=== PATIENT | female | born 1950 | race Caucasian/White ===

== ENCOUNTER 2017-07-29 03:00 | Outpatient (CLI) | payer MEDICARE, MEDICAID | END 2017-07-29 03:01 | disposition home or self-care (01) | LOC: BICRAD 03:00 | PROVIDERS: ATTEND Nurse Practitioner Family | DX: J40 Bronchitis, not specified as acute or chronic (principal); R92.8 Other abnormal and inconclusive findings on diagnostic imaging of breast | CPT/HCPCS: 71046 ==

== ENCOUNTER 2017-10-01 11:38 | Emergency (ER) | payer MEDICARE, MEDICAID ==
[2017-10-01] MEDS ORDERED: methylPREDNISolone Sod Succ/PF 125 MG/2 ML VIAL ONE (11:57)
[2017-10-01 12:19] LABS: #Lymphocytes 1.1 thou/uL (1.20-3.40); #Monocytes 1.3 thou/uL (0.11-0.59); #Neutrophils 13.8 thou/uL (1.40-6.50); %Basophils 0.2 % (0.0-1.0); %Eosinophils 0.2 % (0.0-10.0); %Lymphocytes 6.7 % (21.0-51.0); %Monocytes 7.9 % (0.0-10.0); Hemoglobin 12.8 g/dL (12.0-16.0); Mean Corpuscular HGB CONC 33.7 g/dL (32.0-36.0); Mean Corpuscular Hemoglobin 31.9 pg (27.0-31.0); Mean Corpuscular Volume 94.8 fl (81.0-99.0); Mean Platelet Volume 8.1 fL (7.4-10.4); Platelet Count 244 thou/uL (130-400); RBC Distribution Width 12.7 % (11.5-14.5); Red Blood Cell (RBC) Count 4.02 mill/uL (4.20-5.40); White Blood Cell (WBC) Count 16.2 thou/uL (4.8-10.8)
--- NOTE | 2017-10-01 12:35 | RAD ---
PORTABLE CHEST ONE VIEW: Date: 10-01-17 Time: 12:25 p.m. History: Dyspnea. FINDINGS: Comparison is made with exam of 03-03-17. Changes of COPD are again seen. The heart size is stable. The aorta is tortuous. Scoliosis of the spi ne is again seen. No lobar consolidation, pneumothoraces or pleural effusions are identified. IMPRESSION: COPD. No evidence of acute process. POS: C
[2017-10-01 12:44] LABS: Troponin I Less than 0.010 ng/mL (< 0.028)
[2017-10-01 12:48] LABS: CKMB 7.6 ng/mL (0-6.6)
[2017-10-01 13:00] LABS: ALT (SGPT) 20 U/L (8-55); AST (SGOT) 35 U/L (5-34); Albumin 3.8 g/dL (3.4-4.8); Alkaline Phosphatase 84 U/L (40-150); Anion Gap 18 mmol/L (10-20); BUN (Urea Nitrogen) 11 mg/dL (9.8-20.1); Bilirubin, Total 1.1 mg/dL (0.2-1.2); Calc. Creatinine Clearance 0 mL/min (70-130); Calcium 9.4 mg/dL (7.8-10.44); Carbon Dioxide 23 mmol/L (23-31); Chloride 87 mmol/L (98-107); Estimated GFR-MDRD Greater than 90; Glucose 82 mg/dL (80-115); Potassium 3.7 mmol/L (3.5-5.1); Protein, Total 7.8 g/dL (6.0-8.3); Sodium 124 mmol/L (136-145)
[2017-10-01] MEDS ORDERED: Azithromycin 250 MG TAB ONE (15:37)
== END 2017-10-01 16:14 | disposition home or self-care (01) ==
LOC: ERS 11:38
DX: J44.9 Chronic obstructive pulmonary disease, unspecified (principal); F32.9 Major depressive disorder, single episode, unspecified; Z87.891 Personal history of nicotine dependence
CPT/HCPCS: 71045; 80053; 82553; 84484; 85025; 93005; 94640; 96374; J2930; J7620

== ENCOUNTER 2017-10-31 07:33 | Inpatient (IN) | payer MEDICARE, MEDICAID ==
[2017-10-31 07:59] LABS: #Basophils 0.1 thou/uL (0.0-0.2); #Eosinphils 0.6 thou/uL (0.0-0.7); #Lymphocytes 1.6 thou/uL (1.20-3.40); #Monocytes 0.9 thou/uL (0.11-0.59); #Neutrophils 5.7 thou/uL (1.40-6.50); %Basophils 0.7 % (0.0-1.0); %Lymphocytes 18.2 % (21.0-51.0); %Monocytes 10.4 % (0.0-10.0); %Neutrophils 63.6 % (42.0-75.0); Mean Corpuscular HGB CONC 33.1 g/dL (32.0-36.0); Mean Corpuscular Hemoglobin 30.6 pg (27.0-31.0); Mean Corpuscular Volume 92.6 fl (81.0-99.0); Mean Platelet Volume 6.6 fL (7.4-10.4); Platelet Count 299 thou/uL (130-400); RBC Distribution Width 12.4 % (11.5-14.5); Red Blood Cell (RBC) Count 4.57 mill/uL (4.20-5.40); White Blood Cell (WBC) Count 8.9 thou/uL (4.8-10.8)
--- NOTE | 2017-10-31 08:18 | RAD ---
RADIOGRAPH CHEST 2 VIEWS: Date: 10/31/17 Time: 0809 hours HISTORY: 67-year-old female with dyspnea and hypoxemia. FINDINGS: There is hyperinflation of the lungs, consistent with COPD. There is no evidence of air space densit y, pneumothorax, or pulmonary edema. There is no cardiomegaly or pleural effusion. There is no inter sergio change since 10/01/17. IMPRESSION: 1. No acute cardiopulmonary findings. 2. Emphysema. di [] POS: MAGGI
[2017-10-31 08:23] LABS: ALT (SGPT) 29 U/L (8-55); AST (SGOT) 36 U/L (5-34); Albumin 4.2 g/dL (3.4-4.8); Alkaline Phosphatase 73 U/L (40-150); Anion Gap 13 mmol/L (10-20); BUN (Urea Nitrogen) 11 mg/dL (9.8-20.1); Bilirubin, Total 0.7 mg/dL (0.2-1.2); CK (CPK) 336 U/L (29-168); Calc. Creatinine Clearance 0 mL/min (70-130); Calcium 9.8 mg/dL (7.8-10.44); Carbon Dioxide 27 mmol/L (23-31); Chloride 93 mmol/L (98-107); Estimated GFR-MDRD 90; Globulin 3.7 g/dL (2.4-3.5); Glucose 105 mg/dL (80-115); Potassium 3.2 mmol/L (3.5-5.1); Protein, Total 7.9 g/dL (6.0-8.3); Sodium 130 mmol/L (136-145)
[2017-10-31 08:26] LABS: Troponin I Less than 0.010 ng/mL (< 0.028)
[2017-10-31 08:39] LABS: Actual Bicarbonate (HCO3a) 27.2 mEq/L (22-26); CO2 Tension 44.9 mmHg (35.0-45.0); Hemoglobin (Hb) 13.6 g/dL (12.0-16.0); O2 Tension (PaO2) 122.7 mmHg (80.0-100.0)
[2017-10-31 08:40] LABS: ALV-art Gradient 104.775 (0-20); Analyzer IN Cardio ER; Calcium, Ionized 1.2 mmol/L (1.12-1.30); Puncture Site LRA
[2017-10-31] MEDS ORDERED: Albuterol Sulfate 2.5 mg/3 ml Neb ONE (08:44)
[2017-10-31] MEDS ORDERED: Dexamethasone 10 MG/ML VIAL ONE (08:58)
[2017-10-31] MEDS ORDERED: Magnesium Sulfate 2 GM/100 ML BAG ONE (08:58)
[2017-10-31 09:16] LABS: CKMB 7.7 ng/mL (0-6.6)
--- NOTE | 2017-10-31 10:46 | HP ---
PRIMARY CARE PHYSICIAN: Shaista Young REASON FOR ADMISSION: Acute hypoxic respiratory failure, respiratory distress due to COPD exacerbati on. HISTORY OF PRESENT ILLNESS: A 67-year-old female who has underlying history of severe COPD with a hi story of anxiety and depression who presented to the emergency room with a complaint of increasing sh ortness of breath. The patient reports that for the last 3 months she has increasing shortness of br eath. She was trying to use her inhalers at home, but that was not improving. The patient had a wor st last month. The patient was trying to get oxygen and trying to get a pulmonology appointment. Th e patient was also trying all her inhalers and she was not getting better. She was becoming day by d ay more and more weak to the point last night she was not able to take any deep breath. Even she was not able to talk. She was in respiratory distress and that is why she has to call paramedics. The patient was hypoxic and saturation was around 85%. She was tripoding. She was wheezing all over in her lungs. She was not able to talk in full sentences. The patient appeared in respiratory distress . The patient required BiPAP in the emergency room. The patient was given several rounds of DuoNeb therapy, as well as magnesium sulfate, empiric antibiotic therapy with Levaquin 750 mg, Decadron 10 m g. Despite all this aggressive treatment in the emergency room, the patient was still wheezing all o ravi her lung ca and she was still in respiratory distress and she was not able to talk in full se ntences and that is why we decided to keep this patient in IMCU with BiPAP therapy. The patient denies any UTI symptoms. She denies any constipation, diarrhea, melena, hematochezia. S he denies any hemoptysis. She does report chest pain which is related with coughing. The patient's appetite is also relatively poor and she is also losing weight. She denies any melena or hematochezi a. She denies any UTI symptoms. She denies any headache or focal motor or sensory symptoms. ALLERGIES: No known drug allergy. CURRENT HOME MEDICATIONS: The patient did not bring her home medication. Based on our hospital [address], the patient is on following medications; Ventolin HFA 2 puffs q.6 hourly p.r.n., Xanax 0.5 mg p.o . q.8h. p.r.n., Symbicort 2 puff inhalation b.i.d., Pletal 50 mg p.o. b.i.d., Prozac 40 mg p.o. at be dtime, DuoNeb q.6 hourly p.r.n., lansoprazole 30 mg p.o. daily, Synthroid 50 mcg p.o. daily, Singulai r 10 mg p.o. daily, Spiriva 18 mcg inhalation daily, tramadol 50 mg q.6 hourly p.r.n., trazodone 100 mg p.o. at bedtime. PAST MEDICAL HISTORY: Severe chronic obstructive pulmonary disease, history of erosive gastritis on lansoprazole, chronic hepatitis C, history of cannabinoid abuse, hypothyroidism, gastroesophageal ref lux disease, peripheral vascular disease, chronic low back pain, moderate protein calorie malnutritio n, diverticulosis. PAST PSYCHIATRIC HISTORY: Anxiety and depression. PAST SURGICAL HISTORY: Cholecystectomy for cholecystitis, carpal tunnel repair, tubal ligation. SOCIAL HISTORY: The patient is a former smoker. She is periodically abusing marijuana. She cut Flickme smoking. She denies any alcohol abuse. She denies any other illicit drug abuse. FAMILY HISTORY: Father from lung cancer by age of 60 and mother had advanced COPD as well. REVIEW OF SYSTEMS: The following complete review of systems was negative, unless otherwise mentioned in the HPI or below: Constitutional: Weight loss or gain, ability to conduct usual activities. Skin: Rash, itching. Eyes: Double vision, pain. ENT/Mouth: Nose bleeding, neck stiffness, pain, tenderness. Cardiovascular: Palpitations, dyspnea on exertion, orthopnea. Respiratory: Shortness of breath, wheezing, cough, hemoptysis, fever or night sweats. Gastrointestinal: Poor appetite, abdominal pain, heartburn, nausea, vomiting, constipation, or diarrhea. Genitourinary: Urgency, frequency, dysuria, nocturia. Musculoskeletal: Pain, swelling. Neurologic/Psychiatric: Anxiety, depression. Allergy/Immunologic: Skin rash, bleeding tendency. Please see my HPI for pertinent positive and negative. All other review of systems reviewed and nega tive except as mentioned in the HPI. EMERGENCY ROOM COURSE: The patient was treated in the emergency room with the DuoNeb, albuterol nebu lization, Decadron 10 mg, IV fluid, Levaquin 750 mg, magnesium sulfate. PHYSICAL EXAMINATION: VITAL SIGNS: On arrival, blood pressure 157/97, pulse 92, respiratory rate 26, temperature 97.7, sat uration 98% on BiPAP, weight 54.4 kilograms. GENERAL: The patient is currently on BiPAP. She is in respiratory distress. She is tachycardic, ta chypneic. She is not able to talk in full sentence. HEENT: Head; normocephalic, atraumatic. Eyes: Pupils round, reactive to light. Extraocular muscle intact. ENT: Oropharynx within normal limits. Moist mucous membranes. No oral lesion, no pharyng eal erythema, no exudate. NECK: Supple, no JVD, no thyromegaly, no carotid bruit, no jugular venous distention. LUNGS: Bilateral end expiratory wheezing heard, bilateral reduced air entry, no accessory muscles of respiration in use. CARDIAC: S1, S2 regular, tachycardia, no murmur, no gallop, no rub. ABDOMEN: Soft, bowel sounds present, nontender, nondistended. No organomegaly, no mass, no suprapub ic tenderness. BACK: Unremarkable, no CVA tenderness. EXTREMITIES: Upper extremity passive movement of all joints are normal. Lower extremities: No bernard a. Good peripheral pulsation. SKIN: No skin rash. HEMATOLOGICAL: No lymphadenopathy. NEUROLOGIC: The patient is currently alert, awake, no focal neurological deficit noted. She moves a ll 4 limbs. SIGNIFICANT LABS: EKG showing normal sinus rhythm, no acute ischemic changes. Chest x-ray: COPD ty pe of changes noted, but no acute process. CBC: WBC 8.9, hemoglobin 14.0, platelet 299. ABG; pH 7.40, CO2 44.9, bicarbonate 27.2, O2 122.7. BMP; sodium 138, potassium 3.2, chloride 93, carbon dioxide 27, anion gap 13, BUN 11, creatinine 0.66 , glucose 105, calcium 9.8. LFTs: AST 36, ALT 29, alkaline phosphatase 73, albumin 4.2. CK 336, CK-MB 7.7, troponin I less than 0.010. ASSESSMENT AND PLAN: 1. Acute respiratory distress due to acute on chronic obstructive pulmonary disease exacerbation ass ociated with acute hypoxic respiratory failure. This patient is requiring BiPAP. She has not improv ement despite maximum treatment in the emergency room. She will require admission for her chronic ob structive pulmonary disease exacerbation. This patient may end up with requirement for home oxygen on discharge. 2. Acute respiratory failure with hypoxia. Currently, the patient is requiring BiPAP. We will try to wean BiPAP as needed and as tolerated and will continue with oxygen to maintain saturation above 9 2%. We will assess while in hospital for need of home oxygen therapy. Pulmonary team will be consul anthony. 3. Chronic obstructive pulmonary disease exacerbation. As usual, the patient will be treated with D uoNeb every 4 hourly and as needed basis along with Pulmicort nebulization twice daily, Solu-Medrol 4 0 mg IV q.6h., Mucinex 600 mg twice daily, Singulair 10 mg p.o. daily and symptomatic treatment for c ough with Robitussin and empiric antibiotic therapy with levofloxacin 500 mg IV daily. 4. Moderate protein calorie malnutrition, likely due to underlying chronic obstructive pulmonary dis ease with cachexia. The patient will need nutritional supplement with Ensure Enlive three times teofilo y. 5. Gastroesophageal reflux disease. We will continue Protonix 40 mg p.o. daily. 6. Hypothyroidism. We will continue Synthroid 50 mcg p.o. daily. 7. Anxiety and depression. We will continue Xanax 0.5 mg t.i.d. p.r.n. along with the Prozac 40 mg p.o. daily. 8. Peripheral vascular disease. We will continue Pletal 50 mg twice daily. 9. Abnormal electrolytes with hyponatremia and hypokalemia. The patient will be given IV fluid with potassium at 70 mL per hour. 10. Rhabdomyolysis, likely due to muscle use from increased respiratory rate. We will do serial car diac enzymes and repeat CK level tomorrow. 11. Deep venous thrombosis prophylaxis. Lovenox 30 mg subcutaneously daily. 12. Gastrointestinal prophylaxis, Protonix 40 mg p.o. daily. CODE STATUS: The patient is FULL CODE. Patient does not have any surrogate decision maker. Disposition plan based on clinical course. We are expecting patient's stay in hospital more than 2 m idnights. Plan of care discussed with the patient in detail.
[2017-10-31] MEDS ORDERED: Artificial Tear Sol 15 ML BOT EA EYE PRN (10:59)
[2017-10-31] MEDS ORDERED: Mag-Al 1200 mg/1200 mg/30 ML UDCUP PO PRN (10:59)
[2017-10-31] MEDS ORDERED: Eucerin (Mineral Oil/Petrolatum,White) 30 gm Jar TOP PRN (10:59)
[2017-10-31] MEDS ORDERED: Loperamide HCl 2 MG CAP PO PRN (10:59)
[2017-10-31] MEDS ORDERED: hydrALAZINE 20 MG/ML VIAL SLOW IVP PRN (10:59)
[2017-10-31] MEDS ORDERED: Ondansetron ODT 4 MG TAB PO PRN (10:59)
[2017-10-31] MEDS ORDERED: Diabetic Tussin 200 MG/10 ML UDCUP PO PRN (10:59)
[2017-10-31] MEDS ORDERED: Chloraseptic Spray 180 ml Bottle PO PRN (10:59)
[2017-10-31] MEDS ORDERED: Milk Of Magnesia 30 ML UDCUP PO PRN (10:59)
[2017-10-31] MEDS ORDERED: Acetaminophen 325 MG TAB PO PRN (10:59)
[2017-10-31] MEDS ORDERED: Bisacodyl 10 MG SUPP PR PRN (10:59)
[2017-10-31] MEDS ORDERED: Ondansetron HCl/PF 4 MG/2 ML Vial IVP PRN (10:59)
[2017-10-31] MEDS ORDERED: Loratadine 10 MG TAB PO PRN (10:59)
[2017-10-31] MEDS: ALPRAZolam 0.25 MG TAB PO PRN ×2 (11:21→19:46)
[2017-10-31] MEDS: NS 0.9% w/ 20 MEQ KCL 1,000 ML/1,000 ML BAG IV SCH (11:22)
[2017-10-31] MEDS: Budesonide 0.5 MG/2 ML NEB INH SCH (19:01)
[2017-10-31] MEDS: guaiFENesin ER 600 MG TAB PO SCH (19:46)
[2017-10-31] MEDS: Cilostazol 100 MG TAB PO SCH (19:46)
[2017-10-31] MEDS: Montelukast Sodium 10 mg Tablet PO SCH (19:46)
[2017-10-31] MEDS ORDERED: Ibuprofen 800 MG TAB PO PRN (20:19)
--- NOTE | 2017-10-31 23:40 | CON ---
DATE OF CONSULTATION: 10/31/2017 Irene Beyer is a 67-year-old female who has COPD. I think she is regular. He has never seen a [facility] g specialist. She presented with several days of shortness of breath that was severe on top of several months of sh ortness of breath. She is not smoking. She quit cold turkey, I believe 3 years ago. When I asked h er how she quit suddenly, she informed me that she simply started smoking more marijuana, which kille d her craving for tobacco. She says she is feeling better than when she arrived. PAST MEDICAL HISTORY: Remarkable for; 1. Hypothyroidism on replacement. 2. History of gastritis. 3. History of hepatitis C. 4. History of reflux disease. 5. History of peripheral vascular disease. 6. History of chronic back pain. 7. History of diverticulosis. 8. History of cholecystectomy. 9. History of carpal tunnel surgery and tubal ligation. SOCIAL HISTORY: As mentioned, she is a nonsmoker. She frequently uses marijuana. She does not drin k. She has not been using other drugs. ALLERGIES: She reports no drug allergies. FAMILY HISTORY: Negative for lung disease at an early age. There is a family history of lung cancer . Mother at 60 with lung cancer and COPD. REVIEW OF SYSTEMS: Ten-point review of system is otherwise negative. She denies hemoptysis. PHYSICAL EXAMINATION: VITAL SIGNS: She is afebrile, heart rate 75, respiratory rate is 18, oximetry is 99 on 2 liter cannu la. Blood pressure 136/76. She appears older than her age. HEENT: Pupils are equal. Sclerae is anicteric. NECK: Supple. No lymphadenopathy. LUNGS: Remarkable for diffuse wheezes. HEART: Regular rhythm. No S3. ABDOMEN: Soft and nontender. EXTREMITIES: Without clubbing, cyanosis, or edema. NEUROLOGIC: Nonfocal. She has no signs of muscle fatigue and was not labored when I examined her. IMPRESSION: Chronic obstructive pulmonary disease exacerbation. I reviewed her chest radiograph, se e no mass lesions, suggestive of malignancy. I see nothing suggestive of pneumonia. Her ongoing cannabis use, probably contributes to her ongoing obstructive lung disease symptoms. She has improved based on the history provided of what she looked like when she presented. She can be treated with p.o. antimicrobial therapy. She should continue with her nebulizer treatments. She should continue with her steroids. Other medicines should be continued. She probably will be a candidate for discharge for at least 48 hours given the severity of her presen tation. This is a 50-minute consult with greater than 50% of the time was spent on unit coordinating care.
[2017-11-01] MEDS: NS 0.9% w/ 20 MEQ KCL 1,000 ML/1,000 ML BAG IV SCH ×2 (00:51→13:09)
[2017-11-01 04:38] LABS: #Lymphocytes 0.4 thou/uL (1.20-3.40); #Monocytes 0.6 thou/uL (0.11-0.59); #Neutrophils 10.7 thou/uL (1.40-6.50); %Basophils 0.1 % (0.0-1.0); %Eosinophils 0.1 % (0.0-10.0); %Lymphocytes 3.8 % (21.0-51.0); %Monocytes 4.8 % (0.0-10.0); %Neutrophils 91.3 % (42.0-75.0); Hemoglobin 12.2 g/dL (12.0-16.0); Mean Corpuscular HGB CONC 32.9 g/dL (32.0-36.0); Mean Corpuscular Hemoglobin 30.7 pg (27.0-31.0); Mean Corpuscular Volume 93.5 fl (81.0-99.0); Mean Platelet Volume 6.7 fL (7.4-10.4); Platelet Count 255 thou/uL (130-400); RBC Distribution Width 12.3 % (11.5-14.5); Red Blood Cell (RBC) Count 3.97 mill/uL (4.20-5.40); White Blood Cell (WBC) Count 11.7 thou/uL (4.8-10.8)
[2017-11-01 04:59] LABS: ALT (SGPT) 22 U/L (8-55); AST (SGOT) 29 U/L (5-34); Albumin 3.8 g/dL (3.4-4.8); Alkaline Phosphatase 65 U/L (40-150); Anion Gap 11 mmol/L (10-20); BUN (Urea Nitrogen) 9 mg/dL (9.8-20.1); Bilirubin, Total 0.4 mg/dL (0.2-1.2); Calc. Creatinine Clearance 77 mL/min (70-130); Calcium 8.9 mg/dL (7.8-10.44); Carbon Dioxide 27 mmol/L (23-31); Chloride 100 mmol/L (98-107); Estimated GFR-MDRD Greater than 90; Glucose 117 mg/dL (80-115); Potassium 4.1 mmol/L (3.5-5.1); Protein, Total 6.8 g/dL (6.0-8.3); Sodium 134 mmol/L (136-145)
[2017-11-01] MEDS: Levothyroxine Sodium 50 MCG TAB PO SCH (05:53)
[2017-11-01] MEDS: traMADol HCl 50 MG TAB PO PRN ×2 (05:55→17:15)
[2017-11-01] MEDS: Cilostazol 100 MG TAB PO SCH ×2 (08:08→20:17)
[2017-11-01] MEDS: FLUoxetine HCl 20 MG CAP PO SCH (08:08)
[2017-11-01] MEDS: Enoxaparin Sodium 30 MG/0.3 ML SYRINGE SC SCH (08:09)
[2017-11-01] MEDS: guaiFENesin ER 600 MG TAB PO SCH ×2 (08:09→20:17)
[2017-11-01] MEDS: ALPRAZolam 0.25 MG TAB PO PRN ×3 (08:17→22:11)
[2017-11-01] MEDS: Budesonide 0.5 MG/2 ML NEB INH SCH ×2 (09:00→18:52)
--- NOTE | 2017-11-01 11:34 | PDOC.PN ---
- Subjective Encounter Start Date: 11/01/17 Encounter Start Time: 10:45 Subjective: breathing better but still sob, no chest pain -: is off bipap - Objective Resuscitation Status: Resuscitation Status FULL:Full Resuscitation MAR Reviewed: Yes Vital Signs & Weight: Vital Signs (12 hours) Temp Pulse Resp BP Pulse Ox 11/01/17 09:07 99 11/01/17 09:00 95 28 H 99 11/01/17 08:00 98.1 F 94 26 H 96 11/01/17 07:00 98.1 F 94 26 H 147/87 H 96 11/01/17 04:00 97.4 F L 98 18 128/81 96 11/01/17 02:08 104 H 24 H 92 L 10/31/17 23:59 97.5 F L 107 H 19 127/68 95 Weight Weight 128 lb 6.4 oz I&O: 10/31/17 11/01/17 11/02/17 06:59 06:59 06:59 Intake Total 2145 Output Total 1800 Balance 345 Result Diagrams: 11/01/17 04:23 11/01/17 04:23 Phys Exam - Physical Examination HEENT: PERRLA, moist MMs Neck: no JVD, supple Respiratory: no rales, wheezing present Cardiovascular: RRR, no significant murmur, no rub Gastrointestinal: soft, non-tender, positive bowel sounds Musculoskeletal: no edema, pulses present Neurological: non-focal, moves all 4 limbs Psychiatric: normal affect, A&O x 3 Dx/Plan (1) COPD exacerbation Code(s): J44.1 - CHRONIC OBSTRUCTIVE PULMONARY DISEASE W (ACUTE) EXACERBATION Status: Acute (2) Acute respiratory failure with hypoxia Code(s): J96.01 - ACUTE RESPIRATORY FAILURE WITH HYPOXIA Status: Acute Comment: resolving (3) Chronic hepatitis Code(s): K73.9 - CHRONIC HEPATITIS, UNSPECIFIED Status: Chronic Comment: C (4) PVD (peripheral vascular disease) Code(s): I73.9 - PERIPHERAL VASCULAR DISEASE, UNSPECIFIED Status: Chronic (5) Malnutrition of moderate degree Code(s): E44.0 - MODERATE PROTEIN-CALORIE MALNUTRITION Status: Chronic (6) Hypothyroidism Code(s): E03.9 - HYPOTHYROIDISM, UNSPECIFIED Status: Chronic Qualifiers: Hypothyroidism type: unspecified Qualified Code(s): E03.9 - Hypothyroidism , unspecified - Plan on levaquin, nebs and solumedrol -: is still sob -: to mobilize more, oob to chair -: on iv hydration to help bring up sputum * . Review of Systems - Medications/Allergies Allergies/Adverse Reactions: Allergies Allergy/AdvReac Type Severity Reaction Status Date / Time No Known Allergies Allergy Verified 03/07/13 19:42 Medications: Current Medications Acetaminophen (Tylenol) 650 mg PO Q4H PRN PRN Reason: Headache/Fever or Pain Al Hydroxide/Mg Hydroxide (Maalox) 30 ml PO Q6H PRN PRN Reason: Heartburn or Indigestion Albuterol/Ipratropium (Duoneb) 3 ml NEB [id number] [facility] Last Admin: 11/01/17 09:00 Dose: 3 ml Albuterol/Ipratropium (Duoneb) 3 ml NEB [id number] PRN PRN Reason: SOB &/or Wheezing Alprazolam (Xanax) 0.25 mg PO TIDPRN PRN PRN Reason: Anxiety Last Admin: 11/01/17 08:17 Dose: 0.25 mg Artificial Tears (Tears Renewed 15ml Bottle) 0 drop EA EYE PRN PRN PRN Reason: Dry Eyes Bisacodyl (Dulcolax) 10 mg AK Q24H PRN PRN Reason: Constipation Budesonide (Pulmicort Neb Solution) 0.5 mg INH BID-RT [facility] Last Admin: 11/01/17 09:00 Dose: 0.5 mg Cilostazol (Pletal) 50 mg PO BID [facility] Last Admin: 11/01/17 08:08 Dose: 50 mg Enoxaparin Sodium (Lovenox) 30 mg SC 0900 [facility] Last Admin: 11/01/17 08:09 Dose: 30 mg Fluoxetine HCl (Prozac) 40 mg PO DAILY [facility] Last Admin: 11/01/17 08:08 Dose: 40 mg Guaifenesin (Robitussin Sf) 200 mg PO Q4H PRN PRN Reason: Cough Guaifenesin (Mucinex) 600 mg PO Q12HR [facility] Last Admin: 11/01/17 08:09 Dose: 600 mg Hydralazine HCl (Apresoline) 10 mg SLOW IVP Q4H PRN PRN Reason: Systolic BP > 180 Potassium Chloride/Sodium Chloride (Ns 0.9% W/ 20 Meq Kcl) 1,000 ml in 1,000 mls @ 75 mls/hr IV .[id number] [facility] Last Admin: 11/01/17 00:51 Dose: 1,000 mls Ibuprofen (Motrin) 800 mg PO Q8H PRN PRN Reason: Pain Last Admin: 10/31/17 20:27 Dose: 800 mg Levofloxacin (Levaquin) 500 mg PO 0600 [facility] Last Admin: 11/01/17 05:53 Dose: 500 mg Levothyroxine Sodium (Synthroid) 50 mcg PO 0600 [facility] Last Admin: 11/01/17 05:53 Dose: 50 mcg Loperamide HCl (Imodium) 2 mg PO PRN PRN PRN Reason: Diarrhea/Loose Stools Loratadine (Claritin) 10 mg PO DAILYPRN PRN PRN Reason: Sinus Symptoms Magnesium Hydroxide (Milk Of Magnesium) 30 ml PO DAILYPRN PRN PRN Reason: Constipation Methylprednisolone Sodium Succinate (Solu-Medrol) 40 mg IVP Q6HR [facility] Last Admin: 11/01/17 05:53 Dose: 40 mg Mineral Oil/White Petrolatum (Eucerin Cream) 0 gm TOP BIDPRN PRN PRN Reason: Dry Skin Montelukast Sodium (Singulair) 10 mg PO QPM [facility] Last Admin: 10/31/17 19:46 Dose: 10 mg Ondansetron HCl (Zofran Odt) 4 mg PO Q6H PRN PRN Reason: Nausea/Vomiting Ondansetron HCl (Zofran) 4 mg IVP Q6H PRN PRN Reason: Nausea/Vomiting Pantoprazole Sodium (Protonix) 40 mg PO DAILY [facility] Last Admin: 11/01/17 08:08 Dose: 40 mg Phenol (Chloraseptic [place] 180 Ml Bot) 0 ml PO PRN PRN PRN Reason: Sore Throat Senna (Senokot) 2 tab PO HSPRN PRN PRN Reason: Constipation Sodium Chloride ([place] Nasal [place] 0.65%) 0 ml EA NARE QIDPRN PRN PRN Reason: Nasal Congestion Tramadol HCl (Ultram) 50 mg PO QIDPRN PRN PRN Reason: Pain Last Admin: 11/01/17 05:55 Dose: 50 mg
[2017-11-01] MEDS: Montelukast Sodium 10 mg Tablet PO SCH (20:17)
--- NOTE | 2017-11-01 20:57 | PRG ---
DATE OF SERVICE: 11/01/2017 SUBJECTIVE: Irene Beyer has no new complaints. She says she is feeling well. OBJECTIVE: VITAL SIGNS: She is afebrile, heart rate 95, respiratory rate 22, oximetry is 95 on 2 liters, blood pressure 146/76. LUNGS: Remarkable for decreased breath sounds at her bases. HEART: Regular rhythm. ABDOMEN: Soft. IMPRESSION: 1. Chronic obstructive pulmonary disease exacerbation, clinically improved. I think she can move of f of the intermediate care unit. No longer needs telemetry monitoring. 2. Acute on chronic respiratory failure, status post BiPAP. She said she would rather than wear that mask again, so the BiPAP will be discontinued. She did not wear it last night. 3. Advanced obstructive lung disease. 4. Peripheral vascular disease. 5. History of hepatitis C. 6. Hypothyroidism, on replacement. 7. Frequent marijuana use. PLAN: Transfer to a medical bed.
[2017-11-02] MEDS: traMADol HCl 50 MG TAB PO PRN (00:54)
[2017-11-02] MEDS: NS 0.9% w/ 20 MEQ KCL 1,000 ML/1,000 ML BAG IV SCH (03:00)
[2017-11-02] MEDS: ALPRAZolam 0.25 MG TAB PO PRN ×2 (04:25→18:07)
[2017-11-02] MEDS: Levothyroxine Sodium 50 MCG TAB PO SCH (04:25)
[2017-11-02] MEDS: Budesonide 0.5 MG/2 ML NEB INH SCH ×2 (06:59→18:33)
[2017-11-02] MEDS: FLUoxetine HCl 20 MG CAP PO SCH (08:14)
[2017-11-02] MEDS: Enoxaparin Sodium 30 MG/0.3 ML SYRINGE SC SCH (08:14)
[2017-11-02] MEDS: Cilostazol 100 MG TAB PO SCH ×2 (08:15→21:53)
[2017-11-02] MEDS: guaiFENesin ER 600 MG TAB PO SCH ×2 (08:17→21:54)
--- NOTE | 2017-11-02 12:20 | PDOC.PN ---
- Subjective Encounter Start Date: 11/02/17 Encounter Start Time: 10:00 Subjective: sob is better -: slept better last night -: is sitting on bed and watching tv - Objective Resuscitation Status: Resuscitation Status FULL:Full Resuscitation MAR Reviewed: Yes Vital Signs & Weight: Vital Signs (12 hours) Temp Pulse Resp BP Pulse Ox 11/02/17 11:00 98.0 F 100 16 152/83 H 100 11/02/17 10:39 94 28 H 11/02/17 08:00 98.0 F 100 16 135/70 100 11/02/17 07:00 93 L 11/02/17 06:56 93 28 H 93 L 11/02/17 04:00 97.8 F 87 20 147/86 H 98 11/02/17 02:12 20 Weight Weight 128 lb 6.4 oz I&O: 11/01/17 11/02/17 11/03/17 06:59 06:59 06:59 Intake Total 2145 1250 Output Total 1800 Balance 345 1250 Result Diagrams: 11/01/17 04:23 11/01/17 04:23 Phys Exam - Physical Examination HEENT: PERRLA, moist MMs Neck: no JVD, supple Respiratory: no rales, wheezing present Cardiovascular: RRR, no significant murmur Gastrointestinal: soft, non-tender, positive bowel sounds Musculoskeletal: no edema, pulses present Neurological: non-focal, moves all 4 limbs Psychiatric: A&O x 3 Dx/Plan (1) COPD exacerbation Code(s): J44.1 - CHRONIC OBSTRUCTIVE PULMONARY DISEASE W (ACUTE) EXACERBATION Status: Acute (2) Acute respiratory failure with hypoxia Code(s): J96.01 - ACUTE RESPIRATORY FAILURE WITH HYPOXIA Status: Acute Comment: resolving (3) Chronic hepatitis Code(s): K73.9 - CHRONIC HEPATITIS, UNSPECIFIED Status: Chronic Comment: C (4) PVD (peripheral vascular disease) Code(s): I73.9 - PERIPHERAL VASCULAR DISEASE, UNSPECIFIED Status: Chronic (5) Malnutrition of moderate degree Code(s): E44.0 - MODERATE PROTEIN-CALORIE MALNUTRITION Status: Chronic (6) Hypothyroidism Code(s): E03.9 - HYPOTHYROIDISM, UNSPECIFIED Status: Chronic Qualifiers: Hypothyroidism type: unspecified Qualified Code(s): E03.9 - Hypothyroidism , unspecified - Plan on solumedrol 20mg q6h, nebs -: empiric levaquin -: to amb with oxygen as tolerated -: dc iv fluids, encourage po intake * . Review of Systems - Medications/Allergies Allergies/Adverse Reactions: Allergies Allergy/AdvReac Type Severity Reaction Status Date / Time No Known Allergies Allergy Verified 03/07/13 19:42 Medications: Current Medications Acetaminophen (Tylenol) 650 mg PO Q4H PRN PRN Reason: Headache/Fever or Pain Last Admin: 11/02/17 00:55 Dose: 650 mg Al Hydroxide/Mg Hydroxide (Maalox) 30 ml PO Q6H PRN PRN Reason: Heartburn or Indigestion Albuterol/Ipratropium (Duoneb) 3 ml NEB [id number] [facility] Last Admin: 11/02/17 10:39 Dose: 3 ml Albuterol/Ipratropium (Duoneb) 3 ml NEB [id number] PRN PRN Reason: SOB &/or Wheezing Alprazolam (Xanax) 0.25 mg PO TIDPRN PRN PRN Reason: Anxiety Last Admin: 11/02/17 04:25 Dose: 0.25 mg Artificial Tears (Tears Renewed 15ml Bottle) 0 drop EA EYE PRN PRN PRN Reason: Dry Eyes Bisacodyl (Dulcolax) 10 mg NM Q24H PRN PRN Reason: Constipation Budesonide (Pulmicort Neb Solution) 0.5 mg INH BID-RT [facility] Last Admin: 11/02/17 06:59 Dose: 0.5 mg Cilostazol (Pletal) 50 mg PO BID [facility] Last Admin: 11/02/17 08:15 Dose: 50 mg Enoxaparin Sodium (Lovenox) 30 mg SC 0900 [facility] Last Admin: 11/02/17 08:14 Dose: 30 mg Fluoxetine HCl (Prozac) 40 mg PO DAILY [facility] Last Admin: 11/02/17 08:14 Dose: 40 mg Guaifenesin (Robitussin Sf) 200 mg PO Q4H PRN PRN Reason: Cough Guaifenesin (Mucinex) 600 mg PO Q12HR [facility] Last Admin: 11/02/17 08:17 Dose: 600 mg Hydralazine HCl (Apresoline) 10 mg SLOW IVP Q4H PRN PRN Reason: Systolic BP > 180 Ibuprofen (Motrin) 800 mg PO Q8H PRN PRN Reason: Pain Last Admin: 10/31/17 20:27 Dose: 800 mg Levofloxacin (Levaquin) 500 mg PO 0600 [facility] Last Admin: 11/02/17 04:25 Dose: 500 mg Levothyroxine Sodium (Synthroid) 50 mcg PO 0600 [facility] Last Admin: 11/02/17 04:25 Dose: 50 mcg Loperamide HCl (Imodium) 2 mg PO PRN PRN PRN Reason: Diarrhea/Loose Stools Loratadine (Claritin) 10 mg PO DAILYPRN PRN PRN Reason: Sinus Symptoms Magnesium Hydroxide (Milk Of Magnesium) 30 ml PO DAILYPRN PRN PRN Reason: Constipation Methylprednisolone Sodium Succinate (Solu-Medrol) 20 mg IVP Q6HR [facility] Last Admin: 11/02/17 04:26 Dose: 20 mg Mineral Oil/White Petrolatum (Eucerin Cream) 0 gm TOP BIDPRN PRN PRN Reason: Dry Skin Mometasone Furoate/Formoterol Fumar (Dulera 200 Mcg/5 Mcg Inhaler) 2 puff INH BID-RT [facility] Montelukast Sodium (Singulair) 10 mg PO QPM [facility] Last Admin: 11/01/17 20:17 Dose: 10 mg Ondansetron HCl (Zofran Odt) 4 mg PO Q6H PRN PRN Reason: Nausea/Vomiting Ondansetron HCl (Zofran) 4 mg IVP Q6H PRN PRN Reason: Nausea/Vomiting Pantoprazole Sodium (Protonix) 40 mg PO DAILY [facility] Last Admin: 11/02/17 08:17 Dose: 40 mg Phenol (Chloraseptic [place] 180 Ml Bot) 0 ml PO PRN PRN PRN Reason: Sore Throat Senna (Senokot) 2 tab PO HSPRN PRN PRN Reason: Constipation Sodium Chloride ([place] Nasal [place] 0.65%) 0 ml EA NARE QIDPRN PRN PRN Reason: Nasal Congestion Theophylline (Theophylline Sr) 400 mg PO DAILY [facility] Tramadol HCl (Ultram) 50 mg PO QIDPRN PRN PRN Reason: Pain Last Admin: 11/02/17 00:54 Dose: 50 mg
[2017-11-02] MEDS ORDERED: Sodium Chloride 0.9% 250 ML IV SCH (15:00)
[2017-11-02] MEDS ORDERED: Diltiazem 125 MG in Sodium Chloride 0.9% 100 ML IVPB SCH (15:00)
[2017-11-02] MEDS ORDERED: Diltiazem 125 MG in Sodium Chloride 0.9% 100 ML IVPB PRN (15:45)
--- NOTE | 2017-11-02 16:19 | PRG ---
DATE OF SERVICE: 11/02/2017 SUBJECTIVE: Irene Beyer's only complaint is a dry mouth. She says she always has this. OBJECTIVE: VITAL SIGNS: When I saw her this morning, she is afebrile, heart rate 100, respiratory rate 16, oxim etry is 100%, and blood pressure 152/83. LUNGS: Distant, clear. HEART: Regular rhythm. ABDOMEN: Soft. IMPRESSION: Chronic obstructive pulmonary disease exacerbation. She inquired about oxygen and I hav e explained oxygen will not eliminate her dyspnea on exertion. PLAN: I have added theophylline today to see if this will help with her dyspnea on exertion in javier tion to her steroids and nebulizer treatments. Overall, she appears to be clinically stable on evalu ating this one.
--- NOTE | 2017-11-02 18:19 | CON ---
DATE OF CONSULTATION: 11/02/2017 REASON FOR CONSULTATION: Tachycardia. HISTORY OF PRESENT ILLNESS: Mr. Beyer is a very pleasant 67-year-old white female who comes to the hospital for shortness of breath. She has history of COPD, was diagnosed with COPD exacerbation. S he was admitted and placed on antibiotics, IV steroids, and had already had some improvement. Today, she was evaluated by the hospitalist service and was found to have a heart rate in the 140s. She bangura d a stat EKG ordered and EKG showed possible SVT, so she was given several rounds of diltiazem and tr ansferred to telemetry. By the time she admitted to telemetry, she was in sinus rhythm, sinus tachyc ardia actually in the 110s. She has remained in sinus since. She tells me she has episodes of tachy cardia which happened mostly after she starts coughing and then they slowly come back down. She jamie es any syncope or presyncope. Has never had any problems with her heart in the past. PAST MEDICAL HISTORY: 1. COPD. 2. History of erosive gastritis. 3. Chronic hepatitis C. 4. Cannabis use in the past. 5. Hypothyroidism. 6. GERD. 7. Peripheral vascular disease. 8. Chronic low back pain. 9. Moderate protein-calorie malnutrition. 10. Diverticulosis. PAST SURGICAL HISTORY: 1. Cholecystectomy. 2. Carpal tunnel repair. 3. Tubal ligation. SOCIAL HISTORY: Former smoker. Uses marijuana periodically. No alcohol, no other drug use. FAMILY HISTORY: Noncontributory. OUTPATIENT MEDICATIONS: 1. Symbicort. 2. Albuterol inhaler. 3. Xanax. 4. Lansoprazole. 5. DuoNeb. 6. Fluoxetine. 7. Pletal. 8. Levothyroxine. 9. Singulair. 10. Trazodone. 11. Tramadol. ALLERGIES: No known drug allergies. REVIEW OF SYSTEMS: A 12-point review of systems was done and is all negative unless noted in the his tory of present illness. PHYSICAL EXAMINATION: VITAL SIGNS: Temperature 98.0, pulse 100 and then 146, respiratory rate 28, saturating 93% on 1 lite r, blood pressure 147/78. GENERAL: Awake, alert, oriented x3, in no distress. HEENT: Normocephalic, atraumatic. NECK: Supple. LUNGS: Have decreased breath sounds bilaterally. CARDIOVASCULAR: S1, S2. There is a grade 2-3/6 systolic murmur in the right upper sternal sternal b order. ABDOMEN: Soft with bowel sounds. EXTREMITIES: No edema. SKIN: Warm and dry. LABORATORY WORK: Reviewed. CBC was reviewed. ABG was reviewed. Chemistries were reviewed. Tropon ins were undetectable on admission yesterday and CK-MB was a little high at 7.7, sodium 134, potassiu m 4.1; however, was low 2 days ago at 3.2. Albumin of 4.2. Lipase was normal. BNP was 41. Influenza A and B were both negative and both cultures have remained negative for 48 hours. ASSESSMENT AND PLAN: 1. Tachycardia: On EKG, it is hard to see if this is just a sinus tachycardia versus supraventricul ar tachycardia or an atrial tachycardia. On telemetry, it is obvious that she is currently in sinus tachycardia, heart rates in 110s, so much lower than what she was before. Currently, we will continu e to monitor on telemetry to see if she has any obvious changes in her heart rate that would imply th at this is either an atrial tachycardia or supraventricular tachycardia. If we have any of these, we may consider consulting Electrophysiology for further evaluation. 2. We will get an echocardiogram as she has not had one in a long time. Thank you for letting us to participate in the care of your patient. We will continue to follow.
[2017-11-02] MEDS: Mometasone/Formoterol 120 PUFF INHALER INH SCH (18:35)
[2017-11-02] MEDS ORDERED: Non-Formulary Item 1 EACH (Fluoxetine Hcl [Fluoxetine Hcl] 40 MG) PO SCH (21:00)
[2017-11-02] MEDS: Cefdinir 300 MG CAP PO SCH (21:53)
[2017-11-02] MEDS: traZODone HCl 50 MG TAB PO SCH (21:54)
[2017-11-02] MEDS: Montelukast Sodium 10 mg Tablet PO SCH (21:54)
[2017-11-03] MEDS: ALPRAZolam 0.25 MG TAB PO PRN ×2 (02:24→16:10)
[2017-11-03 05:19] LABS: #Lymphocytes 1.1 thou/uL (1.20-3.40); #Monocytes 0.6 thou/uL (0.11-0.59); #Neutrophils 6.6 thou/uL (1.40-6.50); %Basophils 0.2 % (0.0-1.0); %Lymphocytes 13.4 % (21.0-51.0); %Neutrophils 79.4 % (42.0-75.0); Hemoglobin 12.5 g/dL (12.0-16.0); Mean Corpuscular HGB CONC 32.5 g/dL (32.0-36.0); Mean Corpuscular Hemoglobin 30.7 pg (27.0-31.0); Mean Corpuscular Volume 94.5 fl (81.0-99.0); Mean Platelet Volume 6.8 fL (7.4-10.4); Platelet Count 250 thou/uL (130-400); RBC Distribution Width 12.3 % (11.5-14.5); Red Blood Cell (RBC) Count 4.06 mill/uL (4.20-5.40); White Blood Cell (WBC) Count 8.3 thou/uL (4.8-10.8)
[2017-11-03 05:51] LABS: Anion Gap 14 mmol/L (10-20); BUN (Urea Nitrogen) 11 mg/dL (9.8-20.1); Calc. Creatinine Clearance 82 mL/min (70-130); Calcium 9.2 mg/dL (7.8-10.44); Carbon Dioxide 27 mmol/L (23-31); Chloride 96 mmol/L (98-107); Estimated GFR-MDRD Greater than 90; Glucose 115 mg/dL (80-115); Potassium 3.8 mmol/L (3.5-5.1); Sodium 133 mmol/L (136-145)
[2017-11-03] MEDS: Levothyroxine Sodium 50 MCG TAB PO SCH (06:10)
[2017-11-03] MEDS: Budesonide 0.5 MG/2 ML NEB INH SCH ×2 (08:23→18:21)
[2017-11-03] MEDS: Mometasone/Formoterol 120 PUFF INHALER INH SCH ×2 (08:27→19:28)
[2017-11-03] MEDS ORDERED: Montelukast Sodium 10 mg Tablet PO SCH (09:00)
[2017-11-03] MEDS ORDERED: Non-Formulary Item 1 EACH (Levothyroxine Sodium [Tirosint] 50 MCG) PO SCH (09:00)
[2017-11-03] MEDS: Cilostazol 100 MG TAB PO SCH ×2 (10:15→21:19)
[2017-11-03] MEDS: Cefdinir 300 MG CAP PO SCH ×2 (10:15→21:18)
[2017-11-03] MEDS: guaiFENesin ER 600 MG TAB PO SCH ×2 (10:28→21:18)
[2017-11-03] MEDS: FLUoxetine HCl 20 MG CAP PO SCH (10:28)
[2017-11-03] MEDS: Enoxaparin Sodium 30 MG/0.3 ML SYRINGE SC SCH (11:02)
--- NOTE | 2017-11-03 12:28 | PRG ---
DATE OF SERVICE: 11/03/2017 PHYSICAL EXAMINATION: VITAL SIGNS: Ms. Beyer is afebrile, heart rate is 98 to 106. She had no rhythm disturbances overn ight. Respiratory rate was 22, oximetry is 90-94 on room air, blood pressure 173/89. LUNGS: Her lungs are clear today. HEART: Regular rhythm. Abdomen: Soft. She says she became tachycardic while taking a shower yesterday, so they moved her to telemetry, no d ocumented rhythm disturbance was identified. LABORATORY DATA: White count 8.3, hemoglobin 12.5, platelets 250. Sodium 133, potassium 3.8, chlori de 96, bicarbonate 27, BUN 11, creatinine 0.6. IMPRESSION: 1. Chronic obstructive pulmonary disease. She has improved significantly. She does not qualify for oxygen and actually does not need oxygen wi th room air sat of 94. There is no benefit to prescribing oxygen in this setting. She will be switched to p.o. steroids today. She should go home with a steroid taper, theophylline a nd nebulizer treatments. She should be evaluated to enroll in pulmonary rehab in my opinion, althemmanuelg h whether or not she will agree to this is debatable. She also needs to abstain from marijuana as I have explained to her.
--- NOTE | 2017-11-03 13:26 | PDOC.PN ---
- Subjective Encounter Start Date: 11/03/17 Encounter Start Time: 10:40 Subjective: feels better this am, no chest pain -: has sob on minimal exertion - Objective Resuscitation Status: Resuscitation Status FULL:Full Resuscitation MAR Reviewed: Yes Vital Signs & Weight: Vital Signs (12 hours) Temp Pulse Resp BP Pulse Ox 11/03/17 12:07 113 H 20 94 L 11/03/17 10:55 97.6 F 106 H 22 H 173/89 H 90 L 11/03/17 08:28 94 L 11/03/17 08:27 98 16 94 L 11/03/17 08:23 98 16 94 L 11/03/17 08:00 97.3 F L 66 26 H 172/98 H 90 L 11/03/17 05:00 97.5 F L 89 16 143/73 H 94 L 11/03/17 02:21 101 H 22 H 91 L Weight Weight 118 lb 6.4 oz I&O: 11/02/17 11/03/17 11/04/17 06:59 06:59 06:59 Intake Total 1250 1760 Balance 1250 1760 Result Diagrams: 11/03/17 04:47 11/03/17 04:47 Phys Exam - Physical Examination HEENT: PERRLA, moist MMs Neck: no JVD, supple Respiratory: no wheezing, no rales rhonchi+ Cardiovascular: RRR, no significant murmur Gastrointestinal: soft, non-tender, positive bowel sounds Musculoskeletal: no edema, pulses present Neurological: non-focal, moves all 4 limbs Psychiatric: normal affect, A&O x 3 Dx/Plan (1) COPD exacerbation Code(s): J44.1 - CHRONIC OBSTRUCTIVE PULMONARY DISEASE W (ACUTE) EXACERBATION Status: Acute (2) Acute respiratory failure with hypoxia Code(s): J96.01 - ACUTE RESPIRATORY FAILURE WITH HYPOXIA Status: Resolved (3) Chronic hepatitis Code(s): K73.9 - CHRONIC HEPATITIS, UNSPECIFIED Status: Chronic Comment: C (4) PVD (peripheral vascular disease) Code(s): I73.9 - PERIPHERAL VASCULAR DISEASE, UNSPECIFIED Status: Chronic (5) Malnutrition of moderate degree Code(s): E44.0 - MODERATE PROTEIN-CALORIE MALNUTRITION Status: Chronic (6) Hypothyroidism Code(s): E03.9 - HYPOTHYROIDISM, UNSPECIFIED Status: Chronic Qualifiers: Hypothyroidism type: unspecified Qualified Code(s): E03.9 - Hypothyroidism , unspecified - Plan is on omnicef, solumedrol iv -: nebs -: encourage po intake -: to amb as tolerated, dc plan in am if stable -: is in sinus rhythm with no arythmias on telemetry * . Review of Systems - Medications/Allergies Allergies/Adverse Reactions: Allergies Allergy/AdvReac Type Severity Reaction Status Date / Time No Known Allergies Allergy Verified 03/07/13 19:42 Medications: Current Medications Acetaminophen (Tylenol) 650 mg PO Q4H PRN PRN Reason: Headache/Fever or Pain Last Admin: 11/02/17 00:55 Dose: 650 mg Al Hydroxide/Mg Hydroxide (Maalox) 30 ml PO Q6H PRN PRN Reason: Heartburn or Indigestion Albuterol/Ipratropium (Duoneb) 3 ml NEB [id number] [facility] Last Admin: 11/03/17 12:07 Dose: 3 ml Albuterol/Ipratropium (Duoneb) 3 ml NEB [id number] PRN PRN Reason: SOB &/or Wheezing Alprazolam (Xanax) 0.25 mg PO TIDPRN PRN PRN Reason: Anxiety Last Admin: 11/03/17 02:24 Dose: 0.25 mg Artificial Tears (Tears Renewed 15ml Bottle) 0 drop EA EYE PRN PRN PRN Reason: Dry Eyes Bisacodyl (Dulcolax) 10 mg NM Q24H PRN PRN Reason: Constipation Budesonide (Pulmicort Neb Solution) 0.5 mg INH BID-RT [facility] Last Admin: 11/03/17 08:23 Dose: 0.5 mg Cefdinir (Omnicef) 300 mg PO BID [facility] Last Admin: 11/03/17 10:15 Dose: 300 mg Cilostazol (Pletal) 50 mg PO BID [facility] Last Admin: 11/03/17 10:15 Dose: 50 mg Enoxaparin Sodium (Lovenox) 30 mg SC 0900 [facility] Last Admin: 11/03/17 11:02 Dose: 30 mg Fluoxetine HCl (Prozac) 40 mg PO DAILY [facility] Last Admin: 11/03/17 10:28 Dose: 40 mg Guaifenesin (Robitussin Sf) 200 mg PO Q4H PRN PRN Reason: Cough Guaifenesin (Mucinex) 600 mg PO Q12HR [facility] Last Admin: 11/03/17 10:28 Dose: 600 mg Hydralazine HCl (Apresoline) 10 mg SLOW IVP Q4H PRN PRN Reason: Systolic BP > 180 Diltiazem HCl 125 mg/ Sodium (Chloride) 125 mls @ 5 mls/hr IVPB INF PRN; Protocol; 5 MG/HR PRN Reason: for HR >150 Ibuprofen (Motrin) 800 mg PO Q8H PRN PRN Reason: Pain Last Admin: 10/31/17 20:27 Dose: 800 mg Levothyroxine Sodium (Synthroid) 50 mcg PO 0600 [facility] Last Admin: 11/03/17 06:10 Dose: 50 mcg Loperamide HCl (Imodium) 2 mg PO PRN PRN PRN Reason: Diarrhea/Loose Stools Loratadine (Claritin) 10 mg PO DAILYPRN PRN PRN Reason: Sinus Symptoms Magnesium Hydroxide (Milk Of Magnesium) 30 ml PO DAILYPRN PRN PRN Reason: Constipation Mineral Oil/White Petrolatum (Eucerin Cream) 0 gm TOP BIDPRN PRN PRN Reason: Dry Skin Mometasone Furoate/Formoterol Fumar (Dulera 200 Mcg/5 Mcg Inhaler) 2 puff INH BID-RT [facility] Last Admin: 11/03/17 08:27 Dose: 2 puff Montelukast Sodium (Singulair) 10 mg PO QPM [facility] Last Admin: 11/02/17 21:54 Dose: 10 mg Ondansetron HCl (Zofran Odt) 4 mg PO Q6H PRN PRN Reason: Nausea/Vomiting Ondansetron HCl (Zofran) 4 mg IVP Q6H PRN PRN Reason: Nausea/Vomiting Pantoprazole Sodium (Protonix) 40 mg PO DAILY [facility] Last Admin: 11/03/17 10:28 Dose: 40 mg Phenol (Chloraseptic [place] 180 Ml Bot) 0 ml PO PRN PRN PRN Reason: Sore Throat Prednisone (Prednisone) 40 mg PO QAM-[facility] Senna (Senokot) 2 tab PO HSPRN PRN PRN Reason: Constipation Sodium Chloride ([place] Nasal [place] 0.65%) 0 ml EA NARE QIDPRN PRN PRN Reason: Nasal Congestion Sodium Chloride (Flush - Normal Saline) 10 ml IVF Q12HR [facility] Sodium Chloride (Flush - Normal Saline) 10 ml IVF PRN PRN PRN Reason: Saline Flush Tramadol HCl (Ultram) 50 mg PO QIDPRN PRN PRN Reason: Pain Last Admin: 11/02/17 00:54 Dose: 50 mg Trazodone HCl (Desyrel) 100 mg PO HS [facility] Last Admin: 11/02/17 21:54 Dose: 100 mg
--- NOTE | 2017-11-03 13:35 | PDOC.CTH ---
Cardiology Progress Note - Subjective She is doing well. She bangura snot had any more episodes of tachycardia. breathing is overall better but still SOB with minimal exertion. - Objective Vital Signs Temp Pulse Resp BP Pulse Ox 11/03/17 12:07 113 H 20 94 L 11/03/17 10:55 97.6 F 106 H 22 H 173/89 H 90 L 11/03/17 08:28 94 L 11/03/17 08:27 98 16 94 L 11/03/17 08:23 98 16 94 L 11/03/17 08:00 97.3 F L 66 26 H 172/98 H 90 L 11/03/17 05:00 97.5 F L 89 16 143/73 H 94 L 11/03/17 02:21 101 H 22 H 91 L Weight 118 lb 6.4 oz 11/02/17 11/03/17 11/04/17 06:59 06:59 06:59 Intake Total 1250 1760 Balance 1250 1760 - Physical Examination General/Neuro: alert & oriented x3, NAD Neck: no JVD present Lungs: unlabored respirations, other: (Reduced breath sounds. ) Heart: RRR Abdomen: NT/ND Extremities: other: (no edema.) - Telemetry Telemetry Rhythm: S tach - Labs Result Diagrams: 11/03/17 04:47 11/03/17 04:47 Troponin/CKMB CK-MB (CK-2) 7.7 ng/mL (0-6.6) H* 10/31/17 07:50 Troponin I Less than 0.010 ng/mL (< 0.028) 10/31/17 07:50 - Assessment/Plan 1. Sinus tachycardia. 2. Possible SVT, will consult EP. 3. COPD exacerbation. PLAN: - EP consultation for possible SVT - Continue pulmonary toilet.
[2017-11-03] MEDS: Sodium Chloride 0.65% Nasal 44 ML BOT EA NARE PRN ×2 (15:31→21:19)
[2017-11-03] MEDS: Senokot 8.6 MG TAB PO PRN (16:10)
--- NOTE | 2017-11-03 19:12 | EKG ---
Test Reason : STAT Blood Pressure : / mmHG Vent. Rate : 141 BPM Atrial Rate : 141 BPM P-R Int : 000 ms QRS Dur : 076 ms QT Int : 290 ms P-R-T Axes : 000 214 -45 degrees QTc Int : 444 ms Supraventricular tachycardia Right superior axis deviation Abnormal ECG When compared with ECG of 31-OCT-2017 07:43, (Unconfirmed) Marked inferior changes now present and suggests ischemia or even possible subendocardial injury. Vent. rate has increased BY [address] now depressed in Inferior leads ST now depressed in Lateral leads T wave inversion now evident in Inferior leads Confirmed by JAGDISH RUTLEDGE ([id number]) on 11/03/2017 7:12:22 PM Referred By: AKIKO Confirmed By:JAGDISH RUTLEDGE
[2017-11-03] MEDS: Diltiazem HCl SR 60 mg Capsule PO SCH (21:19)
[2017-11-03] MEDS: Montelukast Sodium 10 mg Tablet PO SCH (21:19)
[2017-11-04] MEDS: traZODone HCl 50 MG TAB PO SCH ×2 (00:09→23:01)
[2017-11-04] MEDS: ALPRAZolam 0.25 MG TAB PO PRN ×3 (00:09→23:01)
[2017-11-04] MEDS: Levothyroxine Sodium 50 MCG TAB PO SCH (06:06)
[2017-11-04] MEDS: Mometasone/Formoterol 120 PUFF INHALER INH SCH ×2 (08:05→18:32)
[2017-11-04] MEDS: Budesonide 0.5 MG/2 ML NEB INH SCH ×2 (08:06→18:32)
--- NOTE | 2017-11-04 08:46 | CON ---
DATE OF CONSULTATION: 11/03/2017 ELECTROPHYSIOLOGY CONSULTATION REFERRING PHYSICIAN: Dr. Krueger. I am seeing Mrs. Beyer at our [facility] telemetry floor as an electrophysiology consultan t. Her problems are: 1. Tachycardia, appears to be sinus tachycardia. 2. Acute exacerbation. 3. History of peripheral vascular disease. 4. History of chronic hepatitis C. 5. Hypothyroidism. 6. History of diverticulosis and GERD. 7. Erosive gastritis. ALLERGIES: None noted. MEDICATIONS AT HOME: Included levothyroxine, trazodone, cilostazol, albuterol, ipratropium, [place], lansoprazole, tramadol, budesonide, fluoxetine, and alprazolam. SUBJECTIVE: Mrs. Beyer is here with symptoms of palpitations. This lady has had a history of COPD and now admitted with COPD exacerbation. She was treated with standard bronchodilator and also Solu -Medrol as well. Pulmonary team was consulted. She was needing a BiPAP while on secured entrance monitor, though she is persisting in rapid heartbeat up to 140 beats per minute, long RP, short [place] type of tac hycardia. I was consulted for further assessment. On further questioning, this lady seems to be doing better now after her initial respiratory symptoms resolved. She has no dizziness, loss of consciousness, no stroke-like symptoms, no neurological def icit, no fever, chills, cough, no PND, orthopnea and rest of review of systems otherwise unremarkable . PAST MEDICAL HISTORY: Significant for the above, also has history of chronic back pain, COPD, and an xiety disorder. PAST SURGICAL HISTORY: Significant for prior cholecystectomy, carpal tunnel repair and tubal ligatio n. SOCIAL HISTORY: Significant for prior smoking, occasional marijuana use. No ETOH or drug use noted. FAMILY HISTORY: Noncontributory. OBJECTIVE DATA: VITAL SIGNS: Blood pressure most recently 170/89, heart rate 106, respiratory rate was 22, temperatu re 97.6 degrees Fahrenheit. GENERAL: She is alert and oriented woman in no apparent distress. NECK: Supple. Jugular veins not distended. CHEST: Coarse, somewhat over-inflated appearing, diminished bronch sounds are heard. No crackles ar e appreciated. No wheezing are heard. CARDIOVASCULAR: Heart sounds are regular to rate and rhythm. No murmur or gallop. Mildly tachycard ic. ABDOMEN: Benign. Bowel sounds positive. EXTREMITIES: Lower extremities without edema, clubbing or cyanosis. Pulses are adequate. NEUROLOGIC: Patient nonfocal. MUSCULOSKELETAL: No joint deformities. SKIN: Without rash. LABORATORY DATA: White count is 8.3, hemoglobin 12.5, platelet count is 250. Sodium 133, potassium 3.8, BUN 11, creatinine 0.62. Troponins less than 0.01. The BNP is 41. A 2D echo reveals LV ejecti on fraction 55% to 60%. No significant valvular heart disease apart from mild tricuspid regurgitatio n. EKGs reviewed reveals sinus rhythm, sinus tachycardia more prolonged [place] with more rapid rates. ASSESSMENT AND PLAN: Mrs. Beyer is a pleasant 67-year-old woman with history of anxiety, hypothyro idism replacement, chronic obstructive pulmonary disease with an acute exacerbation causing her curre nt admission. She had tachycardia, appears to be sinus tachycardia on EKG. In view of her recent [place] PD exacerbation increase, this may be normal. On the other hand if symptomatic tachycardia occ urs, we could consider treating her with calcium channel blockers, diltiazem would be entirely reason able. Alternatively digoxin could be considered to be added for now, hold beta blockers, hence the a cute bronchospastic disease. I discussed these options with her. For now, not planning ablation to therapy, but observation on above medical regimen. Thank you again for allowing me to participate in the care of this patient.
[2017-11-04] MEDS: Enoxaparin Sodium 30 MG/0.3 ML SYRINGE SC SCH (10:47)
[2017-11-04] MEDS: predniSONE 20 MG TAB PO SCH (10:47)
[2017-11-04] MEDS: Sodium Chloride 0.65% Nasal 44 ML BOT EA NARE PRN (10:47)
[2017-11-04] MEDS: Cilostazol 100 MG TAB PO SCH ×2 (10:48→21:26)
[2017-11-04] MEDS: FLUoxetine HCl 20 MG CAP PO SCH (10:48)
[2017-11-04] MEDS: Cefdinir 300 MG CAP PO SCH ×2 (10:48→21:26)
[2017-11-04] MEDS: Diltiazem HCl SR 60 mg Capsule PO SCH ×2 (10:48→21:27)
[2017-11-04] MEDS: guaiFENesin ER 600 MG TAB PO SCH ×2 (10:49→21:25)
--- NOTE | 2017-11-04 13:16 | PDOC.PN ---
- Subjective Encounter Start Date: 11/04/17 Encounter Start Time: 09:45 Subjective: breathing better -: no complaints, has not eaten/ordered her breakfast so far - Objective Resuscitation Status: Resuscitation Status FULL:Full Resuscitation MAR Reviewed: Yes Vital Signs & Weight: Vital Signs (12 hours) Temp Pulse Resp BP Pulse Ox 11/04/17 11:27 97 20 90 L 11/04/17 10:45 97.9 F 106 H 20 139/84 91 L 11/04/17 08:05 96 17 93 L 11/04/17 08:00 93 L 11/04/17 03:50 98.8 F 103 H 16 101/55 L 91 L 11/04/17 02:14 103 H 22 H 91 L Weight Admit Weight 122 lb Weight 123 lb 7 oz I&O: 11/03/17 11/04/17 11/05/17 06:59 06:59 06:59 Intake Total 1760 400 Output Total 1000 Balance 1760 -600 Result Diagrams: 11/03/17 04:47 11/03/17 04:47 Phys Exam - Physical Examination HEENT: PERRLA, moist MMs Neck: no JVD, supple Respiratory: no wheezing, no rales rhonchi+ Cardiovascular: RRR, no significant murmur Gastrointestinal: soft, non-tender, positive bowel sounds Musculoskeletal: no edema, pulses present Neurological: non-focal, moves all 4 limbs Psychiatric: normal affect, A&O x 3 Dx/Plan (1) COPD exacerbation Code(s): J44.1 - CHRONIC OBSTRUCTIVE PULMONARY DISEASE W (ACUTE) EXACERBATION Status: Acute (2) Acute respiratory failure with hypoxia Code(s): J96.01 - ACUTE RESPIRATORY FAILURE WITH HYPOXIA Status: Resolved (3) Chronic hepatitis Code(s): K73.9 - CHRONIC HEPATITIS, UNSPECIFIED Status: Chronic Comment: C (4) PVD (peripheral vascular disease) Code(s): I73.9 - PERIPHERAL VASCULAR DISEASE, UNSPECIFIED Status: Chronic (5) Malnutrition of moderate degree Code(s): E44.0 - MODERATE PROTEIN-CALORIE MALNUTRITION Status: Chronic (6) Hypothyroidism Code(s): E03.9 - HYPOTHYROIDISM, UNSPECIFIED Status: Chronic Qualifiers: Hypothyroidism type: unspecified Qualified Code(s): E03.9 - Hypothyroidism , unspecified - Plan hemostable -: is on omnicef and prednisone -: oral cardizem -: spo2 is good on room air -: to ambulate as tolerated, dc plan per 's advice * . Review of Systems - Medications/Allergies Allergies/Adverse Reactions: Allergies Allergy/AdvReac Type Severity Reaction Status Date / Time No Known Allergies Allergy Verified 03/07/13 19:42 Medications: Current Medications Acetaminophen (Tylenol) 650 mg PO Q4H PRN PRN Reason: Headache/Fever or Pain Last Admin: 11/02/17 00:55 Dose: 650 mg Al Hydroxide/Mg Hydroxide (Maalox) 30 ml PO Q6H PRN PRN Reason: Heartburn or Indigestion Albuterol/Ipratropium (Duoneb) 3 ml NEB [id number] [facility] Last Admin: 11/04/17 11:27 Dose: 3 ml Albuterol/Ipratropium (Duoneb) 3 ml NEB [id number] PRN PRN Reason: SOB &/or Wheezing Alprazolam (Xanax) 0.25 mg PO TIDPRN PRN PRN Reason: Anxiety Last Admin: 11/04/17 00:09 Dose: 0.25 mg Artificial Tears (Tears Renewed 15ml Bottle) 0 drop EA EYE PRN PRN PRN Reason: Dry Eyes Bisacodyl (Dulcolax) 10 mg ND Q24H PRN PRN Reason: Constipation Budesonide (Pulmicort Neb Solution) 0.5 mg INH BID-RT [facility] Last Admin: 11/04/17 08:06 Dose: 0.5 mg Cefdinir (Omnicef) 300 mg PO BID [facility] Last Admin: 11/04/17 10:48 Dose: 300 mg Cilostazol (Pletal) 50 mg PO BID [facility] Last Admin: 11/04/17 10:48 Dose: 50 mg Diltiazem HCl (Cardizem Sr) 60 mg PO BID [facility] Last Admin: 11/04/17 10:48 Dose: 60 mg Enoxaparin Sodium (Lovenox) 30 mg SC 0900 [facility] Last Admin: 11/04/17 10:47 Dose: 30 mg Fluoxetine HCl (Prozac) 40 mg PO DAILY [facility] Last Admin: 11/04/17 10:48 Dose: 40 mg Guaifenesin (Robitussin Sf) 200 mg PO Q4H PRN PRN Reason: Cough Guaifenesin (Mucinex) 600 mg PO Q12HR [facility] Last Admin: 11/04/17 10:49 Dose: 600 mg Hydralazine HCl (Apresoline) 10 mg SLOW IVP Q4H PRN PRN Reason: Systolic BP > 180 Diltiazem HCl 125 mg/ Sodium (Chloride) 125 mls @ 5 mls/hr IVPB INF PRN; Protocol; 5 MG/HR PRN Reason: for HR >150 Ibuprofen (Motrin) 800 mg PO Q8H PRN PRN Reason: Pain Last Admin: 10/31/17 20:27 Dose: 800 mg Levothyroxine Sodium (Synthroid) 50 mcg PO 0600 [facility] Last Admin: 11/04/17 06:06 Dose: 50 mcg Loperamide HCl (Imodium) 2 mg PO PRN PRN PRN Reason: Diarrhea/Loose Stools Loratadine (Claritin) 10 mg PO DAILYPRN PRN PRN Reason: Sinus Symptoms Magnesium Hydroxide (Milk Of Magnesium) 30 ml PO DAILYPRN PRN PRN Reason: Constipation Mineral Oil/White Petrolatum (Eucerin Cream) 0 gm TOP BIDPRN PRN PRN Reason: Dry Skin Mometasone Furoate/Formoterol Fumar (Dulera 200 Mcg/5 Mcg Inhaler) 2 puff INH BID-RT [facility] Last Admin: 11/04/17 08:05 Dose: 2 puff Montelukast Sodium (Singulair) 10 mg PO QPM [facility] Last Admin: 11/03/17 21:19 Dose: 10 mg Ondansetron HCl (Zofran Odt) 4 mg PO Q6H PRN PRN Reason: Nausea/Vomiting Ondansetron HCl (Zofran) 4 mg IVP Q6H PRN PRN Reason: Nausea/Vomiting Pantoprazole Sodium (Protonix) 40 mg PO DAILY [facility] Last Admin: 11/04/17 10:48 Dose: 40 mg Phenol (Chloraseptic [place] 180 Ml Bot) 0 ml PO PRN PRN PRN Reason: Sore Throat Prednisone (Prednisone) 40 mg PO QAM-WM [facility] Last Admin: 11/04/17 10:47 Dose: 40 mg Senna (Senokot) 2 tab PO HSPRN PRN PRN Reason: Constipation Last Admin: 11/03/17 16:10 Dose: 2 tab Sodium Chloride ([place] Nasal [place] 0.65%) 0 ml EA NARE QIDPRN PRN PRN Reason: Nasal Congestion Last Admin: 11/04/17 10:47 Dose: 1 spray Sodium Chloride (Flush - Normal Saline) 10 ml IVF Q12HR [facility] Last Admin: 11/04/17 10:49 Dose: 10 ml Sodium Chloride (Flush - Normal Saline) 10 ml IVF PRN PRN PRN Reason: Saline Flush Tramadol HCl (Ultram) 50 mg PO QIDPRN PRN PRN Reason: Pain Last Admin: 11/02/17 00:54 Dose: 50 mg Trazodone HCl (Desyrel) 100 mg PO HS [facility] Last Admin: 11/04/17 00:09 Dose: 50 mg
--- NOTE | 2017-11-04 15:26 | PDOC.CTH ---
<Eneida Corcoran - Last Filed: 11/04/17 16:16> Cardiology Progress Note - Subjective EP progress note: Patient seen and evaluated. No new cardiac concerns or complaints. Continues to have elevated HR and occasional palpitations - Objective Vital Signs Temp Pulse Resp BP Pulse Ox 11/04/17 14:12 101 H 20 11/04/17 11:27 97 20 90 L 11/04/17 10:45 97.9 F 106 H 20 139/84 91 L 11/04/17 08:05 96 17 93 L 11/04/17 08:00 93 L 11/04/17 03:50 98.8 F 103 H 16 101/55 L 91 L Admit Weight 122 lb Weight 123 lb 7 oz 11/03/17 11/04/17 11/05/17 06:59 06:59 06:59 Intake Total 1760 400 Output Total 1000 Balance 1760 -600 - Physical Examination General/Neuro: alert & oriented x3, NAD Neck: carotid US brisk, no JVD present Lungs: unlabored respirations Abdomen: no HSM, NT/ND, soft - Telemetry Telemetry Rhythm: NSR/ sinus tachycardia - Labs Result Diagrams: 11/03/17 04:47 11/03/17 04:47 Troponin/CKMB CK-MB (CK-2) 7.7 ng/mL (0-6.6) H* 10/31/17 07:50 Troponin I Less than 0.010 ng/mL (< 0.028) 10/31/17 07:50 - Assessment/Plan 1. Sinus tachycardia, rates remain in 90-115 bpm range in diltiazem sr 60mg BID.Will increase to TID for improved rate control. Continue to avoid betablocker use given COPD exacerbation/acute bronchospastic disease. 2. COPD with exacerbation-per pulmonology 3. Anxiety- on low dose Xanax, per hospitalist <Domingo Olea - Last Filed: 11/05/17 15:27> Cardiology Progress Note - Objective Vital Signs Temp Pulse Resp BP BP Pulse Ox 11/05/17 13:51 105 H 16 94 L 11/05/17 12:00 98.0 F 98 18 128/72 93 L 11/05/17 10:29 101 H 18 92 L 11/05/17 08:00 98.2 F 96 18 130/82 92 L 11/05/17 06:27 93 L 11/05/17 06:26 103 H 18 93 L 11/05/17 06:24 103 H 16 93 L 11/05/17 04:00 98.6 F 90 16 113/60 92 L Admit Weight 122 lb Weight 123 lb 7 oz 11/04/17 11/05/17 11/06/17 06:59 06:59 06:59 Intake Total 400 240 Output Total 1000 Balance -600 240 - Labs Result Diagrams: 11/03/17 04:47 11/03/17 04:47 Troponin/CKMB CK-MB (CK-2) 7.7 ng/mL (0-6.6) H* 10/31/17 07:50 Troponin I Less than 0.010 ng/mL (< 0.028) 10/31/17 07:50 Attending Addendum - Attending Addendum Date/Time: 11/05/17 2498 I personally evaluated the patient and discussed the management with Ms Geronimonazarioirma. I agree with the History, Examination, Assessment and Plan documented above with any addition or exceptions noted below.
--- NOTE | 2017-11-04 18:01 | PRG ---
DATE OF SERVICE: 11/04/2017 Ms. Beyer is doing well. She has no complaints. OBJECTIVE: VITAL SIGNS: She is afebrile, heart rate is 97, respiratory rate 20, oximetry is 93 on room air, bl ood pressure 139/84. LUNGS: Clear. HEART: Regular rhythm. ABDOMEN: Soft. Her rhythm disturbances have been documented. IMPRESSION: 1. Chronic obstructive pulmonary disease exacerbation. 2. Chronic allergic rhinitis which she uses Afrin. We can prescribe her nasal ipratropium at [facility]. 3. Chronic marijuana use. She has been advised to abstain especially while she is bronchospastic. 4. Transient tachycardia of unclear origin. She says this occurred after getting out of a hot showe r. No rhythm disturbances have been noted. She has a normal ejection fraction. Surprisingly, her r ight ventricle is normal in size. We will see her again tomorrow and try to coordinate medications for discharge. I have asked her to see me 3-4 weeks after discharge. She will probably benefit going home on generic form of Mucinex as well.
--- NOTE | 2017-11-04 18:43 | PDOC.CTH ---
Cardiology Progress Note - Subjective She is dong well. Continues to feel SOB with any exertion. - Objective Vital Signs Temp Pulse Resp BP Pulse Ox 11/04/17 18:31 109 H 18 91 L 11/04/17 16:43 98.1 F 113 H 18 126/76 86 L 11/04/17 14:12 101 H 20 11/04/17 11:27 97 20 90 L 11/04/17 10:45 97.9 F 106 H 20 139/84 91 L 11/04/17 08:05 96 17 93 L 11/04/17 08:00 93 L Admit Weight 122 lb Weight 123 lb 7 oz 11/03/17 11/04/17 11/05/17 06:59 06:59 06:59 Intake Total 1760 400 Output Total 1000 Balance 1760 -600 - Physical Examination General/Neuro: alert & oriented x3, NAD Neck: no JVD present Lungs: other: (Reduced breath sounds. ) Heart: RRR Abdomen: NT/ND Extremities: other: (no edema.) - Telemetry Telemetry Rhythm: NSR, S Tach - Labs Result Diagrams: 11/03/17 04:47 11/03/17 04:47 Troponin/CKMB CK-MB (CK-2) 7.7 ng/mL (0-6.6) H* 10/31/17 07:50 Troponin I Less than 0.010 ng/mL (< 0.028) 10/31/17 07:50 - Assessment/Plan 1. Sinus tachycardia. 2. COPD exacerbation. PLAN: - No new recs. - Will sign off. Please call with any questions.
[2017-11-04] MEDS: Montelukast Sodium 10 mg Tablet PO SCH (21:27)
[2017-11-04] MEDS: traMADol HCl 50 MG TAB PO PRN (21:29)
[2017-11-04] MEDS: Senokot 8.6 MG TAB PO PRN (23:35)
[2017-11-05] MEDS: Levothyroxine Sodium 50 MCG TAB PO SCH (06:01)
[2017-11-05] MEDS: Mometasone/Formoterol 120 PUFF INHALER INH SCH (06:24)
[2017-11-05] MEDS: Budesonide 0.5 MG/2 ML NEB INH SCH (06:26)
[2017-11-05] MEDS: Cefdinir 300 MG CAP PO SCH (10:33)
[2017-11-05] MEDS: FLUoxetine HCl 20 MG CAP PO SCH (10:33)
[2017-11-05] MEDS: guaiFENesin ER 600 MG TAB PO SCH (10:34)
[2017-11-05] MEDS: Cilostazol 100 MG TAB PO SCH (10:34)
[2017-11-05] MEDS: predniSONE 20 MG TAB PO SCH (10:34)
[2017-11-05] MEDS: Diltiazem HCl SR 60 mg Capsule PO SCH (10:35)
[2017-11-05] MEDS: Enoxaparin Sodium 30 MG/0.3 ML SYRINGE SC SCH (10:35)
--- NOTE | 2017-11-05 11:57 | PDOC.PN ---
- Subjective Encounter Start Date: 11/05/17 Encounter Start Time: 11:53 Ms. Beyer was seen today in follow-up of COPD exacerbation. She does not have any complaints this morning except that she is constipated. She says this is a chronic problem. - Objective Resuscitation Status: Resuscitation Status FULL:Full Resuscitation MAR Reviewed: Yes Vital Signs & Weight: Vital Signs (12 hours) Temp Pulse Resp BP BP Pulse Ox 11/05/17 10:29 101 H 18 92 L 11/05/17 08:00 98.2 F 96 18 130/82 92 L 11/05/17 06:27 93 L 11/05/17 06:26 103 H 18 93 L 11/05/17 06:24 103 H 16 93 L 11/05/17 04:00 98.6 F 90 16 113/60 92 L 11/05/17 02:18 97 18 90 L Weight Admit Weight 122 lb Weight 123 lb 7 oz I&O: 11/04/17 11/05/17 11/06/17 06:59 06:59 06:59 Intake Total 400 240 Output Total 1000 Balance -600 240 Result Diagrams: 11/03/17 04:47 11/03/17 04:47 Phys Exam - Physical Examination HEENT: PERRLA Respiratory: wheezing present Cardiovascular: RRR, no significant murmur, no rub Gastrointestinal: soft, non-tender, no distention, positive bowel sounds Musculoskeletal: no edema Dx/Plan (1) Hypothyroidism Code(s): E03.9 - HYPOTHYROIDISM, UNSPECIFIED Status: Chronic Qualifiers: Hypothyroidism type: unspecified Qualified Code(s): E03.9 - Hypothyroidism , unspecified (2) Acute respiratory failure with hypoxia Code(s): J96.01 - ACUTE RESPIRATORY FAILURE WITH HYPOXIA Status: Resolved (3) COPD exacerbation Code(s): J44.1 - CHRONIC OBSTRUCTIVE PULMONARY DISEASE W (ACUTE) EXACERBATION Status: Acute - Plan * COPD exacerbation- clinically improved * She has been changed to all oral medications,and is now off oxygen * Anticipate discharge home later today
[2017-11-05 14:42] VITALS: BMI 19.3
--- NOTE | 2017-11-05 15:51 | PRG ---
DATE OF SERVICE: 11/05/2017 REFERRING PHYSICIAN: Ovi Krueger M.D. SUBJECTIVE: Ms. Beyer seems to be doing well without signs of chest pains. Her dyspnea is improvi ng, still has minor palpitations on ambulating, but her saturations are somewhat better. OBJECTIVE DATA: VITAL SIGNS: Blood pressure 172/98, respirations 18, temperature 98 degrees Fahrenheit and oxygen sa turation is 93%. GENERAL: This is an alert and oriented woman in no apparent distress. NECK: Supple. Jugular veins not distended. CHEST: Coarse without crackles. CARDIOVASCULAR: Heart sounds are regular to rate and rhythm. No murmur or gallop. ABDOMEN: Benign. Bowel sounds positive. EXTREMITIES: Without edema, clubbing or cyanosis. DATABASE: Telemetry strips reviewed reveals sinus rhythm, sinus tachycardia, although improving tren d is noted. ASSESSMENT AND PLAN: Ms. Beyer is a very pleasant 67-year-old woman with history of chronic obstru ctive pulmonary disease and was admitted with chronic obstructive pulmonary disease exacerbations. S he had rapid heartbeats worsened with exertion, but P waves typical for sinus P waves and I do not dawn spect ectopic atrial tachycardia in this lady. We did place her on diltiazem just for rate control, although pulmonary stabilization also would likely be beneficial from the heart rhythm standpoint. At this point, she is improving on the current regimen. She can go home on diltiazem possibly combin ed to single sustained release formula of monitoring in a day. Routine followup if back as an outpat ient if necessary.
[2017-11-05 16:06] VITALS: BP 135/57; TEMP 97.5
--- NOTE | 2017-11-05 17:05 | PRG ---
DATE OF SERVICE: 11/05/2017 SUBJECTIVE: Ms. Beyer says she feels great today. OBJECTIVE: VITAL SIGNS: She is afebrile, heart rate 110, respiratory rate 17, oximetry is 92 on room air, blood pressure 135/57. LUNGS: Completely clear. HEART: Regular rhythm. ABDOMEN: Soft and nontender. IMPRESSION: 1. Chronic obstructive pulmonary disease exacerbation. 2. Advanced obstructive lung disease aggravated by ongoing daily marijuana use. She will have to fi nd another substance to treat her anxiety with. She tells me she was going to start eating marijuana . She will go home on theophylline, prednisone taper, Omnicef and nasal ipratropium and see me in two t o three weeks.
--- NOTE | 2017-11-06 00:17 | DIS ---
PRIMARY CARE PHYSICIAN: Shaista Young NP. DATE OF ADMISSION: 10/31/2017 DATE OF DISCHARGE: 11/05/2017 DISCHARGE DISPOSITION: Home. PRIMARY DISCHARGE DIAGNOSES: 1. Chronic obstructive pulmonary disease exacerbation. 2. Supraventricular tachycardia, which was transient. 3. Hypertension. 4. Hypothyroidism. 5. History of hepatitis C. 6. Gastroesophageal reflux disease. DISCHARGE MEDICATIONS: Include Cardizem 60 mg one p.o. 3 times a day, trazodone 100 mg at bedtime, t ramadol 50 mg q.i.d., theophylline 400 mg twice a day, prednisone taper, Singulair 10 mg daily, Duler a two puffs twice a day, levothyroxine 50 mcg daily, lansoprazole 30 mg daily, albuterol and Atrovent nebs p.r.n., fluoxetine 40 mg at bedtime, Pletal 50 mg twice a day, Omnicef 300 mg twice a day for 5 days, Xanax 0.5 mg q.8 hours as needed. PROCEDURES DONE DURING ADMISSION: The patient had an echocardiogram in which the ejection fraction w as estimated at 55% to 60%. There was normal right ventricular size and function. CODE STATUS: FULL CODE. ALLERGIES: No known drug allergies. HOSPITAL COURSE: Ms. Beyer is a pleasant 67-year-old female who was admitted to the hospital with complaints of shortness of breath. She was admitted with acute hypoxic respiratory failure due to a COPD exacerbation. Her O2 sats on admission were around 85% on room air. Her symptoms were severe a nd she was exhibiting tripoding and was admitted to the hospital in the IMCU and requiring BiPAP. Sudha solis was started on IV antibiotics as well as IV steroids and neb treatments. She was evaluated by Pulm onary and Critical Care Medicine. During her hospital stay, she developed a narrow complex tachycard ia with heart rates in the 140s at times. She was seen by ornamental metal worker apprentice then it was felt that she would not require any EP study and that the predominant rhythm was likely sinus tachycardia and s he was placed on Cardizem or diltiazem for this and her heart rate improved and once she was clinical ly stable, she was able to be discharged home with close outpatient followup.
== END 2017-11-05 17:28 | disposition home or self-care (01) | DRG 189 ==
LOC: ERS 07:33 → IMCU/EMU 10:42 → T4-B 11-01 16:35 → 2NO 11-02 15:18
PROVIDERS: ADMIT Internal Medicine; ATTEND Internal Medicine
DX: J96.21 Acute and chronic respiratory failure with hypoxia (principal); E44.0 Moderate protein-calorie malnutrition; M62.82 Rhabdomyolysis; J44.1 Chronic obstructive pulmonary disease with (acute) exacerbation; Z68.1 Body mass index [BMI] 19.9 or less, adult; F41.9 Anxiety disorder, unspecified; F32.9 Major depressive disorder, single episode, unspecified; K29.60 Other gastritis without bleeding; B18.2 Chronic viral hepatitis C; E03.9 Hypothyroidism, unspecified; K21.9 Gastro-esophageal reflux disease without esophagitis; I49.3 Ventricular premature depolarization; J30.9 Allergic rhinitis, unspecified; F12.90 Cannabis use, unspecified, uncomplicated; Z87.891 Personal history of nicotine dependence; Z90.49 Acquired absence of other specified parts of digestive tract; R00.0 Tachycardia, unspecified; Z79.899 Other long term (current) drug therapy
CPT/HCPCS: 36415; 71046; 80048; 80053; 82550; 82553; 82805; 83605; 83690; 83880; 84484; 85025; 87040; 87804; 93005; 93010; 93306; 94640; 94644; 94660; 94760; 96365; 96375; A4216; J1100; J1650; J1956; J2920; J3475; J7050; J7506; J7611; J7620; J7626

== ENCOUNTER 2017-11-24 13:02 | Outpatient (CLI) | payer MEDICARE, MEDICAID | END 2017-11-24 13:03 | disposition home or self-care (01) | LOC: BICRAD 13:02 | PROVIDERS: ATTEND Nurse Practitioner Family | DX: R06.00 Dyspnea, unspecified (principal); J43.9 Emphysema, unspecified | CPT/HCPCS: 71046 ==

== ENCOUNTER 2017-12-20 12:46 | Inpatient (IN) | payer MEDICARE, MEDICAID ==
[2017-12-20 13:18] LABS: #Eosinphils 0.2 thou/uL (0.0-0.7); #Lymphocytes 1.2 thou/uL (1.20-3.40); #Monocytes 0.6 thou/uL (0.11-0.59); #Neutrophils 6.2 thou/uL (1.40-6.50); %Basophils 0.6 % (0.0-1.0); %Eosinophils 2.7 % (0.0-10.0); %Lymphocytes 15.1 % (21.0-51.0); %Monocytes 6.9 % (0.0-10.0); %Neutrophils 74.8 % (42.0-75.0); Hemoglobin 13.9 g/dL (12.0-16.0); Mean Corpuscular HGB CONC 33.2 g/dL (32.0-36.0); Mean Corpuscular Hemoglobin 30.3 pg (27.0-31.0); Mean Corpuscular Volume 91.4 fl (81.0-99.0); Mean Platelet Volume 6.4 fL (7.4-10.4); Platelet Count 334 thou/uL (130-400); RBC Distribution Width 12.3 % (11.5-14.5); Red Blood Cell (RBC) Count 4.59 mill/uL (4.20-5.40); White Blood Cell (WBC) Count 8.3 thou/uL (4.8-10.8)
[2017-12-20 13:40] LABS: ALT (SGPT) 30 U/L (8-55); AST (SGOT) 45 U/L (5-34); Albumin 4.5 g/dL (3.4-4.8); Alkaline Phosphatase 74 U/L (40-150); Anion Gap 15 mmol/L (10-20); BUN (Urea Nitrogen) 13 mg/dL (9.8-20.1); Bilirubin, Total 0.7 mg/dL (0.2-1.2); Calc. Creatinine Clearance 0 mL/min (70-130); Carbon Dioxide 25 mmol/L (23-31); Chloride 92 mmol/L (98-107); Estimated GFR-MDRD Greater than 90; Globulin 4.2 g/dL (2.4-3.5); Glucose 109 mg/dL (80-115); Potassium 3.9 mmol/L (3.5-5.1); Protein, Total 8.7 g/dL (6.0-8.3); Sodium 128 mmol/L (136-145)
[2017-12-20] MEDS ORDERED: methylPREDNISolone Sod Succ/PF 125 MG/2 ML VIAL ONE (13:41)
[2017-12-20 13:43] LABS: Troponin I Less than 0.010 ng/mL (< 0.028)
[2017-12-20 13:51] LABS: CKMB 14.9 ng/mL (0-6.6)
--- NOTE | 2017-12-20 14:11 | RAD ---
UPRIGHT PORTABLE CHEST 1 VIEW: Date: 12/20/17 HISTORY: 67-year-old female with dyspnea. COMPARISON: 10/31/17. FINDINGS: Bilateral hyperinflation and scattered stable chronic lung changes. Bilateral nipple shadows. Heart s ize is within normal limits. Some flattening of the hemidiaphragms. IMPRESSION: Bilateral hyperinflation and chronic lung changes, stable. Atherosclerosis of aorta. Bilateral nipple shadows. No significant acute process. POS: MAGGI
[2017-12-20] MEDS ORDERED: Albuterol Sulfate 2.5 mg/3 ml Neb ONE (14:16)
[2017-12-20 14:40] LABS: Bilirubin Negative (Negative); Blood, Urine Negative (Negative); Clarity CLEAR (Clear); Glucose, Urine (Dipstick) Negative (Negative); Leukocyte Small (Negative); Nitrite Negative (Negative); Protein, Urine (Dipstick) Negative (Neg-Trace); Specific Gravity, Urine 1.011 (1.002-1.036); Urobilinogen 0.2 mg/dL (0.2-1.0); pH, Urine 7.5 (5.0-9.0)
[2017-12-20 14:42] LABS: Bacteria/HPF None Seen HPF (None Seen); Hyaline Casts/LPF 0-3 HYALINE CAST LPF (0-3 Hyaline); RBC/HPF 0-3 HPF (0-3); Squamous Epithelial 0-3 HPF (0-3)
[2017-12-20] MEDS ORDERED: Lorazepam 1 MG TAB ONE (18:01)
[2017-12-20] MEDS ORDERED: ALPRAZolam 0.5 MG TAB PO PRN (18:26)
--- NOTE | 2017-12-20 19:04 | HP ---
DATE OF ADMISSION: 12/20/2017 CHIEF COMPLAINT: Shortness of breath. HISTORY OF PRESENT ILLNESS: This is a 67-year-old white female with known patient to Dr. Dubon. She has a known history of COPD with frequent exacerbations. She was in usual state of health until a w [place] ago she started noticing worsening cough and shortness of breath and she started on nebulizer yony atments at home until today where she was not able to breathe and she decided to come to the ER inste ad. When she came to the ER, she was acutely short of breath with saturations in 75% and she was giv en nebulizer treatments and she started feeling better, but then she started having her panic attacks and she mentioned that if she had to be intubated for a longer time, he would allow her to go, but s he did not state clearly that she should not be intubated. The patient denies having any chest pain at this time. She had an EKG which was unremarkable and had normal troponins. Patient had mild elec trolyte abnormalities, but otherwise she was in stable state. The patient denies having any fever. Denies having any sick contacts. She denied exposure to any allergens. She denied smoking at this t joy. As stated, not having any abdominal pain, no nausea, no vomiting, no diarrhea, no constipation, no headache or no dizziness at this time. PAST MEDICAL HISTORY: Severe COPD, history of erosive gastritis, history of chronic hepatitis C, his tory of cannabinoid abuse, hypothyroidism, GERD, peripheral vascular disease, chronic low back pain, moderate protein-calorie malnutrition. PAST SURGICAL HISTORY: Cholecystectomy, history of carpal tunnel repair, history of tubal ligation. SOCIAL HISTORY: The patient is a former smoker. She is periodically abusing marijuana, but she cut down on smoking. She denies any alcohol. No history of any illicit drug use. FAMILY HISTORY: Father from lung cancer at the age of 60 and mother had advanced COPD as well. ALLERGIES: No known drug allergies. HOME MEDICATIONS: Ventolin puff 2 puffs q.6 hours, Xanax 0.5 mg q.8 hours, budesonide 2 puffs inhala tion b.i.d., cefdinir 300 mg p.o. b.i.d., cilostazol 50 mg p.o. b.i.d., Cardizem 60 mg p.o. t.i.d., f luoxetine 40 mg p.o. at bedtime, lansoprazole 30 mg p.o. daily, levothyroxine 50 mcg p.o. daily, leah elukast sodium 10 mg p.o. daily, prednisone, theophylline 400 mg p.o. b.i.d., tramadol 50 mg p.o. q.i .d., trazodone 100 mg p.o. at bedtime. REVIEW OF SYSTEMS: All 12 systems reviewed with the patient thoroughly and found to be negative at t his time. The following complete review of systems was negative, unless otherwise mentioned in the HPI or below : Constitutional: Weight loss or gain, ability to conduct usual activities. Skin: Rash, itching. Eyes: Double vision, pain. ENT/Mouth: Nose bleeding, neck stiffness, pain, tenderness. Cardiovas cular: Palpitations, dyspnea on exertion, orthopnea. Respiratory: Shortness of breath, wheezing, c ough, hemoptysis, fever or night sweats. Gastrointestinal: Poor appetite, abdominal pain, heartburn , nausea, vomiting, constipation, or diarrhea. Genitourinary: Urgency, frequency, dysuria, nocturia . Musculoskeletal: Pain, swelling. Neurologic/Psychiatric: Anxiety, depression. Allergy/Immunolo gic: Skin rash, bleeding tendency. All systems are reviewed and found to be negative except the ones described in HPI. PHYSICAL EXAMINATION: VITAL SIGNS: Blood pressures are 130/88, heart rate is rate 80, respiratory rate is 18, saturation i s 98% on 4 liters, 98% on 4 liters. GENERAL: The patient is seen stooping down on the bed with 45 degrees inclination with acute shortne ss of breath. She is alert and oriented. HEENT: Atraumatic, normocephalic. PERRLA. Extraocular movements are intact. Oral mucosa is pink a nd moist. CARDIOVASCULAR: S1, S2 normal. No murmurs, rubs or gallops. LUNGS: Bilateral air entry was reduced with wheezing, but noted diffusely and increased signs of res piratory distress was noted. No crackles were noted. Use of accessory muscles was noted. ABDOMEN: Soft, nontender, no guarding, no rebound tenderness. Bowel sounds normal. MUSCULOSKELETAL: No calf tenderness. No pedal edema. No joint tenderness, no joint swelling. SKIN: No cyanosis, no erythema, no rash, no pallor. NEUROLOGIC: Cranial nerve examination intact. No focal deficits were noted. No focal deficits were noted. PSYCHIATRIC: No signs or additional signs of nikolai, but she does have severe anxiety at this time. LABORATORY DATA: 1. Sodium 128, potassium 3.9, chloride is 92, BUN is 13, creatinine 0.65. 2. CK-MB was 14.9 and the CK was 645, troponin was 0.010. WBC 8.3, hemoglobin 13.9, hematocrit 42.0 , platelets of 334. 3. UA was negative for any urinary tract infection. 4. Chest x-ray was unremarkable. No evidence of any pneumonia was noted, but showed severe emphysem a. ASSESSMENT AND PLAN: 1. Acute hypoxic respiratory failure. 2. Acute chronic obstructive pulmonary disease exacerbation. 3. Acute hyponatremia. 4. Hypothyroidism. 5. Moderate protein calorie malnutrition. 6. Moderate dehydration. 7. History of anxiety disorder. PLAN: 1. Plan is to closely monitor this patient on the tele floor at this time, as the patient has been s aturating on 4 liters, but has high level of anxiety. We will do ABG at this time if the ABG shows C O2 retention. We will transfer the patient to IMCU instead of tele floor. We will continue the delia ent on DuoNebs every 4 hours and with albuterol nebs every 2 hours. We will start the patient on pre dnisolone, Solu-Medrol at 40 mg q.6 hours. Restart the patient on her home medications. We will con estuardo Dubon in the morning. 2. The patient has mild hyponatremia, likely from dehydration or SIADH due to her other antidepressa nt medications. We will closely monitor. We will start the patient on normal saline at 100 an hour. We will closely monitor. The patient has elevated CK-MB, but normal troponins. She denies having any chest pains. We will closely monitor and repeat EKG if there is any evidence of chest pains. 3. The patient has mild hyponatremia. We will do normal saline as discussed above. 4. The patient has a history of hypothyroidism. We will restart the patient's home medications. 5. Deep venous thrombosis prophylaxis. Lovenox 40 mg every day. I spent 75 minutes with this patient.
[2017-12-20] MEDS ORDERED: Albuterol Sulfate 2.5 mg/3 ml Neb NEB PRN (19:33)
[2017-12-20] MEDS ORDERED: Ondansetron ODT 4 MG TAB PO PRN (19:33)
[2017-12-20] MEDS ORDERED: Acetaminophen 325 MG TAB PO PRN (19:33)
[2017-12-20] MEDS: FLUoxetine HCl 20 MG CAP PO SCH (20:59)
[2017-12-20] MEDS: Cilostazol 100 MG TAB PO SCH (21:00)
[2017-12-20] MEDS: Famotidine 20 MG TAB PO SCH (21:00)
[2017-12-20] MEDS: Montelukast Sodium 10 mg Tablet PO SCH (21:00)
[2017-12-20] MEDS: Docusate 100 MG CAP PO SCH (21:00)
[2017-12-20] MEDS ORDERED: traZODone HCl 50 MG TAB PO SCH (21:00)
[2017-12-20 22:03] VITALS: BMI 19.2
[2017-12-20 23:46] LABS: CO2 Tension 48.6 mmHg (35.0-45.0); O2 Tension (PaO2) 73.3 mmHg (80.0-100.0); pH, Arterial 7.39 (7.35-7.45)
[2017-12-20 23:47] LABS: Actual Bicarbonate (HCO3a) 28.5 mEq/L (22-26); Base Excess (BEa) 2.8 mEq/L (0 (+/-) 2.5); Calcium, Ionized 1.1 mmol/L (1.12-1.30); Hematocrit-ABG 42.2 % (36.0-47.0); Hemoglobin (Hb) 11.6 g/dL (12.0-16.0); Puncture Site LRA
[2017-12-21 05:40] LABS: #Lymphocytes 0.6 thou/uL (1.20-3.40); #Monocytes 0.3 thou/uL (0.11-0.59); #Neutrophils 6.6 thou/uL (1.40-6.50); %Eosinophils 0.1 % (0.0-10.0); %Lymphocytes 8.5 % (21.0-51.0); %Neutrophils 87.4 % (42.0-75.0); Hemoglobin 12.2 g/dL (12.0-16.0); Mean Corpuscular HGB CONC 31.1 g/dL (32.0-36.0); Mean Corpuscular Hemoglobin 28.4 pg (27.0-31.0); Mean Corpuscular Volume 91.4 fl (81.0-99.0); Mean Platelet Volume 6.6 fL (7.4-10.4); Platelet Count 297 thou/uL (130-400); RBC Distribution Width 12.2 % (11.5-14.5); White Blood Cell (WBC) Count 7.5 thou/uL (4.8-10.8)
[2017-12-21] MEDS: Levothyroxine Sodium 50 MCG TAB PO SCH (05:42)
[2017-12-21 05:43] LABS: Anion Gap 13 mmol/L (10-20); BUN (Urea Nitrogen) 15 mg/dL (9.8-20.1); Calc. Creatinine Clearance 82 mL/min (70-130); Calcium 8.9 mg/dL (7.8-10.44); Carbon Dioxide 27 mmol/L (23-31); Chloride 92 mmol/L (98-107); Estimated GFR-MDRD Greater than 90; Glucose 124 mg/dL (80-115); Potassium 3.6 mmol/L (3.5-5.1); Sodium 128 mmol/L (136-145)
[2017-12-21] MEDS: Enoxaparin Sodium 40 MG/0.4 ML SYRINGE SC SCH (09:50)
[2017-12-21] MEDS: Cilostazol 100 MG TAB PO SCH ×2 (09:50→20:01)
[2017-12-21] MEDS: Docusate 100 MG CAP PO SCH ×2 (09:50→20:02)
[2017-12-21] MEDS: Famotidine 20 MG TAB PO SCH ×2 (09:50→20:01)
[2017-12-21] MEDS: HYDROcodone/Acetaminophen 5/325 mg Tablet PO PRN (09:58)
[2017-12-21] MEDS ORDERED: Sulfameth/Trimethoprim DS 800-160mg TAB PO SCH ×2 (12:30)
--- NOTE | 2017-12-21 13:18 | CON ---
DATE OF CONSULTATION: 12/21/2017 HISTORY OF PRESENT ILLNESS: Ms. Beyer is a 67-year-old female with COPD. She presented with 2 wee ks of shortness of breath. She did not contact any physician about her progressive shortness of ella th. She was just in the hospital last month with COPD. PAST MEDICAL HISTORY: Remarkable for, 1. Hypothyroidism. 2. Gastritis. 3. Hepatitis C. 4. Reflux disease. 5. Peripheral vascular disease. 6. Chronic back pain. 7. Diverticulosis. 8. Cholecystectomy. 9. Carpal tunnel surgery. 10. Former heavy tobacco use and heavy marijuana use. She actually quit smoking cigarettes by incre asing her marijuana use when she was last seen by me in the office that she said she has cut way back on marijuana use. I explained to her that was still smoke which is detrimental to her health. She reports no drug allergies. FAMILY HISTORY: Negative for lung disease in early age. There is a family history of lung cancer an d COPD. REVIEW OF SYSTEMS: Ten points otherwise negative. She denies fever, chills, sweats, purulent sputum or hemoptysis. PHYSICAL EXAMINATION: VITAL SIGNS: Afebrile, heart rate 104, respiratory rate 24, oximetry is 98 on 2 liters, blood pressu re 136/66. HEENT: Pupils are equal. Sclerae is anicteric. NECK: Supple. LUNGS: Remarkable for diffuse tight wheezes. HEART: Regular rhythm, no S3. ABDOMEN: Soft and nontender. EXTREMITIES: Without clubbing, cyanosis, or edema. NEUROLOGIC: Nonfocal. LABORATORY DATA: White count is 7.5, hemoglobin 12.2, platelets 297. Sodium 128, potassium 3.6, chloride 92, bicarbonate 27, BUN 15, creatinine 0.63. IMPRESSION: 1. Chronic obstructive pulmonary disease exacerbation. 2. Probable ongoing marijuana use aggravating her chronic obstructive pulmonary disease. PLAN: Steroids, antibiotics, nebulizer treatments. She is not ready to be discharged. She does not really need telemetry monitoring. This is a 50 minute consult and greater than 50% of the time was spent on coordinating care.
--- NOTE | 2017-12-21 14:09 | PDOC.PN ---
- Subjective Encounter Start Date: 12/21/17 Encounter Start Time: 14:12 Patient seen and examined following admission for acute hypoxic and hypercapnic respiratory failure. Still has dyspnea on exertion. No acute events overnight. - Objective Resuscitation Status: Resuscitation Status FULL:Full Resuscitation MAR Reviewed: Yes Vital Signs & Weight: Vital Signs (12 hours) Temp Pulse Pulse Resp BP BP BP 12/21/17 13:30 98.9 F 123 H 24 H 146/71 H 12/21/17 11:45 104 H 19 12/21/17 10:33 103 H 140/74 140/82 12/21/17 08:02 97.9 F 104 H 24 H 136/66 12/21/17 07:09 12/21/17 07:08 98 20 12/21/17 03:54 97.9 F 107 H 24 H 137/65 Pulse Ox Pulse Ox Pulse Ox 12/21/17 13:30 94 L 12/21/17 11:45 12/21/17 10:33 98 99 12/21/17 08:02 90 L 12/21/17 07:09 96 12/21/17 07:08 96 12/21/17 03:54 97 Weight Weight 130 lb I&O: 12/20/17 12/21/17 12/22/17 06:59 06:59 06:59 Intake Total 500 Output Total 1200 Balance -700 Result Diagrams: 12/21/17 04:41 12/21/17 04:41 Phys Exam - Physical Examination Constitutional: NAD HEENT: PERRLA, moist MMs Neck: no JVD, supple, full ROM Respiratory: no rales, no rhonchi Reduced BS with wheezing b/l Cardiovascular: RRR, no significant murmur, no rub Gastrointestinal: soft, non-tender, no distention, positive bowel sounds Musculoskeletal: no edema, pulses present Neurological: non-focal, moves all 4 limbs Psychiatric: normal affect, A&O x 3 Skin: no rash, normal turgor Dx/Plan (1) Acute respiratory failure with hypoxia and hypercapnia Code(s): J96.01 - ACUTE RESPIRATORY FAILURE WITH HYPOXIA; J96.02 - ACUTE RESPIRATORY FAILURE WITH HYPERCAPNIA Status: Acute Comment: Improving with therapy. Continue O2 supplementation, parenteral steroids, Bactrim and bronchodilaror therapy. (2) COPD exacerbation Code(s): J44.1 - CHRONIC OBSTRUCTIVE PULMONARY DISEASE W (ACUTE) EXACERBATION Status: Acute Plan: As above. (3) History of SIADH Code(s): Z86.39 - PERSONAL HISTORY OF ENDO, NUTRITIONAL AND METABOLIC DISEASE Status: Chronic (4) Hypothyroidism Code(s): E03.9 - HYPOTHYROIDISM, UNSPECIFIED Status: Chronic Qualifiers: Hypothyroidism type: unspecified (5) PVD (peripheral vascular disease) Code(s): I73.9 - PERIPHERAL VASCULAR DISEASE, UNSPECIFIED Status: Chronic (6) Hyponatremia Code(s): E87.1 - HYPO-OSMOLALITY AND HYPONATREMIA Status: Acute Comment: Monitor. Asymptomatic. - Plan cont current plan of care, continue antibiotics, respiratory therapy * . Review of Systems - Review of Systems Respiratory: Cough, Shortness of Breath, SOB with Excertion - Medications/Allergies Allergies/Adverse Reactions: Allergies Allergy/AdvReac Type Severity Reaction Status Date / Time No Known Allergies Allergy Verified 03/07/13 19:42 Medications: Current Medications Acetaminophen (Tylenol) 650 mg PO Q4H PRN PRN Reason: Headache/Fever or Pain Hydrocodone Bitart/Acetaminophen ([place] 5/325) 1 tab PO Q4H PRN PRN Reason: Moderate Pain (4-6) Last Admin: 12/21/17 09:58 Dose: 1 tab Albuterol Sulfate (Ventolin) 2.5 mg NEB [id number] PRN PRN Reason: SOB &/or Wheezing Albuterol/Ipratropium (Duoneb) 3 ml NEB [id number] [facility] Last Admin: 12/21/17 11:45 Dose: 3 ml Cilostazol (Pletal) 50 mg PO BID [facility] Last Admin: 12/21/17 09:50 Dose: 50 mg Diltiazem HCl (Cardizem) 60 mg PO TID [facility] Last Admin: 12/21/17 09:50 Dose: 60 mg Docusate Sodium (Colace) 100 mg PO BID [facility] Last Admin: 12/21/17 09:50 Dose: Not Given Enoxaparin Sodium (Lovenox) 40 mg SC 0900 [facility] Last Admin: 12/21/17 09:50 Dose: 40 mg Famotidine (Pepcid) 20 mg PO BID [facility] Last Admin: 12/21/17 09:50 Dose: 20 mg Fluoxetine HCl (Prozac) 40 mg PO HS [facility] Last Admin: 12/20/17 20:59 Dose: 40 mg Guaifenesin/Dextromethorphan (Robitussin Dm) 15 ml PO Q4H PRN PRN Reason: Cough Levothyroxine Sodium (Synthroid) 50 mcg PO 0600 [facility] Last Admin: 12/21/17 05:42 Dose: 50 mcg Methylprednisolone Sodium Succinate (Solu-Medrol) 20 mg IVP 0200,0800,1400, 2000 [facility] Last Admin: 12/21/17 13:24 Dose: 20 mg Montelukast Sodium (Singulair) 10 mg PO QPM [facility] Last Admin: 12/20/17 21:00 Dose: 10 mg Ondansetron HCl (Zofran Odt) 4 mg PO Q6H PRN PRN Reason: Nausea/Vomiting Pantoprazole Sodium (Protonix) 40 mg PO DAILY [facility] Last Admin: 12/21/17 09:51 Dose: 40 mg Sodium Chloride (Flush - Normal Saline) 10 ml IVF Q12HR [facility] Last Admin: 12/21/17 09:51 Dose: 10 ml Sodium Chloride (Flush - Normal Saline) 10 ml IVF PRN PRN PRN Reason: Saline Flush Theophylline (Theophylline Sr) 400 mg PO BID [facility] Last Admin: 12/21/17 09:55 Dose: 400 mg Tramadol HCl (Ultram) 50 mg PO QIDPRN PRN PRN Reason: Headache, Aches or Pain Trimethoprim/Sulfamethoxazole (Bactrim Ds) 1 tab PO BID [facility]
[2017-12-21] MEDS: ALPRAZolam 0.5 MG TAB PO PRN (16:20)
[2017-12-21 16:54] LABS: Amphetamine Not Detected (NotDetected); Barbiturates Screen Not Detected (NotDetected); Benzodiazepine Screen Detected (NotDetected); Cocaine Metabolite Screen Not Detected (NotDetected); Medtox Control Line Valid? VALID (VALID); Medtox Reader # READER 1; Methadone Not Detected (NotDetected); Methamphetamine Not Detected (NotDetected); Opiate Screen Detected (NotDetected); Oxycodone Screen Not Detected (NotDetected); Phencyclidine (PCP) Not Detected (NotDetected); THC/Cannabinoid Screen Detected (NotDetected); Tricyclic Screen Not Detected (NotDetected)
[2017-12-21] MEDS: FLUoxetine HCl 20 MG CAP PO SCH (20:00)
[2017-12-21] MEDS: Sulfameth/Trimethoprim DS 800-160mg TAB PO SCH (20:00)
[2017-12-21] MEDS: Montelukast Sodium 10 mg Tablet PO SCH (20:01)
[2017-12-22] MEDS: ALPRAZolam 0.5 MG TAB PO PRN ×3 (00:57→23:01)
[2017-12-22 05:14] LABS: #Basophils 0.1 thou/uL (0.0-0.2); #Lymphocytes 0.3 thou/uL (1.20-3.40); #Monocytes 0.5 thou/uL (0.11-0.59); #Neutrophils 11.2 thou/uL (1.40-6.50); %Basophils 1.2 % (0.0-1.0); %Lymphocytes 2.1 % (21.0-51.0); %Neutrophils 92.6 % (42.0-75.0); Hemoglobin 11.9 g/dL (12.0-16.0); Mean Corpuscular HGB CONC 32.2 g/dL (32.0-36.0); Mean Corpuscular Hemoglobin 29.7 pg (27.0-31.0); Mean Corpuscular Volume 92.2 fl (81.0-99.0); Mean Platelet Volume 6.6 fL (7.4-10.4); Platelet Count 280 thou/uL (130-400); RBC Distribution Width 12.4 % (11.5-14.5); White Blood Cell (WBC) Count 12.1 thou/uL (4.8-10.8)
[2017-12-22 05:32] LABS: ALT (SGPT) 21 U/L (8-55); AST (SGOT) 32 U/L (5-34); Albumin 3.9 g/dL (3.4-4.8); Alkaline Phosphatase 67 U/L (40-150); Anion Gap 11 mmol/L (10-20); BUN (Urea Nitrogen) 17 mg/dL (9.8-20.1); Bilirubin, Total 0.3 mg/dL (0.2-1.2); Calc. Creatinine Clearance 78 mL/min (70-130); Carbon Dioxide 29 mmol/L (23-31); Chloride 96 mmol/L (98-107); Estimated GFR-MDRD 90; Globulin 3.2 g/dL (2.4-3.5); Glucose 132 mg/dL (80-115); Potassium 3.5 mmol/L (3.5-5.1); Protein, Total 7.1 g/dL (6.0-8.3); Sodium 132 mmol/L (136-145)
[2017-12-22] MEDS: Levothyroxine Sodium 50 MCG TAB PO SCH (05:39)
[2017-12-22] MEDS: Cilostazol 100 MG TAB PO SCH ×2 (08:52→20:31)
[2017-12-22] MEDS: Docusate 100 MG CAP PO SCH ×2 (08:54→20:33)
[2017-12-22] MEDS: Famotidine 20 MG TAB PO SCH ×2 (08:54→20:33)
[2017-12-22] MEDS: Enoxaparin Sodium 40 MG/0.4 ML SYRINGE SC SCH (08:54)
[2017-12-22] MEDS: HYDROcodone/Acetaminophen 5/325 mg Tablet PO PRN (08:55)
[2017-12-22] MEDS: Sulfameth/Trimethoprim DS 800-160mg TAB PO SCH ×2 (08:55→20:33)
[2017-12-22] MEDS: Guaifenesin DM 100-10/5 ML UDCUP PO PRN (08:57)
--- NOTE | 2017-12-22 11:19 | PRG ---
DATE OF SERVICE: 12/22/2017 SUBJECTIVE: Ms. Beyer confirmed today she still smokes marijuana. OBJECTIVE: VITAL SIGNS: She is afebrile, heart rate is 101, respiratory rate is 16, oximetry is 91 on 1 liter, blood pressure 136/66. LUNGS: Remarkable still for diffuse coarse wheezes. HEART: Regular rhythm. ABDOMEN: Soft. LABORATORY DATA: Drug screen was positive for opiates, benzodiazepines, and marijuana. Sodium 132, potassium 3.5, chloride 96, bicarbonate 29, BUN 17, creatinine 0.66. White count 12.1, h emoglobin 11.9, platelets 280,000 IMPRESSION: 1. Chronic obstructive pulmonary disease exacerbation. 2. Ongoing marijuana use. 3. History of heavy tobacco use. 4. History of hepatitis C. 5. History of hypothyroidism. 6. Peripheral vascular disease. 7. Moderate protein-calorie malnutrition. PLAN: Continue current care. She really does not need to remain on telemetry. Transfer to a [facility] bed.
--- NOTE | 2017-12-22 13:31 | PDOC.PN ---
- Subjective Encounter Start Date: 12/22/17 Encounter Start Time: 13:29 Patient seen and examined following admission for acute hypoxic and hypercapnic respiratory failure. Improving but still has significant dyspnea on exertion. No acute events overnight. - Objective Resuscitation Status: Resuscitation Status FULL:Full Resuscitation Vital Signs & Weight: Vital Signs (12 hours) Temp Pulse Pulse Pulse Pulse Resp BP 12/22/17 11:45 98 F 110 H 22 H 12/22/17 10:26 110 H 14 12/22/17 09:37 101 H 106 H 129/68 12/22/17 09:10 99 101 H 12/22/17 07:48 96.9 F L 110 H 14 12/22/17 07:45 96.9 F L 101 H 16 12/22/17 06:33 80 14 12/22/17 05:04 96.0 F L 93 18 12/22/17 03:35 BP BP BP Pulse Ox Pulse Ox Pulse Ox Pulse Ox 12/22/17 11:45 117/55 L 94 L 12/22/17 10:26 12/22/17 09:37 132/76 98 92 L 12/22/17 09:10 126/64 129/68 77 L 93 L 95 12/22/17 07:48 91 L 12/22/17 07:45 136/66 91 L 12/22/17 06:33 12/22/17 05:04 131/66 90 L 12/22/17 03:35 96 Weight Weight 130 lb I&O: 12/21/1718 12/23/17 06:59 06:59 06:59 Intake Total 500 560 Output Total 1200 950 Balance -700 -390 Result Diagrams: 12/22/17 04:46 12/22/17 04:46 Phys Exam - Physical Examination Constitutional: NAD HEENT: moist MMs, sclera anicteric, oral pharynx no lesions Neck: no JVD, supple, full ROM Respiratory: no rales, no rhonchi, clear to auscultation bilateral mild wheezing Cardiovascular: RRR, no significant murmur, no rub Gastrointestinal: soft, non-tender, no distention, positive bowel sounds Musculoskeletal: no edema, pulses present Neurological: non-focal, normal sensation Psychiatric: normal affect, A&O x 3 Skin: no rash, normal turgor Dx/Plan (1) Acute respiratory failure with hypoxia and hypercapnia Code(s): J96.01 - ACUTE RESPIRATORY FAILURE WITH HYPOXIA; J96.02 - ACUTE RESPIRATORY FAILURE WITH HYPERCAPNIA Status: Acute Comment: Improving with therapy. Continue O2 supplementation, parenteral steroids, Bactrim and bronchodilaror therapy. (2) COPD exacerbation Code(s): J44.1 - CHRONIC OBSTRUCTIVE PULMONARY DISEASE W (ACUTE) EXACERBATION Status: Acute Plan: As above. (3) History of SIADH Code(s): Z86.39 - PERSONAL HISTORY OF ENDO, NUTRITIONAL AND METABOLIC DISEASE Status: Chronic (4) Hypothyroidism Code(s): E03.9 - HYPOTHYROIDISM, UNSPECIFIED Status: Chronic Qualifiers: Hypothyroidism type: unspecified (5) PVD (peripheral vascular disease) Code(s): I73.9 - PERIPHERAL VASCULAR DISEASE, UNSPECIFIED Status: Chronic (6) Hyponatremia Code(s): E87.1 - HYPO-OSMOLALITY AND HYPONATREMIA Status: Acute Comment: Improving. Asymptomatic. - Plan cont current plan of care, continue antibiotics, PT/OT, respiratory therapy, DVT proph w/lovenox * . Review of Systems - Review of Systems Respiratory: Shortness of Breath, SOB with Excertion - Medications/Allergies Allergies/Adverse Reactions: Allergies Allergy/AdvReac Type Severity Reaction Status Date / Time No Known Allergies Allergy Verified 03/07/13 19:42 Medications: Current Medications Acetaminophen (Tylenol) 650 mg PO Q4H PRN PRN Reason: Headache/Fever or Pain Hydrocodone Bitart/Acetaminophen ([place] 5/325) 1 tab PO Q4H PRN PRN Reason: Moderate Pain (4-6) Last Admin: 12/22/17 08:55 Dose: 1 tab Albuterol Sulfate (Ventolin) 2.5 mg NEB [id number] PRN PRN Reason: SOB &/or Wheezing Albuterol/Ipratropium (Duoneb) 3 ml NEB [id number] [facility] Last Admin: 12/22/17 12:36 Dose: Not Given Alprazolam (Xanax) 0.5 mg PO Q8H PRN PRN Reason: Anxiety Last Admin: 12/22/17 12:25 Dose: 0.5 mg Cilostazol (Pletal) 50 mg PO BID [facility] Last Admin: 12/22/17 08:52 Dose: 50 mg Diltiazem HCl (Cardizem) 60 mg PO TID [facility] Last Admin: 12/22/17 08:54 Dose: 60 mg Docusate Sodium (Colace) 100 mg PO BID [facility] Last Admin: 12/22/17 08:54 Dose: 100 mg Enoxaparin Sodium (Lovenox) 40 mg SC 0900 [facility] Last Admin: 12/22/17 08:54 Dose: 40 mg Famotidine (Pepcid) 20 mg PO BID [facility] Last Admin: 12/22/17 08:54 Dose: 20 mg Fluoxetine HCl (Prozac) 40 mg PO HS [facility] Last Admin: 12/21/17 20:00 Dose: 40 mg Guaifenesin/Dextromethorphan (Robitussin Dm) 15 ml PO Q4H PRN PRN Reason: Cough Last Admin: 12/22/17 08:57 Dose: 15 ml Levothyroxine Sodium (Synthroid) 50 mcg PO 0600 [facility] Last Admin: 12/22/17 05:39 Dose: 50 mcg Montelukast Sodium (Singulair) 10 mg PO QPM [facility] Last Admin: 12/21/17 20:01 Dose: 10 mg Ondansetron HCl (Zofran Odt) 4 mg PO Q6H PRN PRN Reason: Nausea/Vomiting Pantoprazole Sodium (Protonix) 40 mg PO DAILY [facility] Last Admin: 12/22/17 08:54 Dose: 40 mg Prednisone (Prednisone) 50 mg PO QAM-WM [facility] Sodium Chloride (Flush - Normal Saline) 10 ml IVF Q12HR [facility] Last Admin: 12/22/17 08:55 Dose: 10 ml Sodium Chloride (Flush - Normal Saline) 10 ml IVF PRN PRN PRN Reason: Saline Flush Theophylline (Theophylline Sr) 400 mg PO BID [facility] Last Admin: 12/22/17 08:57 Dose: 400 mg Tramadol HCl (Ultram) 50 mg PO QIDPRN PRN PRN Reason: Headache, Aches or Pain Trimethoprim/Sulfamethoxazole (Bactrim Ds) 1 tab PO BID [facility] Last Admin: 12/22/17 08:55 Dose: 1 tab
[2017-12-22] MEDS: Montelukast Sodium 10 mg Tablet PO SCH (20:33)
[2017-12-22] MEDS: FLUoxetine HCl 20 MG CAP PO SCH (20:33)
[2017-12-22] MEDS: traMADol HCl 50 MG TAB PO PRN (23:04)
[2017-12-23 04:05] LABS: #Lymphocytes 2.3 thou/uL (1.20-3.40); #Neutrophils 11.3 thou/uL (1.40-6.50); %Basophils 0.1 % (0.0-1.0); %Eosinophils 0.2 % (0.0-10.0); %Lymphocytes 14.7 % (21.0-51.0); %Monocytes 12.8 % (0.0-10.0); %Neutrophils 72.2 % (42.0-75.0); Mean Corpuscular HGB CONC 32.6 g/dL (32.0-36.0); Mean Corpuscular Hemoglobin 30.2 pg (27.0-31.0); Mean Corpuscular Volume 92.9 fl (81.0-99.0); Mean Platelet Volume 6.6 fL (7.4-10.4); Platelet Count 271 thou/uL (130-400); RBC Distribution Width 12.5 % (11.5-14.5); Red Blood Cell (RBC) Count 3.64 mill/uL (4.20-5.40); White Blood Cell (WBC) Count 15.6 thou/uL (4.8-10.8)
[2017-12-23 04:27] LABS: ALT (SGPT) 19 U/L (8-55); AST (SGOT) 29 U/L (5-34); Albumin 3.6 g/dL (3.4-4.8); Alkaline Phosphatase 55 U/L (40-150); Anion Gap 7 mmol/L (10-20); BUN (Urea Nitrogen) 10 mg/dL (9.8-20.1); Bilirubin, Total 0.4 mg/dL (0.2-1.2); Calc. Creatinine Clearance 83 mL/min (70-130); Calcium 8.5 mg/dL (7.8-10.44); Carbon Dioxide 34 mmol/L (23-31); Chloride 96 mmol/L (98-107); Estimated GFR-MDRD Greater than 90; Globulin 2.8 g/dL (2.4-3.5); Glucose 102 mg/dL (80-115); Protein, Total 6.4 g/dL (6.0-8.3); Sodium 134 mmol/L (136-145)
[2017-12-23 04:29] LABS: Potassium 2.8 mmol/L (3.5-5.1)
[2017-12-23] MEDS ORDERED: Potassium Chloride 20 MEQ TAB PO SCH (05:15)
[2017-12-23] MEDS: Levothyroxine Sodium 50 MCG TAB PO SCH (05:19)
[2017-12-23] MEDS: predniSONE 50 MG TAB PO SCH (08:53)
[2017-12-23] MEDS: Cilostazol 100 MG TAB PO SCH ×2 (08:53→21:45)
[2017-12-23] MEDS: Famotidine 20 MG TAB PO SCH (08:54)
[2017-12-23] MEDS: Sulfameth/Trimethoprim DS 800-160mg TAB PO SCH ×2 (08:55→21:46)
[2017-12-23] MEDS: Docusate 100 MG CAP PO SCH ×2 (08:55→23:00)
[2017-12-23] MEDS: Potassium Chloride 20 MEQ TAB PO SCH ×2 (08:56→21:48)
[2017-12-23] MEDS: Enoxaparin Sodium 40 MG/0.4 ML SYRINGE SC SCH (08:57)
[2017-12-23] MEDS: Guaifenesin DM 100-10/5 ML UDCUP PO PRN (09:07)
--- NOTE | 2017-12-23 09:35 | PDOC.PN ---
- Subjective Encounter Start Date: 12/23/17 Encounter Start Time: 15:18 Patient seen and examined following admission for acute hypoxic and hypercapnic respiratory failure and continued marijuana use. She has no complaints today and no acute events overnight. - Objective Resuscitation Status: Resuscitation Status FULL:Full Resuscitation MAR Reviewed: Yes Vital Signs & Weight: Vital Signs (12 hours) Temp Pulse Resp BP Pulse Ox 12/23/17 09:06 98.4 F 108 H 20 92 L 12/23/17 07:31 98.4 F 108 H 20 120/72 92 L 12/23/17 06:14 106 H 18 94 L 12/23/17 04:00 98.2 F 104 H 22 H 138/77 91 L 12/23/17 00:27 92 L 12/23/17 00:26 92 L 12/23/17 00:00 98.6 F 106 H 20 114/70 96 Weight Weight 130 lb I&O: 12/22/17 12/23/17 12/24/17 06:59 06:59 06:59 Intake Total 560 120 Output Total 950 Balance -390 120 Result Diagrams: 12/23/17 03:52 12/23/17 09:49 Phys Exam - Physical Examination Constitutional: NAD HEENT: moist MMs, sclera anicteric, oral pharynx no lesions Neck: no JVD, supple, full ROM Respiratory: no wheezing, no rales, no rhonchi, clear to auscultation bilateral Cardiovascular: RRR, no significant murmur, no rub Gastrointestinal: soft, non-tender, no distention, positive bowel sounds Musculoskeletal: no edema, pulses present Neurological: non-focal, moves all 4 limbs Skin: no rash, normal turgor Dx/Plan (1) Acute respiratory failure with hypoxia and hypercapnia Code(s): J96.01 - ACUTE RESPIRATORY FAILURE WITH HYPOXIA; J96.02 - ACUTE RESPIRATORY FAILURE WITH HYPERCAPNIA Status: Acute Comment: Stable. Continues to improve with therapy. Continue O2 supplementation, PO steroids, Bactrim and bronchodilaror therapy. (2) COPD exacerbation Code(s): J44.1 - CHRONIC OBSTRUCTIVE PULMONARY DISEASE W (ACUTE) EXACERBATION Status: Acute (3) History of SIADH Code(s): Z86.39 - PERSONAL HISTORY OF ENDO, NUTRITIONAL AND METABOLIC DISEASE Status: Chronic (4) Hypothyroidism Code(s): E03.9 - HYPOTHYROIDISM, UNSPECIFIED Status: Chronic Qualifiers: Hypothyroidism type: unspecified Qualified Code(s): E03.9 - Hypothyroidism , unspecified (5) PVD (peripheral vascular disease) Code(s): I73.9 - PERIPHERAL VASCULAR DISEASE, UNSPECIFIED Status: Chronic (6) Hyponatremia Code(s): E87.1 - HYPO-OSMOLALITY AND HYPONATREMIA Status: Acute Comment: Improving. Asymptomatic. (7) Hypokalemia Code(s): E87.6 - HYPOKALEMIA Status: Acute - Plan cont current plan of care, continue antibiotics, respiratory therapy, out of bed /ambulate, DVT proph w/lovenox Improving with therapy but still requiring oxygen supplementation. Will require Home O2 evaluation before discharge. Review of Systems - Medications/Allergies Allergies/Adverse Reactions: Allergies Allergy/AdvReac Type Severity Reaction Status Date / Time No Known Allergies Allergy Verified 03/07/13 19:42 Medications: Current Medications Acetaminophen (Tylenol) 650 mg PO Q4H PRN PRN Reason: Headache/Fever or Pain Hydrocodone Bitart/Acetaminophen ([place] 5/325) 1 tab PO Q4H PRN PRN Reason: Moderate Pain (4-6) Last Admin: 12/22/17 08:55 Dose: 1 tab Albuterol Sulfate (Ventolin) 2.5 mg NEB [id number] PRN PRN Reason: SOB &/or Wheezing Albuterol/Ipratropium (Duoneb) 3 ml NEB [id number] [facility] Last Admin: 12/23/17 06:14 Dose: 3 ml Alprazolam (Xanax) 0.5 mg PO Q8H PRN PRN Reason: Anxiety Last Admin: 12/22/17 23:01 Dose: 0.5 mg Cilostazol (Pletal) 50 mg PO BID [facility] Last Admin: 12/23/17 08:53 Dose: 50 mg Diltiazem HCl (Cardizem) 60 mg PO TID [facility] Last Admin: 12/23/17 08:54 Dose: 60 mg Docusate Sodium (Colace) 100 mg PO BID [facility] Last Admin: 12/23/17 08:55 Dose: 100 mg Enoxaparin Sodium (Lovenox) 40 mg SC 0900 [facility] Last Admin: 12/23/17 08:57 Dose: 40 mg Famotidine (Pepcid) 20 mg PO BID [facility] Last Admin: 12/23/17 08:54 Dose: 20 mg Fluoxetine HCl (Prozac) 40 mg PO HS [facility] Last Admin: 12/22/17 20:33 Dose: 40 mg Guaifenesin/Dextromethorphan (Robitussin Dm) 15 ml PO Q4H PRN PRN Reason: Cough Last Admin: 12/23/17 09:07 Dose: 15 ml Levothyroxine Sodium (Synthroid) 50 mcg PO 0600 [facility] Last Admin: 12/23/17 05:19 Dose: 50 mcg Montelukast Sodium (Singulair) 10 mg PO QPM [facility] Last Admin: 12/22/17 20:33 Dose: 10 mg Ondansetron HCl (Zofran Odt) 4 mg PO Q6H PRN PRN Reason: Nausea/Vomiting Pantoprazole Sodium (Protonix) 40 mg PO DAILY [facility] Last Admin: 12/23/17 08:54 Dose: 40 mg Potassium Chloride (K-Dur) 40 meq PO BID [facility] Last Admin: 12/23/17 08:56 Dose: 40 meq Prednisone (Prednisone) 50 mg PO QAM-WM [facility] Last Admin: 12/23/17 08:53 Dose: 50 mg Sodium Chloride (Flush - Normal Saline) 10 ml IVF Q12HR [facility] Last Admin: 12/23/17 09:01 Dose: 10 ml Sodium Chloride (Flush - Normal Saline) 10 ml IVF PRN PRN PRN Reason: Saline Flush Theophylline (Theophylline Sr) 400 mg PO BID [facility] Last Admin: 12/23/17 08:55 Dose: 400 mg Tramadol HCl (Ultram) 50 mg PO QIDPRN PRN PRN Reason: Headache, Aches or Pain Last Admin: 12/22/17 23:04 Dose: 50 mg Trimethoprim/Sulfamethoxazole (Bactrim Ds) 1 tab PO BID [facility] Last Admin: 12/23/17 08:55 Dose: 1 tab
[2017-12-23 10:21] LABS: Potassium 3.6 mmol/L (3.5-5.1)
[2017-12-23] MEDS ORDERED: guaiFENesin ER 600 MG TAB PO SCH (11:45)
--- NOTE | 2017-12-23 14:13 | PRG ---
DATE OF SERVICE: 12/23/2017 SERVICE: Pulmonary Medicine. INTERVAL HISTORY: The patient is doing fine from a respiratory standpoint. Her biggest concern is t hat she would like to go out on oxygen. That being said, she never really qualifies for it. Current ly, she has a daily mucopurulent sputum production. This has been going on for greater than 2-3 year s. Whenever she coughs up a significant amount of yellow phlegm, she breathes better. It is the day that she cannot get the phlegm up and she has such terrible symptoms. She currently denies any feve rs or chills. There were no significant overnight events. She showed me several globs of bright yel low mucus that she was able to produce today. PHYSICAL EXAMINATION: VITAL SIGNS: Afebrile, pulse 123, blood pressure 122/75, respirations 20, saturation 92% on 2 liters nasal cannula. GENERAL: The patient is awake and alert, in no apparent distress. LUNGS: Excellent air entry. There is really not much of a prolonged expiratory phase. Rhonchi are present. No wheezing or crackles are appreciated. HEART: Tachycardic. Regular. ABDOMEN: Soft, nontender, nondistended. Bowel sounds are positive. MUSCULOSKELETAL: No cyanosis or clubbing. There is no pitting in the bilateral lower extremities. NEUROLOGIC: Grossly nonfocal. LABORATORY DATA: WBC 15.6, hemoglobin 11.0, platelets 271,000. Potassium 3.6. Basic metabolic prof ile and liver function studies are otherwise unremarkable except for an up trending bicarbonate to 34 . Magnesium 2.0. Urinalysis is unremarkable. Tox screen is positive for opiates, benzodiazepines a nd cannabinoids. Respiratory culture, blood culture x2 are unremarkable. ASSESSMENT: 1. Acute hypoxic respiratory failure, improving. 2. Chronic obstructive pulmonary disease with acute exacerbation. 3. Hypokalemia. DISCUSSION AND PLAN: We will continue our antibiotics, nebulized medications and steroids. We will add some physiotherapy to see if that will help promote expectoration of mucus. I reviewed the CT sc an from 2002 of the chest. I also reviewed the CT of the belly from 2014. I was looking for signs o f bronchiectasis, but truth be told, I did not see them. If the patient benefits from physiotherapy, nebulized medications, we should consider sending her home with an Acapella valve.
[2017-12-23] MEDS: guaiFENesin ER 600 MG TAB PO SCH (21:44)
[2017-12-23] MEDS: FLUoxetine HCl 20 MG CAP PO SCH (21:46)
[2017-12-23] MEDS: Montelukast Sodium 10 mg Tablet PO SCH (21:47)
[2017-12-24] MEDS: ALPRAZolam 0.5 MG TAB PO PRN ×2 (00:57→15:57)
[2017-12-24 05:10] LABS: #Eosinphils 0.1 thou/uL (0.0-0.7); #Lymphocytes 2.4 thou/uL (1.20-3.40); #Monocytes 1.6 thou/uL (0.11-0.59); #Neutrophils 9.2 thou/uL (1.40-6.50); %Basophils 0.3 % (0.0-1.0); %Eosinophils 0.5 % (0.0-10.0); %Lymphocytes 17.9 % (21.0-51.0); %Monocytes 12.2 % (0.0-10.0); Hemoglobin 11.4 g/dL (12.0-16.0); Mean Corpuscular HGB CONC 32.2 g/dL (32.0-36.0); Mean Corpuscular Hemoglobin 29.9 pg (27.0-31.0); Mean Corpuscular Volume 92.8 fl (81.0-99.0); Mean Platelet Volume 6.6 fL (7.4-10.4); Platelet Count 258 thou/uL (130-400); RBC Distribution Width 12.7 % (11.5-14.5); Red Blood Cell (RBC) Count 3.81 mill/uL (4.20-5.40); White Blood Cell (WBC) Count 13.3 thou/uL (4.8-10.8)
[2017-12-24 05:26] LABS: ALT (SGPT) 16 U/L (8-55); AST (SGOT) 23 U/L (5-34); Albumin 3.5 g/dL (3.4-4.8); Alkaline Phosphatase 61 U/L (40-150); Anion Gap 12 mmol/L (10-20); BUN (Urea Nitrogen) 12 mg/dL (9.8-20.1); Bilirubin, Total 0.4 mg/dL (0.2-1.2); Calc. Creatinine Clearance 92 mL/min (70-130); Calcium 8.7 mg/dL (7.8-10.44); Carbon Dioxide 27 mmol/L (23-31); Chloride 99 mmol/L (98-107); Estimated GFR-MDRD Greater than 90; Globulin 2.9 g/dL (2.4-3.5); Glucose 84 mg/dL (80-115); Potassium 3.6 mmol/L (3.5-5.1); Protein, Total 6.4 g/dL (6.0-8.3); Sodium 134 mmol/L (136-145)
[2017-12-24] MEDS: Levothyroxine Sodium 50 MCG TAB PO SCH (06:16)
[2017-12-24] MEDS: Cilostazol 100 MG TAB PO SCH ×2 (08:37→21:32)
[2017-12-24] MEDS: Sulfameth/Trimethoprim DS 800-160mg TAB PO SCH ×2 (08:38→21:34)
[2017-12-24] MEDS: guaiFENesin ER 600 MG TAB PO SCH ×2 (08:38→21:31)
[2017-12-24] MEDS: Docusate 100 MG CAP PO SCH ×2 (08:39→21:36)
[2017-12-24] MEDS: Enoxaparin Sodium 40 MG/0.4 ML SYRINGE SC SCH (08:39)
[2017-12-24] MEDS: predniSONE 50 MG TAB PO SCH (09:17)
[2017-12-24] MEDS ORDERED: Potassium Chloride 20 MEQ TAB PO SCH (10:15)
--- NOTE | 2017-12-24 10:31 | PRG ---
DATE OF SERVICE: 12/24/2017 SERVICE: Pulmonary Medicine INTERVAL HISTORY: The patient is doing fine from cardiovascular and respiratory standpoint. She den ies any chest pain, nausea, vomiting, fevers or chills. In fact, she really liked the acapella valve . She has been able to liberate a lot more sputum and as she has done this, her breathing has opened up dramatically. She still feels weak, though she feels like she is moving in the right direction c learly. PHYSICAL EXAMINATION: VITAL SIGNS: Afebrile, pulse 103, blood pressure 133/75, respirations 16, saturation 97% on 2 liters nasal cannula. GENERAL: The patient is awake, alert, in no apparent distress. LUNGS: Excellent air entry with no prolonged expiratory phase, wheezing, rhonchi or crackles. HEART: Normal rate, regular. ABDOMEN: Soft, nontender, nondistended. Bowel sounds are positive. MUSCULOSKELETAL: No cyanosis or clubbing. No pitting in the bilateral lower extremities. NEUROLOGIC: Grossly nonfocal. LABORATORY DATA: WBC 13.3, hemoglobin 11.4, platelets 258,000. Basic metabolic profile and liver fu nction studies are unremarkable. Magnesium falls within the normal limits. All culture results incl uding respiratory culture and blood culture x2 are negative to date. ASSESSMENT: 1. Acute hypoxic respiratory failure, improving. 2. Chronic obstructive pulmonary disease with acute exacerbation. 3. Hypokalemia, improved. DISCUSSION AND PLAN: I will repeat a dose of potassium this morning. From my perspective, she is st able for transition out of the hospital. Because she makes excessive amounts of sputum, she should b e engaged in physiotherapy twice daily in the outpatient setting. She will take the acapella valve h ome with her.
[2017-12-24] MEDS: traMADol HCl 50 MG TAB PO PRN (11:25)
--- NOTE | 2017-12-24 13:00 | PDOC.PN ---
- Subjective Encounter Start Date: 12/24/17 Encounter Start Time: 08:00 Pt seen for followup re: acute on chronic respiratory failure. Cough+. No sputum. No fevers or chills. - Objective Resuscitation Status: Resuscitation Status FULL:Full Resuscitation MAR Reviewed: Yes Vital Signs & Weight: Vital Signs (12 hours) Temp Pulse Resp BP Pulse Ox Pulse Ox Pulse Ox 12/24/17 11:21 98.2 F 118 H 18 135/74 94 L 12/24/17 09:50 111 H 18 95 12/24/17 09:39 100 95 12/24/17 08:35 97.5 F L 103 H 16 97 12/24/17 07:30 97.5 F L 103 H 16 133/75 97 12/24/17 06:18 99 18 94 L 12/24/17 04:00 97.5 F L 97 20 119/72 92 L Weight Weight 130 lb I&O: 12/23/17 12/24/17 12/25/17 06:59 06:59 06:59 Intake Total 120 800 Output Total 1000 Balance 120 -200 Result Diagrams: 12/24/17 04:24 12/24/17 04:24 Additional Labs: Labs reviewed by me Phys Exam - Physical Examination Constitutional: NAD HEENT: moist MMs Neck: supple Respiratory: wheezing present Cardiovascular: RRR Gastrointestinal: soft Neurological: moves all 4 limbs Psychiatric: normal affect Dx/Plan (1) Acute and chronic respiratory failure Code(s): J96.20 - ACUTE AND CHR RESP FAILURE, UNSP W HYPOXIA OR HYPERCAPNIA Status: Acute Qualifiers: Respiratory failure complication: hypoxia and hypercapnia Qualified Code(s) : J96.21 - Acute and chronic respiratory failure with hypoxia; J96.22 - Acute and chronic respiratory failure with hypercapnia; J96.22 - Acute and chronic respiratory failure with hypercapnia; J96.22 - Acute and chronic respiratory failure with hypercapnia Comment: Improving, due to COPD exacerbation (2) COPD exacerbation Code(s): J44.1 - CHRONIC OBSTRUCTIVE PULMONARY DISEASE W (ACUTE) EXACERBATION Status: Acute Comment: Continue PRN oxygen. Continue steroids, bronchodilators and antibiotics. (3) Hypothyroidism Code(s): E03.9 - HYPOTHYROIDISM, UNSPECIFIED Status: Chronic Qualifiers: Hypothyroidism type: unspecified Qualified Code(s): E03.9 - Hypothyroidism , unspecified Comment: continue synthroid, stable (4) PVD (peripheral vascular disease) Code(s): I73.9 - PERIPHERAL VASCULAR DISEASE, UNSPECIFIED Status: Chronic Comment: Stable - Plan * . Review of Systems - Review of Systems Respiratory: Cough, Dry, SOB with Excertion. negative: Shortness of Breath, Hemoptysis, Pleuritic Pain, Sputum, Wheezing Cardiovascular: negative: chest pain, palpitations, orthopnea, paroxysmal nocturnal dyspnea, edema, light headedness - Medications/Allergies Allergies/Adverse Reactions: Allergies Allergy/AdvReac Type Severity Reaction Status Date / Time No Known Allergies Allergy Verified 03/07/13 19:42 Medications: Current Medications Acetaminophen (Tylenol) 650 mg PO Q4H PRN PRN Reason: Headache/Fever or Pain Hydrocodone Bitart/Acetaminophen ([place] 5/325) 1 tab PO Q4H PRN PRN Reason: Moderate Pain (4-6) Last Admin: 12/22/17 08:55 Dose: 1 tab Albuterol Sulfate (Ventolin) 2.5 mg NEB [id number] PRN PRN Reason: SOB &/or Wheezing Albuterol/Ipratropium (Duoneb) 3 ml EZPAP [id number] [facility] Last Admin: 12/24/17 09:50 Dose: 3 ml Alprazolam (Xanax) 0.5 mg PO Q8H PRN PRN Reason: Anxiety Last Admin: 12/24/17 00:57 Dose: 0.5 mg Cilostazol (Pletal) 50 mg PO BID [facility] Last Admin: 12/24/17 08:37 Dose: 50 mg Diltiazem HCl (Cardizem) 60 mg PO TID [facility] Last Admin: 12/24/17 08:38 Dose: 60 mg Docusate Sodium (Colace) 100 mg PO BID [facility] Last Admin: 12/24/17 08:39 Dose: 100 mg Enoxaparin Sodium (Lovenox) 40 mg SC 0900 [facility] Last Admin: 12/24/17 08:39 Dose: 40 mg Fluoxetine HCl (Prozac) 40 mg PO HS [facility] Last Admin: 12/23/17 21:46 Dose: 40 mg Guaifenesin (Mucinex) 1,200 mg PO Q12HR [facility] Last Admin: 12/24/17 08:38 Dose: 1,200 mg Levothyroxine Sodium (Synthroid) 50 mcg PO 0600 [facility] Last Admin: 12/24/17 06:16 Dose: 50 mcg Montelukast Sodium (Singulair) 10 mg PO QPM [facility] Last Admin: 12/23/17 21:47 Dose: 10 mg Ondansetron HCl (Zofran Odt) 4 mg PO Q6H PRN PRN Reason: Nausea/Vomiting Pantoprazole Sodium (Protonix) 40 mg PO DAILY [facility] Last Admin: 12/24/17 08:38 Dose: 40 mg Prednisone (Prednisone) 50 mg PO QAM-WM [facility] Last Admin: 12/24/17 09:17 Dose: 50 mg Sodium Chloride (Flush - Normal Saline) 10 ml IVF Q12HR [facility] Last Admin: 12/24/17 08:40 Dose: 10 ml Sodium Chloride (Flush - Normal Saline) 10 ml IVF PRN PRN PRN Reason: Saline Flush Theophylline (Theophylline Sr) 400 mg PO BID [facility] Last Admin: 12/24/17 08:37 Dose: 400 mg Tramadol HCl (Ultram) 50 mg PO QIDPRN PRN PRN Reason: Headache, Aches or Pain Last Admin: 12/24/17 11:25 Dose: 50 mg Trimethoprim/Sulfamethoxazole (Bactrim Ds) 1 tab PO BID [facility] Last Admin: 12/24/17 08:38 Dose: 1 tab
[2017-12-24] MEDS: Montelukast Sodium 10 mg Tablet PO SCH (21:30)
[2017-12-24] MEDS: FLUoxetine HCl 20 MG CAP PO SCH (21:31)
[2017-12-25] MEDS: ALPRAZolam 0.5 MG TAB PO PRN ×2 (01:18→17:34)
[2017-12-25 05:06] LABS: #Eosinphils 0.1 thou/uL (0.0-0.7); #Lymphocytes 2.2 thou/uL (1.20-3.40); #Monocytes 1.1 thou/uL (0.11-0.59); #Neutrophils 6.9 thou/uL (1.40-6.50); %Basophils 0.4 % (0.0-1.0); %Eosinophils 1.1 % (0.0-10.0); %Monocytes 10.4 % (0.0-10.0); Hemoglobin 11.8 g/dL (12.0-16.0); Mean Corpuscular HGB CONC 32.6 g/dL (32.0-36.0); Mean Corpuscular Hemoglobin 29.9 pg (27.0-31.0); Mean Corpuscular Volume 91.6 fl (81.0-99.0); Mean Platelet Volume 6.6 fL (7.4-10.4); Platelet Count 291 thou/uL (130-400); RBC Distribution Width 12.8 % (11.5-14.5); Red Blood Cell (RBC) Count 3.94 mill/uL (4.20-5.40); White Blood Cell (WBC) Count 10.3 thou/uL (4.8-10.8)
[2017-12-25 05:29] LABS: ALT (SGPT) 15 U/L (8-55); AST (SGOT) 19 U/L (5-34); Albumin 3.7 g/dL (3.4-4.8); Alkaline Phosphatase 63 U/L (40-150); Anion Gap 13 mmol/L (10-20); BUN (Urea Nitrogen) 10 mg/dL (9.8-20.1); Bilirubin, Total 0.4 mg/dL (0.2-1.2); Calc. Creatinine Clearance 89 mL/min (70-130); Calcium 9.2 mg/dL (7.8-10.44); Carbon Dioxide 26 mmol/L (23-31); Chloride 100 mmol/L (98-107); Estimated GFR-MDRD Greater than 90; Globulin 3.2 g/dL (2.4-3.5); Glucose 78 mg/dL (80-115); Potassium 3.6 mmol/L (3.5-5.1); Protein, Total 6.9 g/dL (6.0-8.3); Sodium 135 mmol/L (136-145)
[2017-12-25] MEDS: Levothyroxine Sodium 50 MCG TAB PO SCH (06:06)
[2017-12-25] MEDS: guaiFENesin ER 600 MG TAB PO SCH ×2 (09:12→19:37)
[2017-12-25] MEDS: predniSONE 50 MG TAB PO SCH (09:12)
[2017-12-25] MEDS: Cilostazol 100 MG TAB PO SCH ×2 (09:12→19:44)
[2017-12-25] MEDS: Enoxaparin Sodium 40 MG/0.4 ML SYRINGE SC SCH (09:12)
[2017-12-25] MEDS: Docusate 100 MG CAP PO SCH ×2 (09:12→19:38)
[2017-12-25] MEDS: Sulfameth/Trimethoprim DS 800-160mg TAB PO SCH ×2 (09:12→19:37)
[2017-12-25] MEDS: traMADol HCl 50 MG TAB PO PRN (13:04)
--- NOTE | 2017-12-25 14:15 | PDOC.EVN ---
Event Note - Event Note Event Note: Patient's room air oxygen saturation was 94%. It dropped to 84% with ambulation , patient became tachycardic and short of breath and had to stop exertion. With 2LPM oxygen, oxygen saturation dropped to 92% with exertion and patient was not short of breath or tachycardic. Patient needs home oxygen.
--- NOTE | 2017-12-25 15:46 | PRG ---
DATE OF SERVICE: 12/25/2017 SERVICE: Pulmonary Medicine. INTERVAL HISTORY: The patient is doing fine from cardiovascular and respiratory standpoint. She den ies any current chest pain, nausea, vomiting, fevers or chills. There has been no interval change to her condition. PHYSICAL EXAMINATION: VITAL SIGNS: Afebrile, pulse 98, blood pressure 142/84, respirations 18, saturation 95% on 3 liters nasal cannula. GENERAL: The patient is awake, alert, in no apparent distress. LUNGS: There is a decreased air entry. Slightly prolonged expiratory phase. The rhonchi have actua lly cleared. Minimal dependent crackles are present. No rhonchi. HEART: Normal rate, regular. ABDOMEN: Soft, nontender, nondistended. Bowel sounds are positive. MUSCULOSKELETAL: No cyanosis or clubbing. There is no pitting in the bilateral lower extremities. NEUROLOGIC: Grossly nonfocal. LABORATORY DATA: WBC 10.3, hemoglobin 11.8, platelets 291,000. Sodium 135, potassium 3.6. Liver fu nction studies and basic metabolic profile are, otherwise, unremarkable. Blood cultures x2 and urine culture negative. ASSESSMENT: 1. Acute hypoxic respiratory failure, resolving. 2. Chronic obstructive pulmonary disease with acute exacerbation. 3. Hypokalemia, improving. PLAN: I will replace the patient's potassium once again. A.m. labs will be suspended. From my pers pective, she is stable for transition out of the hospital provided that she has safe environment to g o home with. Apparently, she was able to walk earlier and had significant desaturation. She went do wn to 86% and had dyspnea that stopped her. As such, she started to ambulate again with oxygen at 3 liters nasal cannula. On these settings, the patient did not have any significant desaturation and m aintained sats at 92%. She had increasing exercise tolerance.
[2017-12-25] MEDS: Potassium Chloride 20 MEQ TAB PO SCH ×2 (17:06→19:38)
[2017-12-25 19:02] VITALS: BP 128/78; TEMP 98.1
[2017-12-25] MEDS: FLUoxetine HCl 20 MG CAP PO SCH (19:36)
[2017-12-25] MEDS: Montelukast Sodium 10 mg Tablet PO SCH (19:36)
[2017-12-25] MEDS ORDERED: Theophyllin SR 24HR 100 MG CAP PO SCH (21:00)
--- NOTE | 2017-12-26 02:44 | DIS ---
DATE OF ADMISSION: 12/20/2017 DATE OF DISCHARGE: 12/25/2017 PRIMARY CARE PHYSICIAN: Shaista Young NP DISCHARGE DIAGNOSES: 1. Acute on chronic respiratory failure. 2. Chronic obstructive pulmonary disease exacerbation. 3. Hypokalemia. CONDITION OF THE PATIENT ON THE DAY OF DISCHARGE: Stable. I assessed Ms. Beyer on the day of disc harge. She denies any chest pain. She reports breathing better. PHYSICAL EXAMINATION: VITAL SIGNS: Stable. HEART: S1 and S2 are heard, regular. LUNGS: Clear to auscultation bilaterally. DISCHARGE MEDICATIONS: Symbicort 160/4.5 two puffs 2 times a day, cilostazol 50 mg 2 times a day, Ca rdizem 60 mg 3 times a day, fluoxetine 40 mg at bedtime, Motrin 800 mg 3 times a day, ipratropium leila al spray 1-2 sprays to each naris 2 times a day, lansoprazole 30 mg daily, levothyroxine 50 mcg daily , Medrol Dosepak, Singulair 10 mg every evening, Bactrim DS 1 tablet 2 times a day, theophylline SR 4 00 mg 2 times a day, trazodone 100 mg at bedtime, Dyazide 1 capsule daily, Ventolin 2 puffs every 6 h ours as needed, Xanax 0.5 mg every 8 hours as needed, DuoNeb 3 mL 4 times a day as needed, and tramad ol 50 mg 4 times a day as needed. CONSULTATIONS DURING THIS HOSPITALIZATION: Pulmonology, Dr. Dubon. HOSPITAL COURSE: Ms. Beyer is a pleasant 67-year-old lady, who was admitted to [facility] on 12/20/2017 for acute on chronic hypoxic respiratory failure secondary to chronic ob structive pulmonary disease exacerbation. She was seen by Pulmonology Service. She was treated with oxygen, steroids, antibiotics, and bronchodilators. She initially improved slowly. Her improvement was significantly rapid after she was started on acapella valve. She is advised to use it twice mami ly in the outpatient setting. On the day of discharge, she was found to be hypoxic. Her room air oxygen saturation was 94%. It dr opped to 84% with ambulation and the patient became tachycardic and dyspneic and had to stop exerting . On 2 liters of oxygen, oxygen saturation dropped to 92% with exertion and the patient was not shor t of breath or tachycardic. Therefore, the patient is being discharged on home oxygen. On the day of discharge, she has sodium 135, potassium 3.6, creatinine 0.58, white count 10,300, hemo globin 11.8, and platelet count 291,000. Many thanks for allowing me to participate in your patient's care. Please feel free to contact me wi th any questions or concerns. DISCHARGE DESTINATION: Home. TOTAL AMOUNT OF TIME SPENT COORDINATING THIS DISCHARGE: 33 minutes.
--- NOTE | 2017-12-26 14:53 | EKG ---
Test Reason : SOB Blood Pressure : / mmHG Vent. Rate : 110 BPM Atrial Rate : 110 BPM P-R Int : 136 ms QRS Dur : 082 ms QT Int : 332 ms P-R-T Axes : 100 211 081 degrees QTc Int : 449 ms Suspect arm lead reversal, interpretation assumes no reversal Sinus tachycardia Biatrial enlargement Indeterminate axis Pulmonary disease pattern Abnormal ECG Confirmed by ALESHIA LYONS, DION ([id number]), communications editor DAO CANELA ([id number]) on 12/26/2017 2:52:25 PM Referred By: Confirmed By:DION MONK MD
== END 2017-12-25 21:20 | disposition home or self-care (01) | DRG 189 ==
LOC: ERS 12:46 → 2NO 16:55 → T4-B 12-22 15:18
PROVIDERS: ADMIT Family Medicine; ATTEND Family Medicine
DX: J96.01 Acute respiratory failure with hypoxia (principal); J44.1 Chronic obstructive pulmonary disease with (acute) exacerbation; E87.1 Hypo-osmolality and hyponatremia; E44.0 Moderate protein-calorie malnutrition; E03.9 Hypothyroidism, unspecified; E86.0 Dehydration; F41.9 Anxiety disorder, unspecified; E87.6 Hypokalemia; F12.90 Cannabis use, unspecified, uncomplicated; I73.9 Peripheral vascular disease, unspecified; M54.9 Dorsalgia, unspecified; G89.29 Other chronic pain; Z90.49 Acquired absence of other specified parts of digestive tract
CPT/HCPCS: 36415; 71045; 80048; 80053; 80198; 80306; 81003; 81015; 82553; 82805; 83735; 84443; 84484; 85025; 87040; 87070; 87205; 93005; 94640; 96361; 96374; A4216; G8978-GP-CJ; G8979-GP-CI; G8987-GO-CI; G8988-GO-CH; J1650; J2920; J2930; J7611; J7620

== ENCOUNTER 2018-01-14 13:12 | Outpatient (CLI) | payer MEDICARE, MEDICAID ==
--- NOTE | 2018-01-14 14:15 | RAD ---
PA AND LATERAL CHEST X-RAY: 01/14/2018 HISTORY: Dyspnea. COMPARISON: 12/20/2017 FINDINGS: The cardiac silhouette and pulmonary vasculature are within normal limits. The lungs remain hyperexp anded. Nodular densities project over each mid lung zone, suggestive of nipple shadows, also present on prior exam. There are stable mild chronic lung changes again present. No new focal area of cons olidation or pleural fluid is identified. The chest is overall stable from the prior exam. IMPRESSION: 1. Stable mild chronic lung changes without evidence of an acute cardiopulmonary process. 2. Osteopenia. POS: [facility]
== END 2018-01-14 13:13 | disposition home or self-care (01) ==
LOC: RAD 13:12
PROVIDERS: ATTEND Internal Medicine Critical Care Medicine
DX: R06.00 Dyspnea, unspecified (principal); M85.80 Other specified disorders of bone density and structure, unspecified site
CPT/HCPCS: 71046

== ENCOUNTER 2018-01-20 15:25 | Observation (INO) | payer MEDICARE, MEDICAID ==
--- NOTE | 2018-01-20 16:58 | RAD ---
PORTABLE AP CHEST X-RAY 01/20/18 HISTORY: Shortness of breath. COMPARISON: 01/14/18. FINDINGS: The cardiac silhouette and pulmonary vasculature are within normal limits. Chronic lung changes are again seen and there is hyperexpansion of the lungs. Vascular calcifications seen in the thoracic aorta. Osteopenia is again seen. There has been no significant interval change from the prior exam. IMPRESSION: 1. Chronic lung changes without evidence of an acute cardiopulmonary process. 2. Osteopenia. POS: H
[2018-01-20 17:11] LABS: #Eosinphils 0.4 thou/uL (0.0-0.7); #Lymphocytes 1.9 thou/uL (1.20-3.40); #Monocytes 1.1 thou/uL (0.11-0.59); #Neutrophils 4.9 thou/uL (1.40-6.50); %Basophils 0.3 % (0.0-1.0); %Eosinophils 4.9 % (0.0-10.0); %Lymphocytes 22.8 % (21.0-51.0); %Monocytes 12.8 % (0.0-10.0); %Neutrophils 59.3 % (42.0-75.0); Hemoglobin 12.6 g/dL (12.0-16.0); Mean Corpuscular Hemoglobin 29.7 pg (27.0-31.0); Mean Corpuscular Volume 89.9 fL (78.0-98.0); Mean Platelet Volume 6.8 fL (7.4-10.4); Platelet Count 263 thou/uL (130-400); RBC Distribution Width 12.8 % (11.5-14.5); Red Blood Cell (RBC) Count 4.23 mill/uL (4.20-5.40); White Blood Cell (WBC) Count 8.3 thou/uL (4.8-10.8)
[2018-01-20 17:34] LABS: ALT (SGPT) 21 U/L (8-55); AST (SGOT) 28 U/L (5-34); Alkaline Phosphatase 66 U/L (40-150); Anion Gap 16 mmol/L (10-20); BUN (Urea Nitrogen) 12 mg/dL (9.8-20.1); Bilirubin, Total 0.5 mg/dL (0.2-1.2); Calc. Creatinine Clearance 0 mL/min (70-130); Calcium 9.3 mg/dL (7.8-10.44); Carbon Dioxide 26 mmol/L (23-31); Chloride 93 mmol/L (98-107); Estimated GFR-MDRD 81; Globulin 3.2 g/dL (2.4-3.5); Glucose 106 mg/dL (80-115); Lipase 23 U/L (8-78); Magnesium 1.7 mg/dL (1.6-2.6); Protein, Total 7.2 g/dL (6.0-8.3); Sodium 132 mmol/L (136-145)
[2018-01-20 17:37] LABS: CKMB 4.9 ng/mL (0-6.6); Troponin I Less than 0.010 ng/mL (< 0.028)
[2018-01-20 17:39] LABS: Potassium 2.7 mmol/L (3.5-5.1)
[2018-01-20] MEDS ORDERED: Magnesium Sulfate 2 GM in Sodium Chloride 0.9% 100 ML IVPB SCH (18:15)
[2018-01-20] MEDS ORDERED: Potassium Chloride 40 MEQ in Sodium Chloride 0.9% 250 ML 250 ML IVPB SCH (18:15)
[2018-01-20] MEDS ORDERED: ALPRAZolam 0.25 MG TAB ONE (19:52)
[2018-01-20 21:07] LABS: Troponin I Less than 0.010 ng/mL (< 0.028)
[2018-01-20 21:25] VITALS: BMI 18.2
[2018-01-20] MEDS ORDERED: PROVENTIL INHALER 6.7 G (200 INHALATIONS) INH PRN (22:32)
[2018-01-20] MEDS ORDERED: traMADol HCl 50 MG TAB PO PRN (22:32)
[2018-01-20] MEDS ORDERED: Nitroglycerin 0.4 MG TAB (25 Tab Bottle) PO PRN (22:35)
[2018-01-20] MEDS ORDERED: Potassium Chloride 20 MEQ TAB PO SCH (22:45)
[2018-01-20] MEDS ORDERED: Cilostazol 100 MG TAB PO SCH (23:15)
[2018-01-20] MEDS ORDERED: FLUoxetine HCl 20 MG CAP PO SCH (23:15)
[2018-01-20 23:39] LABS: Cardiac Risk 3.1 (Less than 4.5)
[2018-01-20 23:43] LABS: Troponin I Less than 0.010 ng/mL (< 0.028)
[2018-01-21] MEDS: ALPRAZolam 0.5 MG TAB PO PRN ×2 (01:31→11:39)
[2018-01-21 05:15] LABS: Troponin I Less than 0.010 ng/mL (< 0.028)
--- NOTE | 2018-01-21 05:43 | HP ---
TIME OF EVALUATION: 8:15 p.m. CODE STATUS: FULL CODE. CHIEF COMPLAINT: Chest pain, different feeling in my chest. HISTORY OF PRESENT ILLNESS: This is a 67-year-old female patient with past medical history of drug abuse especially marijuana, came to the hospital complaining of chest tightness, with no clear triggers, no alleviating factors, no specific radiation. patient can associate while symptoms are present, she stated that she had been doing marijuana in the past few days with not yesterday and she was feeling like she was hyper. There is no fever, no chills , no cough, no sputum production, symptoms are reported as severe. REVIEW OF SYSTEMS: Constitutional: No fever or chills, generalized weakness. Respiratory: No cough, no sputum production, no shortness of breath. Cardiovascular: Chest pain, in the middle of the chest, no specific radiation, as described in HPI. Gastrointestinal: No nausea or vomiting, no diarrhea, no abdominal pain. Central nervous system: No dizziness, headache or feeling lightheaded. Genitourinary: No burning on urination. Extremities: No leg swelling. All other systems were reviewed and negative except for the findings mentioned above. PAST MEDICAL HISTORY: The patient was positive for hepatitis C, PAD, back pain , COPD. PAST SURGICAL HISTORY: Cholecystectomy, back surgery, hand surgery, tonsillectomy, tubal ligation. PSYCHIATRIC HISTORY: No history of suicidal ideation. She does have a history of depression. SOCIAL HISTORY: No alcohol, patient abuse marijuana on a daily basis, patient is a former smoker, quit smoking 10 years ago. FAMILY HISTORY: Mother with COPD. Father with myocardial infarction. KNOWN ALLERGIES: No known drug allergies reported. MEDICATIONS: Symbicort, ibuprofen, fluoxetine. PHYSICAL EXAMINATION: VITAL SIGNS: On presentation, blood pressure 152/81, heart rate 104, respiratory rate was 17, temperature 98.5, oxygen saturation was 94. GENERAL APPEARANCE: The patient is alert, oriented, mild distress due to symptoms. HEENT: Eyes: Normal conjunctivae. Moist oral mucosa. Anicteric. NECK: No JVD. RESPIRATORY: Bilateral air entry. No rales, no wheezing. Symmetric expansion. CARDIOVASCULAR: Normal rate, regular rhythm, no murmurs, no gallop. No edema. ABDOMEN: Soft, normal bowel sounds. MUSCULOSKELETAL: Baseline range of motion and strength. No tenderness. SKIN: Warm and intact. No pallor, no rash, no redness. NEUROLOGIC: Baseline sensory. No evidence of any new focal weakness. Baseline speech. Cranial nerves seem to be intact. PSYCHIATRIC: The patient is in good mood. No anxiety, oriented, optimal judgment. LABORATORY DATA: Reviewed. The patient has white count 8.3, hemoglobin 12.6, MCV 89.9, platelet count 263. D-dimer 0.64. Sodium 132, potassium 2.7, chloride 93, carbon dioxide 26, anion gap 16, BUN 12, creatinine 0.7, GFR 81, glucose 106, calcium 9.3, magnesium 1.7. LFTs were normal. Troponins were negative. The last troponin was done at 10:00 p.m. Cholesterol 223, LDL 140, HDL 72, lipase 23. Chest x-ray was reviewed. The patient has chronic lung changes with no evidence of any acute cardiopulmonary process. EKG was reviewed with performing physician from ER. The patient has sinus tachycardia at the rate of 104, no specific ST changes or T-wave changes. ASSESSMENT AND PLAN: The patient will be placed in the hospital for the following medical problems. 1. Chest pain, rule out acute coronary syndrome, troponins are negative. The patient might need to go for a stress test in the morning if workup is negative. We will monitor on tele. 2. History of drug abuse, advised to stop abusing drugs. 3. History of hepatitis C, is chronic, seems to be stable. 4. History of chronic obstructive pulmonary disease, seems to be stable. We will reconcile home medications. We will monitor and adjust the treatment as needed. 5. Hypokalemia. We will replace electrolytes as needed. This problem is acute , moderate with potassium of 2.7, acute. 6. Hyponatremia. Sodium 132, no clear etiology, this is mild. We will monitor , no need for any acute intervention at this point. 7. Positive D-dimer, the patient has chest pain, tachycardia, will need to rule out pulmonary embolism, will order CT angio. Follow up results and treat accordingly. 8. Deep venous thrombosis prophylaxis. MTDD
[2018-01-21] MEDS ORDERED: Levothyroxine Sodium 50 MCG TAB PO SCH (06:00)
[2018-01-21] MEDS ORDERED: Mometasone/Formoterol 120 PUFF INHALER INH SCH (06:30)
--- NOTE | 2018-01-21 07:27 | CT ---
CT ANGIOGRAM CHEST WITH CONTRAST: Date: 01/21/18 HISTORY: Positive D-Dimer. Evaluate for embolism. Chest pain. COMPARISON: Chest radiograph dated 01/20/18. FINDINGS: CT angiogram of the chest performed after the intravenous administration of contrast. 3D rendering is provided. No proximal or segmental pulmonary arterial filling defect. Pulmonary trunk size is not enlarged. There is, however, dilatation of the right and left pulmonary arteries. Aortic contour is nonaneurysmal. No significant pericardial effusion. Severe central lobular emphysematous changes. There is consolidation within the posterior segment rig ht lower lobe with associated mucus plugging. There is abnormal wall thickening of the left lower lob e bronchi suggesting chronic bronchitis. No associated mass. No thoracic spine compression fracture. IMPRESSION: 1. Right lower lobe air space consolidation with mucus plugging and multiple right lower lobe bronch i suggesting aspiration pneumonia. Follow-up recommended after treatment. 2. Severe emphysema with chronic bronchitis. 3. No proximal or segmental pulmonary arterial filling defect. 4. Dilatation of the left and right pulmonary artery suggesting pulmonary arterial hypertension. POS: HOME
[2018-01-21] MEDS ORDERED: Aspirin 325 MG TAB PO SCH (09:00)
[2018-01-21] MEDS ORDERED: predniSONE 20 MG TAB PO SCH (09:00)
[2018-01-21] MEDS ORDERED: Cilostazol 100 MG TAB PO SCH (09:00)
[2018-01-21] MEDS ORDERED: Clindamycin 150 MG CAP PO SCH (09:00)
[2018-01-21] MEDS ORDERED: Ipratropium Bromide 0.03% Nasal Inhaler 30 ml Bottle EA NARE SCH (09:00)
[2018-01-21] MEDS ORDERED: Triamterene/Hydrochlorothiazide 37.5 mg/25 mg Tablet PO SCH (09:00)
[2018-01-21] MEDS ORDERED: Non-Formulary Item 1 EACH (Budesonide-Formoterol [Symbicort 160-4.5] 2 PUFF) INH SCH (09:00)
[2018-01-21] MEDS ORDERED: Non-Formulary Item 1 EACH (Omeprazole [Omeprazole] 20 MG) PO SCH (09:00)
[2018-01-21] MEDS ORDERED: Regadenoson 0.4 MG/5 ML SYRINGE ONE (09:57)
[2018-01-21] MEDS ORDERED: ISOVUE-370 76%-LOCM 1 ML ONE (10:47)
[2018-01-21 11:40] VITALS: BP 166/89; TEMP 98.1
[2018-01-21] MEDS: Potassium Chloride 20 MEQ TAB PO SCH ×2 (11:43→16:01)
--- NOTE | 2018-01-21 11:46 | NM ---
CARDIAC SPECT: CLINICAL HISTORY: 67-year-old female with chest pain, peripheral arterial disease, COPD. TECHNIQUE: A myocardial perfusion scan was performed using the single isotope one day protocol with technetium-9 9m sestamibi. 9 mCi were injected intravenously for the rest exam followed by 33 mCi for the stress e xam. Pharmacologic stress with Lexiscan was monitored and interpreted by Dr. Linton. FINDINGS: Homogeneous tracer distribution is seen in the myocardial segments on stress and rest images without fixed or reversible defects. GATED SPECT LVEF: 51%. WALL MOTION EXAM: Normal. IMPRESSION: Normal myocardial perfusion scan. POS: [facility]
--- NOTE | 2018-01-21 12:09 | PDOC.PN ---
- Subjective Encounter Start Date: 01/21/18 Encounter Start Time: 10:00 Subjective: has sob, no chest tightness now - Objective Resuscitation Status: Resuscitation Status FULL:Full Resuscitation MAR Reviewed: Yes Vital Signs & Weight: Vital Signs (12 hours) Temp Pulse Resp BP Pulse Ox 01/21/18 11:19 98.1 F 98 24 H 166/89 H 94 L 01/21/18 08:00 98 F 94 20 01/21/18 06:31 94 20 95 01/21/18 03:56 97.7 F 91 21 H 129/74 95 01/21/18 02:08 91 18 96 Weight Weight 119 lb 14.4 oz I&O: 01/20/18 01/21/18 01/22/18 06:59 06:59 06:59 Intake Total 360 Output Total 700 1 Balance -340 -1 Result Diagrams: 01/20/18 17:03 01/20/18 17:03 Phys Exam - Physical Examination HEENT: PERRLA, moist MMs Neck: no JVD, supple Respiratory: no wheezing, no rales rhonchi++ Cardiovascular: RRR, no significant murmur Gastrointestinal: soft, non-tender, positive bowel sounds Musculoskeletal: no edema, pulses present Neurological: non-focal, moves all 4 limbs Psychiatric: A&O x 3 Dx/Plan (1) Chest pain Code(s): R07.9 - CHEST PAIN, UNSPECIFIED Status: Acute Qualifiers: Chest pain type: chest pain on breathing Qualified Code(s): R07.1 - Chest pain on breathing; R07.81 - Pleurodynia (2) COPD exacerbation Code(s): J44.1 - CHRONIC OBSTRUCTIVE PULMONARY DISEASE W (ACUTE) EXACERBATION Status: Acute (3) Hypokalemia Code(s): E87.6 - HYPOKALEMIA Status: Acute (4) Hypothyroidism Code(s): E03.9 - HYPOTHYROIDISM, UNSPECIFIED Status: Chronic Qualifiers: Hypothyroidism type: unspecified Comment: continue synthroid, stable (5) Malnutrition of moderate degree Code(s): E44.0 - MODERATE PROTEIN-CALORIE MALNUTRITION Status: Chronic (6) PVD (peripheral vascular disease) Code(s): I73.9 - PERIPHERAL VASCULAR DISEASE, UNSPECIFIED Status: Chronic Comment: Stable - Plan stress test is -ve -: to continue prednisone, duonebs -: dc pt home -: to f/u with pulm in 2 weeks. * .
--- NOTE | 2018-01-21 14:22 | DIS ---
DATE OF ADMISSION: 01/20/2018 DATE OF DISCHARGE: 01/21/2018 DISCHARGE DISPOSITION: To home. PRIMARY DISCHARGE DIAGNOSES: Chest pain, which is noncardiac. Acute on chronic obstructive pulmonary disease exacerbation, resolving. SECONDARY DISCHARGE DIAGNOSES: Severe emphysema on home oxygen and steroids, hypothyroidism, malnutrition, peripheral vascular disease. PROCEDURES DONE DURING HOSPITALIZATION: Patient had CT angio chest done which was suspicious for possible right lower lobe airspace consolidation with mucous plugging, severe emphysema with chronic bronchitis. No evidence of PE. Nuclear stress test done showed EF of 51% with normal wall motion and normal myocardial perfusion. H and H 12 and 38, platelet count 263. Troponin x4 is negative. Total cholesterol 223, triglycerides 56, LDL 140, HDL 72. Potassium was 2.7 on admission. DISCHARGE MEDICATIONS: Albuterol inhaler q.6 hourly p.r.n., DuoNebs q.6 hourly , fluoxetine 40 mg p.o. at bedtime, Pletal 50 mg twice daily, Symbicort 160/4.5 mcg 2 puffs twice daily, Xanax 0.5 mg p.o. q.8 hourly p.r.n., Singulair 10 mg p.o. q.p.m., levothyroxine 50 mcg p.o. daily, prednisone 20 mg daily, theophylline sustained release 400 mg p.o. twice daily, Ultram p.r.n. for pain, Dyazide 37.5/25 mg 1 capsule daily. ALLERGIES: No known drug allergies. 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 BRIEF COURSE DURING HOSPITALIZATION: Patient initially came to ER with complaints of chest tightness. She had 4 sets of troponin which were negative. The patient was placed on ACS evidence based protocol and has had a nuclear stress test done, which is negative for any reversible ischemia or scarring. She had COPD exacerbation with underlying chronic severe emphysema. Patient was on nebulizers and has had relief from her chest tightness. She needs to continue her home dose of prednisone along with DuoNebs. She is hemodynamically stable and will be shortly discharged back home. Please see a [id number] documentation on appAttach for the day of discharge. [facility]ALTH[facility]arth[facility]
[2018-01-21] MEDS ORDERED: Enoxaparin Sodium 40 MG/0.4 ML SYRINGE SC SCH (21:00)
[2018-01-21] MEDS ORDERED: FLUoxetine HCl 20 MG CAP PO SCH (21:00)
[2018-01-21] MEDS ORDERED: Montelukast Sodium 10 mg Tablet PO SCH (21:00)
--- NOTE | 2018-01-24 15:49 | EKG ---
Test Reason : SOB Blood Pressure : / mmHG Vent. Rate : 104 BPM Atrial Rate : 104 BPM P-R Int : 162 ms QRS Dur : 098 ms QT Int : 360 ms P-R-T Axes : 000 096 075 degrees QTc Int : 473 ms Sinus tachycardia Rightward axis Borderline ECG Confirmed by CASEY LYONS, MAXIMUS ([id number]), website/blog editor COOPER MEJIAS ([id number]) on 01/24/2018 3:48:50 PM Referred By: MIALDYS Confirmed By:MAXIMUS PEÑA MD
--- NOTE | 2018-01-26 13:25 | STRESS ---
Acquisition Time: 2018-01-21 09:48:40 Total Exercise Time: 00:01:00 Test Indications: CHEST PAIN Medications: Protocol: LEXISCAN Max HR: 099 BPM 64% of Pred: 154 BPM Max BP: 144/094 mmHG Max Work Load: 1.0 METS RESTING ECG: NORMAL SINUS RHYTHM AT 85 BPM WITH POOR R-WAVE PROGRESSION SYMPTOMS: SHORTNESS OF BREATH APPROPRIATE BLOOD PRESSURE RESPONSE FOR LEXISCAN ECTOPY: NONE ECG RESPONSE: NO SIGNIFICANT CHANGES INTERPRETATION: AWAIT NUCLEAR IMAGES FOR DEFINITIVE DIAGNOSIS Confirmed by CHARISMA STEPHENS ([id number]), rewrite editor LAINE CHU ([id number]) on 01/26/2018 1:24:56 PM Referred By: Edgar STEVENS Confirmed By:CHARISMA STEPHENS
== END 2018-01-21 16:45 | disposition home or self-care (01) ==
LOC: ERS 15:25 → 2SW 21:15
PROVIDERS: ADMIT Family Medicine; ATTEND Family Medicine
DX: R07.89 Other chest pain (principal); F12.10 Cannabis abuse, uncomplicated; F32.9 Major depressive disorder, single episode, unspecified; B18.2 Chronic viral hepatitis C; E87.6 Hypokalemia; E87.1 Hypo-osmolality and hyponatremia; R79.1 Abnormal coagulation profile; J44.1 Chronic obstructive pulmonary disease with (acute) exacerbation; E03.9 Hypothyroidism, unspecified; I73.9 Peripheral vascular disease, unspecified; E44.0 Moderate protein-calorie malnutrition; Z68.1 Body mass index [BMI] 19.9 or less, adult; Z87.891 Personal history of nicotine dependence; Z79.52 Long term (current) use of systemic steroids; Z79.899 Other long term (current) drug therapy
CPT/HCPCS: 71045; 71275; 78452; 80053; 80061; 82553; 83690; 83735; 83880; 84484 ×3; 85025; 85379; 93005; 93017; 94640 ×2; 94760; 96365; 96366 ×2; 96368; 99285; A9500; G0378; 36415; J2785; J3475; J3480; J7050; J7506; J7620

== ENCOUNTER 2018-03-11 12:34 | Outpatient (CLI) | payer MEDICARE, MEDICAID ==
--- NOTE | 2018-03-11 13:41 | RAD ---
PA AND LATERAL VIEWS CHEST: Date: 03/11/18 HISTORY: Dyspnea. FINDINGS: Comparison made with exam dated 01/14/18. The heart size is normal. Changes of COPD are again seen. The aorta is tortuous. No lobar consolidati on, pneumothoraces, or pleural effusions are identified. The bones are osteopenic. IMPRESSION: COPD. No acute process. POS: [facility]
== END 2018-03-11 12:35 | disposition home or self-care (01) ==
LOC: RAD 12:34
PROVIDERS: ATTEND Internal Medicine Critical Care Medicine
DX: R06.00 Dyspnea, unspecified (principal); J44.9 Chronic obstructive pulmonary disease, unspecified
CPT/HCPCS: 71046

== ENCOUNTER 2018-05-20 10:45 | Outpatient (CLI) | payer MEDICARE, MEDICAID ==
--- NOTE | 2018-05-20 12:26 | RAD ---
PA AND LATERAL VIEWS CHEST: Date: 05/20/18 HISTORY: Dyspnea. FINDINGS: Comparison made with exam of 03/11/18. The heart size is normal. Changes of COPD are again seen. The aorta is tortuous. No focal areas of co nsolidation, pneumothoraces, or pleural effusions are seen. Bones are osteopenic. IMPRESSION: Stable exam. COPD. No acute process. POS: [facility]
== END 2018-05-20 10:46 | disposition home or self-care (01) ==
LOC: RAD 10:45
PROVIDERS: ATTEND Internal Medicine Critical Care Medicine
DX: R06.00 Dyspnea, unspecified (principal); J44.9 Chronic obstructive pulmonary disease, unspecified
CPT/HCPCS: 71046

== ENCOUNTER 2020-07-06 23:01 | Inpatient (IN) | payer MEDICARE, MEDICAID ==
[~2020-07-06 23:01] MED LIST: Iopamidol-370 76% 500 ML 1 ML ONE
[2020-07-06] MEDS ORDERED: Ondansetron PF 4 MG/2 ML Vial ONE (23:19)
[2020-07-06 23:43] LABS: Actual Bicarbonate (HCO3a) 30.8 mEq/L (22-28); Analyzer IN Cardio ER; Base Excess (BEa) 4.5 mEq/L (-2.0 to +3.0); CO2 Tension 53.2 mmHg (35.0-45.0); Calcium, Ionized (arterial) 1.13 mmol/L (1.12-1.30); Carboxyhemoglobin (COHb) 0.6 gm% (0.0-3.0); Hemoglobin (Hb) 12.8 g/dL (12.0-16.0); O2 Tension (PaO2), arterial 72.1 mmHg (> 80.0); pH, Arterial 7.38 (7.35-7.45)
[2020-07-06 23:45] LABS: Puncture Site RRA
[2020-07-06 23:55] LABS: ALT (SGPT) 28 U/L (8-55); AST (SGOT) 38 U/L (5-34); Alkaline Phosphatase 69 U/L (40-110); Anion Gap 15 mmol/L (10-20); BUN (Urea Nitrogen) 13 mg/dL (9.8-20.1); Bilirubin, Total 0.9 mg/dL (0.2-1.2); Calc. Creatinine Clearance 0 mL/min (70-130); Carbon Dioxide 31 mmol/L (23-31); Chloride 92 mmol/L (98-107); Globulin 3.4 g/dL (2.4-3.5); Glucose 157 mg/dL (80-115); Lipase 13 U/L (8-78); Protein, Total 7.4 g/dL (6.0-8.3); Sodium 135 mmol/L (136-145)
[2020-07-07 00:08] LABS: Band 20 % (5-11); Hemoglobin 13.3 g/dL (12.0-16.0); Lymphocytes 3 % (21-51); MDiff Complete? YES; Mean Corpuscular HGB CONC 32.3 g/dL (32.0-36.0); Mean Corpuscular Hemoglobin 29.3 pg (27.0-31.0); Mean Corpuscular Volume 90.8 fL (78.0-98.0); Mean Platelet Volume 6.9 fL (7.4-10.4); Monocytes 1 % (0-10); Neutrophil 76 % (42-75); Platelet Count 282 thou/uL (130-400); Red Blood Cell (RBC) Count 4.53 mill/uL (4.20-5.40); White Blood Cell (WBC) Count 20.5 thou/uL (4.8-10.8)
[2020-07-07] MEDS ORDERED: Piperacillin/Tazobactam 4.5 GM VIAL ONE (00:29)
[2020-07-07 00:58] LABS: Bilirubin Negative (Negative); Blood, Urine Negative (Negative); Clarity Turbid (Clear); Glucose, Urine (Dipstick) Normal (Negative); Ketone, Urine Negative (Negative); Leukocyte Negative Leu/uL (Negative); Nitrite Negative (Negative); Protein, Urine (Dipstick) Negative (Neg-Trace); Specific Gravity, Urine 1.032 (1.002-1.036); Urobilinogen Normal mg/dL (Less than 2); pH, Urine 7.5 (5.0-9.0)
[2020-07-07 01:12] LABS: SARS-CoV-2 NAA Rapid Test Not Detected (NotDetected)
[2020-07-07] MEDS ORDERED: Potassium Chloride 40 MEQ in Sodium Chloride 0.9% 250 ML 250 ML IVPB SCH (03:00)
[2020-07-07] MEDS: ALPRAZolam 0.5 MG TAB PO PRN ×3 (04:19→21:30)
[2020-07-07] MEDS: Ondansetron PF 4 MG/2 ML Vial IVP PRN ×2 (04:36→10:31)
[2020-07-07] MEDS: Promethazine HCl 6.25 MG in Sodium Chloride 0.9% 50 ML IVPB PRN ×2 (05:47→17:39)
[2020-07-07] MEDS: Sodium Chloride 0.9% 1,000 ML IV SCH ×2 (05:47→17:39)
--- NOTE | 2020-07-07 06:14 | HP ---
REASON FOR ADMISSION: Abdominal pain, nausea, vomiting. HISTORY OF PRESENT ILLNESS: This is a 70-year-old female patient who presented to the ER complaining of nausea, vomiting, and abdominal pain described as cramping in nature. It started around 4 p.m. on the day of her presentation. She denies any heartburn. Denies any diarrhea. She had normal bowel movement, but at some point, she started developing cramps of her abdomen, severe in intensity, associated with multiple episodes of nausea and vomiting, but no hematemesis, no melena. In the emergency room, her blood work did show elevated WBCs. The patient is on present prednisone for end-stage COPD, also on continuous oxygen. She did report being short of breath, because she did not get her neb treatments. Otherwise, she denied fevers, denies chills, denied dysuria, denied productive cough. PAST MEDICAL HISTORY: 1. High cholesterol. 2. COPD on 2 to 2.5 L of oxygen. 3. Anxiety. 4. Hep C, untreated. 5. Peripheral arterial disease. SOCIAL HISTORY: She quit smoking 7 years ago. She does vape marijuana sometimes. She does not drink alcohol. ALLERGIES: NO NOTE OF ANY DRUG ALLERGY. FAMILY HISTORY: Negative for premature coronary artery disease. REVIEW OF SYSTEMS: All systems reviewed except the above mentioned, found to be negative. PHYSICAL EXAMINATION: GENERAL: She is awake, alert, oriented, does not appear in distress. VITAL SIGNS: Her blood pressure is 169/91, temperature is 97.9 and saturating 98% on 2 L nasal cannula. HEAD: Nontraumatic, normocephalic. Pupils reactive. Extraocular movements are intact. Nonicteric sclerae. Well injected conjunctivae. Oral mucosa normal. Nasal mucosa normal. NECK: Supple. No adenopathy. No murmur. Thyroid is not palpable. Trachea is midline. No supraclavicular adenopathy. S1, S2 regular. No murmur. No gallops. No friction rubs. No displacement of PMI. LUNGS: Decreased air entry bilaterally. Bowel sounds are positive, but slow. ABDOMEN: Tender mainly knee in the periumbilical area, but it is soft. There is no tenderness in the epigastric area. No lower extremity edema. No cyanosis noted. NEUROLOGIC: Cranial nerves 2 through 12 within normal limits. Normal motor function. Normal sensory function reflexes. LABORATORY DATA: Blood work shows WBC of 20.5, hemoglobin 13.3, platelets of 282, neutrophil count 76%, bands of 20%. Her ABG shows a pH of 7.38, pCO2 of 53.2, bicarb of 30.8. Sodium 135, potassium 3, bicarb of 31, creatinine 0.71, glucose 157, troponin less than 0.01. Urinalysis does not show any evidence of infection, COVID-19 negative. IMAGING: CT of the abdomen and pelvis reported to me by the ER physician showing no acute disease. We are awaiting the official radiological report. ASSESSMENT AND PLAN: This is a 70-year-old female patient presenting with nausea, vomiting, abdominal pain, etiology remains unclear. We will add lipase to her labs also. We will start her on IV Protonix for possible peptic ulcer disease and she will be on Zofran for nausea and vomiting. She will be kept n.p.o. except for ice chips and medications until she feels better. She will be on IV fluid hydration. Pulmonary. The patient has end-stage chronic obstructive pulmonary disease. She will be on neb treatments and we will increase her steroids to Solu-Medrol 40 twice daily. For her high blood pressure, should be on hydralazine as needed. ID: The patient does have elevated WBC. She does have bandemia. The source is not clear. She did receive Zosyn in the emergency room. I would hold off on any further antibiotics, would like to repeat her labs and see her white count could be due to the fact that she is on prednisone. For DVT prophylaxis, she will be on Lovenox. I am awaiting for her med rec to be done, so I can resume her anxiety medication and her Synthroid. I did discuss with her code status and she wishes to be a full code. Job ID: [id number]
--- NOTE | 2020-07-07 07:56 | CT ---
PRELIMINARY REPORT/[facility]/EMERGENCY AFTER HOURS PROCEDURE: History: Patient presents due to nausea and vomiting that began at 430 this afternoon. Patient denies abdominal pain, diarrhea, fever. Patient reports a normal bowel movement this morning. Patient has h istory of oxygen dependent COPD. She denies increased shortness of breath. Comparison: No relevant comparisons available CT abdomen and pelvis with contrast Findings: Visualized cardiac: No cardiomegaly. No pericardial effusion. Lung bases: No infiltrate or effusion. Bibasilar ILD. Distal esophagus: No wall thickening or hernia. Liver: Hepatomegaly. Gallbladder: Cholecystectomy Bile ducts: Intrahepatic ductal dilatation. Pancreas: No mass. No calcifications. Spleen: No splenomegaly. Adrenals: No nodule or thickening. Kidneys/ureters/bladdder: No mass, obstructing calcification or hydronephrosis. No visualized bladd er mass or stones. Pelvic organs: Poorly characterized Stomach: No mass or wall thickening seen. Small bowel: No obstruction. No wall thickening. Colon: Cecum and proximal ascending colon are dilated and show increased stool and fluid. Diverticul osis, no acute diverticulitis. Appendix: Not confidently delineated. Mesentery/omentum/retroperitoneum: No mass. No bulky lymphadenopathy. No omental thickening. Abdominal wall: Intact. No hernia. Vascular: No AAA. Osseous: No acute fracture. No destructive bone lesion. Other: NA. IMPRESSION: No high-grade bowel obstruction or free air seen. Increased distention cecum and ascending colon, nonspecific. ELECTRONICALLY SIGNED BY: Joseph Lay MD Jul 07, 2020 1:09:20 AM [employer] This report is intended for review by the ordering physician only, in accordance of law. If you recei ve this report in error, please call [facility] at [phone]. FINAL REPORT EMERGENT AFTER HOURS CT OF THE ABDOMEN AND PELVIS WITH CONTRAST: FINDINGS/IMPRESSION: I agree with the findings and impression given in the preliminary report per [facility] physici an. 1. No evidence of acute intraabdominal/pelvic abnormality. 2. Diverticulosis. POS: EAA
[2020-07-07 08:06] LABS: #Lymphocytes 0.5 thou/uL (1.20-3.40); #Monocytes 0.5 thou/uL (0.11-0.59); #Neutrophils 15.3 thou/uL (1.40-6.50); %Monocytes 2.9 % (0.0-10.0); %Neutrophils 94.1 % (42.0-75.0); Hemoglobin 12.4 g/dL (12.0-16.0); Mean Corpuscular HGB CONC 32.4 g/dL (32.0-36.0); Mean Corpuscular Hemoglobin 30.2 pg (27.0-31.0); Mean Corpuscular Volume 93.1 fL (78.0-98.0); Mean Platelet Volume 7.1 fL (7.4-10.4); Platelet Count 242 thou/uL (130-400); White Blood Cell (WBC) Count 16.3 thou/uL (4.8-10.8)
[2020-07-07 08:26] LABS: Anion Gap 13 mmol/L (10-20); BUN (Urea Nitrogen) 11 mg/dL (9.8-20.1); Calc. Creatinine Clearance 67 mL/min (70-130); Calcium 8.4 mg/dL (7.8-10.44); Carbon Dioxide 30 mmol/L (23-31); Chloride 94 mmol/L (98-107); Glucose 109 mg/dL (80-115); Lipase 11 U/L (8-78); Potassium 3.2 mmol/L (3.5-5.1); Sodium 134 mmol/L (136-145)
[2020-07-07] MEDS: methylPREDNISolone Sod Succ 40 MG VIAL IVP SCH ×2 (08:50→21:20)
[2020-07-07] MEDS: Enoxaparin Sodium 40 MG/0.4 ML SYRINGE SC SCH (08:50)
[2020-07-07] MEDS ORDERED: Pantoprazole 40 MG VIAL IVP SCH (09:00)
[2020-07-07] MEDS ORDERED: Non-Formulary Item 1 EACH (Albuterol Sulfate [Ventolin Hfa] 8 GM Hfa.Aer.Ad) INH PRN (11:45)
[2020-07-07] MEDS ORDERED: traMADol HCl 50 MG TAB PO PRN (11:45)
[2020-07-07 12:33] LABS: Lactic Acid 1.2 mmol/L (0.5-2.2)
[2020-07-07] MEDS ORDERED: Non-Formulary Item 1 EACH (Budesonide-Formoterol [Symbicort 160-4.5] 160 MG/4.5 MG Aer) INH SCH (21:00)
[2020-07-07] MEDS: Montelukast Sodium 10 mg Tablet PO SCH (21:21)
[2020-07-07] MEDS: FLUoxetine HCl 20 MG CAP PO SCH (21:21)
[2020-07-07] MEDS: Cilostazol 100 MG TAB PO SCH (21:22)
[2020-07-07] MEDS: Mometasone 200 MCG/Formoterol 5 MCG 120 PUFF INHALER INH SCH (23:34)
[2020-07-07] MEDS: Albuterol Sulfate 2.5 mg/3 ml Neb NEB PRN (23:35)
[2020-07-08] MEDS: hydrALAZINE 20 MG/ML VIAL SLOW IVP PRN ×2 (02:26→17:51)
[2020-07-08] MEDS: Albuterol Sulfate 2.5 mg/3 ml Neb NEB PRN (03:59)
[2020-07-08] MEDS: Ondansetron PF 4 MG/2 ML Vial IVP PRN ×3 (05:43→20:46)
[2020-07-08] MEDS: Levothyroxine Sodium 50 MCG TAB PO SCH (05:48)
[2020-07-08] MEDS: ALPRAZolam 0.5 MG TAB PO PRN ×3 (05:54→22:12)
[2020-07-08] MEDS: Mometasone 200 MCG/Formoterol 5 MCG 120 PUFF INHALER INH SCH ×2 (06:48→19:10)
[2020-07-08] MEDS: Cilostazol 100 MG TAB PO SCH (08:15)
[2020-07-08] MEDS: Sodium Chloride 0.9% 1,000 ML IV SCH ×2 (08:15→20:47)
[2020-07-08] MEDS: Triamterene/Hydrochlorothiazide 37.5 mg/25 mg Tablet PO SCH (08:16)
[2020-07-08] MEDS: methylPREDNISolone Sod Succ 40 MG VIAL IVP SCH ×2 (08:17→20:15)
[2020-07-08] MEDS: Enoxaparin Sodium 40 MG/0.4 ML SYRINGE SC SCH (08:17)
[2020-07-08] MEDS ORDERED: Non-Formulary Item 1 EACH (Omeprazole [Omeprazole] 20 MG Capsule.Dr) PO SCH (09:00)
[2020-07-08] MEDS ORDERED: Ondansetron PF 4 MG/2 ML Vial IVP PRN (10:58)
--- NOTE | 2020-07-08 15:07 | EKG ---
Test Reason : Blood Pressure : / mmHG Vent. Rate : 085 BPM Atrial Rate : 085 BPM P-R Int : 150 ms QRS Dur : 094 ms QT Int : 386 ms P-R-T Axes : 000 087 089 degrees QTc Int : 459 ms Normal sinus rhythm Nonspecific ST and T wave abnormality Abnormal ECG Confirmed by CHRISTOPHER HOOK ([id number]), editor greeting card COOPER MEJIAS ([id number]) on 07/08/2020 3:06:55 PM Referred By: Confirmed By:CHRISTOPHER HOOK
--- NOTE | 2020-07-08 16:04 | PDOC.HOSPP ---
- Subjective Subjective: Examined. She still complaining of nausea, she denies any vomiting. Her CT abdomen pelvis was unremarkable. She is currently is on PPI empirically - Objective Vital Signs & Weight: Vital Signs (12 hours) Temp Pulse Resp BP Pulse Ox 07/08/20 11:58 98 F 98 18 177/97 H 97 07/08/20 07:11 98 F 95 18 160/83 H 99 07/08/20 06:49 89 18 100 07/08/20 04:30 98 Weight Weight 118 lb I&O: 07/07/20 07/08/20 07/09/20 06:59 06:59 06:59 Intake Total 325 2495 Output Total 350 950 Balance -25 1545 Result Diagrams: 07/07/20 07:46 07/07/20 07:46 Radiology Reviewed by me: Yes Hospitalist ROS - Medication Medications: Active Medications Generic Name Dose Route Start Last Admin Trade Name Freq PRN Reason Stop Dose Admin Albuterol Sulfate 2.5 mg 07/07/20 12:05 07/08/20 03:59 Albuterol Sulfate 2.5 Mg/3 Ml Neb NEB 2.5 mg Q2H PRN Administration SOB &/or Wheezing Albuterol/Ipratropium 3 ml 07/07/20 18:30 07/08/20 06:49 Ipratropium/Albuterol Sulfate 3 Ml Neb NEB 3 ml BID-RT KASSANDRA Administration Alprazolam 0.5 mg 07/07/20 03:58 07/08/20 15:16 Alprazolam 0.5 Mg Tab PO 0.5 mg Q8H PRN Administration Anxiety/AGITATION Enoxaparin Sodium 40 mg 07/07/20 09:00 07/08/20 08:17 Enoxaparin Sodium 40 Mg/0.4 Ml Syringe SC 40 mg 0900 KASSANDRA Administration Fluoxetine HCl 40 mg 07/07/20 21:00 07/07/20 21:21 Fluoxetine Hcl 20 Mg Cap PO 40 mg HS KASSANDRA Administration Hydralazine HCl 5 mg 07/07/20 04:18 07/08/20 02:26 Hydralazine 20 Mg/Ml Vial SLOW IVP 5 mg Q4H PRN Administration SBP > 140 Sodium Chloride 1,000 mls @ 75 mls/hr 07/07/20 04:30 07/08/20 08:15 Normal Saline 0.9% IV 1,000 mls .[id number] KASSANDRA Administration Levothyroxine Sodium 50 mcg 07/08/20 06:00 07/08/20 05:48 Levothyroxine Sodium 50 Mcg Tab PO 50 mcg 0600 KASSANDRA Administration Methylprednisolone Sodium Succinate 40 mg 07/07/20 09:00 07/08/20 08:17 Methylprednisolone Sod Succ 40 Mg Vial IVP 40 mg BID KASSANDRA Administration Mometasone Furoate/Formoterol Fumar 2 puff 07/07/20 18:30 07/08/20 06:48 Mometasone 200 Mcg/Formoterol 5 Mcg 120 Puff Inhaler INH 2 puff BID-RT KASSANDRA Administration Montelukast Sodium 10 mg 07/07/20 21:00 07/07/20 21:21 Montelukast Sodium 10 Mg Tablet PO 10 mg QPM KASSANDRA Administration Ondansetron HCl 4 mg 07/07/20 04:01 07/08/20 13:26 Ondansetron Pf 4 Mg/2 Ml Vial IVP 4 mg Q6H PRN Administration Nausea/Vomiting Triamterene/Hydrochlorothiazide 1 tab 07/08/20 09:00 07/08/20 08:16 Triamterene/Hydrochlorothiazide 37.5 Mg/25 Mg Tablet PO 1 tab DAILY KASSANDRA Administration - Exam General Appearance: NAD Eye: PERRL ENT: normocephalic atraumatic Neck: supple Heart: RRR Respiratory: CTAB Gastrointestinal: soft, non-tender Extremities: no cyanosis, no clubbing Skin: normal turgor Neurological: cranial nerve grossly intact Musculoskeletal: normal tone, normal strength Psychiatric: normal affect, normal behavior, A&O x 3 Hosp A/P - Plan Patient is a pleasant 60 years old female who has significant past medical history of dyslipidemia, COPD on home O2 who presented to ED with complaining of nausea vomiting and abdominal discomfort. CT abdomen pelvis was unremarkable for Nausea/vomiting --Unclear etiology, possible due to gastritis/stomach ulcer --CT abdomen pelvis was noted. Continue PPI, as needed antiemetic --Flu/Covid screen was negative --GI consult COPD, home O2 dependent --Stable, continue as needed albuterol Hypertension, essential --Resume home meds PAD --cont home meds Hypothyroidism --Continue levothyroxine
[2020-07-08] MEDS: Montelukast Sodium 10 mg Tablet PO SCH (20:14)
[2020-07-08] MEDS: FLUoxetine HCl 20 MG CAP PO SCH (20:14)
[2020-07-08] MEDS ORDERED: Albuterol 200 PUFF (6.7GM INHALER) INH PRN (22:20)
[2020-07-08] MEDS ORDERED: PROVENTIL INHALER 6.7 G (200 INHALATIONS) INH PRN (22:22)
[2020-07-08] MEDS ORDERED: Albuterol 200 PUFF (6.7GM INHALER) ONE ×2 (23:04→23:05)
[2020-07-09] MEDS: Levothyroxine Sodium 50 MCG TAB PO SCH (06:08)
[2020-07-09] MEDS: Ondansetron PF 4 MG/2 ML Vial IVP PRN ×2 (06:08→11:54)
[2020-07-09] MEDS: hydrALAZINE 20 MG/ML VIAL SLOW IVP PRN ×2 (06:12→11:55)
[2020-07-09] MEDS: ALPRAZolam 0.5 MG TAB PO PRN ×2 (06:14→17:10)
[2020-07-09] MEDS: Mometasone 200 MCG/Formoterol 5 MCG 120 PUFF INHALER INH SCH ×2 (06:55→20:07)
[2020-07-09] MEDS: Triamterene/Hydrochlorothiazide 37.5 mg/25 mg Tablet PO SCH (08:24)
[2020-07-09] MEDS: Enoxaparin Sodium 40 MG/0.4 ML SYRINGE SC SCH (08:26)
[2020-07-09] MEDS: methylPREDNISolone Sod Succ 40 MG VIAL IVP SCH (08:26)
[2020-07-09] MEDS ORDERED: Lidocaine 5% Patch TD SCH (09:00)
[2020-07-09 09:02] LABS: #Lymphocytes 0.9 thou/uL (1.20-3.40); #Monocytes 1.7 thou/uL (0.11-0.59); #Neutrophils 11.8 thou/uL (1.40-6.50); %Eosinophils 0.1 % (0.0-10.0); %Lymphocytes 6.1 % (21.0-51.0); %Monocytes 11.8 % (0.0-10.0); Hemoglobin 12.6 g/dL (12.0-16.0); Mean Corpuscular HGB CONC 33.4 g/dL (32.0-36.0); Mean Corpuscular Hemoglobin 29.2 pg (27.0-31.0); Mean Corpuscular Volume 87.5 fL (78.0-98.0); Mean Platelet Volume 6.9 fL (7.4-10.4); Platelet Count 285 thou/uL (130-400); RBC Distribution Width 12.7 % (11.5-14.5); White Blood Cell (WBC) Count 14.3 thou/uL (4.8-10.8)
[2020-07-09 09:21] LABS: Anion Gap 18 mmol/L (10-20); BUN (Urea Nitrogen) 13 mg/dL (9.8-20.1); Calc. Creatinine Clearance 77 mL/min (70-130); Calcium 8.3 mg/dL (7.8-10.44); Carbon Dioxide 23 mmol/L (23-31); Chloride 80 mmol/L (98-107); Glucose 85 mg/dL (80-115); Magnesium 1.5 mg/dL (1.6-2.6)
[2020-07-09 09:23] LABS: Sodium 118 mmol/L (136-145)
[2020-07-09] MEDS ORDERED: Acetaminophen 325 MG TAB PO PRN (09:29)
[2020-07-09] MEDS ORDERED: Sodium Chloride 0.9% 1,000 ML IV SCH (09:30)
[2020-07-09] MEDS ORDERED: Magnesium Sulfate 4 GM in Sodium Chloride 0.9% 250 ML 250 ML IVPB SCH (09:30)
[2020-07-09] MEDS ORDERED: Potassium Chloride 40 MEQ in Sodium Chloride 0.9% 250 ML 250 ML IVPB SCH (09:45)
[2020-07-09 12:19] LABS: Anion Gap 19 mmol/L (10-20); BUN (Urea Nitrogen) 12 mg/dL (9.8-20.1); Calc. Creatinine Clearance 82 mL/min (70-130); Calcium 8.2 mg/dL (7.8-10.44); Carbon Dioxide 21 mmol/L (23-31); Chloride 78 mmol/L (98-107); Glucose 99 mg/dL (80-115)
[2020-07-09 12:22] LABS: Sodium 115 mmol/L (136-145)
--- NOTE | 2020-07-09 13:12 | PRG ---
DATE OF SERVICE: 07/09/2020 SUBJECTIVE: This is a 70-year-old female with severe COPD, oxygen dependent. She also has history of back pain and also leg pain. The patient also has abdominal pain, nausea, and vomiting. The patient's symptoms resolved. She had no more vomiting, but still remains nauseous off and on. Abdominal pain has almost resolved. She complained more of back pain and pain in the legs. Her appetite is very poor. She is not eating very well. She has some nausea off and on. OBJECTIVE: GENERAL: She is short of breath at rest, sitting in bed. VITAL SIGNS: Her pulse is 112, blood pressure 164/91. CARDIOVASCULAR SYSTEM: Normal heart sounds. LUNGS: Clear to auscultation, but occasional rhonchi heard. ABDOMEN: Soft. Abdomen is nondistended. Abdomen is nontender. LABORATORY DATA: From today shows WBC count of 14,300, hemoglobin 12.6, hematocrit 37.7, MCV 87.5, platelet count is 285,000. The chemistry panel shows hyponatremia of 118, potassium 3, chloride is 80, bicarb 23, BUN is 18, creatinine 0.58. CLINICAL IMPRESSION: 1. Abdominal pain, nausea, vomiting. Abdominal pain has resolved. She has negative CAT scan of abdomen. Her nausea persists. 2. Hyponatremia due to poor oral intake and nausea. She appears to have free water deficiency as chloride level is very low at 80. 3. Severe chronic obstructive pulmonary disease. 4. Hypothyroidism. 5. Anxiety. RECOMMENDATIONS: 1. Empiric PPI therapy. I believe she is not a candidate for any endoscopic studies as she is very short winded even at rest., I believe she will benefit from Protonix. 2. Encourage p.o. intake and consider free water replacement. From GI standpoint, I will probably sign off from today, and if there are any issues, please call me back. Job ID: [id number] [facility]
[2020-07-09 13:20] LABS: Anion Gap 16 mmol/L (10-20); BUN (Urea Nitrogen) 14 mg/dL (9.8-20.1); Calc. Creatinine Clearance 79 mL/min (70-130); Calcium 8.3 mg/dL (7.8-10.44); Carbon Dioxide 23 mmol/L (23-31); Chloride 77 mmol/L (98-107); Glucose 104 mg/dL (80-115)
[2020-07-09 13:30] LABS: Sodium 113 mmol/L (136-145)
[2020-07-09] MEDS ORDERED: Scopolamine 1.5 mg/72 hour Patch TD SCH (13:30)
[2020-07-09] MEDS: Metoclopramide HCl 10 MG/2 ML VIAL IVP SCH ×2 (13:41→21:33)
[2020-07-09] MEDS ORDERED: Sodium Chloride 3% 500 ML IVPB SCH ×2 (13:45→17:30)
--- NOTE | 2020-07-09 13:52 | PDOC.HOSPP ---
- Subjective Subjective: Seen examined at bedside. Patient was seen by Dr. Poole, from GI. Recommend medical management. Patient is high risk for endoscopic study. Patient reported as he has been taking NSAID, ibuprofen 800 mg regularly for her muscle pain. She still having nausea and vomiting. Her lab this morning, show multiple elect rolytes abnormality. Her sodium is went from 134, down to 118. Her IV fluid was adjusted, and repeat lab 3 hours later, is continued to drop down to 115, we have repeat another BMP to make sure there is no lab error, and is confirmed that her sodium level was 114. At this time, patient will be transferred to [facility], for hypertonic saline infusion, and serial labs. I also discussed with nephrology, Dr. Randall will see in consultation. - Objective Vital Signs & Weight: Vital Signs (12 hours) Temp Pulse Resp BP BP Pulse Ox 07/09/20 12:38 102 H 123/65 07/09/20 11:55 112 H 164/91 H 07/09/20 11:19 97.9 F 112 H 18 164/91 H 98 07/09/20 08:26 100 07/09/20 07:03 97.8 F 102 H 18 163/88 H 100 07/09/20 06:58 113 H 22 H 100 07/09/20 05:36 96 Weight Weight 118 lb I&O: 07/08/20 07/09/20 07/10/20 06:59 06:59 06:59 Intake Total 2495 3780 Output Total 950 3600 Balance 1545 180 Result Diagrams: 07/09/20 08:52 07/09/20 12:49 Hospitalist ROS - Medication Medications: Active Medications Generic Name Dose Route Start Last Admin Trade Name Freq PRN Reason Stop Dose Admin Albuterol Sulfate 2.5 mg 07/07/20 12:05 07/08/20 03:59 Albuterol Sulfate 2.5 Mg/3 Ml Neb NEB 2.5 mg Q2H PRN Administration SOB &/or Wheezing Albuterol Sulfate 2 puff 07/08/20 22:22 07/08/20 23:17 Proventil Inhaler 6.7 G (200 Inhalations) INH 2 puff Q6H PRN Administration SOB &/or Wheezing Alprazolam 0.5 mg 07/07/20 03:58 07/09/20 06:14 Alprazolam 0.5 Mg Tab PO 0.5 mg Q8H PRN Administration Anxiety/AGITATION Enoxaparin Sodium 40 mg 07/07/20 09:00 07/09/20 08:26 Enoxaparin Sodium 40 Mg/0.4 Ml Syringe SC 40 mg 0900 KASSANDRA Administration Hydralazine HCl 5 mg 07/07/20 04:18 07/09/20 11:55 Hydralazine 20 Mg/Ml Vial SLOW IVP 5 mg Q4H PRN Administration SBP > 140 Levothyroxine Sodium 50 mcg 07/08/20 06:00 07/09/20 06:08 Levothyroxine Sodium 50 Mcg Tab PO 50 mcg 0600 KASSANDRA Administration Lidocaine 2 patch 07/09/20 09:00 07/09/20 09:57 Lidocaine 5% Patch TD 07/09/20 21:00 2 patch DAILY KASSANDRA Administration Metoclopramide HCl 10 mg 07/09/20 14:00 07/09/20 13:41 Metoclopramide Hcl 10 Mg/2 Ml Vial IVP 10 mg Q8HR KASSANDRA Administration Mometasone Furoate/Formoterol Fumar 2 puff 07/07/20 18:30 07/09/20 06:55 Mometasone 200 Mcg/Formoterol 5 Mcg 120 Puff Inhaler INH 2 puff BID-RT KASSANDRA Administration Montelukast Sodium 10 mg 07/07/20 21:00 07/08/20 20:14 Montelukast Sodium 10 Mg Tablet PO 10 mg QPM KASSANDRA Administration Ondansetron HCl 4 mg 07/07/20 04:01 07/09/20 11:54 Ondansetron Pf 4 Mg/2 Ml Vial IVP 4 mg Q6H PRN Administration Nausea/Vomiting Scopolamine 1.5 mg 07/09/20 13:30 07/09/20 13:42 Scopolamine 1.5 Mg/72 Hour Patch TD 1.5 mg Q3D KASSANDRA Administration - Exam General Appearance: NAD Eye: PERRL ENT: normocephalic atraumatic Neck: supple Heart: RRR Respiratory: CTAB Gastrointestinal: soft, non-tender Extremities: no cyanosis Skin: normal turgor Neurological: cranial nerve grossly intact Psychiatric: normal affect, normal behavior, A&O x 3 Hosp A/P - Plan Patient is a pleasant 60 years old female who has significant past medical history of dyslipidemia, COPD on home O2 who presented to ED with complaining of nausea vomiting and abdominal discomfort. CT abdomen pelvis was unremarkable for Hypovolemic, hypernatremia-likely due to GI loss --Patient has critical low sodium on rpt labs despite volume expansion with normal saline. She will be transferred to [facility], for hypertonic saline infusion, and every 3 hours serial labs --Check urine lites, osmolality. TSH level --Consult nephrology, discussed case with Dr. Randall will see in consultation Nausea/vomiting --Unclear etiology likely due to gastritis/stomach ulcer given history of NSAID use --CT abdomen pelvis was noted. Continue PPI, as needed antiemetics --Flu/Covid screen was negative --GI consult - d/w Dr. Poole, no plan for endoscopic evaluation --add Carafate. Pt counseled avoid NSAIDs. COPD, home O2 dependent --Stable, continue as needed albuterol Hypertension, essential --Resume home meds PAD --cont home meds Hypothyroidism --Continue levothyroxine
--- NOTE | 2020-07-09 14:03 | CON ---
DATE OF CONSULTATION: 07/08/2020 REASON FOR CONSULTATION: Abdominal pain, nausea, and vomiting. HISTORY OF PRESENT ILLNESS: Ms. Irene Beyer is a very pleasant, fragile looking female with severe COPD, oxygen dependent. The patient is a chronic smoker, but quit smoking more than seven years ago. The patient came to the ER because of severe abdominal pain, nausea, and vomiting. Pain acute in onset. The pain was actually over the left lower quadrant, left colon area. There is no history of fever or chills. She had nausea and vomiting. She remained nauseous, but she is not vomiting after admission. She has a poor appetite. Does not feel like eating a clear liquid diet. She has tried to take clear liquid diet, which makes her sick to the stomach. The pain is almost gone. She appears very very comfortable. She states the pain is almost gone, but she is having pain over the left leg and also lower back pain. Apparently, she has had chronic low back pain and leg pain over left leg for a while. The patient has no history of fever. No history of dysuria or hematuria. No history of any frequency of urination. No history of any diarrhea or rectal bleeding. Abdominal CAT scan done on admission revealed no pathology. She could have possible ulcer disease. However, the pain is lot lower than the epigastric area. She had no relevant history. ALLERGIES: NO DRUG ALLERGIES. SOCIAL HISTORY: Pot smoker, quit smoking seven years ago. She does vape and also uses marijuana off and on. No alcohol intake. MEDICAL ILLNESS: 1. COPD - oxygen dependent. 2. Chronic anxiety. 3. History of hepatitis C, untreated. 4. Peripheral vascular disease. 5. Hyperlipidemia. 6. Chronic left lower leg pain, also some back pain. FAMILY HISTORY: No family history of colon cancer or any colon disease. REVIEW OF SYSTEMS: A 10 point system review; CONSTITUTIONAL: No weight loss and poor exercise tolerance because of COPD. No fever or chills. HEAD: No chronic headache. No syncope. Eyes, no diplopia. Ears; no hearing loss. Nose bleed. Throat, no sore throat. No dysphagia. LUNGS: History of chronic coughing and dyspnea. CARDIOVASCULAR SYSTEM: No chest pain. No orthopnea, PND, or palpitation. GI: Abdominal pain, nausea, and vomiting. No hematochezia. No melena. : No dysuria or hematuria. MUSCULOSKELETAL: History of left leg pain off and on. Also, some back pain. HEMATOLOGICAL: Not relevant. NEUROPSYCHIATRY: History of anxiety. PHYSICAL EXAMINATION: GENERAL: She is a very fragile looking female, appears very short winded even lying down. She has oxygen on by nasal prong. VITAL SIGNS: Very stable. She is afebrile. HEENT: Conjunctivae are clear. NECK: Supple. No adenitis or thyromegaly noted. CARDIOVASCULAR SYSTEM: Normal heart sounds. LUNGS: On auscultation, clear. No rhonchi or wheezing heard. ABDOMEN: Soft and nondistended. Abdomen is actually nontender at the present time. When I was in the room, she was complaining of moaning and groaning and wrapping her left lower leg and she has severe pain in the left leg. EXTREMITIES: Reveal no edema. MARKETING SERVICES COORDINATOR: Grossly within normal limits. CLINICAL IMPRESSION: 1. A 70-year-old female with severe COPD, oxygen dependent, comes for abdominal pain, nausea, and vomiting. Her abdominal exam is very benign. Negative CAT scan. Labs are normal. She does tell me that she has a lot of different social issues and was under lot of stress.. 2. Severe chronic obstructive pulmonary disease. 3. Chronic anxiety. 4. Reflux disease. 5. Hepatitis C, untreated. RECOMMENDATION: I believe she is not a candidate for any invasive procedures, as she is very short winded at rest and lying down. I believe a colonoscopy cannot be done because of severe COPD. She does not need an EGD as she has pain more over the left upper quadrant area. .I will start her on empiric PPI therapy_. I will advance diet to probably a regular diet tomorrow and see how she does. I will make further recommendation after I see her tomorrow. Job ID: [id number] [facility]
[2020-07-09 14:29] LABS: Anion Gap 17 mmol/L (10-20); Carbon Dioxide 23 mmol/L (23-31); Chloride 78 mmol/L (98-107)
[2020-07-09 14:38] LABS: Sodium 115 mmol/L (136-145)
[2020-07-09 15:13] LABS: BUN (Urea Nitrogen) 12 mg/dL (9.8-20.1); Calc. Creatinine Clearance 79 mL/min (70-130); Calcium 8.2 mg/dL (7.8-10.44); Glucose 97 mg/dL (80-115)
[2020-07-09] MEDS: Sucralfate 1 GM/10 ML UDCUP PO SCH ×2 (17:10→21:33)
--- NOTE | 2020-07-09 17:33 | PDOC.CONS ---
- Consultation Encounter Date: 07/09/20 Encounter Time: 17:32 Reason for consultation: Hyponatremia Chief complaint: Admitted for nausea, vomiting and abdominal pain History of present illness: Patient is a 70-year-old female with past history of COPD, hypercholesteremia, anxiety, hepatitis C, history of marijuana abuse and peripheral arterial disease who came to the hospital 6 days back with complaints of nausea, vomiting. She also complains of generalized abdominal pain. Patient states that her symptoms are better since after admission. She however continues to have nausea. Patient states that previously she had episodes of" low sodium". She does not have urinary complaints. She does not have fever or chills. She is oxygen dependent at home. Past med history: COPD, hypercholesterolemia, hepatitis C, hypertension, peripheral arterial disease, hypothyroidism, anxiety Resident history: Cholecystectomy, tonsillectomy, bilateral tubal ligation Social history: Patient quit smoking in July 2012. She smoked about 1 pack/day for 40 years. She occasionally uses marijuana. She does not abuse alcohol. Family history: positive for hypertension Review of systems Gen.: No fever, no chills All the 14 systems reviewed except for the ones mentioned above are negative Physical examination Intake & Output - 24 hours 07/09/20 07/10/20 06:59 06:59 Intake Total 3780 Output Total 3600 Balance 180 Intake: Intake, IV Amount 1800 Oral 1980 Output: Urine 3200 Emesis 400 Other: Voiding Method Toilet # Unmeasured Voids 1 # Urine Diapers 1 # Bowel Movements 0 Vital Signs (24 hours) Temp Pulse Resp BP BP Pulse Ox 07/09/20 13:59 108 H 20 96 07/09/20 12:38 102 H 123/65 07/09/20 11:55 112 H 164/91 H 07/09/20 11:19 97.9 F 112 H 18 164/91 H 98 07/09/20 08:26 100 07/09/20 07:03 97.8 F 102 H 18 163/88 H 100 07/09/20 06:58 113 H 22 H 100 07/09/20 05:36 96 07/09/20 00:20 97.9 F 110 H 18 162/54 H 96 07/08/20 20:00 98 07/08/20 19:10 92 L 07/08/20 19:09 97 07/08/20 19:05 98 F 108 H 24 H 158/88 H 98 07/08/20 17:51 105 H 182/94 H Constitutional: Thin built, female patient discomfort, dyspneic HEENT: Mucous membranes moist, no icterus Neck: Trachea midline, no lymphadenopathy Heart: Regular rate and rhythm; no murmurs Lungs: Air entry equal bilateral; decreased at bases, no Abdomen: Soft; nontender; no guarding/tenderness/rebound Extremities: No calf tenderness; no ulcers, no bruises Neurological: Patient is awake, following commands Skin: No rash, no ulcers Psychological: Not agitated Labs and Imaging reviewed Laboratory Results - last 24 hr 07/09/20 07/09/20 07/09/20 08:52 08:52 11:42 WBC 14.3 H RBC 4.30 Hgb 12.6 Hct 37.7 MCV 87.5 MCH 29.2 MCHC 33.4 RDW 12.7 Plt Count 285 MPV 6.9 L Neutrophils % 82.0 H Lymphocytes % 6.1 L Monocytes % 11.8 H Eosinophils % 0.1 Basophils % 0.0 Neutrophils # 11.8 H Lymphocytes # 0.9 L Monocytes # 1.7 H Eosinophils # 0.0 Basophils # 0.0 Sodium 118 L* 115 L* Potassium 3.0 L 3.0 L Chloride 80 L 78 L Carbon Dioxide 23 21 L Anion Gap 18 19 BUN 13 12 Creatinine 0.58 L 0.55 L Estimated GFR (MDRD) Greater than 90 Greater than 90 Glucose 85 99 Serum Osmolality Calcium 8.3 8.2 Magnesium 1.5 L TSH 3rd Generation Urine Osmolality 07/09/20 07/09/20 07/09/20 11:42 12:49 14:06 WBC RBC Hgb Hct MCV MCH MCHC RDW Plt Count MPV Neutrophils % Lymphocytes % Monocytes % Eosinophils % Basophils % Neutrophils # Lymphocytes # Monocytes # Eosinophils # Basophils # Sodium 113 L* 115 L* Potassium 3.0 L 3.0 L Chloride 77 L 78 L Carbon Dioxide 23 23 Anion Gap 16 17 BUN 14 12 Creatinine 0.57 L 0.57 L Estimated GFR (MDRD) Greater than 90 Greater than 90 Glucose 104 97 Serum Osmolality Calcium 8.3 8.2 Magnesium 2.1 TSH 3rd Generation Urine Osmolality 07/09/20 07/09/20 07/09/20 14:06 14:06 14:11 WBC RBC Hgb Hct MCV MCH MCHC RDW Plt Count MPV Neutrophils % Lymphocytes % Monocytes % Eosinophils % Basophils % Neutrophils # Lymphocytes # Monocytes # Eosinophils # Basophils # Sodium Potassium Chloride Carbon Dioxide Anion Gap BUN Creatinine Estimated GFR (MDRD) Glucose Serum Osmolality 235 L* Calcium Magnesium TSH 3rd Generation 1.0064 Urine Osmolality 496 Assessment and plan Hyponatremia Hypokalemia Non-anion gap metabolic acidosis Nausea vomiting Initiate work-up for hyponatremia-urine sodium, potassium, uric acid. TSH is 1 which is within normal limits. Will check cortisol. Patient's urine osmolality is 496 suggestive of ADH mediated hyponatremia. Likely etiology for elevated ADH could be persistent nausea and vomiting, decreased intake. Patient is currently receiving hypertonic saline. Will restrict total amount 100 mL. Target sodium by a.m. labs is 118. Patient is also receiving potassium replacement which needs to be taken into account for total correction of sodium. Medications reviewed, managing nausea and vomiting will help control ADH release. Urine sodium is >40: likely SIADH. Will restrict fluid intake to 1.2 lts/24 hrs. Pt received NS on 07/07 and 07/08 likely explaining worsening hyponatremia in the setting of SIADH. Low solute intake ("tea and toast syndrome") contributing. Patient has hypokalemia and non-gap metabolic acidosis suggestive of GI causes of for electrolyte abnormalities. Patient admits to using " weed" occasionally which could be contributing to GI symptoms. Pt received 2 doses of HCTZ for last 2 days. Patient is currently getting BMP every 2 hourly. We will continue to monitor. Discussed with RN in ICU Thank you for allowing me to participate in the management of this pt
[2020-07-09 18:00] LABS: Potassium, Urine 26.5 mmol/L
[2020-07-09 19:07] LABS: Anion Gap 15 mmol/L (10-20); BUN (Urea Nitrogen) 16 mg/dL (9.8-20.1); Calc. Creatinine Clearance 72 mL/min (70-130); Carbon Dioxide 23 mmol/L (23-31); Chloride 80 mmol/L (98-107); Glucose 103 mg/dL (80-115)
[2020-07-09 19:24] LABS: Sodium 114 mmol/L (136-145)
[2020-07-09] MEDS: Montelukast Sodium 10 mg Tablet PO SCH (21:33)
[2020-07-09] MEDS: Pantoprazole 40 MG VIAL IVP SCH (21:33)
[2020-07-09 21:37] LABS: Anion Gap 17 mmol/L (10-20); BUN (Urea Nitrogen) 19 mg/dL (9.8-20.1); Calc. Creatinine Clearance 76 mL/min (70-130); Calcium 7.9 mg/dL (7.8-10.44); Carbon Dioxide 22 mmol/L (23-31); Chloride 80 mmol/L (98-107); Glucose 88 mg/dL (80-115); Potassium 3.5 mmol/L (3.5-5.1)
[2020-07-09 21:48] LABS: Sodium 115 mmol/L (136-145)
[2020-07-10 01:22] LABS: Anion Gap 16 mmol/L (10-20); BUN (Urea Nitrogen) 19 mg/dL (9.8-20.1); Calc. Creatinine Clearance 79 mL/min (70-130); Calcium 7.9 mg/dL (7.8-10.44); Carbon Dioxide 22 mmol/L (23-31); Chloride 81 mmol/L (98-107); Glucose 92 mg/dL (80-115); Potassium 3.2 mmol/L (3.5-5.1)
[2020-07-10 01:27] LABS: Sodium 116 mmol/L (136-145)
[2020-07-10 04:22] LABS: ALT (SGPT) 25 U/L (8-55); AST (SGOT) 57 U/L (5-34); Albumin 3.6 g/dL (3.4-4.8); Alkaline Phosphatase 48 U/L (40-110); Anion Gap 15 mmol/L (10-20); BUN (Urea Nitrogen) 20 mg/dL (9.8-20.1); Bilirubin, Total 1.6 mg/dL (0.2-1.2); Calc. Creatinine Clearance 79 mL/min (70-130); Calcium 7.8 mg/dL (7.8-10.44); Carbon Dioxide 22 mmol/L (23-31); Chloride 81 mmol/L (98-107); Globulin 2.9 g/dL (2.4-3.5); Glucose 94 mg/dL (80-115); Protein, Total 6.5 g/dL (6.0-8.3)
[2020-07-10 04:27] LABS: Sodium 115 mmol/L (136-145)
[2020-07-10 05:02] LABS: Band 20 % (5-11); Hemoglobin 12.4 g/dL (12.0-16.0); Lymphocytes 2 % (21-51); MDiff Complete? YES; Mean Corpuscular HGB CONC 33.2 g/dL (32.0-36.0); Mean Corpuscular Hemoglobin 28.8 pg (27.0-31.0); Mean Corpuscular Volume 86.7 fL (78.0-98.0); Mean Platelet Volume 7.3 fL (7.4-10.4); Monocytes 7 % (0-10); Neutrophil 71 % (42-75); Platelet Count 284 thou/uL (130-400); RBC Distribution Width 12.8 % (11.5-14.5); White Blood Cell (WBC) Count 18.2 thou/uL (4.8-10.8)
[2020-07-10] MEDS: Metoclopramide HCl 10 MG/2 ML VIAL IVP SCH ×3 (05:55→21:01)
[2020-07-10] MEDS: Levothyroxine Sodium 50 MCG TAB PO SCH (05:55)
[2020-07-10] MEDS: Mometasone 200 MCG/Formoterol 5 MCG 120 PUFF INHALER INH SCH ×2 (08:02→19:33)
[2020-07-10] MEDS: Sucralfate 1 GM/10 ML UDCUP PO SCH ×4 (08:07→20:56)
[2020-07-10] MEDS: Enoxaparin Sodium 40 MG/0.4 ML SYRINGE SC SCH (08:08)
[2020-07-10] MEDS: Pantoprazole 40 MG VIAL IVP SCH ×2 (08:08→20:59)
[2020-07-10 11:21] LABS: Carbon Dioxide 20 mmol/L (23-31); Chloride 83 mmol/L (98-107); Glucose 86 mg/dL (80-115); Potassium 3.5 mmol/L (3.5-5.1)
[2020-07-10 11:23] LABS: BUN (Urea Nitrogen) 18 mg/dL (9.8-20.1); Calc. Creatinine Clearance 83 mL/min (70-130)
[2020-07-10 11:26] LABS: Sodium 115 mmol/L (136-145)
[2020-07-10 11:32] LABS: Anion Gap 16 mmol/L (10-20)
--- NOTE | 2020-07-10 12:20 | RAD ---
EXAM: CHEST ONE VIEW HISTORY: Shortness of breath. COMPARISON: 11/24/2017 FINDINGS: The cardiac silhouette and pulmonary vasculature are within normal limits. Increased interstitial den sities are again seen in the right midlung zone and at the right lung base and to a lesser extent at the left lung base likely related to chronic interstitial lung changes. There are probably mild em physematous changes in the upper lobes. No consolidation or pleural fluid is identified. Osteopenia is again present. Degenerative changes noted in the spine. Vascular calcification are again seen in t he thoracic aorta. Chest is overall stable compared to prior study. IMPRESSION: Chronic lung changes without evidence of an acute cardiopulmonary process.
--- NOTE | 2020-07-10 12:22 | PRG ---
DATE OF SERVICE: 07/10/2020 SUBJECTIVE: 70-year-old female, being seen for hyponatremia. Patient denies any nausea, vomiting, or chest pain. OBJECTIVE: GENERAL: The patient is awake and alert. The patient is not confused. VITAL SIGNS: Afebrile. Pulse 75, breathing 16, blood pressure 152/88. HEENT: Head normocephalic and atraumatic. Eyes intact, no ulcers. Nose intact, no ulcers. Ears intact, no ulcers. NECK: Supple. No JVD. CHEST: Symmetrical and clear. CARDIOVASCULAR: Shows S1 and S2, no rub, no murmur. GASTROINTESTINAL: Abdomen is soft, bowel sounds positive. EXTREMITIES: Show no edema or ulcers. SKIN: Shows no rash or petechiae. MUSCULOSKELETAL: Shows no joint swelling or stiffness. GENITOURINARY: Shows no Turner or CVA tenderness. NEUROLOGIC: Motor intact. Cranial nerves intact. LABORATORY DATA: Labs show sodium 115. ASSESSMENT AND PLAN: 1. Chronic kidney disease, stage 1, stable. 2. Hyponatremia. Would recommend 800 mL fluid restriction. 3. The patient has syndrome of inappropriate antidiuretic hormone secretion. Would recommend cancer screening per age. Medications based on GFR appropriate. The patient has a habit of excessive fluid intake. The patient has had chronic hyponatremia since 2013. 4. Has hypomagnesemia. Recommend magnesium replacement and rechecking labs periodically. Overall prognosis is poor. Job ID: [id number]
[2020-07-10] MEDS: ALPRAZolam 0.5 MG TAB PO PRN ×2 (13:09→21:35)
[2020-07-10] MEDS ORDERED: Digoxin 0.5 MG/2 ML AMP ONE (14:27)
[2020-07-10] MEDS ORDERED: Digoxin 0.5 MG/2 ML AMP SLOW IVP SCH (15:15)
--- NOTE | 2020-07-10 15:17 | PDOC.HOSPP ---
- Subjective Encounter Date: 07/10/20 Encounter Time: 15:16 Subjective: Patient seen for follow-up regarding Edgar hernandez with RVR. Has chest pain. She reports palpitations. She denies nausea or vomiting. - Objective Vital Signs & Weight: Vital Signs (12 hours) Temp Pulse Resp Pulse Ox 07/10/20 15:02 97.3 F L 07/10/20 14:57 107 H 07/10/20 13:07 107 H 07/10/20 11:21 97.6 F 07/10/20 10:56 107 H 24 H 92 L 07/10/20 08:01 114 H 26 H 97 07/10/20 08:00 98 07/10/20 07:29 97.6 F 07/10/20 03:34 98.5 F Weight Weight 117 lb 11.2 oz Most Recent Monitor Data Heart Rate from ECG 134 NIBP 147/106 NIBP BP-Mean 119 Respiration from ECG 20 SpO2 93 I&O: 07/09/20 07/10/20 07/11/20 06:59 06:59 06:59 Intake Total 3780 Output Total 3600 750 Balance 180 -750 Result Diagrams: 07/10/20 03:20 07/10/20 10:42 Additional Labs: Labs and MAR reviewed by me EKG Reviewed by me: Yes (Edgar hernandez with RVR on telemetry) Hospitalist ROS - Review of Systems Respiratory: reports: SOB with excertion. denies: cough, dry, shortness of breath, hemoptysis, pleuritic pain, sputum, wheezing Cardiovascular: reports: palpitations. denies: chest pain, orthopnea, paroxysmal noc. dyspnea, edema, light headedness - Medication Medications: Active Medications Generic Name Dose Route Start Last Admin Trade Name Freq PRN Reason Stop Dose Admin Albuterol Sulfate 2.5 mg 07/07/20 12:05 07/08/20 03:59 Albuterol Sulfate 2.5 Mg/3 Ml Neb NEB 2.5 mg Q2H PRN Administration SOB &/or Wheezing Albuterol/Ipratropium 3 ml 07/09/20 19:00 07/10/20 14:30 Ipratropium/Albuterol Sulfate 3 Ml Neb NEB Not Given QID-RT KASSANDRA Alprazolam 0.5 mg 07/07/20 03:58 07/10/20 13:09 Alprazolam 0.5 Mg Tab PO 0.5 mg Q8H PRN Administration Anxiety/AGITATION Enoxaparin Sodium 40 mg 07/07/20 09:00 07/10/20 08:08 Enoxaparin Sodium 40 Mg/0.4 Ml Syringe SC 40 mg 0900 KASSANDRA Administration Hydralazine HCl 5 mg 07/07/20 04:18 07/09/20 11:55 Hydralazine 20 Mg/Ml Vial SLOW IVP 5 mg Q4H PRN Administration SBP > 140 Levothyroxine Sodium 50 mcg 07/08/20 06:00 07/10/20 05:55 Levothyroxine Sodium 50 Mcg Tab PO 50 mcg 0600 KASSANDRA Administration Metoclopramide HCl 10 mg 07/09/20 14:00 07/10/20 14:57 Metoclopramide Hcl 10 Mg/2 Ml Vial IVP 10 mg Q8HR KASSANDRA Administration Mometasone Furoate/Formoterol Fumar 2 puff 07/07/20 18:30 07/10/20 08:02 Mometasone 200 Mcg/Formoterol 5 Mcg 120 Puff Inhaler INH 2 puff BID-RT KASSANDRA Administration Montelukast Sodium 10 mg 07/07/20 21:00 07/09/20 21:33 Montelukast Sodium 10 Mg Tablet PO 10 mg QPM KASSANDRA Administration Ondansetron HCl 4 mg 07/07/20 04:01 07/09/20 11:54 Ondansetron Pf 4 Mg/2 Ml Vial IVP 4 mg Q6H PRN Administration Nausea/Vomiting Pantoprazole Sodium 40 mg 07/09/20 21:00 07/10/20 08:08 Pantoprazole 40 Mg Vial IVP 40 mg Q12HR KASSANDRA Administration Scopolamine 1.5 mg 07/09/20 13:30 07/09/20 13:42 Scopolamine 1.5 Mg/72 Hour Patch TD 1.5 mg Q3D KASSANDRA Administration Sucralfate 1 gm 07/09/20 17:00 07/10/20 13:06 Sucralfate 1 Gm/10 Ml Udcup PO 1 gm ACHS AKSSANDRA Administration - Exam General Appearance: awake alert Eye: anicteric sclera ENT: moist mucosa Neck: supple Heart: irregular Heart - other findings: S1, S2, tacky Respiratory: CTAB Gastrointestinal: soft, non-tender Skin: no rashes Psychiatric: normal affect, normal behavior Hosp A/P - Plan -Assessment/plan A. fib with RVR --Patient in A. fib with RVR, complaining of palpitations. Hemodynamically stable. Has received 10 mg IV Cardizem. I have also ordered 0.5 mg digoxin. --Cardiology consulte hyponatremia -likely due to GI loss --Appreciate nephrology service input. S --odium still low but stable. Nausea/vomiting --Improving --GI service following COPD, home O2 dependent --Stable, continue as needed albuterol Hypertension, essential --Controlled and stable PAD --Stable Hypothyroidism --Continue levothyroxine
[2020-07-10 15:36] LABS: Troponin I 0.879 ng/mL (< 0.028)
[2020-07-10 19:17] LABS: Anion Gap 15 mmol/L (10-20); BUN (Urea Nitrogen) 19 mg/dL (9.8-20.1); Calc. Creatinine Clearance 80 mL/min (70-130); Carbon Dioxide 23 mmol/L (23-31); Chloride 80 mmol/L (98-107); Glucose 92 mg/dL (80-115); Potassium 3.7 mmol/L (3.5-5.1)
[2020-07-10 19:22] LABS: Sodium 114 mmol/L (136-145)
[2020-07-10 19:37] LABS: Critical Call Chem Troponin I RESULT DECREASING; Troponin I 0.794 ng/mL (< 0.028)
[2020-07-10] MEDS: Montelukast Sodium 10 mg Tablet PO SCH (20:57)
[2020-07-10 21:33] LABS: Anion Gap 15 mmol/L (10-20); BUN (Urea Nitrogen) 16 mg/dL (9.8-20.1); Calc. Creatinine Clearance 86 mL/min (70-130); Calcium 7.9 mg/dL (7.8-10.44); Carbon Dioxide 23 mmol/L (23-31); Chloride 81 mmol/L (98-107); Glucose 86 mg/dL (80-115); Potassium 3.5 mmol/L (3.5-5.1)
[2020-07-10 21:40] LABS: Sodium 115 mmol/L (136-145)
[2020-07-11 04:25] LABS: Anion Gap 13 mmol/L (10-20); BUN (Urea Nitrogen) 14 mg/dL (9.8-20.1); Calc. Creatinine Clearance 93 mL/min (70-130); Calcium 7.9 mg/dL (7.8-10.44); Carbon Dioxide 24 mmol/L (23-31); Chloride 83 mmol/L (98-107); Glucose 78 mg/dL (80-115); Potassium 3.4 mmol/L (3.5-5.1)
[2020-07-11 04:33] LABS: Sodium 117 mmol/L (136-145)
[2020-07-11] MEDS: Metoclopramide HCl 10 MG/2 ML VIAL IVP SCH ×3 (06:06→21:15)
[2020-07-11] MEDS: Levothyroxine Sodium 50 MCG TAB PO SCH (06:06)
[2020-07-11] MEDS: Mometasone 200 MCG/Formoterol 5 MCG 120 PUFF INHALER INH SCH (08:34)
[2020-07-11 08:44] LABS: Anion Gap 17 mmol/L (10-20); BUN (Urea Nitrogen) 14 mg/dL (9.8-20.1); Calc. Creatinine Clearance 39 mL/min (70-130); Carbon Dioxide 21 mmol/L (23-31); Chloride 83 mmol/L (98-107); Glucose 78 mg/dL (80-115); Potassium 3.5 mmol/L (3.5-5.1)
[2020-07-11 08:46] LABS: Sodium 117 mmol/L (136-145)
[2020-07-11] MEDS ORDERED: Tolvaptan 15 MG TAB PO SCH (09:00)
--- NOTE | 2020-07-11 09:36 | PRG ---
DATE OF SERVICE: 07/11/2020 SUBJECTIVE: 70-year-old female being seen for hyponatremia. Patient denies any nausea, vomiting, or chest pain. OBJECTIVE: GENERAL: The patient is awake and alert. VITAL SIGNS: Pulse 75, breathing 16, blood pressure 136/80. HEENT: Head normocephalic and atraumatic. Eyes intact, no ulcers. Nose intact, no ulcers. Ears intact, no ulcers. Neck: Supple. No JVD. Chest: Symmetrical and clear. Cardiovascular: Shows S1 and S2, no rub, no murmur. Gastrointestinal: Abdomen is soft, bowel sounds positive. Extremities: Show no edema or ulcers. Skin: Shows no rash or petechiae. Musculoskeletal: Shows no joint swelling or stiffness. Genitourinary: Shows no Turner or CVA tenderness. Neurologic: Motor intact. Cranial nerves intact. LABS: Show sodium 117, creatinine 0.5. ASSESSMENT AND PLAN: 1. 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 Recommend fluid restriction. Please order malignancy workup. 2. Chronic kidney disease, stage 1, stable. Medication based on GFR appropriate. Job ID: [id number]
[2020-07-11] MEDS: Sucralfate 1 GM/10 ML UDCUP PO SCH ×4 (09:43→21:15)
[2020-07-11] MEDS: Pantoprazole 40 MG VIAL IVP SCH ×2 (09:43→21:15)
--- NOTE | 2020-07-11 10:44 | CON ---
DATE OF CONSULTATION: 07/11/2020 REASON FOR CONSULTATION: COPD. HISTORY OF PRESENT ILLNESS: The patient is a 70-year-old female, who has been admitted to the hospital with abdominal pain, nausea and vomiting. Over the course of her admission, her sodium level has decreased from 135 down to 117. She has severe COPD. She is on oxygen at home. She has been seen by Dr. Dubon in the hospital in the past and I believe in the clinic several times. She has continued to vape. She has a long history of cigarette smoking and marijuana abuse. She says currently her breathing is okay. PAST MEDICAL HISTORY: 1. Chronic obstructive pulmonary disease. 2. Hyperlipidemia. 3. Anxiety. 4. Hepatitis C. 5. Peripheral arterial disease. PAST SURGICAL HISTORY: Cholecystectomy, tonsillectomy and bilateral tubal ligation. MEDICATIONS: 1. Omeprazole. 2. Symbicort. 3. Levothyroxine. 4. Ipratropium. 5. Fluoxetine. 6. Prednisone 10 mg daily. 7. Ibuprofen. 8. Tramadol. 9. DuoNeb. 10. Pletal. 11. Ventolin. 12. Dyazide. 13. Singulair. 14. Xanax. Current inpatient medications reviewed. See chart. REVIEW OF SYSTEMS: Otherwise negative. PHYSICAL EXAMINATION: VITAL SIGNS: Temperature 97.5, pulse 112, blood pressure 166/82, O2 saturation 97%. 24-hour intake 3780, output 3600. HEENT: Unremarkable. NECK: No adenopathy or JVD. LUNGS: Distant, but clear breath sounds. CARDIAC: S1, S2 regular. ABDOMEN: Soft and nontender. EXTREMITIES: No edema. LABORATORY DATA: White blood cell count 18.2, hematocrit 37.3, and platelet count 284. PH 7.38, pCO2 of 53, pO2 of 72. Sodium 117, potassium 3.5, chloride 83, CO2 of 21, BUN 14, creatinine 0.5, glucose 78. ASSESSMENT: 1. Well compensated chronic obstructive pulmonary disease. She has x-ray showing hyperinflation without infiltrates. I think her COPD is probably at baseline. 2. Hyponatremia-etiology is difficult to determine. She came in with a normal sodium. She was using a thiazide diuretic as an outpatient, so that could be part of this. This problem is currently being addressed by Nephrology. RECOMMENDATION: Given that she was on steroids as an outpatient, I would recommend restarting her low-dose prednisone, continuing her Singulair, nebs and Dulera. Once her sodium is corrected, she can be transferred back to the floor. I would stop the scopolamine. Job ID: [id number]
[2020-07-11] MEDS: ALPRAZolam 0.5 MG TAB PO PRN ×2 (10:53→21:21)
--- NOTE | 2020-07-11 17:15 | CON ---
DATE OF CONSULTATION: REASON FOR CONSULTATION: Tachycardia. PRIMARY FOCUSER: Ovi Krueger MD HISTORY OF PRESENT ILLNESS: Ms. Beyer is a 70-year-old woman who recently was admitted for a COPD exacerbation. She has also developed hyponatremia. While in the hospital, she has developed a tachycardia. She was seen and evaluated in her last admission for a similar finding. She is felt to be consistent with sinus tachycardia. Her most recent episode monitor also appears to be consistent with sinus tachycardia versus atrial tachycardia. She is somnolent during my interview. PAST MEDICAL HISTORY: 1. Tobacco use. No alcohol use. 2. COPD. 3. Anxiety disorder. 4. Hepatitis C. 5. PVD. 6. Hyperlipidemia. FAMILY HISTORY: Negative for CAD. REVIEW OF SYSTEMS: A 10-point review of systems is reviewed and is as above, otherwise negative. PHYSICAL EXAMINATION: GENERAL: Patient is a pleasant woman who is in no acute distress. She does appear much older than stated age. VITAL SIGNS: Blood pressure 109/74, pulse 112, and respirations 20. NEUROLOGIC: The patient is alert and oriented x3 with no focal neurologic deficits. HEENT: Sclerae without icterus. Mouth has moist mucous membranes with normal pallor. NECK: No JVD. Carotid upstroke brisk. No bruits bilaterally. LUNGS: Clear to auscultation with unlabored respirations. BACK: No scoliosis or kyphosis. CARDIAC: Regular rate and rhythm with normal S1 and S2. No S3 or S4 noted. No significant rubs, murmurs, thrills, or gallops noted throughout the precordium. PMI is not displaced. There is no parasternal heave. ABDOMEN: Soft, nontender, nondistended. No peritoneal signs present. No hepatosplenomegaly. No abnormal striae. EXTREMITIES: 2+ femoral and 2+ dorsalis pedis pulses. No cyanosis, clubbing, or edema. SKIN: No gross abnormalities. PERTINENT LABORATORY DATA: Hemoglobin 12.4. Sodium 117, creatinine 0.5. Peak troponin 0.7. IMPRESSION: 1. Tachycardia. 2. Chronic obstructive pulmonary disease exacerbation. 3. Elevated troponin. RECOMMENDATIONS: Ms. Beyer's rhythm is consistent with a sinus tachycardia. She has been on neb treatments. At this point, we would continue to monitor closely. Her troponin is slightly elevated, but denies chest pain, pressure, or other associated symptoms. It does appear to be downtrending. Avoid beta-alessandra therapy for now. She has not had a recent echo. Last echo dated 11/03/2017 with a normal LVEF. We will repeat her echo. Job ID: [id number]
--- NOTE | 2020-07-11 18:46 | EKG ---
Test Reason : STAT Blood Pressure : / mmHG Vent. Rate : 124 BPM Atrial Rate : 441 BPM P-R Int : 000 ms QRS Dur : 088 ms QT Int : 322 ms P-R-T Axes : 000 102 064 degrees QTc Int : 462 ms Atrial fibrillation with rapid ventricular response Rightward axis Abnormal ECG Confirmed by DR. Christian VALDEZ MD ([id number]) on 07/11/2020 6:45:52 PM Referred By: JARROD Confirmed By:DR. Christian VALDEZ MD
--- NOTE | 2020-07-11 19:08 | PDOC.HOSPP ---
- Subjective Encounter Date: 07/11/20 Encounter Time: 14:00 Subjective: Seen for follow-up regarding hyponatremia. She denies palpitations. She reports feeling unwell. Unable to elaborate further. - Objective Vital Signs & Weight: Vital Signs (12 hours) Temp Pulse Resp Pulse Ox 07/11/20 15:30 97.7 F 07/11/20 15:29 112 H 20 95 07/11/20 12:00 98.0 F 07/11/20 11:07 105 H 14 99 07/11/20 08:00 98 07/11/20 07:32 97.5 F L Weight Weight 51 lb 4 oz Most Recent Monitor Data Heart Rate from ECG 109 NIBP 131/84 NIBP BP-Mean 99 Respiration from ECG 23 SpO2 96 I&O: 07/10/20 07/11/20 07/12/20 06:59 06:59 06:59 Intake Total 240 600 Output Total 054 553 3114 Balance -519 -081 -2417 Result Diagrams: 07/10/20 03:20 07/11/20 08:23 Additional Labs: I reviewed patient's labs and MAR EKG Reviewed by me: Yes (Sinus tachycardia and telemetry) Hospitalist ROS - Review of Systems Respiratory: reports: SOB with excertion Cardiovascular: denies: chest pain, palpitations, orthopnea, paroxysmal noc. dyspnea, edema, light headedness Gastrointestinal: denies: nausea, vomiting, abdominal pain, diarrhea, constipation, melena, hematochezia - Medication Medications: Active Medications Generic Name Dose Route Start Last Admin Trade Name Freq PRN Reason Stop Dose Admin Albuterol Sulfate 2.5 mg 07/07/20 12:05 07/08/20 03:59 Albuterol Sulfate 2.5 Mg/3 Ml Neb NEB 2.5 mg Q2H PRN Administration SOB &/or Wheezing Albuterol/Ipratropium 3 ml 07/09/20 19:00 07/11/20 15:29 Ipratropium/Albuterol Sulfate 3 Ml Neb NEB 3 ml QID-RT KASSANDRA Administration Alprazolam 0.5 mg 07/07/20 03:58 07/11/20 10:53 Alprazolam 0.5 Mg Tab PO 0.5 mg Q8H PRN Administration Anxiety/AGITATION Hydralazine HCl 5 mg 07/07/20 04:18 07/09/20 11:55 Hydralazine 20 Mg/Ml Vial SLOW IVP 5 mg Q4H PRN Administration SBP > 140 Levothyroxine Sodium 50 mcg 07/08/20 06:00 07/11/20 06:06 Levothyroxine Sodium 50 Mcg Tab PO 50 mcg 0600 KASSANDRA Administration Metoclopramide HCl 10 mg 07/09/20 14:00 07/11/20 13:08 Metoclopramide Hcl 10 Mg/2 Ml Vial IVP 10 mg Q8HR KASSANDRA Administration Mometasone Furoate/Formoterol Fumar 2 puff 07/07/20 18:30 07/11/20 08:34 Mometasone 200 Mcg/Formoterol 5 Mcg 120 Puff Inhaler INH Not Given BID-RT KASSANDRA Montelukast Sodium 10 mg 07/07/20 21:00 07/10/20 20:57 Montelukast Sodium 10 Mg Tablet PO 10 mg QPM KASSANDRA Administration Ondansetron HCl 4 mg 07/07/20 04:01 07/09/20 11:54 Ondansetron Pf 4 Mg/2 Ml Vial IVP 4 mg Q6H PRN Administration Nausea/Vomiting Pantoprazole Sodium 40 mg 07/09/20 21:00 07/11/20 09:43 Pantoprazole 40 Mg Vial IVP 40 mg Q12HR KASSANDRA Administration Sucralfate 1 gm 07/09/20 17:00 07/11/20 18:24 Sucralfate 1 Gm/10 Ml Udcup PO 1 gm ACHS KASSANDRA Administration - Exam General Appearance: awake alert Eye: anicteric sclera ENT: moist mucosa Neck: supple Heart - other findings: S1, S2, tachycardic and regular Respiratory - other findings: Diminished air entry bilateral bases Gastrointestinal: soft, non-tender Skin: no rashes Psychiatric: normal affect, normal behavior Hosp A/P - Plan -Assessment/plan hyponatremia -Remember to 217. -Appreciate nephrology service input. -Patient started on tolvaptan. Nausea/vomiting --Improving COPD, home O2 dependent --Stable, continue albuterol as needed Hypertension, essential --Controlled and stable PAD --Stable Hypothyroidism --Levothyroxine A. fib with RVR --Resolved
[2020-07-11 20:37] LABS: Anion Gap 16 mmol/L (10-20); BUN (Urea Nitrogen) 10 mg/dL (9.8-20.1); Calc. Creatinine Clearance 35 mL/min (70-130); Calcium 8.7 mg/dL (7.8-10.44); Carbon Dioxide 25 mmol/L (23-31); Chloride 93 mmol/L (98-107); Glucose 92 mg/dL (80-115); Potassium 3.4 mmol/L (3.5-5.1); Sodium 131 mmol/L (136-145)
[2020-07-11] MEDS: Montelukast Sodium 10 mg Tablet PO SCH (21:15)
[2020-07-11] MEDS ORDERED: Potassium Bicarbonate/Cit Ac 20 MEQ TAB PO SCH (21:30)
[2020-07-11] MEDS: Dextrose 5% in Water 1,000 ML IV SCH (21:54)
[2020-07-11 23:21] LABS: Anion Gap 14 mmol/L (10-20); BUN (Urea Nitrogen) 8 mg/dL (9.8-20.1); Calc. Creatinine Clearance 37 mL/min (70-130); Calcium 8.4 mg/dL (7.8-10.44); Carbon Dioxide 27 mmol/L (23-31); Chloride 92 mmol/L (98-107); Glucose 126 mg/dL (80-115); Potassium 3.4 mmol/L (3.5-5.1); Sodium 130 mmol/L (136-145)
[2020-07-12] MEDS: Mometasone 200 MCG/Formoterol 5 MCG 120 PUFF INHALER INH SCH ×3 (02:04→18:31)
[2020-07-12] MEDS: ALPRAZolam 0.5 MG TAB PO PRN ×2 (04:09→17:50)
[2020-07-12] MEDS ORDERED: Simethicone Chewable 80 MG TAB PO SCH (04:15)
[2020-07-12] MEDS: Dextrose 5% in Water 1,000 ML IV SCH ×2 (04:58→17:48)
[2020-07-12] MEDS: Metoclopramide HCl 10 MG/2 ML VIAL IVP SCH ×3 (05:01→21:16)
[2020-07-12] MEDS: Levothyroxine Sodium 50 MCG TAB PO SCH (05:02)
[2020-07-12] MEDS: Ondansetron PF 4 MG/2 ML Vial IVP PRN (06:47)
[2020-07-12 07:45] LABS: Lactic Acid 1.4 mmol/L (0.5-2.2)
[2020-07-12 07:47] LABS: Anion Gap 13 mmol/L (10-20); BUN (Urea Nitrogen) 11 mg/dL (9.8-20.1); Calc. Creatinine Clearance 71 mL/min (70-130); Calcium 8.9 mg/dL (7.8-10.44); Carbon Dioxide 30 mmol/L (23-31); Chloride 88 mmol/L (98-107); Glucose 125 mg/dL (80-115); Potassium 3.4 mmol/L (3.5-5.1); Sodium 128 mmol/L (136-145)
[2020-07-12 07:50] LABS: ALT (SGPT) 27 U/L (8-55); AST (SGOT) 39 U/L (5-34); Albumin 3.8 g/dL (3.4-4.8); Alkaline Phosphatase 78 U/L (40-110); Bilirubin, Direct 0.4 mg/dL (0.1-0.3); Bilirubin, Total 0.9 mg/dL (0.2-1.2); Lipase 51 U/L (8-78); Protein, Total 7.1 g/dL (6.0-8.3)
--- NOTE | 2020-07-12 08:52 | CT ---
CT OF THE ABDOMEN AND PELVIS WITH IV CONTRAST INDICATION: 70-year-old female with abdominal pain COMPARISON: Prior CT the abdomen and pelvis with contrast dated July 07, 2020 FINDINGS: ABDOMEN: Lung bases: There is bibasilar emphysema. There is subsegmental volume loss in the right lower lobe. Liver: Mild fatty infiltration near the falciform ligament. Gallbladder: Surgically absent Pancreas: Normal. Adrenal glands: Normal. Spleen: Calcified granuloma Kidneys and ureters: Normal. No hydronephrosis. Vasculature: There are severe vascular calcifications seen involving the visualized vasculature. Lymph nodes:No lymphadenopathy. Free fluid in abdomen:Mild free fluid within the abdomen. PELVIS: Small and large bowel: There is colonic diverticulosis. There are numerous dilated loops of small bow el which transition to normal caliber in the right lower quadrant on image 47 series 2 Appendix:Not definitely seen Bladder: Moderately distended Rectal and perirectal soft tissues:Normal. Reproductive structures: Normal. Free fluid in pelvis: Mild free fluid Lymphadenopathy pelvis: No lymphadenopathy is evident. Osseous structures: There is diffuse osteopenia. There is dextroscoliosis of the lumbar spine. No acu te osseous abnormality is demonstrated. There is stable superior endplate compression fracture of L4. There is scattered degenerative and osteoarthritic changes. Soft tissues:Normal. IMPRESSION: 1. Moderate to severe partial small bowel obstruction with a transition zone seen within the right lo wer quadrant of the abdomen. 2. Mild free fluid in the pelvis and abdomen.
[2020-07-12] MEDS: Pantoprazole 40 MG VIAL IVP SCH ×2 (09:31→21:16)
[2020-07-12] MEDS: Potassium Bicarbonate/Cit Ac 20 MEQ TAB PO SCH (09:31)
[2020-07-12] MEDS: Sucralfate 1 GM/10 ML UDCUP PO SCH ×4 (09:31→21:16)
[2020-07-12] MEDS: predniSONE 5 MG TAB PO SCH (09:31)
--- NOTE | 2020-07-12 11:16 | PRG ---
DATE OF SERVICE: 07/12/2020 SUBJECTIVE: A 70-year-old female, being seen for hyponatremia. The patient denied any nausea, vomiting, or chest pain. PHYSICAL EXAMINATION: General: The patient is awake and alert. Vital Signs: Afebrile, pulse 77, breathing at 16, blood pressure 159/102. HEENT: Head normocephalic and atraumatic. Eyes intact, no ulcers. Nose intact, no ulcers. Ears intact, no ulcers. Neck: Supple. No JVD. Chest: Symmetrical and clear. Cardiovascular: Shows S1 and S2, no rub, no murmur. Gastrointestinal: Abdomen is soft, bowel sounds positive. Extremities: Show no edema or ulcers. Skin: Shows no rash or petechiae. Musculoskeletal: Shows no joint swelling or stiffness. Genitourinary: Shows no Turner or CVA tenderness. Neurologic: Motor intact. Cranial nerves intact. LABORATORY DATA: Show hemoglobin 12.4. Sodium is 128. ASSESSMENT AND RECOMMENDATION: 1. Hyponatremia, improved. 2. Hypokalemia. Recommend potassium replacement. 3. Medication based on GFR, appropriate. The patient's weight of correction has been 10 mEq, so we will lower the rate of correction by giving D5 water and we will recheck sodium at 12:00. No indication for hypertonic saline. Job ID: [id number]
[2020-07-12] MEDS ORDERED: Iopamidol-370 76% 500 ML 1 ML ONE (12:45)
[2020-07-12 13:37] LABS: Anion Gap 16 mmol/L (10-20); BUN (Urea Nitrogen) 10 mg/dL (9.8-20.1); Calc. Creatinine Clearance 70 mL/min (70-130); Calcium 8.6 mg/dL (7.8-10.44); Carbon Dioxide 29 mmol/L (23-31); Chloride 86 mmol/L (98-107); Glucose 141 mg/dL (80-115); Potassium 3.6 mmol/L (3.5-5.1); Sodium 127 mmol/L (136-145)
--- NOTE | 2020-07-12 14:02 | PRG ---
DATE OF SERVICE: 07/12/2020 SUBJECTIVE: Ms. Beyer's heart rate has improved. Heart rate is in the 90s. She is complaining of abdominal pain. CT of the abdomen and pelvis confirmed a [id number] small bowel obstruction. OBJECTIVE: VITAL SIGNS: Heart rate 109, blood pressure 147/97, temperature 97.3. LUNGS: Rhonchi and rales bilaterally. HEART: Regular rate and rhythm. ABDOMEN: Decreased bowel sounds. Distended. EXTREMITIES: 1+ pitting edema. PERTINENT LABORATORY DATA: Hemoglobin 12.4, hematocrit 37.3, white blood cell count 18.2. IMPRESSION: 1. Tachycardia. 2. Small bowel obstruction. 3. Chronic obstructive pulmonary disease exacerbation. RECOMMENDATIONS: We will continue current supportive care. She will need to be n.p.o. for partial small bowel obstruction and may need General Surgery consultation. From a heart rate standpoint, she appears to be sinus tachycardic and does not appear to be dysrhythmic. Her LVEF has been stable in the past. We will reorder her echo. It is yet to have been performed as of this dictation. Otherwise, I have no further recommendations. Job ID: [id number]
--- NOTE | 2020-07-12 14:55 | PRG ---
DATE OF SERVICE: 07/12/2020 SUBJECTIVE: Irene Beyer has no complaints. I was under the impression that she was vaping nicotine, but she is actually vaping THC. She has no idea where the THC pods come from, but she thinks they come out of [place]. I have explained to her that there have been numerous cases of pulmonary injury associated with vaping THC, but she did not seem to be concerned. This is very consistent with our visits in the past. OBJECTIVE: VITAL SIGNS: Heart rate is 109, respiratory rate is 20, oximetry is 97% on 3 L, blood pressure 161/96. LUNGS: Clear. HEART: Regular rhythm. ABDOMEN: Soft. LABORATORY DATA: White count has not been repeated. Sodium 127, potassium 3.6, chloride 86, bicarb 29, BUN 10, creatinine 0.59. IMPRESSION: 1. Chronic obstructive pulmonary disease exacerbation. 2. Hyponatremia. 3. Chronic hypercarbic respiratory failure. PLAN: Her blood gas on the was consistent with her baseline blood gas. She can move to the medical unit. Fluid restriction can be continued for her hyponatremia. We will see her less frequently. Job ID: [id number] [facility]
--- NOTE | 2020-07-12 17:19 | PDOC.HOSPP ---
- Subjective Encounter Date: 07/12/20 Encounter Time: 17:19 Subjective: Patient seen for follow-up regarding bowel obstruction. She reports nausea. She reports abdominal pain. - Objective Vital Signs & Weight: Vital Signs (12 hours) Temp Pulse Resp BP Pulse Ox 07/12/20 17:01 97.3 F L 104 H 20 166/67 H 97 07/12/20 16:08 97.6 F 07/12/20 14:22 109 H 20 97 07/12/20 11:32 97.3 F L 07/12/20 10:31 105 H 16 97 07/12/20 07:30 97.2 F L 07/12/20 07:23 107 H 19 97 Weight Weight 108 lb 0.424 oz Most Recent Monitor Data Heart Rate from ECG 109 NIBP 147/89 NIBP BP-Mean 108 Respiration from ECG 17 SpO2 99 I&O: 07/11/20 07/12/20 07/13/20 06:59 06:59 06:59 Intake Total 240 1940 1425 Output Total 525 4370 1250 Balance -285 -2430 175 Result Diagrams: 07/10/20 03:20 07/12/20 13:12 Additional Labs: Labs and MAR reviewed by tn Hospitalist ROS - Review of Systems Cardiovascular: denies: chest pain, palpitations, orthopnea, paroxysmal noc. dyspnea, edema, light headedness Gastrointestinal: reports: nausea, abdominal pain. denies: vomiting, diarrhea, constipation, melena, hematochezia - Medication Medications: Active Medications Generic Name Dose Route Start Last Admin Trade Name Freq PRN Reason Stop Dose Admin Albuterol Sulfate 2.5 mg 07/07/20 12:05 07/08/20 03:59 Albuterol Sulfate 2.5 Mg/3 Ml Neb NEB 2.5 mg Q2H PRN Administration SOB &/or Wheezing Albuterol/Ipratropium 3 ml 07/09/20 19:00 07/12/20 14:22 Ipratropium/Albuterol Sulfate 3 Ml Neb NEB 3 ml QID-RT KASSANDRA Administration Alprazolam 0.5 mg 07/07/20 03:58 07/12/20 04:09 Alprazolam 0.5 Mg Tab PO 0.5 mg Q8H PRN Administration Anxiety/AGITATION Hydralazine HCl 5 mg 07/07/20 04:18 07/09/20 11:55 Hydralazine 20 Mg/Ml Vial SLOW IVP 5 mg Q4H PRN Administration SBP > 140 Dextrose/Water 1,000 mls @ 50 mls/hr 07/11/20 22:00 07/12/20 04:58 D5w IV 1,000 mls .Q20H KASSANDRA Administration Levothyroxine Sodium 50 mcg 07/08/20 06:00 07/12/20 05:02 Levothyroxine Sodium 50 Mcg Tab PO 50 mcg 0600 KASSANDRA Administration Metoclopramide HCl 10 mg 07/09/20 14:00 07/12/20 14:17 Metoclopramide Hcl 10 Mg/2 Ml Vial IVP 10 mg Q8HR KASSANDRA Administration Mometasone Furoate/Formoterol Fumar 2 puff 07/07/20 18:30 07/12/20 07:22 Mometasone 200 Mcg/Formoterol 5 Mcg 120 Puff Inhaler INH 2 puff BID-RT KASSANDRA Administration Montelukast Sodium 10 mg 07/07/20 21:00 07/11/20 21:15 Montelukast Sodium 10 Mg Tablet PO 10 mg QPM KASSANDRA Administration Ondansetron HCl 4 mg 07/07/20 04:01 07/12/20 06:47 Ondansetron Pf 4 Mg/2 Ml Vial IVP 4 mg Q6H PRN Administration Nausea/Vomiting Pantoprazole Sodium 40 mg 07/09/20 21:00 07/12/20 09:31 Pantoprazole 40 Mg Vial IVP 40 mg Q12HR KASSANDRA Administration Potassium Bicarbonate/Citric Acid 20 meq 07/12/20 09:00 07/12/20 09:31 Potassium Bicarbonate/Cit Ac 20 Meq Tab PO 20 meq DAILY KASSANDRA Administration Prednisone 10 mg 07/12/20 08:00 07/12/20 09:31 Prednisone 5 Mg Tab PO 10 mg QAM-WM KASSANDRA Administration Sucralfate 1 gm 07/09/20 17:00 07/12/20 11:51 Sucralfate 1 Gm/10 Ml Udcup PO Not Given ACHS KASSANDRA - Exam General Appearance: awake alert Eye: anicteric sclera ENT: moist mucosa Neck: supple Heart: RRR Respiratory: CTAB Gastrointestinal: soft, non-tender, no guarding, no rigidity, tender to palpation, diminished bowl sounds Skin: no rashes Psychiatric: normal affect, normal behavior Hosp A/P - Plan -Assessment/plan Bowel obstruction -Keep patient n.p.o. -NG tube to low intermittent suction -Consult general surgery hyponatremia -Sodium improved to 127 Nausea/vomiting --Improving COPD, home O2 dependent --Stable Hypertension, essential --Controlled and stable PAD --Stable Hypothyroidism --Levothyroxine A. fib with RVR --Resolved
--- NOTE | 2020-07-12 18:32 | CON ---
DATE OF CONSULTATION: HISTORY OF PRESENT ILLNESS: Irene Beyer is a 70-year-old female, who lives with family at home, has COPD, end-stage, on home oxygen. She quit smoking about 6 or 7 years ago, but still vapes and smokes marijuana daily. She is admitted on this hospitalization, 07/06/2020, for nausea, vomiting, and crampy abdominal pain. CAT scan of the abdomen and pelvis obtained, was unremarkable for any obstructive process. The patient in this hospitalization has been seen by Dr. Poole, hospitalist, Nephrology, Dr. Nguyen, and Dr. Martinez, Cardiology. Echocardiogram on 07/12/2020, obtained, revealed 50% to 55% EF, difficult study, revealing some diastolic dysfunction, normal RV structure and function, normal left atrial size and right atrial size, mild mitral regurgitation, moderately thickened aortic valve leaflet with decreased excursion. The patient developed nausea, vomiting, and abdominal distention yesterday. She underwent a CAT scan of the abdomen and pelvis today. The patient reports a very large bowel movement 1 to 2 days ago, she cannot remember which day. Her CAT scan today suggested proximal small-bowel dilatation, distal small bowel decompression suggesting an obstruction. The patient has had a laparoscopic cholecystectomy and tubal ligation in the past. She reports passing flatus last night. ALLERGIES: NONE. SOCIAL HISTORY: Tobacco cessation 6 to 7 years ago. Ongoing vaping, ongoing daily marijuana use. MEDICATIONS: At home; 1. Omeprazole. 2. Symbicort. 3. Levothyroxine. 4. Inhalers. 5. Fluoxetine. 6. Prednisone. 7. Tramadol. 8. Ibuprofen. 9. Pletal. 10. . 11. Triamterene and hydrochlorothiazide (Dyazide). 12. Ventolin inhaler. 13. Singulair. 14. Xanax. PAST MEDICAL HISTORY: COPD, home oxygen; elevated cholesterol; anxiety; hepatitis C, untreated; peripheral arterial disease. PAST SURGICAL HISTORY: Cholecystectomy, tubal ligation. She reports never having had a colonoscopy. No family history of colon cancer or colon disease. Case record, on 04/26/2015, Dr. Peyman Bro did perform upper endoscopy due to vomiting. Dr. Martin in February 2013 performed laparoscopic cholecystectomy and cholangiograms. She has had a tonsillectomy, adenoidectomy, carpal tunnel release. REVIEW OF SYSTEMS: Noncontributory. FAMILY HISTORY: Noncontributory. PHYSICAL EXAMINATION: VITAL SIGNS: Height 5 feet, weight 108 pounds. 109 heart rate, 20 respiratory rate. Blood pressure 161/96. LUNGS: Clear to auscultation. CARDIAC: Regular rate and rhythm without murmur or gallop. ABDOMEN: Soft, tympanitic, distended. Examined after NG tube placed, it was much softer. No guarding. EXTREMITIES: Unremarkable. LABORATORY DATA: White count 18, hemoglobin 12. Basic metabolic profile normal except for sodium 127, CO2 of 29, BUN and creatinine are 10 and 0.59. ASSESSMENT AND PLAN: 1. Severe chronic obstructive pulmonary disease, on home oxygen. Ongoing marijuana use daily. Tobacco cessation 6 or 7 years ago. Vape use daily. Home oxygen dependent chronic obstructive pulmonary disease with multiple inhalers. 2. Some degree of malnutrition. 3. Suspect ileus. CAT scan on admission did not show any obstructive pattern. Today, it suggests maybe an early obstruction. We will place an NG tube to suction, which has been accomplished. She had immediately 500 mL of bilious output. Plan is to continue suction overnight and a small bowel follow-through tomorrow and further recommendations based on clinical course and radiological findings tomorrow. Job ID: [id number]
[2020-07-12 19:08] LABS: Anion Gap 16 mmol/L (10-20); BUN (Urea Nitrogen) 11 mg/dL (9.8-20.1); Calc. Creatinine Clearance 77 mL/min (70-130); Calcium 8.6 mg/dL (7.8-10.44); Carbon Dioxide 29 mmol/L (23-31); Chloride 86 mmol/L (98-107); Glucose 112 mg/dL (80-115); Potassium 3.5 mmol/L (3.5-5.1); Sodium 127 mmol/L (136-145)
[2020-07-12] MEDS: Montelukast Sodium 10 mg Tablet PO SCH (21:16)
[2020-07-12] MEDS ORDERED: Morphine 2 MG/ML VIAL SLOW IVP SCH (21:45)
[2020-07-13] MEDS ORDERED: Metoprolol Tartrate 5 MG/5 ML VIAL IVP PRN (00:24)
--- NOTE | 2020-07-13 00:26 | PDOC.EVN ---
Event Note - Event Note Event Note: Nursing called, patient tachycardic 140s to 160s, BP stable. Patient asymptomatic, ordered EKG, labs. EKG ST 2nd degree avb mobitz type 1. Give Lopressor 5mg IVP x 1 dose now, transfer to telemetry. Discussed case with attending, Dr. Bull.
[2020-07-13 00:51] LABS: #Eosinphils 0.1 thou/uL (0.0-0.7); #Lymphocytes 0.7 thou/uL (1.20-3.40); #Monocytes 1.1 thou/uL (0.11-0.59); #Neutrophils 8.2 thou/uL (1.40-6.50); %Basophils 0.1 % (0.0-1.0); %Eosinophils 0.7 % (0.0-10.0); %Lymphocytes 7.2 % (21.0-51.0); %Monocytes 10.4 % (0.0-10.0); %Neutrophils 81.6 % (42.0-75.0); Mean Corpuscular HGB CONC 32.3 g/dL (32.0-36.0); Mean Corpuscular Hemoglobin 28.9 pg (27.0-31.0); Mean Corpuscular Volume 89.5 fL (78.0-98.0); Mean Platelet Volume 7.1 fL (7.4-10.4); Platelet Count 326 thou/uL (130-400); RBC Distribution Width 12.9 % (11.5-14.5); Red Blood Cell (RBC) Count 4.83 mill/uL (4.20-5.40); White Blood Cell (WBC) Count 10.1 thou/uL (4.8-10.8)
[2020-07-13 01:15] LABS: Anion Gap 16 mmol/L (10-20); BUN (Urea Nitrogen) 14 mg/dL (9.8-20.1); Calc. Creatinine Clearance 75 mL/min (70-130); Calcium 8.3 mg/dL (7.8-10.44); Carbon Dioxide 25 mmol/L (23-31); Chloride 87 mmol/L (98-107); Glucose 119 mg/dL (80-115); Potassium 3.7 mmol/L (3.5-5.1); Sodium 124 mmol/L (136-145)
[2020-07-13 05:44] LABS: #Eosinphils 0.1 thou/uL (0.0-0.7); #Lymphocytes 0.8 thou/uL (1.20-3.40); #Monocytes 1.2 thou/uL (0.11-0.59); #Neutrophils 7.1 thou/uL (1.40-6.50); %Basophils 0.2 % (0.0-1.0); %Eosinophils 0.6 % (0.0-10.0); %Lymphocytes 8.6 % (21.0-51.0); %Neutrophils 77.6 % (42.0-75.0); Hemoglobin 12.6 g/dL (12.0-16.0); Mean Corpuscular Hemoglobin 28.7 pg (27.0-31.0); Mean Corpuscular Volume 89.6 fL (78.0-98.0); Mean Platelet Volume 7.1 fL (7.4-10.4); Platelet Count 319 thou/uL (130-400); RBC Distribution Width 12.9 % (11.5-14.5); White Blood Cell (WBC) Count 9.1 thou/uL (4.8-10.8)
[2020-07-13] MEDS: Levothyroxine Sodium 50 MCG TAB PO SCH (05:45)
[2020-07-13] MEDS: Metoclopramide HCl 10 MG/2 ML VIAL IVP SCH ×3 (05:47→20:48)
[2020-07-13 06:05] LABS: Anion Gap 11 mmol/L (10-20); BUN (Urea Nitrogen) 17 mg/dL (9.8-20.1); Calc. Creatinine Clearance 79 mL/min (70-130); Carbon Dioxide 31 mmol/L (23-31); Chloride 87 mmol/L (98-107); Glucose 103 mg/dL (80-115); Potassium 3.5 mmol/L (3.5-5.1); Sodium 125 mmol/L (136-145)
[2020-07-13] MEDS: Mometasone 200 MCG/Formoterol 5 MCG 120 PUFF INHALER INH SCH ×2 (07:14→18:42)
[2020-07-13] MEDS: Ondansetron PF 4 MG/2 ML Vial IVP PRN ×2 (07:39→15:03)
[2020-07-13] MEDS: predniSONE 5 MG TAB PO SCH (08:56)
[2020-07-13] MEDS: Sucralfate 1 GM/10 ML UDCUP PO SCH ×5 (08:56→21:05)
[2020-07-13] MEDS: Pantoprazole 40 MG VIAL IVP SCH ×2 (08:57→20:48)
[2020-07-13] MEDS: Potassium Bicarbonate/Cit Ac 20 MEQ TAB PO SCH (08:57)
--- NOTE | 2020-07-13 10:15 | RAD ---
ABDOMEN 2 VIEWS: Date: 07/13/2020 HISTORY: Follow-up small bowel obstruction. COMPARISON: 07/12/2020 CT. FINDINGS: NG tube is in place. Minimal increased markings in the lung bases, having more of a chronic appearanc e. Persistently abnormally dilated small bowel loops. There is minimal gas and fecal material in the colon and rectum. No evidence for free intraperitoneal air. IMPRESSION: Persistent abnormally dilated small bowel loops with air fluid levels, evidence for small bowel obstr uction, with little change from prior CT of 07/12/2020. POS: AH
--- NOTE | 2020-07-13 10:49 | PRG ---
DATE OF SERVICE: 07/13/2020 SUBJECTIVE: A 70-year-old female being seen for hyponatremia. Patient denied nausea, vomiting, chest pain. OBJECTIVE: GENERAL: The patient is awake, alert. VITAL SIGNS: Pulse 75, breathing 16, blood pressure 135/65. HEENT: Head normocephalic and atraumatic. Eyes intact, no ulcers. Nose intact, no ulcers. Ears intact, no ulcers. NECK: Supple. No JVD. CHEST: Symmetrical and clear. CARDIOVASCULAR: Shows S1 and S2, no rub, no murmur. GASTROINTESTINAL: Abdomen is soft, bowel sounds positive. EXTREMITIES: Show no edema or ulcers. SKIN: Shows no rash or petechiae. MUSCULOSKELETAL: Shows no joint swelling or stiffness. GENITOURINARY: Shows no Turner or CVA tenderness. NEUROLOGIC: Motor intact. Cranial nerves intact. LABORATORY DATA: Labs show sodium 125, creatinine 0.5. ASSESSMENT AND PLAN: Chronic kidney disease, stage 1, stable. Hyponatremia, improved. Sodium has corrected correctly. Would recommend 1000 mL fluid restriction and rechecking sodium at 4:00 p.m. Medication based on GFR appropriate. Job ID: [id number]
[2020-07-13] MEDS: ALPRAZolam 0.5 MG TAB PO PRN ×2 (11:00→20:50)
[2020-07-13] MEDS ORDERED: MD-Gastroview 120 ML BOT ONE (13:23)
--- NOTE | 2020-07-13 14:04 | RAD ---
EXAM: XR Small Bowel STANDARD DATE: 07/13/2020 7:00 AM INDICATION: Small bowel obstruction COMPARISON: CT the abdomen and pelvis dated July 12, 2020 FINDING: There are moderately dilated gas-filled loops of small bowel within the central abdomen. Wi th administration Gastrografin contrast to the patient's gastric catheter there is slow progression of the contrast through dilated loops of small bowel with spillage of the contrast in the colon by th e 4 hour time maryellen. Gas is present within the colon and rectum. IMPRESSION:Findings most consistent with a moderate grade partial small bowel obstruction.
[2020-07-13 16:43] LABS: Anion Gap 17 mmol/L (10-20); BUN (Urea Nitrogen) 20 mg/dL (9.8-20.1); Calc. Creatinine Clearance 71 mL/min (70-130); Calcium 8.9 mg/dL (7.8-10.44); Carbon Dioxide 31 mmol/L (23-31); Chloride 86 mmol/L (98-107); Glucose 110 mg/dL (80-115); Potassium 3.5 mmol/L (3.5-5.1); Sodium 130 mmol/L (136-145)
--- NOTE | 2020-07-13 17:51 | PRG ---
DATE OF SERVICE: 07/13/2020 SUBJECTIVE: Ms. Beyer remains in her bed on the medical floor. Early today, a small bowel follow-through was obtained with Gastrografin. There was delayed passage of the contrast through dilated loops of bowel; however, it appear that contrast had reached the colon by 4 hours. She has not yet had a bowel movement. When I arrived, she was spitting up material that was clear and perhaps some residual contrast within her stomach. She denies pain other than discomfort from the nasogastric tube and a feeling of some abdominal distention. PHYSICAL EXAMINATION: VITAL SIGNS: She is afebrile. Pulse is elevated at 100 to 129. Blood pressure is 125/82. LUNGS: Distant breath sounds. ABDOMEN: Appears distended. There is very hypoactive almost no bowel sounds. EXTREMITIES: There is no focal tenderness, but diffuse discomfort. LABORATORY DATA: Her metabolic panel shows that her sodium has gone up to 130, chloride is still low at 86, BUN and creatinine are normal at 20 and 0.6. CBC shows that her white blood cell count is normalized at 9.1, hemoglobin is 12.6, platelet count 319. She still has a left shift, but it appears to be decreasing. ASSESSMENT: The patient with small bowel obstruction versus ileus. In light of her fragile medical condition, it is certainly worthwhile to try to avoid surgery on her. The nasogastric tube will remain in place to suction for now, we will continue IV fluid hydration. This was on for much longer, we may need to consider nutritional support. Dr. Randall is seeing the patient in regard to her electrolytes and she is apparently currently getting D5W at only 50 mL/h. We will continue to get serial x-rays to see if contrast passes. This could be an ileus related to her severe electrolyte disorders that she had upon presentation that will hopefully resolve this as her situation normalizes. Job ID: [id number]
--- NOTE | 2020-07-13 18:58 | PDOC.HOSPP ---
- Subjective Encounter Date: 07/13/20 Encounter Time: 08:30 Subjective: Patient seen for follow-up for bowel obstruction. She denies chest pain or shortness of breath. - Objective Vital Signs & Weight: Vital Signs (12 hours) Temp Pulse Resp BP BP Pulse Ox 07/13/20 18:41 97 16 97 07/13/20 15:34 97.8 F 129 H 20 125/82 96 07/13/20 11:18 101 H 18 97 07/13/20 11:07 99.1 F 101 H 20 169/88 H 96 07/13/20 07:14 98.2 F 95 16 135/65 95 07/13/20 07:13 95 18 95 Weight Weight 110 lb 3.2 oz Most Recent Monitor Data Heart Rate from ECG 109 NIBP 147/89 NIBP BP-Mean 108 Respiration from ECG 17 SpO2 99 I&O: 07/12/20 07/13/20 07/14/20 06:59 06:59 06:59 Intake Total 1940 1731 240 Output Total 4370 1770 Balance -2430 -39 240 Result Diagrams: 07/13/20 05:31 07/13/20 16:05 Additional Labs: I reviewed patient's labs and MAR Hospitalist ROS - Review of Systems Cardiovascular: denies: chest pain, palpitations, orthopnea, paroxysmal noc. dyspnea, edema, light headedness Gastrointestinal: reports: abdominal pain, constipation. denies: nausea, vomiting, diarrhea, melena, hematochezia - Medication Medications: Active Medications Generic Name Dose Route Start Last Admin Trade Name Freq PRN Reason Stop Dose Admin Albuterol Sulfate 2.5 mg 07/07/20 12:05 07/08/20 03:59 Albuterol Sulfate 2.5 Mg/3 Ml Neb NEB 2.5 mg Q2H PRN Administration SOB &/or Wheezing Albuterol/Ipratropium 3 ml 07/09/20 19:00 07/13/20 18:41 Ipratropium/Albuterol Sulfate 3 Ml Neb NEB 3 ml QID-RT KASSANDRA Administration Alprazolam 0.5 mg 07/07/20 03:58 07/13/20 11:00 Alprazolam 0.5 Mg Tab PO 0.5 mg Q8H PRN Administration Anxiety/AGITATION Hydralazine HCl 5 mg 07/07/20 04:18 07/09/20 11:55 Hydralazine 20 Mg/Ml Vial SLOW IVP 5 mg Q4H PRN Administration SBP > 140 Dextrose/Water 1,000 mls @ 50 mls/hr 07/11/20 22:00 07/12/20 17:48 D5w IV 1,000 mls .Q20H KASSANDRA Administration Levothyroxine Sodium 50 mcg 07/08/20 06:00 07/13/20 05:45 Levothyroxine Sodium 50 Mcg Tab PO 50 mcg 0600 KASSANDRA Administration Metoclopramide HCl 10 mg 07/09/20 14:00 07/13/20 14:32 Metoclopramide Hcl 10 Mg/2 Ml Vial IVP 10 mg Q8HR KASSANDRA Administration Mometasone Furoate/Formoterol Fumar 2 puff 07/07/20 18:30 07/13/20 18:42 Mometasone 200 Mcg/Formoterol 5 Mcg 120 Puff Inhaler INH 2 puff BID-RT KASSANDRA Administration Montelukast Sodium 10 mg 07/07/20 21:00 07/12/20 21:16 Montelukast Sodium 10 Mg Tablet PO 10 mg QPM KASSANDRA Administration Ondansetron HCl 4 mg 07/07/20 04:01 07/13/20 15:03 Ondansetron Pf 4 Mg/2 Ml Vial IVP 4 mg Q6H PRN Administration Nausea/Vomiting Pantoprazole Sodium 40 mg 07/09/20 21:00 07/13/20 08:57 Pantoprazole 40 Mg Vial IVP 40 mg Q12HR KASSANDRA Administration Potassium Bicarbonate/Citric Acid 20 meq 07/12/20 09:00 07/13/20 08:57 Potassium Bicarbonate/Cit Ac 20 Meq Tab PO 20 meq DAILY KASSANDRA Administration Prednisone 10 mg 07/12/20 08:00 07/13/20 08:56 Prednisone 5 Mg Tab PO 10 mg QAM-WM KASSANDRA Administration Sucralfate 1 gm 07/09/20 17:00 07/13/20 16:28 Sucralfate 1 Gm/10 Ml Udcup PO 1 gm ACHS KASSANDRA Administration - Exam General Appearance: awake alert Eye: PERRL ENT: normocephalic atraumatic Neck: supple Heart: RRR Respiratory: CTAB Gastrointestinal: soft, non-tender Skin: no rashes Psychiatric: normal affect, normal behavior Hosp A/P - Plan -Assessment/plan Bowel obstruction -Ongoing bowel obstruction on small bowel series. 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 fib with RVR --Resolved
[2020-07-13] MEDS: Montelukast Sodium 10 mg Tablet PO SCH (20:48)
[2020-07-13] MEDS: Dextrose 5% in Water 1,000 ML IV SCH (23:09)
[2020-07-14 05:00] LABS: #Lymphocytes 0.8 thou/uL (1.20-3.40); #Neutrophils 11.8 thou/uL (1.40-6.50); %Basophils 0.1 % (0.0-1.0); %Eosinophils 0.2 % (0.0-10.0); %Lymphocytes 5.6 % (21.0-51.0); %Monocytes 7.1 % (0.0-10.0); %Neutrophils 87.1 % (42.0-75.0); Hemoglobin 12.9 g/dL (12.0-16.0); Mean Corpuscular HGB CONC 31.8 g/dL (32.0-36.0); Mean Corpuscular Hemoglobin 28.9 pg (27.0-31.0); Mean Platelet Volume 7.1 fL (7.4-10.4); Platelet Count 341 thou/uL (130-400); Red Blood Cell (RBC) Count 4.47 mill/uL (4.20-5.40); White Blood Cell (WBC) Count 13.5 thou/uL (4.8-10.8)
[2020-07-14 05:22] LABS: ALT (SGPT) 16 U/L (8-55); AST (SGOT) 20 U/L (5-34); Albumin 3.4 g/dL (3.4-4.8); Alkaline Phosphatase 68 U/L (40-110); Anion Gap 16 mmol/L (10-20); BUN (Urea Nitrogen) 22 mg/dL (9.8-20.1); Bilirubin, Total 1.1 mg/dL (0.2-1.2); Calc. Creatinine Clearance 77 mL/min (70-130); Calcium 8.8 mg/dL (7.8-10.44); Carbon Dioxide 29 mmol/L (23-31); Chloride 89 mmol/L (98-107); Globulin 3.2 g/dL (2.4-3.5); Glucose 96 mg/dL (80-115); Potassium 3.6 mmol/L (3.5-5.1); Protein, Total 6.6 g/dL (6.0-8.3); Sodium 130 mmol/L (136-145)
[2020-07-14] MEDS: Metoclopramide HCl 10 MG/2 ML VIAL IVP SCH ×3 (05:24→20:18)
[2020-07-14] MEDS: Levothyroxine Sodium 50 MCG TAB PO SCH (05:25)
[2020-07-14] MEDS: ALPRAZolam 0.5 MG TAB PO PRN (05:29)
[2020-07-14] MEDS: Sucralfate 1 GM/10 ML UDCUP PO SCH (08:04)
[2020-07-14] MEDS: Mometasone 200 MCG/Formoterol 5 MCG 120 PUFF INHALER INH SCH ×2 (08:18→19:04)
--- NOTE | 2020-07-14 08:38 | RAD ---
Exam: 1 view abdomen HISTORY: Follow-up small bowel obstruction/ileus COMPARISON: Small bowel series 07/13/2020 FINDINGS: Redemonstration of a nasogastric tube. There is persistent distention of multiple small bow el loops. There is residual oral contrast in distal small bowel loops. Additionally there is contrast in the cecum, ascending colon as well as the sigmoid colon. Findings favor a partial small b owel obstruction. IMPRESSION: 1. Residual contrast with distended small bowel loops. Findings favor a partial small bowel obstructi on.
--- NOTE | 2020-07-14 08:50 | EKG ---
Test Reason : STAT Blood Pressure : / mmHG Vent. Rate : 140 BPM Atrial Rate : 141 BPM P-R Int : 000 ms QRS Dur : 078 ms QT Int : 292 ms P-R-T Axes : 053 121 043 degrees QTc Int : 445 ms Sinus tachycardia with 2nd degree A-V block (Mobitz I) with Fusion complexes Indeterminate axis Low voltage QRS Cannot rule out Anterior infarct , age undetermined Abnormal ECG When compared with ECG of 10-JUL-2020 14:21, Sinus rhythm has replaced Atrial fibrillation Nonspecific T wave abnormality now evident in Inferior leads Confirmed by COURTNEY LYONS, SBull ([id number]) on 07/14/2020 8:49:36 AM Referred By: STACIE Confirmed By:DR. Christian VALDEZ MD
[2020-07-14] MEDS: predniSONE 5 MG TAB PO SCH (09:13)
[2020-07-14] MEDS: Potassium Bicarbonate/Cit Ac 20 MEQ TAB PO SCH (09:14)
[2020-07-14] MEDS: Pantoprazole 40 MG VIAL IVP SCH ×2 (09:14→20:18)
[2020-07-14] MEDS: Sodium Chloride 0.9% 1,000 ML IV SCH (12:09)
--- NOTE | 2020-07-14 15:21 | PDOC.HOSPP ---
- Subjective Encounter Date: 07/14/20 Encounter Time: 07:30 Subjective: Patient seen for follow-up bowel obstruction. She denies chest pain or shortness of breath. - Objective Vital Signs & Weight: Vital Signs (12 hours) Temp Pulse Resp BP Pulse Ox 07/14/20 14:58 92 16 07/14/20 11:40 97 16 07/14/20 11:21 97.7 F 96 20 143/73 H 98 07/14/20 08:12 90 19 07/14/20 08:00 99 07/14/20 07:26 98.3 F 84 20 142/78 H 99 07/14/20 03:47 98.3 F 89 22 H 141/78 H 96 Weight Weight 109 lb 6.4 oz Most Recent Monitor Data Heart Rate from ECG 109 NIBP 147/89 NIBP BP-Mean 108 Respiration from ECG 17 SpO2 99 I&O: 07/13/20 07/14/20 07/15/20 06:59 06:59 06:59 Intake Total 1731 640 592 Output Total 1770 800 550 Balance -39 -160 42 Result Diagrams: 07/14/20 04:42 07/14/20 04:42 Additional Labs: Labs and MAR reviewed by me EKG Reviewed by me: Yes (Telemetry shows normal sinus rhythm) Hospitalist ROS - Review of Systems Cardiovascular: denies: chest pain, palpitations, orthopnea, paroxysmal noc. dyspnea, edema, light headedness, other Gastrointestinal: reports: abdominal pain, constipation. denies: nausea, vomiting, diarrhea, melena, hematochezia - Medication Medications: Active Medications Generic Name Dose Route Start Last Admin Trade Name Freq PRN Reason Stop Dose Admin Albuterol Sulfate 2.5 mg 07/07/20 12:05 07/08/20 03:59 Albuterol Sulfate 2.5 Mg/3 Ml Neb NEB 2.5 mg Q2H PRN Administration SOB &/or Wheezing Albuterol/Ipratropium 3 ml 07/09/20 19:00 07/14/20 14:58 Ipratropium/Albuterol Sulfate 3 Ml Neb NEB 3 ml QID-RT KASSANDRA Administration Alprazolam 0.5 mg 07/07/20 03:58 07/14/20 05:29 Alprazolam 0.5 Mg Tab PO 0.5 mg Q8H PRN Administration Anxiety/AGITATION Hydralazine HCl 5 mg 07/07/20 04:18 07/09/20 11:55 Hydralazine 20 Mg/Ml Vial SLOW IVP 5 mg Q4H PRN Administration SBP > 140 Sodium Chloride 1,000 mls @ 70 mls/hr 07/14/20 12:00 07/14/20 12:09 Normal Saline 0.9% IV 1,000 mls .[id number] KASSANDRA Administration Levothyroxine Sodium 50 mcg 07/08/20 06:00 07/14/20 05:25 Levothyroxine Sodium 50 Mcg Tab PO 50 mcg 0600 KASSANDRA Administration Metoclopramide HCl 10 mg 07/09/20 14:00 07/14/20 13:31 Metoclopramide Hcl 10 Mg/2 Ml Vial IVP 10 mg Q8HR KASSANDRA Administration Mometasone Furoate/Formoterol Fumar 2 puff 07/07/20 18:30 07/14/20 08:18 Mometasone 200 Mcg/Formoterol 5 Mcg 120 Puff Inhaler INH 2 puff BID-RT KASSANDRA Administration Montelukast Sodium 10 mg 07/07/20 21:00 07/13/20 20:48 Montelukast Sodium 10 Mg Tablet PO 10 mg QPM KASSANDRA Administration Ondansetron HCl 4 mg 07/07/20 04:01 07/13/20 15:03 Ondansetron Pf 4 Mg/2 Ml Vial IVP 4 mg Q6H PRN Administration Nausea/Vomiting Pantoprazole Sodium 40 mg 07/09/20 21:00 07/14/20 09:14 Pantoprazole 40 Mg Vial IVP 40 mg Q12HR KASSANDRA Administration Potassium Bicarbonate/Citric Acid 20 meq 07/12/20 09:00 07/14/20 09:14 Potassium Bicarbonate/Cit Ac 20 Meq Tab PO 20 meq DAILY KASSANDRA Administration Prednisone 10 mg 07/12/20 08:00 07/14/20 09:13 Prednisone 5 Mg Tab PO 10 mg QAM-WM KASSANDRA Administration - Exam General Appearance: awake alert Eye: anicteric sclera ENT: moist mucosa Neck: supple Heart: RRR Respiratory: CTAB Gastrointestinal: soft, diminished bowl sounds Skin: no rashes Psychiatric: normal affect, normal behavior Hosp A/P - Plan -Assessment/plan Bowel obstruction -Keep patient n.p.o. -Ongoing bowel obstruction on repeat x-rays. -Provide IV hydration. 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 fib with RVR --Resolved
[2020-07-14] MEDS: Montelukast Sodium 10 mg Tablet PO SCH (20:18)
[2020-07-15] MEDS: ALPRAZolam 0.5 MG TAB PO PRN (00:10)
[2020-07-15] MEDS: Sodium Chloride 0.9% 1,000 ML IV SCH ×2 (04:02→05:38)
[2020-07-15 05:19] LABS: #Eosinphils 0.1 thou/uL (0.0-0.7); #Monocytes 1.2 thou/uL (0.11-0.59); %Basophils 0.3 % (0.0-1.0); %Eosinophils 0.8 % (0.0-10.0); %Lymphocytes 8.5 % (21.0-51.0); %Neutrophils 79.5 % (42.0-75.0); Hemoglobin 12.4 g/dL (12.0-16.0); Mean Corpuscular HGB CONC 32.7 g/dL (32.0-36.0); Mean Corpuscular Hemoglobin 29.6 pg (27.0-31.0); Mean Corpuscular Volume 90.7 fL (78.0-98.0); Mean Platelet Volume 6.9 fL (7.4-10.4); Platelet Count 312 thou/uL (130-400); White Blood Cell (WBC) Count 11.3 thou/uL (4.8-10.8)
[2020-07-15] MEDS: Metoclopramide HCl 10 MG/2 ML VIAL IVP SCH ×2 (05:33→19:23)
[2020-07-15] MEDS: Levothyroxine Sodium 50 MCG TAB PO SCH (05:33)
[2020-07-15 05:40] LABS: ALT (SGPT) 15 U/L (8-55); AST (SGOT) 20 U/L (5-34); Albumin 3.1 g/dL (3.4-4.8); Alkaline Phosphatase 65 U/L (40-110); Anion Gap 14 mmol/L (10-20); BUN (Urea Nitrogen) 19 mg/dL (9.8-20.1); Bilirubin, Total 0.8 mg/dL (0.2-1.2); Calc. Creatinine Clearance 78 mL/min (70-130); Carbon Dioxide 30 mmol/L (23-31); Chloride 90 mmol/L (98-107); Globulin 2.9 g/dL (2.4-3.5); Glucose 88 mg/dL (80-115); Potassium 3.2 mmol/L (3.5-5.1); Sodium 131 mmol/L (136-145)
[2020-07-15] MEDS: Mometasone 200 MCG/Formoterol 5 MCG 120 PUFF INHALER INH SCH ×2 (07:00→19:51)
--- NOTE | 2020-07-15 07:50 | RAD ---
KUB INDICATION: Follow up small bowel obstruction COMPARISON: July 14, 2020 FINDINGS: Bowel gas: There is stable dilated gas-filled loop of small bowel within the central abdomen. Gastric catheter is seen within the left upper quadrant. There is contrast at the level of the colon and rectum. Lung bases: Clear. Additional findings: No suspicious calcification demonstrated. Osseous structures: There is diffuse osteopenia. There is dextroscoliosis of the lumbar spine. IMPRESSION: 1. Persistent moderate to severe partial small bowel obstruction
[2020-07-15] MEDS ORDERED: Dexamethasone 20 MG/5 ML VIAL ONE (10:41)
[2020-07-15] MEDS ORDERED: PROPOFOL 200 MG/20 ML VIAL ONE (10:41)
[2020-07-15] MEDS ORDERED: Vecuronium 10 MG VIAL ONE (10:41)
[2020-07-15] MEDS ORDERED: Lidocaine 1% PF 5 ML VIAL ONE (10:41)
[2020-07-15] MEDS ORDERED: Rocuronium Bromide 10 MG/ML (10ML VIAL) ONE (10:41)
[2020-07-15] MEDS ORDERED: PHENYLEPHRINE-NS 100 MCG/ML 10 ML SYRINGE ONE (10:41)
[2020-07-15] MEDS: Potassium Bicarbonate/Cit Ac 20 MEQ TAB PO SCH (11:17)
[2020-07-15] MEDS: predniSONE 5 MG TAB PO SCH (11:17)
[2020-07-15] MEDS ORDERED: ceFAZolin 1 GM/D5W 1 GM in Premix Bag 1 BAG IVPB SCH (12:15)
--- NOTE | 2020-07-15 12:35 | PRG ---
DATE OF SERVICE: 07/15/2020 SUBJECTIVE: Ms. Beyer remains in her bed on the medical floor. Nasogastric tube is in place. She has no new complaints. She feels that her abdomen is a little better, but she still has not had any appreciable bowel movement. She is taking a significant amount of clear liquids orally, which appropriately by her nasogastric tube. Her gastric drainage for yesterday was 1900 mL. The x-ray from this morning of her abdomen reveals persistently dilated proximal loops of small bowel with contrast that remains within her colon and the rectum. This is felt to be consistent with persistent small bowel obstruction. PHYSICAL EXAMINATION: VITAL SIGNS: She is afebrile. Pulse is 87 to 95, blood pressure 139/72. GENERAL: She is resting in bed. She has not really gotten out of bed significantly for several days. LUNGS: Clear, but distant. ABDOMEN: Mildly distended. It is soft. Bowel sounds are present, but very hypoactive. LABORATORY DATA: Her CBC shows that her white blood cell count is 11.3, hemoglobin 12.4, platelet count 312. Her chemistries show that her sodium has improved further up to 3.1. Her chloride is improved up to 90, however, her potassium level has dropped to 3.2. Creatinine remains normal at 0.5. Her albumin is low at 3.1. ASSESSMENT: This patient has been in the hospital now since July 06. Surgery was consulted and has been following her since the . She has not had appreciable nutrition during this time and she still has no significant evidence of bowel function. At this point, I believe she requires intra-abdominal examination. I performed an exploratory laparoscopy. It is still entirely possible this is an ileus, but she has had more than adequate trial to see if this is the case and she has no improvement with treatment of her electrolytes. I am uncertain what the etiology of the obstruction would be abdominal surgery. I told her I will try to do this operation laparoscopically to minimize her abdominal pain. She understands the possibility of laparotomy and/or bowel resection. I have also discussed her case with her big data analytics lead, Dr. Dubon. He recommends that she remain intubated and go to the Intensive Care Unit on the ventilator. I will plan to place a central line at the time of surgery, so she can begin TPN as well. I have discussed all this in detail with the patient. She understands. While I am not particularly concerned about the abdominal implications of her surgery, the ability of her poor constitution, almost complete immobility, and horrible underlying lung disease make her a very high risk candidate for any surgery. She understands there is a reasonable chance that she will not recover from this surgery because of her terrible underlying medical condition. At this time, however, I see no significant alternatives. Job ID: [id number]
--- NOTE | 2020-07-15 13:10 | PRG ---
DATE OF SERVICE: 07/15/2020 Ms. Beyer has no new complaints. She still had not a bowel movement. It is felt that her bowel obstruction is not resolved. It is anticipated she will have exploratory laparoscopy today. It is also anticipated that she will remain mechanically ventilated after surgery at least for one night and perhaps even more, given the severity of her COPD. Her underlying deconditioning and very poor pulmonary function make this extremely high risk for complications after surgery, not necessarily during the surgery. We will continue to follow. Job ID: [id number]
[2020-07-15] MEDS: Pantoprazole 40 MG VIAL IVP SCH ×2 (13:22→20:21)
[2020-07-15] MEDS ORDERED: Fentanyl 250 MCG/5 ML VIAL ONE (13:38)
[2020-07-15] MEDS ORDERED: Phenylephrine 10 MG/ML VIAL ONE (13:39)
[2020-07-15] MEDS ORDERED: Lidocaine 1% w/Epinephrine 1:100K 20 ML VIAL ONE (13:39)
[2020-07-15] MEDS ORDERED: Bupivacaine 0.25% HCL 30 ML VIAL ONE (13:39)
[2020-07-15] MEDS ORDERED: cefOXitin Sodium/Dextrose 2 GM/50 ML BAG ONE (14:05)
[2020-07-15] MEDS ORDERED: Sodium Chloride 0.9% 30 ML ONE (14:06)
[2020-07-15] MEDS ORDERED: CEFAZOLIN 1 GM VIAL ONE (14:09)
[2020-07-15] MEDS ORDERED: Sodium Chloride 0.9% 100 ML ONE (14:10)
[2020-07-15] MEDS ORDERED: Propofol 1,000 MG/100 ML VIAL IV ONE (15:09)
[2020-07-15] MEDS ORDERED: Morphine 2 MG/ML VIAL SLOW IVP PRN ×2 (15:15→21:00)
[2020-07-15] MEDS ORDERED: Lorazepam 2 MG/ML VIAL SLOW IVP PRN ×2 (15:15→21:00)
[2020-07-15] MEDS ORDERED: Fentanyl BOLUS 250 ML IVPB PRN ×2 (15:15→21:00)
[2020-07-15] MEDS ORDERED: Propofol BOLUS 1,000 MG/100 ML VIAL IV PRN ×2 (15:15→21:00)
[2020-07-15] MEDS ORDERED: Propofol 1,000 MG/100 ML VIAL IV PRN ×2 (15:15→21:00)
[2020-07-15] MEDS ORDERED: DISCONTINUE PREVIOUS NARCOTIC PAIN MEDICATIONS AND BENZODIAZEPINES FS SCH ×2 (15:15→21:00)
[2020-07-15] MEDS ORDERED: fentaNYL Citrate/PF 2,000 MCG in Sodium Chloride 0.9% 60 ML IV SCH ×2 (15:15→21:00)
[2020-07-15] MEDS ORDERED: Albumin 5% 500 ML ONE (15:49)
[2020-07-15] MEDS ORDERED: ceFOXitin 1 GM VIAL ONE (16:26)
[2020-07-15] MEDS ORDERED: Ventilator Sedation Protocol 1 EACH FS ONE (17:25)
[2020-07-15] MEDS ORDERED: Midazolam HCl 2 mg/2 ml Vial ONE (17:26)
[2020-07-15 17:45] LABS: Actual Bicarbonate (HCO3a) 26.6 mEq/L (22-28); Base Excess (BEa) -0.6 mEq/L (-2.0 to +3.0); CO2 Tension 55.3 mmHg (35.0-45.0); Calcium, Ionized (arterial) 1.08 mmol/L (1.12-1.30); Carboxyhemoglobin (COHb) 0.9 gm% (0.0-3.0); Hemoglobin (Hb) 12.4 g/dL (12.0-16.0); O2 Tension (PaO2), arterial 183.4 mmHg (> 80.0); Potassium - ABG Lab 3.06 mmol/L (3.70-5.30)
--- NOTE | 2020-07-15 17:56 | RAD ---
RADIOGRAPH CHEST 1 VIEW: Supine DATE: 07/15/2020 TIME: 5:30 PM HISTORY: 70-year-old female with dyspnea COMPARISON: 07/10/2020 FINDINGS: Diffuse, coarse interstitial markings, greatest at the right base, which appear somewhat worse than b efore. New endotracheal tube distal tip 3 cm superior to jak. New right subclavian central vascular catheter with distal tip overlying the vicinity of SVC. New esophageal catheter extending into left upper quadrant of abdomen, the side-port and distal tip o f which are outside of the field of view. No cardiomegaly or large consolidation. Supine positioning makes this study insensitive for the detection of pneumothorax. IMPRESSION: 1) Status post intubation with endotracheal tube, esophagogastric tube placement, and right-sided ziyad tral vascular catheter placement. 2) prominent interstitial markings diffusely
[2020-07-15 17:57] LABS: ALV-art Gradient 103.975 mmHg (0-20); Puncture Site RBA
--- NOTE | 2020-07-15 18:25 | PDOC.HOSPP ---
- Subjective Encounter Date: 07/15/20 Encounter Time: 11:30 Subjective: Patient seen for follow-up for bowel obstruction. She denies chest pain or shortness of breath. - Objective Vital Signs & Weight: Vital Signs (12 hours) Temp Pulse Pulse Resp BP BP BP 07/15/20 17:33 94 07/15/20 12:30 99.1 F 97 20 139/77 07/15/20 10:32 95 149/76 H 07/15/20 10:16 91 16 07/15/20 08:55 97.7 F 95 20 139/72 07/15/20 06:53 87 20 Pulse Ox 07/15/20 17:33 07/15/20 12:30 97 07/15/20 10:32 07/15/20 10:16 07/15/20 08:55 95 07/15/20 06:53 Weight Weight 109 lb Most Recent Monitor Data Heart Rate from ECG 109 NIBP 147/89 NIBP BP-Mean 108 Respiration from ECG 17 SpO2 99 I&O: 07/14/20 07/15/20 07/16/20 06:59 06:59 06:59 Intake Total 640 2292 1341 Output Total 800 2500 325 Balance -160 -208 1016 Result Diagrams: 07/15/20 04:56 07/15/20 04:56 Additional Labs: Labs and MAR reviewed by [facility] Hospitalist ROS - Review of Systems Cardiovascular: denies: chest pain, palpitations, orthopnea, paroxysmal noc. dyspnea Gastrointestinal: reports: abdominal pain, constipation. denies: nausea, vomiting, diarrhea, melena, hematochezia - Medication Medications: Active Medications Generic Name Dose Route Start Last Admin Trade Name Freq PRN Reason Stop Dose Admin Albuterol Sulfate 2.5 mg 07/07/20 12:05 07/08/20 03:59 Albuterol Sulfate 2.5 Mg/3 Ml Neb NEB 2.5 mg Q2H PRN Administration SOB &/or Wheezing Albuterol/Ipratropium 3 ml 07/09/20 19:00 07/15/20 14:30 Ipratropium/Albuterol Sulfate 3 Ml Neb NEB Not Given QID-RT KASSANDRA Alprazolam 0.5 mg 07/07/20 03:58 07/15/20 00:10 Alprazolam 0.5 Mg Tab PO 0.5 mg Q8H PRN Administration Anxiety/AGITATION Diltiazem HCl 120 mg 07/15/20 09:00 07/15/20 13:21 Diltiazem Cd 120 Mg Cap PO Not Given DAILY KASSANDRA Hydralazine HCl 5 mg 07/07/20 04:18 07/09/20 11:55 Hydralazine 20 Mg/Ml Vial SLOW IVP 5 mg Q4H PRN Administration SBP > 140 Levothyroxine Sodium 50 mcg 07/08/20 06:00 07/15/20 05:33 Levothyroxine Sodium 50 Mcg Tab PO 50 mcg 0600 KASSANDRA Administration Metoclopramide HCl 10 mg 07/09/20 14:00 07/15/20 05:33 Metoclopramide Hcl 10 Mg/2 Ml Vial IVP 10 mg Q8HR KASSANDRA Administration Mometasone Furoate/Formoterol Fumar 2 puff 07/07/20 18:30 07/15/20 07:00 Mometasone 200 Mcg/Formoterol 5 Mcg 120 Puff Inhaler INH 2 puff BID-RT KASSANDRA Administration Montelukast Sodium 10 mg 07/07/20 21:00 07/14/20 20:18 Montelukast Sodium 10 Mg Tablet PO 10 mg QPM KASSANDRA Administration Ondansetron HCl 4 mg 07/07/20 04:01 07/13/20 15:03 Ondansetron Pf 4 Mg/2 Ml Vial IVP 4 mg Q6H PRN Administration Nausea/Vomiting Pantoprazole Sodium 40 mg 07/09/20 21:00 07/15/20 13:22 Pantoprazole 40 Mg Vial IVP Not Given Q12HR [facility] Potassium Bicarbonate/Citric Acid 20 meq 07/12/20 09:00 07/15/20 11:17 Potassium Bicarbonate/Cit Ac 20 Meq Tab PO Not Given DAILY KASSANDRA Prednisone 10 mg 07/12/20 08:00 07/15/20 11:17 Prednisone 5 Mg Tab PO Not Given QAM-WM [facility] - Exam General Appearance: awake alert Eye: anicteric sclera ENT: moist mucosa Neck: supple Heart: RRR Respiratory: CTAB Gastrointestinal: soft, tender to palpation, diminished bowl sounds Psychiatric: normal affect Hosp A/P - Plan -Assessment/plan Bowel obstruction -Patient has persistent bowel obstruction on repeat abdominal films, plan for surgery later today. -Patient has been started on Zosyn. hyponatremia -Sodium improved to 131 Hypokalemia -Patient has been started on intravenous fluids with potassium. 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 fib with RVR --Resolved
[2020-07-15] MEDS: Piperacillin/Tazobactam 3.375 GM in Sodium Chloride 0.9% 100 ML IVPB SCH (20:20)
[2020-07-15] MEDS: D5 0.9% NS w/ 20 mEq KCl 1,000 ML IV SCH ×2 (20:27→21:00)
[2020-07-15] MEDS ORDERED: MULTITRACE NEONATAL IV SCH (22:00)
[2020-07-15] MEDS ORDERED: [UNRECOGNIZED DRUG - OTHER] IV SCH (22:00)
[2020-07-15] MEDS ORDERED: MULTIVITAMINS IV SCH (22:00)
[2020-07-15] MEDS ORDERED: SODIUM CHLORIDE IV SCH (22:00)
[2020-07-15] MEDS: Montelukast Sodium 10 mg Tablet PO SCH (23:50)
[2020-07-16] MEDS: Piperacillin/Tazobactam 3.375 GM in Sodium Chloride 0.9% 100 ML IVPB SCH ×4 (00:06→19:00)
[2020-07-16 04:27] LABS: #Lymphocytes 0.3 thou/uL (1.20-3.40); #Monocytes 0.5 thou/uL (0.11-0.59); #Neutrophils 12.5 thou/uL (1.40-6.50); %Lymphocytes 1.9 % (21.0-51.0); %Monocytes 3.6 % (0.0-10.0); %Neutrophils 94.5 % (42.0-75.0); Hemoglobin 10.5 g/dL (12.0-16.0); Mean Corpuscular HGB CONC 30.8 g/dL (32.0-36.0); Mean Corpuscular Hemoglobin 28.3 pg (27.0-31.0); Mean Platelet Volume 6.8 fL (7.4-10.4); Platelet Count 313 thou/uL (130-400); Red Blood Cell (RBC) Count 3.71 mill/uL (4.20-5.40); White Blood Cell (WBC) Count 13.3 thou/uL (4.8-10.8)
[2020-07-16 04:44] LABS: ALT (SGPT) 9 U/L (8-55); AST (SGOT) 14 U/L (5-34); Albumin 2.7 g/dL (3.4-4.8); Alkaline Phosphatase 45 U/L (40-110); Anion Gap 10 mmol/L (10-20); BUN (Urea Nitrogen) 20 mg/dL (9.8-20.1); Bilirubin, Total 0.6 mg/dL (0.2-1.2); Calc. Creatinine Clearance 57 mL/min (70-130); Calcium 7.5 mg/dL (7.8-10.44); Carbon Dioxide 30 mmol/L (23-31); Chloride 98 mmol/L (98-107); Globulin 1.9 g/dL (2.4-3.5); Glucose 227 mg/dL (80-115); Magnesium 1.7 mg/dL (1.6-2.6); Phosphorus 2.8 mg/dL (2.3-4.7); Potassium 3.8 mmol/L (3.5-5.1); Protein, Total 4.6 g/dL (6.0-8.3); Sodium 134 mmol/L (136-145)
[2020-07-16] MEDS: Mometasone 200 MCG/Formoterol 5 MCG 120 PUFF INHALER INH SCH ×2 (04:50→18:48)
[2020-07-16] MEDS: Pantoprazole 40 MG VIAL IVP SCH ×2 (09:17→20:26)
[2020-07-16] MEDS: Levothyroxine Sodium 50 MCG TAB PO SCH (14:54)
[2020-07-16] MEDS: D5 0.9% NS w/ 20 mEq KCl 1,000 ML IV SCH (14:55)
--- NOTE | 2020-07-16 16:11 | PRG ---
DATE OF SERVICE: 07/16/2020 SUBJECTIVE: Ms. Beyer is postoperative day #1 following laparoscopy converted to laparotomy. Her surgery was in treatment of small bowel obstruction. She was found to have small bowel adhesed down to a diverticular abscess. The small bowel was mobilized. The sigmoid colon was resected and she was given an end colostomy as she was felt to be a high risk patient for performing an anastomosis. She was left intubated after the surgery. This morning, she was extubated and she is breathing appropriately, comfortable with good oxygenation. She is alert and oriented x3 and appropriately interactive. She notes minimal abdominal pain. She has more issues with PHYSICAL EXAMINATION: VITAL SIGNS: She is afebrile. Her pulse is 87 to 95, blood pressure is 126/69. LUNGS: Clear to auscultation anteriorly. CARDIAC: Regular rate and rhythm. ABDOMEN: Soft with positive hypoactive bowel sounds. There is a drain in her pelvis exiting the right abdomen that is draining serosanguineous fluid. The output overnight was 160 mL. LABORATORY DATA: Her chemistry profile this morning shows that her electrolytes are pretty close to normal. Her sodium is still a bit low at 134. Her magnesium and phosphorus are normal. Her albumin is low at 2.7 and her prealbumin is less than 5. CBC shows that her white blood cell count is 13.3 with hemoglobin of 10.5, platelet count is 313. ASSESSMENT: The patient is stable and doing better than expected following her laparotomy. I am surprised that she is extubated and breathing appropriately and mentating in a normal fashion. We will continue support with TPN and IV antibiotics. Her nasogastric tube will be continued for now until she has evidence of bowel function. I anticipate she will have an ileus following her surgery and would not want nasogastric tube removed prior to resolution of this. She will continue to be watched in the intensive care unit for now. I appreciate the support and help with Dr. Dubon. I will be out for the next week and Dr. Polk will assume surgical care of the patient in my absence. Job ID: [id number]
--- NOTE | 2020-07-16 17:26 | PDOC.HOSPP ---
- Subjective Encounter Date: 07/16/20 Encounter Time: 09:45 Subjective: Patient seen for follow-up regarding bowel obstruction. Patient is intubated following surgery. - Objective Vital Signs & Weight: Vital Signs (12 hours) Temp Pulse Pulse Pulse Resp BP BP 07/16/20 15:00 98.1 F 07/16/20 13:35 87 14 07/16/20 12:24 89 88 118/67 119/71 07/16/20 12:00 98.9 F 19 07/16/20 10:01 80 25 H 07/16/20 10:00 20 07/16/20 08:00 20 07/16/20 07:33 07/16/20 07:00 99.1 F 07/16/20 06:00 21 H Pulse Ox Pulse Ox Pulse Ox 07/16/20 15:00 07/16/20 13:35 94 L 07/16/20 12:24 97 97 07/16/20 12:00 07/16/20 10:01 97 07/16/20 10:00 07/16/20 08:00 07/16/20 07:33 97 07/16/20 07:00 07/16/20 06:00 Weight Weight 86 lb 3.212 oz Most Recent Monitor Data Heart Rate from ECG 100 NIBP 110/62 NIBP BP-Mean 78 Respiration from ECG 10 SpO2 94 I&O: 07/15/20 07/16/20 07/17/20 06:59 06:59 06:59 Intake Total 2292 2324.3 1011 Output Total 2500 1070 780 Balance -208 1254.3 231 Result Diagrams: 07/16/20 03:50 07/16/20 03:50 Additional Labs: Accuchecks 07/16/20 07/16/20 07/15/20 11:04 03:56 22:07 POC Glucose 121 H 218 H 108 H I reviewed patient's labs and MAR Hospitalist ROS - Review of Systems ROS unobtainable: due to endotracheal tube - Medication Medications: Active Medications Generic Name Dose Route Start Last Admin Trade Name Freq PRN Reason Stop Dose Admin Albuterol Sulfate 2.5 mg 07/07/20 12:05 07/08/20 03:59 Albuterol Sulfate 2.5 Mg/3 Ml Neb NEB 2.5 mg Q2H PRN Administration SOB &/or Wheezing Albuterol/Ipratropium 3 ml 07/09/20 19:00 07/16/20 13:35 Ipratropium/Albuterol Sulfate 3 Ml Neb NEB 3 ml QID-RT KASSANDRA Administration Hydralazine HCl 5 mg 07/07/20 04:18 07/09/20 11:55 Hydralazine 20 Mg/Ml Vial SLOW IVP 5 mg Q4H PRN Administration SBP > 140 Potassium Chloride/Dextrose/Sod Cl 1,000 mls @ 0 mls/hr 07/15/20 12:00 07/16/20 14:55 D5 0.9% Ns W/ 20 Meq Kcl IV Not Given .Q0M KASSANDRA As Directed Piperacillin Sod/Tazobactam 100 mls @ 200 mls/hr 07/15/20 19:00 07/16/20 14:55 Sod 3.375 gm/ Sodium Chloride IVPB 100 mls 0100,0700,1300,1900 KASSANDRA Administration Sodium Chloride 40 meq/ 2,030.1 mls @ 75 mls/hr 07/15/20 22:00 07/15/20 22:08 Multivitamins 10 ml/ Chromium/ IV 07/16/20 21:59 2,030.1 mls Copper/Manganese/Zinc 10 ml/ 2200 KASSANDRA Administration Insulin Human Regular 10 units / Amino Acids/Electrolytes Levothyroxine Sodium 50 mcg 07/08/20 06:00 07/16/20 14:54 Levothyroxine Sodium 50 Mcg Tab PO Not Given 0600 KASSANDRA Mometasone Furoate/Formoterol Fumar 2 puff 07/07/20 18:30 07/16/20 04:50 Mometasone 200 Mcg/Formoterol 5 Mcg 120 Puff Inhaler INH 2 puff BID-RT KASSANDRA Administration Montelukast Sodium 10 mg 07/07/20 21:00 07/15/20 23:50 Montelukast Sodium 10 Mg Tablet PO Not Given QPM KASSANDRA Ondansetron HCl 4 mg 07/07/20 04:01 07/13/20 15:03 Ondansetron Pf 4 Mg/2 Ml Vial IVP 4 mg Q6H PRN Administration Nausea/Vomiting Pantoprazole Sodium 40 mg 07/09/20 21:00 07/16/20 09:17 Pantoprazole 40 Mg Vial IVP 40 mg Q12HR KASSANDRA Administration Sodium Chloride 10 ml 07/15/20 21:00 07/16/20 09:17 Flush - Normal Saline 10 Ml Syringe IVF 10 ml Q12HR KASSANDRA Administration - Exam General - other findings: Intubated ENT: normocephalic atraumatic Neck: no thyromegaly, no lymphadenopathy Heart: RRR Respiratory: CTAB Gastrointestinal: soft, diminished bowl sounds Gastrointestinal - other findings: Ostomy Skin: no rashes Psychiatric - other findings: Unable to assess Hosp A/P - Plan -Assessment/plan Bowel obstruction -Status post surgery for bowel obstruction, postoperative day #1. -Continue Zosyn. -Intubated and mechanically ventilated, likely extubation later today. hyponatremia -Sodium improved to 134. Hypokalemia -Resolved COPD, home O2 dependent --Stable Hypertension, essential --Controlled and stable PAD --Stable Hypothyroidism --Patient is on levothyroxine A. fib with RVR --Resolved
[2020-07-16] MEDS: Morphine 2 MG/ML VIAL IV PRN (20:01)
--- NOTE | 2020-07-16 20:35 | PRG ---
DATE OF SERVICE: 07/16/2020 SUBJECTIVE: Pepito did well overnight. She is mechanically ventilated until this morning. She is awake and alert. She denied having severe abdominal pain. OBJECTIVE: VITAL SIGNS: Stable overnight. LUNGS: Clear. HEART: Regular rhythm. ABDOMEN: Soft, minimally tender surprisingly. EXTREMITIES: Without edema. NEURO: Nonfocal. LABORATORY DATA: White count 13.3, hemoglobin 10.5, platelets 313. Electrolytes are unremarkable. BUN is 20, creatinine is 0.58. IMPRESSION: Status post operative procedure for small-bowel obstruction. The operative note is not typed yet. Apparently according to Dr. Bai progress note, she had small-bowel adherent to diverticular abscess, the sigmoid colon was resected, leading to end colostomy. She is felt to be stable post procedure for extubation. This has been done successfully. Blood gas showed a pH 7.3, CO2 of 55, PO2 183 after surgery yesterday. There is no blood gas today, and there is no clinical indication not bronchospastic and was totally comfortable with minimal ventilatory support. She will be kept in the ICU until tomorrow. If she does well, she will transfer out. Critical care time 30 min. Job ID: [id number] MTDD
[2020-07-16] MEDS ORDERED: [UNRECOGNIZED DRUG - OTHER] IV SCH (22:00)
[2020-07-16] MEDS ORDERED: SODIUM CHLORIDE IV SCH (22:00)
[2020-07-16] MEDS ORDERED: MULTIVITAMINS IV SCH (22:00)
[2020-07-16] MEDS ORDERED: MULTITRACE NEONATAL IV SCH (22:00)
[2020-07-16] MEDS: Lorazepam 2 MG/ML VIAL SLOW IVP PRN (23:13)
[2020-07-16] MEDS: Albuterol Sulfate 2.5 mg/3 ml Neb NEB PRN (23:17)
[2020-07-16] MEDS: Montelukast Sodium 10 mg Tablet PO SCH (23:44)
[2020-07-17] MEDS: Morphine 2 MG/ML VIAL IV PRN ×4 (01:17→18:38)
[2020-07-17] MEDS: Piperacillin/Tazobactam 3.375 GM in Sodium Chloride 0.9% 100 ML IVPB SCH ×4 (01:41→18:17)
[2020-07-17] MEDS: Levothyroxine Sodium 50 MCG TAB PO SCH (07:04)
[2020-07-17] MEDS: Mometasone 200 MCG/Formoterol 5 MCG 120 PUFF INHALER INH SCH ×2 (08:12→18:22)
[2020-07-17] MEDS: Pantoprazole 40 MG VIAL IVP SCH ×2 (08:32→19:31)
[2020-07-17 08:38] LABS: #Eosinphils 0.1 thou/uL (0.0-0.7); #Neutrophils 10.3 thou/uL (1.40-6.50); %Basophils 0.1 % (0.0-1.0); %Eosinophils 0.9 % (0.0-10.0); %Monocytes 8.3 % (0.0-10.0); %Neutrophils 82.7 % (42.0-75.0); Hemoglobin 10.8 g/dL (12.0-16.0); Mean Corpuscular HGB CONC 31.2 g/dL (32.0-36.0); Mean Corpuscular Hemoglobin 29.1 pg (27.0-31.0); Mean Corpuscular Volume 93.1 fL (78.0-98.0); Mean Platelet Volume 6.5 fL (7.4-10.4); Platelet Count 282 thou/uL (130-400); RBC Distribution Width 13.1 % (11.5-14.5); Red Blood Cell (RBC) Count 3.72 mill/uL (4.20-5.40); White Blood Cell (WBC) Count 12.4 thou/uL (4.8-10.8)
[2020-07-17 09:10] LABS: ALT (SGPT) 8 U/L (8-55); AST (SGOT) 18 U/L (5-34); Albumin 2.8 g/dL (3.4-4.8); Alkaline Phosphatase 48 U/L (40-110); Anion Gap 10 mmol/L (10-20); BUN (Urea Nitrogen) 17 mg/dL (9.8-20.1); Bilirubin, Total 0.4 mg/dL (0.2-1.2); Calc. Creatinine Clearance 68 mL/min (70-130); Calcium 7.6 mg/dL (7.8-10.44); Carbon Dioxide 31 mmol/L (23-31); Cardiac Risk 3.4 (Less than 4.5); Chloride 100 mmol/L (98-107); Cholesterol 110 mg/dl (< 200 Desired); Globulin 2.3 g/dL (2.4-3.5); Glucose 102 mg/dL (80-115); HDL Cholesterol 32 mg/dL (>60 Neg Risk); LDL Cholesterol, Calculated 64 mg/dL; Magnesium 1.7 mg/dL (1.6-2.6); Phosphorus 3.4 mg/dL (2.3-4.7); Potassium 3.4 mmol/L (3.5-5.1); Protein, Total 5.1 g/dL (6.0-8.3); Sodium 138 mmol/L (136-145); Triglycerides 71 mg/dL (Less than 150)
[2020-07-17] MEDS ORDERED: methylPREDNISolone Sod Succ 40 MG VIAL IVP SCH (10:15)
[2020-07-17] MEDS: Cepastat Lozenges 1 LOZ PO PRN ×2 (10:39→19:29)
[2020-07-17] MEDS: Levothyroxine Sodium 200 MCG VIAL IVP SCH ×2 (12:29→12:31)
--- NOTE | 2020-07-17 12:38 | PRG ---
DATE OF SERVICE: 07/17/2020 SUBJECTIVE: Irene Beyer is stable today. Heart rate is in the 90s, respiratory rate is in the teens, oximetry is 96, blood pressure 120/63. She had been steroid dependent leading up to this surgery. I have therefore placed her back on just 10 mg a day of Solu-Medrol, which is equivalent to 10 mg of prednisone she was taking. She got through the surgery without stress dose steroids, and I do not feel we need to bolus or give her higher doses of steroids since this will impair wound healing. She wants to know why she did not have any significant discomfort leading up to this with her abdominal complaints. I explained to her that steroids are contributing to that, but I have also explained to her the fact that she uses marijuana all day everyday probably contributed to that as well. PHYSICAL EXAMINATION: LUNGS: She is not wheezing surprisingly. HEART: Regular rhythm. ABDOMEN: Nontender. She is probably stable to move out of Critical Care Unit. Job ID: [id number]
[2020-07-17] MEDS: Lorazepam 2 MG/ML VIAL SLOW IVP PRN ×2 (13:40→19:30)
--- NOTE | 2020-07-17 14:41 | PRG ---
DATE OF SERVICE: 07/17/2020 SUBJECTIVE: Irene Beyer is doing well today. Two days ago, Dr. Bai took her to the operating room for laparotomy, drainage of diverticular abscess, Kimberli procedure, colostomy, small bowel adhesiolysis due to the inflammatory process from the abscess, diverticular. The patient is in the ICU, extubated yesterday, observed. She is doing well. She wants to know when she can go home. OBJECTIVE: VITAL SIGNS: Heart rate 91, blood pressure 131/74. LUNGS: Clear to auscultation. No wheezing. CARDIAC: Regular rate and rhythm. ABDOMEN: Soft. Positive bowel sounds. TPN infusing. Her colostomy is healthy. Has some scant stool drainage. LABORATORY DATA: Hemoglobin 10, white count 12. Basic metabolic profile normal. ASSESSMENT AND PLAN: Diverticular abscess with secondary bowel obstruction, status post Kimberli procedure. The patient is doing well. We will ask Wound Care to teach her colostomy care. We will transfer to the floor. Continue TPN. Continue NG tube for now, hopefully can remove it tomorrow. Job ID: [id number]
--- NOTE | 2020-07-17 17:45 | PDOC.HOSPP ---
- Subjective Encounter Date: 07/17/20 Encounter Time: 12:00 Subjective: Patient seen for follow-up regarding bowel obstruction. She was extubated yesterday. She reports feeling weak. - Objective Vital Signs & Weight: Vital Signs (12 hours) Temp Pulse Pulse Resp BP Pulse Ox 07/17/20 16:15 97 07/17/20 14:42 88 17 97 07/17/20 11:15 91 17 96 07/17/20 09:59 71 107/69 07/17/20 08:11 88 15 98 07/17/20 08:00 96 07/17/20 07:00 97.9 F Weight Admit Weight 112 lb Weight 86 lb 3.212 oz Most Recent Monitor Data Heart Rate from ECG 89 NIBP 116/63 NIBP BP-Mean 80 Respiration from ECG 17 SpO2 97 I&O: 07/16/20 07/17/20 07/18/20 06:59 06:59 06:59 Intake Total 2324.3 2203 130 Output Total 1070 2005 470 Balance 1254.3 198 -340 Result Diagrams: 07/17/20 08:27 07/17/20 08:27 Additional Labs: Accuchecks 07/17/20 07/17/20 07/16/20 17:18 04:20 22:13 POC Glucose 129 H 91 102 H 07/16/20 14:58 POC Glucose 113 H I reviewed patient's labs and MAR Hospitalist ROS - Review of Systems Constitutional: reports: weakness Cardiovascular: denies: chest pain, palpitations, orthopnea, paroxysmal noc. dyspnea, edema, light headedness Genitourinary: denies: dysuria, frequency, incontinence, hematuria, retention - Medication Medications: Active Medications Generic Name Dose Route Start Last Admin Trade Name Freq PRN Reason Stop Dose Admin Albuterol Sulfate 2.5 mg 07/07/20 12:05 07/16/20 23:17 Albuterol Sulfate 2.5 Mg/3 Ml Neb NEB 2.5 mg Q2H PRN Administration SOB &/or Wheezing Albuterol/Ipratropium 3 ml 07/09/20 19:00 07/17/20 14:42 Ipratropium/Albuterol Sulfate 3 Ml Neb NEB 3 ml QID-RT KASSANDRA Administration Hydralazine HCl 5 mg 07/07/20 04:18 12/20/20 11:55 Hydralazine 20 Mg/Ml Vial SLOW IVP 5 mg Q4H PRN Administration SBP > 140 Potassium Chloride/Dextrose/Sod Cl 1,000 mls @ 0 mls/hr 07/15/20 12:00 07/16/20 14:55 D5 0.9% Ns W/ 20 Meq Kcl IV Not Given .Q0M KASSANDRA As Directed Piperacillin Sod/Tazobactam 100 mls @ 200 mls/hr 07/15/20 19:00 07/17/20 12:34 Sod 3.375 gm/ Sodium Chloride IVPB 100 mls 0100,0700,1300,1900 KASSANDRA Administration Levothyroxine Sodium 50 mcg 07/08/20 06:00 07/17/20 07:04 Levothyroxine Sodium 50 Mcg Tab PO 50 mcg 0600 KASSANDRA Administration Lorazepam 1 mg 07/16/20 15:47 07/17/20 13:40 Lorazepam 2 Mg/Ml Vial SLOW IVP 1 mg Q4H PRN Administration Anxiety/Agitation Mometasone Furoate/Formoterol Fumar 2 puff 07/07/20 18:30 07/17/20 08:12 Mometasone 200 Mcg/Formoterol 5 Mcg 120 Puff Inhaler INH 2 puff BID-RT KASSANDRA Administration Montelukast Sodium 10 mg 07/07/20 21:00 07/16/20 23:44 Montelukast Sodium 10 Mg Tablet PO Not Given QPM KASSANDRA Morphine Sulfate 2 mg 07/16/20 18:24 07/17/20 11:28 Morphine 2 Mg/Ml Vial IV 2 mg Q2H PRN Administration Moderate Pain (4-6) Ondansetron HCl 4 mg 07/07/20 04:01 07/13/20 15:03 Ondansetron Pf 4 Mg/2 Ml Vial IVP 4 mg Q6H PRN Administration Nausea/Vomiting Pantoprazole Sodium 40 mg 07/09/20 21:00 07/17/20 08:32 Pantoprazole 40 Mg Vial IVP 40 mg Q12HR KASSANDRA Administration Sodium Chloride 10 ml 07/15/20 21:00 07/17/20 08:32 Flush - Normal Saline 10 Ml Syringe IVF 10 ml Q12HR KASSANDRA Administration Throat Lozenges 1 chata 07/17/20 09:59 07/17/20 10:39 Cepastat Lozenges 1 Chata PO 1 chata Q1H PRN Administration Cough - Exam General Appearance: NAD Eye: anicteric sclera ENT: moist mucosa Neck: supple Heart: RRR Respiratory: CTAB Gastrointestinal: soft, non-tender Gastrointestinal - other findings: Ostomy Skin: no rashes Psychiatric: normal affect, normal behavior Hosp A/P - Plan -Assessment/plan Bowel obstruction -Status post surgery for bowel obstruction, postoperative day #2. -Continue Zosyn. -Extubated yesterday. 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 fib with RVR --Resolved
[2020-07-17] MEDS ORDERED: Potassium Chloride 10 MEQ in Premix Bag 1 BAG IVPB SCH (18:00)
[2020-07-17] MEDS: Montelukast Sodium 10 mg Tablet PO SCH (19:28)
[2020-07-17] MEDS: [UNRECOGNIZED DRUG - OTHER] IV SCH (23:13)
[2020-07-17] MEDS: TRACE ELEMENTS IV SCH (23:13)
[2020-07-17] MEDS: SODIUM CHLORIDE IV SCH (23:13)
[2020-07-17] MEDS: MULTIVITAMINS IV SCH (23:13)
[2020-07-18] MEDS: Piperacillin/Tazobactam 3.375 GM in Sodium Chloride 0.9% 100 ML IVPB SCH ×4 (01:41→18:01)
[2020-07-18] MEDS: Morphine 2 MG/ML VIAL IV PRN ×6 (02:25→22:35)
[2020-07-18] MEDS: Lorazepam 2 MG/ML VIAL SLOW IVP PRN ×3 (02:54→20:07)
[2020-07-18] MEDS: Levothyroxine Sodium 50 MCG TAB PO SCH ×2 (05:59→06:01)
[2020-07-18 06:37] LABS: #Basophils 0.1 thou/uL (0.0-0.2); #Eosinphils 0.2 thou/uL (0.0-0.7); #Lymphocytes 1.7 thou/uL (1.20-3.40); #Monocytes 1.2 thou/uL (0.11-0.59); #Neutrophils 9.9 thou/uL (1.40-6.50); %Basophils 0.4 % (0.0-1.0); %Eosinophils 1.7 % (0.0-10.0); %Lymphocytes 12.7 % (21.0-51.0); %Monocytes 9.4 % (0.0-10.0); %Neutrophils 75.8 % (42.0-75.0); Hemoglobin 10.1 g/dL (12.0-16.0); Mean Corpuscular HGB CONC 31.3 g/dL (32.0-36.0); Mean Corpuscular Hemoglobin 29.2 pg (27.0-31.0); Mean Corpuscular Volume 93.1 fL (78.0-98.0); Mean Platelet Volume 6.5 fL (7.4-10.4); Platelet Count 296 thou/uL (130-400); RBC Distribution Width 13.1 % (11.5-14.5); Red Blood Cell (RBC) Count 3.46 mill/uL (4.20-5.40)
[2020-07-18 06:41] LABS: INR-International Normal Ratio 0.9; PTT 23.2 sec (22.9-36.1); Prothrombin Time 12.7 sec (12.0-14.7)
[2020-07-18 06:58] LABS: Phosphorus 3.5 mg/dL (2.3-4.7)
[2020-07-18 07:01] LABS: ALT (SGPT) 10 U/L (8-55); AST (SGOT) 21 U/L (5-34); Albumin 2.8 g/dL (3.4-4.8); Alkaline Phosphatase 50 U/L (40-110); Anion Gap 10 mmol/L (10-20); BUN (Urea Nitrogen) 17 mg/dL (9.8-20.1); Bilirubin, Total 0.4 mg/dL (0.2-1.2); Calc. Creatinine Clearance 71 mL/min (70-130); Calcium 7.9 mg/dL (7.8-10.44); Carbon Dioxide 33 mmol/L (23-31); Cardiac Risk 3.7 (Less than 4.5); Chloride 96 mmol/L (98-107); Cholesterol 108 mg/dl (< 200 Desired); Globulin 2.3 g/dL (2.4-3.5); Glucose 84 mg/dL (80-115); HDL Cholesterol 29 mg/dL (>60 Neg Risk); LDL Cholesterol, Calculated 67 mg/dL; Magnesium 1.8 mg/dL (1.6-2.6); Potassium 3.8 mmol/L (3.5-5.1); Protein, Total 5.1 g/dL (6.0-8.3); Sodium 135 mmol/L (136-145); Triglycerides 61 mg/dL (Less than 150)
[2020-07-18] MEDS: Mometasone 200 MCG/Formoterol 5 MCG 120 PUFF INHALER INH SCH ×2 (07:33→18:54)
[2020-07-18] MEDS: methylPREDNISolone Sod Succ 40 MG VIAL IVP SCH (08:48)
[2020-07-18] MEDS: Pantoprazole 40 MG VIAL IVP SCH ×2 (08:50→20:11)
--- NOTE | 2020-07-18 14:38 | PRG ---
DATE OF SERVICE: 07/18/2020 SUBJECTIVE: Irene Beyer wants fred kyler as she has every day. She is asking the nurses repeatedly. OBJECTIVE: VITAL SIGNS: Temperature 97.7 degrees, pulse 93, blood pressure 120/74. Gastric drainage 250 mL in 24 hours. Drainage drained serosanguineous. Colostomy output negligible. Urine output good. White count 13, hemoglobin 10. Basic metabolic profile normal. LUNGS: Clear to auscultation. No wheezing. CARDIAC: Regular rate and rhythm. ABDOMEN: Soft. Diminished bowel sounds. Colostomy healthy. Telfa edith. Midline wound. EXTREMITIES: Without edema. ASSESSMENT AND PLAN: 1. Postoperative ileus as expected. We would recommend removal of the NG tube. We will allow her to have ice chips, but not fred kyler. Reassess her tomorrow for bowel function hopefully to begin a diet. Continue TPN for malnourishment. 2. Colostomy status. Job ID: [id number]
--- NOTE | 2020-07-18 15:55 | PRG ---
DATE OF SERVICE: 07/18/2020 SUBJECTIVE: Irene Beyer had no new complaints. She is afebrile. Heart rate is in the 90s, respiratory rates in the teens, oximetry is 95% on 2 L, blood pressure 120/74. Intake and outputs -340. NG output overnight is not recorded. Weight has been recorded for 86 pounds over the last three days, obviously cannot be accurate. IMPRESSION: 1. Chronic obstructive pulmonary disease, which is clinically stable. 2. Steroid dependence, on 10 mg a day of Medrol until her function returns. 3. Status post perforated diverticulitis with adherent small bowel leading to small bowel obstruction. 4. Chronic marijuana use, most recently vaping THC. PLAN: Continue supportive care. She will eventually need placement for rehab, most likely given her frail state with deconditioning. Job ID: [id number] MTDD
--- NOTE | 2020-07-18 17:23 | PDOC.HOSPP ---
- Subjective Encounter Date: 07/18/20 Encounter Time: 10:30 Subjective: Patient seen for follow-up regarding bowel obstruction. She denies chest pain or shortness of breath. - Objective Vital Signs & Weight: Vital Signs (12 hours) Temp Pulse Resp BP Pulse Ox 07/18/20 16:11 98.1 F 87 16 122/73 97 07/18/20 11:39 97.7 F 93 16 120/74 94 L 07/18/20 11:12 95 16 95 07/18/20 08:00 96 07/18/20 07:31 104 H 16 96 07/18/20 07:13 98.5 F 104 H 18 117/66 94 L Weight Admit Weight 112 lb Weight 86 lb 3.212 oz Most Recent Monitor Data Heart Rate from ECG 89 NIBP 116/63 NIBP BP-Mean 80 Respiration from ECG 17 SpO2 97 I&O: 07/17/20 07/18/20 07/19/20 06:59 06:59 06:59 Intake Total 3 130 1100 Output Total 2004 470 1300 Balance 198 340 200 Result Diagrams: 07/18/20 05:45 07/18/20 05:45 Additional Labs: Accuchecks 07/18/20 07/18/20 07/18/20 11:42 05:16 00:10 POC Glucose 98 103 H 90 07/17/20 07/17/20 07/17/20 19:28 17:18 10:04 POC Glucose 122 H 129 H 100 Labs and MAR reviewed by or Hospitalist ROS - Review of Systems Cardiovascular: denies: chest pain, palpitations, orthopnea, paroxysmal noc. dyspnea, edema, light headedness Gastrointestinal: denies: nausea, vomiting, abdominal pain, diarrhea, constipation, melena, hematochezia - Medication Medications: Active Medications Generic Name Dose Route Start Last Admin Trade Name Freq PRN Reason Stop Dose Admin Albuterol Sulfate 2.5 mg 07/07/20 12:05 07/16/20 23:17 Albuterol Sulfate 2.5 Mg/3 Ml Neb NEB 2.5 mg Q2H PRN Administration SOB &/or Wheezing Albuterol/Ipratropium 3 ml 07/09/20 19:00 07/18/20 11:12 Ipratropium/Albuterol Sulfate 3 Ml Neb NEB 3 ml QID-RT KASSANDRA Administration Hydralazine HCl 5 mg 07/07/20 04:18 07/09/20 11:55 Hydralazine 20 Mg/Ml Vial SLOW IVP 5 mg Q4H PRN Administration SBP > 140 Potassium Chloride/Dextrose/Sod Cl 1,000 mls @ 0 mls/hr 07/15/20 12:00 07/16/20 14:55 D5 0.9% Ns W/ 20 Meq Kcl IV Not Given .Q0M KASSANDRA As Directed Piperacillin Sod/Tazobactam 100 mls @ 200 mls/hr 07/15/20 19:00 07/18/20 14:37 Sod 3.375 gm/ Sodium Chloride IVPB 100 mls 0100,0700,1300,1900 KASSANDRA Administration Sodium Chloride 20 meq/ 2,284.15 mls @ 0 mls/hr 07/17/20 22:00 07/17/20 23:13 Multivitamins 10 ml/ Chromium/ IV 2,284.15 mls Copper/Manganese/Zinc 9 ml/ 2200 KASSANDRA Administration Insulin Human Regular 15 units / Potassium Chloride 20 meq/ Amino Acids/Electrolytes/ Fat Emulsion Intravenous As Directed Levothyroxine Sodium 50 mcg 07/08/20 06:00 07/18/20 06:01 Levothyroxine Sodium 50 Mcg Tab PO Not Given 0600 COUNTS INCLUDE 234 BEDS AT THE [facility] Lorazepam 1 mg 07/16/20 15:47 07/18/20 15:54 Lorazepam 2 Mg/Ml Vial SLOW IVP 1 mg Q4H PRN Administration Anxiety/Agitation Methylprednisolone Sodium Succinate 10 mg 07/18/20 09:00 07/18/20 08:48 Methylprednisolone Sod Succ 40 Mg Vial IVP 10 mg DAILY KASSANDRA Administration Mometasone Furoate/Formoterol Fumar 2 puff 07/07/20 18:30 07/18/20 07:33 Mometasone 200 Mcg/Formoterol 5 Mcg 120 Puff Inhaler INH 2 puff BID-RT KASSANDRA Administration Montelukast Sodium 10 mg 07/07/20 21:00 07/17/20 19:28 Montelukast Sodium 10 Mg Tablet PO Not Given QPM COUNTS INCLUDE 234 BEDS AT THE [facility] Morphine Sulfate 2 mg 07/16/20 18:24 07/18/20 14:40 Morphine 2 Mg/Ml Vial IV 2 mg Q2H PRN Administration Moderate Pain (4-6) Ondansetron HCl 4 mg 07/07/20 04:01 07/13/20 15:03 Ondansetron Pf 4 Mg/2 Ml Vial IVP 4 mg Q6H PRN Administration Nausea/Vomiting Pantoprazole Sodium 40 mg 07/09/20 21:00 07/18/20 08:50 Pantoprazole 40 Mg Vial IVP 40 mg Q12HR KASSANDRA Administration Sodium Chloride 10 ml 07/15/20 21:00 07/18/20 08:51 Flush - Normal Saline 10 Ml Syringe IVF 10 ml Q12HR KASSANDRA Administration Throat Lozenges 1 chata 07/17/20 09:59 07/17/20 19:29 Cepastat Lozenges 1 Chata PO 1 chata Q1H PRN Administration Cough - Exam General Appearance: awake alert ENT: moist mucosa Neck: supple Heart: RRR Respiratory: CTAB Gastrointestinal: soft, non-tender Gastrointestinal - other findings: Ostomy Skin: no rashes Psychiatric: normal affect, normal behavior Hosp A/P - Plan Patient is a 70-year-old lady who was admitted to the hospital on July 07, 2020 for abdominal pain, nausea and vomiting she was seen by GI service and they did not recommend any scope studies. She was also seen by nephrology service for hyponatremia. She was treated with hypertonic saline, subsequently tolvaptan, with improvement in her sodium level. Was also seen by cardiology service for sinus tachycardia. On July 12 she complained of abdominal pain. CT scan of the abdomen and pelvis showed bowel obstruction. She was seen by general surgery service. She underwent surgery for bowel obstruction and was subsequently admitted to critical care unit in an intubated state. She was subsequently extubated and transferred to medical floor. She has postoperative ileus and is therefore on TPN. She is receiving ice chips as needed. -Assessment/plan Bowel obstruction -Status post surgery for bowel obstruction, postoperative day #3. -Continue Zosyn. hyponatremia -Improved after hypertonic saline and tolvaptan, sodium is 135 today. 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 fib with RVR --Resolved
[2020-07-18] MEDS: Montelukast Sodium 10 mg Tablet PO SCH (20:02)
[2020-07-18] MEDS: Cepastat Lozenges 1 LOZ PO PRN (20:41)
[2020-07-18] MEDS: SODIUM CHLORIDE IV SCH (22:40)
[2020-07-18] MEDS: MULTIVITAMINS IV SCH (22:40)
[2020-07-18] MEDS: [UNRECOGNIZED DRUG - OTHER] IV SCH (22:40)
[2020-07-18] MEDS: TRACE ELEMENTS IV SCH (22:40)
[2020-07-19] MEDS: Piperacillin/Tazobactam 3.375 GM in Sodium Chloride 0.9% 100 ML IVPB SCH ×4 (00:06→18:12)
[2020-07-19] MEDS: Morphine 2 MG/ML VIAL IV PRN ×7 (02:30→21:51)
[2020-07-19] MEDS: Lorazepam 2 MG/ML VIAL SLOW IVP PRN ×2 (02:32→11:59)
[2020-07-19 05:57] LABS: #Basophils 0.1 thou/uL (0.0-0.2); #Eosinphils 0.4 thou/uL (0.0-0.7); #Lymphocytes 1.4 thou/uL (1.20-3.40); #Neutrophils 8.1 thou/uL (1.40-6.50); %Basophils 0.8 % (0.0-1.0); %Eosinophils 3.2 % (0.0-10.0); %Lymphocytes 13.2 % (21.0-51.0); %Monocytes 8.9 % (0.0-10.0); Hemoglobin 10.6 g/dL (12.0-16.0); Mean Corpuscular HGB CONC 31.7 g/dL (32.0-36.0); Mean Corpuscular Hemoglobin 29.2 pg (27.0-31.0); Mean Corpuscular Volume 92.3 fL (78.0-98.0); Mean Platelet Volume 6.6 fL (7.4-10.4); Platelet Count 314 thou/uL (130-400); RBC Distribution Width 13.1 % (11.5-14.5); Red Blood Cell (RBC) Count 3.61 mill/uL (4.20-5.40)
[2020-07-19] MEDS: Cepastat Lozenges 1 LOZ PO PRN ×2 (06:01→21:56)
[2020-07-19 06:02] LABS: PTT 26.1 sec (22.9-36.1); Prothrombin Time 13.4 sec (12.0-14.7)
[2020-07-19] MEDS: Levothyroxine Sodium 50 MCG TAB PO SCH (06:03)
[2020-07-19 06:12] LABS: Phosphorus 3.5 mg/dL (2.3-4.7)
[2020-07-19 06:17] LABS: ALT (SGPT) 12 U/L (8-55); AST (SGOT) 26 U/L (5-34); Albumin 2.8 g/dL (3.4-4.8); Alkaline Phosphatase 59 U/L (40-110); Anion Gap 11 mmol/L (10-20); BUN (Urea Nitrogen) 16 mg/dL (9.8-20.1); Bilirubin, Total 0.5 mg/dL (0.2-1.2); Calc. Creatinine Clearance 70 mL/min (70-130); Calcium 7.9 mg/dL (7.8-10.44); Carbon Dioxide 32 mmol/L (23-31); Cardiac Risk 4.5 (Less than 4.5); Chloride 97 mmol/L (98-107); Cholesterol 122 mg/dl (< 200 Desired); Globulin 2.5 g/dL (2.4-3.5); Glucose 78 mg/dL (80-115); HDL Cholesterol 27 mg/dL (>60 Neg Risk); LDL Cholesterol, Calculated 82 mg/dL; Magnesium 1.7 mg/dL (1.6-2.6); Potassium 3.9 mmol/L (3.5-5.1); Protein, Total 5.3 g/dL (6.0-8.3); Sodium 136 mmol/L (136-145); Triglycerides 67 mg/dL (Less than 150)
[2020-07-19] MEDS: Ondansetron PF 4 MG/2 ML Vial IVP PRN (08:50)
[2020-07-19] MEDS: Pantoprazole 40 MG VIAL IVP SCH ×2 (08:59→21:26)
[2020-07-19] MEDS: methylPREDNISolone Sod Succ 40 MG VIAL IVP SCH (08:59)
--- NOTE | 2020-07-19 13:54 | PRG ---
DATE OF SERVICE: 07/19/2020 SUBJECTIVE: Irene Beyer is in no distress. OBJECTIVE: VITAL SIGNS: She is afebrile. Heart rate is 87, respiratory rate is 20, oximetry is 95% on room air, blood pressure is 139/86. LUNGS: She is not wheezing. HEART: Regular rhythm. ABDOMEN: Nontender. Her NG tube is out. LABORATORY DATA: White count is 11, hemoglobin is 10.6, platelets 314. Electrolytes are unremarkable. IMPRESSION: 1. Status post bowel obstruction requiring an operative procedure, clinically stable. 2. Steroid-dependent COPD, not an issue so far this admission surprisingly since surgery. Job ID: [id number]
[2020-07-19] MEDS: Mometasone 200 MCG/Formoterol 5 MCG 120 PUFF INHALER INH SCH ×2 (14:06→18:24)
--- NOTE | 2020-07-19 14:37 | PRG ---
DATE OF SERVICE: 07/19/2020 SUBJECTIVE: Ms. Beyer is doing well today. She has not had any nausea or vomiting. She has not had any significant stool in her colostomy. 98.3 degrees, 87, and 139/86. She is still n.p.o. except for sips and chips. She continually asked her Anupama kyler. I told her no and not until she has better GI function. I do not think she will be able to regulate her Anupama kyler well and besides the carbonation issue and her lack of bowel function. OBJECTIVE: VITAL SIGNS: 98.3 degrees, 87, and 139/86. LUNGS: Clear to auscultation. CARDIAC: Regular rate and rhythm without murmur or gallop. ABDOMEN: Soft, slightly tympanitic. Colostomy healthy. EXTREMITIES: Unremarkable. LABORATORY DATA: White count 11, hemoglobin 10.6. Basic metabolic profile normal. BUN 16, creatinine 0.47, and potassium of 3.9. ASSESSMENT AND PLAN: Postoperative ileus as expected. Continue TPN, n.p.o. except for sips and chips. I would not start a diet right now until there is better evidence of GI function. If she develops nausea or vomiting, she will have to have an NG tube. Status post laparotomy, evacuation of pelvic abscess, though AYAKA drain is serous. There is nothing purulent. Continue intravenous antibiotics. Await GI function. Continue TPN. Job ID: [id number]
--- NOTE | 2020-07-19 16:13 | PDOC.HOSPP ---
- Subjective Encounter Date: 07/19/20 Encounter Time: 11:20 Subjective: Patient up in bed no complaints. - Objective Vital Signs & Weight: Vital Signs (12 hours) Temp Pulse Resp BP BP Pulse Ox 07/19/20 15:01 87 16 95 07/19/20 12:00 98.3 F 87 20 139/86 95 07/19/20 08:00 98.1 F 84 20 121/76 100 07/19/20 06:00 98.2 F 86 20 112/74 97 Weight Admit Weight 112 lb Weight 86 lb 3.212 oz Most Recent Monitor Data Heart Rate from ECG 89 NIBP 116/63 NIBP BP-Mean 80 Respiration from ECG 17 SpO2 97 I&O: 07/18/20 07/19/20 07/20/20 06:59 06:59 06:59 Intake Total 130 2820 Output Total 470 1305 100 Balance -340 1515 -100 Result Diagrams: 07/19/20 05:30 07/19/20 05:30 Additional Labs: Accuchecks 07/19/20 07/18/20 07/18/20 04:13 22:38 16:10 POC Glucose 85 87 88 Hospitalist ROS - Review of Systems Cardiovascular: denies: chest pain, palpitations, orthopnea, paroxysmal noc. dyspnea, edema, light headedness, other Gastrointestinal: denies: nausea, vomiting, abdominal pain, diarrhea, constipation, melena, hematochezia, other - Medication Medications: Active Medications Generic Name Dose Route Start Last Admin Trade Name Freq PRN Reason Stop Dose Admin Albuterol Sulfate 2.5 mg 07/07/20 12:05 07/16/20 23:17 Albuterol Sulfate 2.5 Mg/3 Ml Neb NEB 2.5 mg Q2H PRN Administration SOB &/or Wheezing Albuterol/Ipratropium 3 ml 07/09/20 19:00 07/19/20 15:01 Ipratropium/Albuterol Sulfate 3 Ml Neb NEB 3 ml QID-RT KASSANDRA Administration Hydralazine HCl 5 mg 07/07/20 04:18 07/09/20 11:55 Hydralazine 20 Mg/Ml Vial SLOW IVP 5 mg Q4H PRN Administration SBP > 140 Potassium Chloride/Dextrose/Sod Cl 1,000 mls @ 0 mls/hr 07/15/20 12:00 07/16/20 14:55 D5 0.9% Ns W/ 20 Meq Kcl IV Not Given .Q0M KASSANDRA As Directed Piperacillin Sod/Tazobactam 100 mls @ 200 mls/hr 07/15/20 19:00 07/19/20 13:05 Sod 3.375 gm/ Sodium Chloride IVPB 100 mls 0100,0700,1300,1900 KASSANDRA Administration Sodium Chloride 20 meq/ 2,284.15 mls @ 0 mls/hr 07/17/20 22:00 07/18/20 22:40 Multivitamins 10 ml/ Chromium/ IV 2,284.15 mls Copper/Manganese/Zinc 9 ml/ 2200 KASSANDRA Administration Insulin Human Regular 15 units / Potassium Chloride 20 meq/ Amino Acids/Electrolytes/ Fat Emulsion Intravenous As Directed Levothyroxine Sodium 50 mcg 07/08/20 06:00 07/19/20 06:03 Levothyroxine Sodium 50 Mcg Tab PO Not Given 0600 KASSANDRA Lorazepam 1 mg 07/16/20 15:47 07/19/20 11:59 Lorazepam 2 Mg/Ml Vial SLOW IVP 1 mg Q4H PRN Administration Anxiety/Agitation Methylprednisolone Sodium Succinate 10 mg 07/18/20 09:00 07/19/20 08:59 Methylprednisolone Sod Succ 40 Mg Vial IVP 10 mg DAILY KASSANDRA Administration Mometasone Furoate/Formoterol Fumar 2 puff 07/07/20 18:30 07/19/20 14:06 Mometasone 200 Mcg/Formoterol 5 Mcg 120 Puff Inhaler INH Not Given BID-RT [facility] Montelukast Sodium 10 mg 07/07/20 21:00 07/18/20 20:02 Montelukast Sodium 10 Mg Tablet PO Not Given QPM [facility] Morphine Sulfate 2 mg 07/16/20 18:24 07/19/20 14:36 Morphine 2 Mg/Ml Vial IV 2 mg Q2H PRN Administration Moderate Pain (4-6) Ondansetron HCl 4 mg 07/07/20 04:01 07/19/20 08:50 Ondansetron Pf 4 Mg/2 Ml Vial IVP 4 mg Q6H PRN Administration Nausea/Vomiting Pantoprazole Sodium 40 mg 07/09/20 21:00 07/19/20 08:59 Pantoprazole 40 Mg Vial IVP 40 mg Q12HR KASSANDRA Administration Sodium Chloride 10 ml 07/15/20 21:00 07/19/20 09:01 Flush - Normal Saline 10 Ml Syringe IVF 10 ml Q12HR KASSANDRA Administration Throat Lozenges 1 chata 07/17/20 09:59 07/19/20 06:01 Cepastat Lozenges 1 Chata PO 1 chata Q1H PRN Administration Cough - Exam Neck: negative: supple, symmetric, no JVD, no thyromegaly, no lymphadenopathy, no carotid bruit, JVD Heart: negative: RRR, no murmur, no gallops, no rubs, normal peripheral pulses, irregular, diminshed peripheral pulses, murmur present, II/IV, III/IV Respiratory: negative: CTAB, no wheezes, no rales, no ronchi, normal chest expansion, no tachypnea, normal percussion, rales, rhonchi, tachypneic, wheezes Gastrointestinal: negative: soft, non-tender, non-distended, normal bowel sounds, no palpable masses, no hepatomegaly, no splenomegaly, no bruit, no guarding, no rigidity, tender to palpation, distended, diminished bowl sounds, voluntary guarding Hosp A/P - Plan Patient is a 70-year-old lady who was admitted to the hospital on July 07, 2020 for abdominal pain, nausea and vomiting she was seen by GI service and they did not recommend any scope studies. She was also seen by nephrology service for hyponatremia. She was treated with hypertonic saline, subsequently tolv aptan, with improvement in her sodium level. Was also seen by cardiology service for sinus tachycardia. On July 12 she complained of abdominal pain. CT scan of the abdomen and pelvis showed bowel obstruction. She was seen by general surgery service. She underwent surgery for bowel obstruction and was subsequently admitted to critical care unit in an intubated state. She was subsequently extubated and transferred to medical floor. She has postoperative ileus and is therefore on TPN. She is receiving ice chips as needed. -Assessment/plan Bowel obstruction -Status post surgery for bowel obstruction, postoperative day #3. -Continue Zosyn. hyponatremia -Improved after hypertonic saline and tolvaptan, sodium is 135 today. 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 fib with RVR --Resolved 07/19 patient has been encouraged to get up and sit up in the chair. She has no output from her colostomy.
--- NOTE | 2020-07-19 19:40 | OP ---
DATE OF PROCEDURE: 07/15/2020 PREOPERATIVE DIAGNOSIS: Small-bowel obstruction. POSTOPERATIVE DIAGNOSIS: Small-bowel obstruction secondary to abscess from sigmoid diverticulitis. PROCEDURES PERFORMED: Diagnostic laparoscopy converted into a laparotomy with lysis of small bowel adhesions, segmental sigmoid colectomy with creation of end colostomy, drainage of pelvic abscess, central line placement. ANESTHESIA: General endotracheal. INDICATIONS FOR PROCEDURE: The patient is a chronically ill 70-year-old white female with end-stage COPD. She had presented to the hospital over a week previously with vague symptoms. These progressed into evidence of small-bowel obstruction. Nasogastric tube was placed. An attempt was made to allow the obstruction to resolve with conservative measures, but this was failing after three days. I, therefore, recommended surgical evaluation. It was recognized before the surgery that she has a very high risk patient secondary to her pulmonary disease, for which she is on chronic steroids and oxygen supplementation. DESCRIPTION OF OPERATION: Informed consent was obtained. The patient was taken to the operating room, where general endotracheal anesthesia was obtained with the patient in supine position. Attention was turned first to her central line. The right chest was prepped with ChloraPrep and draped in sterile fashion. Large gauge needle was advanced in the clavicle and subclavian vein on the initial pass. Guidewire was passed through the needle, needle was removed, skin was incised, tract was dilated, and 7-Andorran triple-lumen catheter was passed over the wire uneventfully. Each of the three lumens aspirated blood freely and was flushed with heparinized saline. Catheter was secured at skin exit site with 3-0 silk suture. Sterile occlusive dressing was applied. The abdomen was prepped with ChloraPrep and draped in sterile fashion. Local anesthetic was infiltrated before each incision using a mixture of 1% lidocaine with epinephrine and 0.25% Marcaine. A 5 mm left lateral abdominal incision was created, through which a Veress needle was passed into the peritoneal cavity. Pneumoperitoneum was established using carbon dioxide up to pressure of 15 mmHg. A 5 mm trocar port was passed through the same incision, and laparoscopic camera was passed through this port. Under direct vision, I placed two additional 5 mm ports, one in the left upper quadrant and one in the left lower quadrant. The abdomen was then carefully explored. There were several segments of markedly dilated small bowel that made exploration challenging. I was able to identify the cecum and the distal small bowel, which appeared to be decompressed. As I ran the bowel in a retrograde fashion, I eventually identified an area that could not be mobilized from the posterior retroperitoneum. The bowel dilatation made it impossible to visualize the source of the obstruction and I decided to convert to a mini-laparotomy. Additional local anesthetic was infiltrated, and an 8 cm infraumbilical incision was created and dissection was carried into the abdominal cavity. The Mert wound retractor was placed at this location. I was able to mobilize the bowel out of the way until I could identify that the small bowel was adherent to the retroperitoneum at the site of an abscess adjacent to the sigmoid colon. The small bowel was able to be mobilized away from this with blunt digital dissection. There were two segments of the small bowel that were inflamed at the point that they were involved in the abscess. These both appeared to be without permanent damage that would require resection. To be able to visualize appropriately, I decided to decompress the small bowel. I picked the dilated segment and placed a pursestring through which I created a small enterotomy and decompressed the bowel using the pool suction device. After complete decompression, the pursestring was secured and then inverted with a series of Lembert sutures of 3-0 silk placed transversely. Attention was returned then to the colon. I mobilized the distal left colon by incising the white line of Toldt. I then inspected the diseased area associated with the abscess. The abscess had been completely evacuated. The colon which had perforated appeared severely diseased and not amenable to repair. There were numerous diverticula in this area. I decided to resect the sigmoid colon. I divided the small bowel with a ANNA stapler proximal and distal to the area of disease. The proximal and distal colon were entirely uninvolved. The mesentery was taken down between clamps and 2-0 silk ties. I briefly considered anastomosing the colon as it appeared to be entirely viable. However, since she is on steroids and oxygen dependent and this bowel was unprepped and there had been an infection in this area, I decided against an anastomosis and instead elected to give her a colostomy. I tagged the distal segment of the rectum with 2-0 Prolene suture. I then the abdomen with several liters of saline, especially focusing on the area of the abscess. This was posterior to her uterus. I then placed a #19 round fluted drain in the pelvis and brought it out through the right abdominal wall, where it secured with a 3-0 nylon suture. I created a colostomy opening in the lateral aspect of her rectus sheath in the left abdomen and brought the distal colon through this. The fascia was then closed with a running suture of #1 PDS. The wound was thoroughly irrigated. Gloves and instruments were changed. The skin edges were approximated loosely with adriana and Telfa edith were placed between these. This portion of the abdomen was excluded from the remainder of the operative field. The colostomy was matured in the usual fashion with 3-0 Vicryl sutures. It was secured in a four-quadrant fashion at the level of the fascia, followed by four-quadrant eversion sutures followed by a series of full-thickness sutures between the colon and the skin. The laparoscopic port sites were closed with skin adriana. Dressings were applied. The patient had remained hemodynamically stable throughout. There had been no significant blood loss. She was taken to the intensive care unit, still intubated and ventilated, but in stable condition. Job ID: [id number]
[2020-07-19] MEDS: Enoxaparin Sodium 30 MG/0.3 ML SYRINGE SC SCH (21:25)
[2020-07-19] MEDS: Montelukast Sodium 10 mg Tablet PO SCH (21:26)
[2020-07-19] MEDS: SODIUM CHLORIDE IV SCH (21:26)
[2020-07-19] MEDS: MULTIVITAMINS IV SCH (21:26)
[2020-07-19] MEDS: TRACE ELEMENTS IV SCH (21:26)
[2020-07-19] MEDS: [UNRECOGNIZED DRUG - OTHER] IV SCH (21:26)
[2020-07-20] MEDS: Morphine 2 MG/ML VIAL IV PRN ×8 (00:27→23:20)
[2020-07-20] MEDS: Lorazepam 2 MG/ML VIAL SLOW IVP PRN (00:30)
[2020-07-20] MEDS: Piperacillin/Tazobactam 3.375 GM in Sodium Chloride 0.9% 100 ML IVPB SCH ×4 (00:32→18:23)
[2020-07-20] MEDS: Levothyroxine Sodium 50 MCG TAB PO SCH (06:11)
[2020-07-20 06:17] LABS: #Basophils 0.1 thou/uL (0.0-0.2); #Eosinphils 0.2 thou/uL (0.0-0.7); #Lymphocytes 1.4 thou/uL (1.20-3.40); #Neutrophils 6.6 thou/uL (1.40-6.50); %Basophils 0.6 % (0.0-1.0); %Eosinophils 2.6 % (0.0-10.0); %Lymphocytes 15.4 % (21.0-51.0); %Monocytes 10.3 % (0.0-10.0); %Neutrophils 71.1 % (42.0-75.0); Hemoglobin 10.4 g/dL (12.0-16.0); Mean Corpuscular HGB CONC 30.9 g/dL (32.0-36.0); Mean Corpuscular Hemoglobin 28.7 pg (27.0-31.0); Mean Corpuscular Volume 92.7 fL (78.0-98.0); Mean Platelet Volume 6.6 fL (7.4-10.4); Platelet Count 328 thou/uL (130-400); RBC Distribution Width 13.1 % (11.5-14.5); Red Blood Cell (RBC) Count 3.62 mill/uL (4.20-5.40); White Blood Cell (WBC) Count 9.3 thou/uL (4.8-10.8)
[2020-07-20 06:25] LABS: Prothrombin Time 13.1 sec (12.0-14.7)
[2020-07-20 06:26] LABS: PTT 28.9 sec (22.9-36.1)
[2020-07-20 06:35] LABS: Phosphorus 3.5 mg/dL (2.3-4.7)
[2020-07-20 06:38] LABS: ALT (SGPT) 14 U/L (8-55); AST (SGOT) 29 U/L (5-34); Albumin 2.7 g/dL (3.4-4.8); Alkaline Phosphatase 61 U/L (40-110); Anion Gap 8 mmol/L (10-20); BUN (Urea Nitrogen) 16 mg/dL (9.8-20.1); Bilirubin, Total 0.4 mg/dL (0.2-1.2); Calc. Creatinine Clearance 68 mL/min (70-130); Calcium 7.9 mg/dL (7.8-10.44); Carbon Dioxide 36 mmol/L (23-31); Cardiac Risk 4.8 (Less than 4.5); Chloride 98 mmol/L (98-107); Cholesterol 126 mg/dl (< 200 Desired); Globulin 2.5 g/dL (2.4-3.5); Glucose 98 mg/dL (80-115); HDL Cholesterol 26 mg/dL (>60 Neg Risk); LDL Cholesterol, Calculated 84 mg/dL; Magnesium 1.8 mg/dL (1.6-2.6); Potassium 3.5 mmol/L (3.5-5.1); Protein, Total 5.2 g/dL (6.0-8.3); Sodium 138 mmol/L (136-145); Triglycerides 79 mg/dL (Less than 150)
[2020-07-20] MEDS: Mometasone 200 MCG/Formoterol 5 MCG 120 PUFF INHALER INH SCH ×2 (07:15→19:30)
[2020-07-20] MEDS: methylPREDNISolone Sod Succ 40 MG VIAL IVP SCH (08:55)
[2020-07-20] MEDS: Pantoprazole 40 MG VIAL IVP SCH ×2 (08:56→21:01)
--- NOTE | 2020-07-20 09:51 | PRG ---
DATE OF SERVICE: 07/20/2020 SUBJECTIVE: Ms. Beyer is feeling bloated today and complaining of pain. She has not walked yet today. She does not have any nausea. She is not hungry. OBJECTIVE: VITAL SIGNS: Pulse is 83, blood pressure 121/62, multiple voids. AYAKA drain, 55 overnight. ABDOMEN: Soft. There is some distention. The dressings are removed to reveal wound that has no obvious infection or purulent drainage. Colostomy mucosa is pink. There was no air or stool in the bag. DIAGNOSTIC STUDIES: LABORATORY RESULTS: White blood cell count is 9, hemoglobin 10. Sodium 138, creatinine 0.48. ASSESSMENT: Postop sigmoid colectomy, colostomy, that was from localized diverticulitis causing a small bowel obstruction, continued expected postop ileus. PLAN: Continue on ice chips and sips for now. Continue TPN. Encouraged ambulation. We will have them replace her dressings to dry dressings. Job ID: [id number]
--- NOTE | 2020-07-20 11:30 | PDOC.HOSPP ---
- Subjective Encounter Date: 07/20/20 Encounter Time: 11:25 Subjective: f/u for sigmoid diverticulitis with bowel obstruction s/p laparotomy with sigmoid colectomy with end colostomy and drainage of pelvic abscess POD #5. Minimal intake with diminished appetite. - Objective Vital Signs & Weight: Vital Signs (12 hours) Pulse Resp Pulse Ox 07/20/20 07:15 83 14 07/20/20 00:30 99 Weight Admit Weight 112 lb Weight 86 lb 3.212 oz Most Recent Monitor Data Heart Rate from ECG 89 NIBP 116/63 NIBP BP-Mean 80 Respiration from ECG 17 SpO2 97 I&O: 07/19/20 07/20/20 07/21/20 06:59 06:59 06:59 Intake Total 2820 830 Output Total 1305 275 Balance 1515 -275 830 Result Diagrams: 07/20/20 06:00 07/20/20 06:00 Additional Labs: Accuchecks 07/20/20 07/19/20 07/19/20 06:02 21:24 16:37 POC Glucose 99 108 H 138 H 07/19/20 11:19 POC Glucose 108 H Laboratory Tests 07/06/20 07/18/20 07/19/20 23:45 05:45 05:30 WBC 13.0 H 11.0 H Hgb 10.1 L 10.6 L SARS-CoV-2 Rap RNA(RT-PCR) Not Detected Hospitalist ROS - Medication Medications: Active Medications Generic Name Dose Route Start Last Admin Trade Name Freq PRN Reason Stop Dose Admin Albuterol Sulfate 2.5 mg 07/07/20 12:05 07/16/20 23:17 Albuterol Sulfate 2.5 Mg/3 Ml Neb NEB 2.5 mg Q2H PRN Administration SOB &/or Wheezing Albuterol/Ipratropium 3 ml 07/09/20 19:00 07/20/20 07:15 Ipratropium/Albuterol Sulfate 3 Ml Neb NEB 3 ml QID-RT KASSANDRA Administration Enoxaparin Sodium 30 mg 07/19/20 21:00 07/19/20 21:25 Enoxaparin Sodium 30 Mg/0.3 Ml Syringe SC 30 mg 2100 KASSANDRA Administration Hydralazine HCl 5 mg 07/07/20 04:18 07/09/20 11:55 Hydralazine 20 Mg/Ml Vial SLOW IVP 5 mg Q4H PRN Administration SBP > 140 Potassium Chloride/Dextrose/Sod Cl 1,000 mls @ 0 mls/hr 07/15/20 12:00 07/16/20 14:55 D5 0.9% Ns W/ 20 Meq Kcl IV Not Given .Q0M KASSANDRA As Directed Piperacillin Sod/Tazobactam 100 mls @ 200 mls/hr 07/15/20 19:00 07/20/20 06:12 Sod 3.375 gm/ Sodium Chloride IVPB 100 mls 0100,0700,1300,1900 KASSANDRA Administration Sodium Chloride 20 meq/ 2,284.15 mls @ 0 mls/hr 07/17/20 22:00 07/19/20 21:26 Multivitamins 10 ml/ Chromium/ IV 2,284.15 mls Copper/Manganese/Zinc 9 ml/ 2200 KASSANDRA Administration Insulin Human Regular 15 units / Potassium Chloride 20 meq/ Amino Acids/Electrolytes/ Fat Emulsion Intravenous As Directed Levothyroxine Sodium 50 mcg 07/08/20 06:00 07/20/20 06:11 Levothyroxine Sodium 50 Mcg Tab PO Not Given 0600 [facility] Lorazepam 1 mg 07/16/20 15:47 07/20/20 00:30 Lorazepam 2 Mg/Ml Vial SLOW IVP 1 mg Q4H PRN Administration Anxiety/Agitation Methylprednisolone Sodium Succinate 10 mg 07/18/20 09:00 07/20/20 08:55 Methylprednisolone Sod Succ 40 Mg Vial IVP 10 mg DAILY KASSANDRA Administration Mometasone Furoate/Formoterol Fumar 2 puff 07/07/20 18:30 07/20/20 07:15 Mometasone 200 Mcg/Formoterol 5 Mcg 120 Puff Inhaler INH 2 puff BID-RT KASSANDRA Administration Montelukast Sodium 10 mg 07/07/20 21:00 07/19/20 21:26 Montelukast Sodium 10 Mg Tablet PO Not Given QPM [facility] Morphine Sulfate 2 mg 07/16/20 18:24 07/20/20 09:21 Morphine 2 Mg/Ml Vial IV 2 mg Q2H PRN Administration Moderate Pain (4-6) Ondansetron HCl 4 mg 07/07/20 04:01 07/19/20 08:50 Ondansetron Pf 4 Mg/2 Ml Vial IVP 4 mg Q6H PRN Administration Nausea/Vomiting Pantoprazole Sodium 40 mg 07/09/20 21:00 07/20/20 08:56 Pantoprazole 40 Mg Vial IVP 40 mg Q12HR KASSANDRA Administration Sodium Chloride 10 ml 07/15/20 21:00 07/20/20 08:56 Flush - Normal Saline 10 Ml Syringe IVF 10 ml Q12HR KASSANDRA Administration Throat Lozenges 1 chata 07/17/20 09:59 07/19/20 21:56 Cepastat Lozenges 1 Chata PO 1 cahta Q1H PRN Administration Cough - Exam General Appearance: NAD, awake alert Eye: PERRL, anicteric sclera ENT: normocephalic atraumatic, no oropharyngeal lesions Neck: supple, symmetric, no JVD, no thyromegaly, no lymphadenopathy Heart: RRR, no gallops, no rubs, normal peripheral pulses Heart - other findings: S1, S2 Respiratory: CTAB, no wheezes, no rales, no ronchi, normal chest expansion, no tachypnea Gastrointestinal: soft, non-distended, normal bowel sounds Gastrointestinal - other findings: surgical dressing in place, +colostomy in place without stool/drainage Extremities: no cyanosis, no clubbing, no edema Skin: normal turgor, no lesions Neurological: cranial nerve grossly intact, no new deficit Musculoskeletal: normal tone, normal strength Psychiatric: normal affect, A&O x 3 Hosp A/P (1) Acute diverticulitis Code(s): K57.92 - DVTRCLI OF INTEST, PART UNSP, W/O PERF OR ABSCESS W/O BLEED Status: Acute Plan: Continue Zosyn, pain control, OOB, resolving after sigmoid colectomy (2) SBO (small bowel obstruction) Code(s): K56.609 - UNSP INTESTNL OBST, UNSP TO PARTIAL VERSUS COMPLETE OBST Status: Acute Plan: Secondary to diverticular disease, s/p sigmoid colectomy with colostomy POD #5 (3) Acute and chronic respiratory failure with hypoxia Code(s): J96.21 - ACUTE AND CHRONIC RESPIRATORY FAILURE WITH HYPOXIA Status: Acute Plan: Continue O2 supplementation @ 2L/min NC, Bronchodilators (4) Hyponatremia syndrome Code(s): E87.1 - HYPO-OSMOLALITY AND HYPONATREMIA Status: Acute Plan: Resolved, continue serial Na+ monitoring (5) Nausea & vomiting Code(s): R11.2 - NAUSEA WITH VOMITING, UNSPECIFIED Status: Acute Qualifiers: Vomiting type: cyclical vomiting Plan: Secondary to #1, resolved (6) COPD (chronic obstructive pulmonary disease) Status: Chronic Plan: Stable, current baseline O2 requirement - Plan continue antibiotics, PT/OT, certified social workers in health care, respiratory therapy, incentive spirometry, out of bed/ambulate, DVT proph w/SCDs Slow clinical improvement OOB/ambulate Continue Zosyn Nutritional support with TPN Pain control DVT ppx with Lovenox AM lab: CMP, CBC, Mg++, PO3
[2020-07-20] MEDS: Enoxaparin Sodium 30 MG/0.3 ML SYRINGE SC SCH (21:01)
[2020-07-20] MEDS: Montelukast Sodium 10 mg Tablet PO SCH (21:01)
[2020-07-20] MEDS: [UNRECOGNIZED DRUG - OTHER] IV SCH (23:22)
[2020-07-20] MEDS: MULTIVITAMINS IV SCH (23:22)
[2020-07-20] MEDS: SODIUM CHLORIDE IV SCH (23:22)
[2020-07-20] MEDS: TRACE ELEMENTS IV SCH (23:22)
[2020-07-21] MEDS: Lorazepam 2 MG/ML VIAL SLOW IVP PRN ×2 (00:40→22:27)
[2020-07-21] MEDS: Piperacillin/Tazobactam 3.375 GM in Sodium Chloride 0.9% 100 ML IVPB SCH ×4 (00:45→18:28)
[2020-07-21] MEDS: Morphine 2 MG/ML VIAL IV PRN ×5 (02:13→20:30)
[2020-07-21] MEDS: Levothyroxine Sodium 50 MCG TAB PO SCH (05:18)
[2020-07-21 05:32] LABS: #Eosinphils 0.2 thou/uL (0.0-0.7); #Lymphocytes 1.3 thou/uL (1.20-3.40); #Monocytes 0.9 thou/uL (0.11-0.59); #Neutrophils 6.3 thou/uL (1.40-6.50); %Basophils 0.5 % (0.0-1.0); %Eosinophils 2.8 % (0.0-10.0); %Lymphocytes 14.5 % (21.0-51.0); %Monocytes 10.1 % (0.0-10.0); %Neutrophils 72.1 % (42.0-75.0); Hemoglobin 10.9 g/dL (12.0-16.0); Mean Corpuscular HGB CONC 32.1 g/dL (32.0-36.0); Mean Corpuscular Hemoglobin 29.9 pg (27.0-31.0); Mean Corpuscular Volume 93.3 fL (78.0-98.0); Mean Platelet Volume 6.8 fL (7.4-10.4); Platelet Count 298 thou/uL (130-400); RBC Distribution Width 13.3 % (11.5-14.5); Red Blood Cell (RBC) Count 3.63 mill/uL (4.20-5.40); White Blood Cell (WBC) Count 8.8 thou/uL (4.8-10.8)
[2020-07-21 05:40] LABS: INR-International Normal Ratio 0.9; Prothrombin Time 12.7 sec (12.0-14.7)
[2020-07-21 05:41] LABS: PTT 25.2 sec (22.9-36.1)
[2020-07-21 05:52] LABS: Phosphorus 3.4 mg/dL (2.3-4.7)
[2020-07-21 05:56] LABS: ALT (SGPT) 17 U/L (8-55); AST (SGOT) 31 U/L (5-34); Albumin 2.7 g/dL (3.4-4.8); Alkaline Phosphatase 62 U/L (40-110); Anion Gap 9 mmol/L (10-20); BUN (Urea Nitrogen) 16 mg/dL (9.8-20.1); Bilirubin, Total 0.5 mg/dL (0.2-1.2); Calc. Creatinine Clearance 68 mL/min (70-130); Carbon Dioxide 33 mmol/L (23-31); Cardiac Risk 5.2 (Less than 4.5); Chloride 98 mmol/L (98-107); Cholesterol 130 mg/dl (< 200 Desired); Globulin 2.6 g/dL (2.4-3.5); Glucose 88 mg/dL (80-115); HDL Cholesterol 25 mg/dL (>60 Neg Risk); LDL Cholesterol, Calculated 87 mg/dL; Magnesium 1.7 mg/dL (1.6-2.6); Potassium 3.6 mmol/L (3.5-5.1); Protein, Total 5.3 g/dL (6.0-8.3); Sodium 136 mmol/L (136-145); Triglycerides 90 mg/dL (Less than 150)
[2020-07-21] MEDS: Mometasone 200 MCG/Formoterol 5 MCG 120 PUFF INHALER INH SCH ×2 (08:26→18:22)
--- NOTE | 2020-07-21 08:37 | PRG ---
DATE OF SERVICE: 07/21/2020 SUBJECTIVE: Ms. Beyer feels better today. She is having some colostomy output. She denies nausea. She is not walking in the [place] much. She is up to the bathroom. OBJECTIVE: VITAL SIGNS: She is afebrile. Vital signs are stable. ABDOMEN: Soft. Her wounds are clear without purulence. She has air and stool in her colostomy bag. ASSESSMENT: Postop colostomy and colectomy. PLAN: Start clear liquids today. Job ID: [id number]
[2020-07-21] MEDS: Pantoprazole 40 MG VIAL IVP SCH ×2 (10:02→20:32)
[2020-07-21] MEDS: methylPREDNISolone Sod Succ 40 MG VIAL IVP SCH (10:02)
--- NOTE | 2020-07-21 16:12 | PDOC.HOSPP ---
- Subjective Encounter Date: 07/21/20 Encounter Time: 15:55 Subjective: f/u for sigmoid diverticulitis with abscessand bowel obstruction s/p laparotomy with colon resection with colostomy. Continues on TPN with trial of clear liquids to start this pm. Overall feeling better. - Objective Vital Signs & Weight: Vital Signs (12 hours) Temp Pulse Resp BP Pulse Ox 07/21/20 14:04 94 16 97 07/21/20 12:00 97.9 F 90 20 143/81 H 92 L 07/21/20 11:01 82 16 98 07/21/20 08:00 97.8 F 85 20 130/76 97 Weight Admit Weight 112 lb Weight 86 lb 3.212 oz Most Recent Monitor Data Heart Rate from ECG 89 NIBP 116/63 NIBP BP-Mean 80 Respiration from ECG 17 SpO2 97 I&O: 07/20/20 07/21/20 07/22/20 06:59 06:59 06:59 Intake Total 3540 Output Total 275 1103 Balance -275 2437 Result Diagrams: 07/21/20 05:15 07/21/20 05:15 Additional Labs: Accuchecks 07/21/20 07/21/20 07/21/20 11:43 05:39 00:52 POC Glucose 98 108 H 97 Laboratory Tests 07/06/20 07/18/20 07/19/20 23:45 05:45 05:30 WBC 13.0 H 11.0 H Hgb 10.1 L 10.6 L SARS-CoV-2 Rap RNA(RT-PCR) Not Detected Hospitalist ROS - Medication Medications: Active Medications Generic Name Dose Route Start Last Admin Trade Name Freq PRN Reason Stop Dose Admin Albuterol Sulfate 2.5 mg 07/07/20 12:05 07/16/20 23:17 Albuterol Sulfate 2.5 Mg/3 Ml Neb NEB 2.5 mg Q2H PRN Administration SOB &/or Wheezing Albuterol/Ipratropium 3 ml 07/09/20 19:00 07/21/20 14:04 Ipratropium/Albuterol Sulfate 3 Ml Neb NEB 3 ml QID-RT KASSANDRA Administration Enoxaparin Sodium 30 mg 07/19/20 21:00 07/20/20 21:01 Enoxaparin Sodium 30 Mg/0.3 Ml Syringe SC 30 mg 2100 KASSANDRA Administration Hydralazine HCl 5 mg 12/18/20 04:18 07/09/20 11:55 Hydralazine 20 Mg/Ml Vial SLOW IVP 5 mg Q4H PRN Administration SBP > 140 Potassium Chloride/Dextrose/Sod Cl 1,000 mls @ 0 mls/hr 07/15/20 12:00 07/16/20 14:55 D5 0.9% Ns W/ 20 Meq Kcl IV Not Given .Q0M KASSANDRA As Directed Piperacillin Sod/Tazobactam 100 mls @ 200 mls/hr 07/15/20 19:00 07/21/20 13:53 Sod 3.375 gm/ Sodium Chloride IVPB 100 mls 0100,0700,1300,1900 KASSANDRA Administration Sodium Chloride 20 meq/ 2,284.15 mls @ 0 mls/hr 07/17/20 22:00 07/20/20 23:22 Multivitamins 10 ml/ Chromium/ IV 2,284.15 mls Copper/Manganese/Zinc 9 ml/ 2200 KASSANDRA Administration Insulin Human Regular 15 units / Potassium Chloride 20 meq/ Amino Acids/Electrolytes/ Fat Emulsion Intravenous As Directed Levothyroxine Sodium 50 mcg 07/08/20 06:00 07/21/20 05:18 Levothyroxine Sodium 50 Mcg Tab PO 50 mcg 0600 KASSANDRA Administration Lorazepam 1 mg 07/16/20 15:47 07/21/20 00:40 Lorazepam 2 Mg/Ml Vial SLOW IVP 1 mg Q4H PRN Administration Anxiety/Agitation Methylprednisolone Sodium Succinate 10 mg 07/18/20 09:00 07/21/20 10:02 Methylprednisolone Sod Succ 40 Mg Vial IVP 10 mg DAILY KASSANDRA Administration Mometasone Furoate/Formoterol Fumar 2 puff 07/07/20 18:30 07/21/20 08:26 Mometasone 200 Mcg/Formoterol 5 Mcg 120 Puff Inhaler INH Not Given BID-RT KASASNDRA Montelukast Sodium 10 mg 07/07/20 21:00 07/20/20 21:01 Montelukast Sodium 10 Mg Tablet PO 10 mg QPM KASSANDRA Administration Morphine Sulfate 2 mg 07/16/20 18:24 07/21/20 13:57 Morphine 2 Mg/Ml Vial IV 2 mg Q2H PRN Administration Moderate Pain (4-6) Ondansetron HCl 4 mg 07/07/20 04:01 07/19/20 08:50 Ondansetron Pf 4 Mg/2 Ml Vial IVP 4 mg Q6H PRN Administration Nausea/Vomiting Pantoprazole Sodium 40 mg 07/09/20 21:00 07/21/20 10:02 Pantoprazole 40 Mg Vial IVP 40 mg Q12HR KASSANDRA Administration Sodium Chloride 10 ml 07/15/20 21:00 07/21/20 10:08 Flush - Normal Saline 10 Ml Syringe IVF 10 ml Q12HR KASSANDRA Administration Throat Lozenges 1 chata 07/17/20 09:59 07/19/20 21:56 Cepastat Lozenges 1 Chata PO 1 chata Q1H PRN Administration Cough - Exam General Appearance: NAD, awake alert Eye: PERRL, anicteric sclera ENT: normocephalic atraumatic, no oropharyngeal lesions Neck: supple, symmetric, no JVD, no thyromegaly, no lymphadenopathy Heart: RRR, no gallops, no rubs, normal peripheral pulses Heart - other findings: S1, S2 Respiratory: tachypneic Respiratory - other findings: diminished bilat, occ rhonchi/wheeze Gastrointestinal: soft Gastrointestinal - other findings: mild distention, bowel sounds diminished but present, ostomy in place Extremities: no cyanosis, no clubbing, no edema Skin: normal turgor Neurological: cranial nerve grossly intact, no new deficit Musculoskeletal: normal tone, generalized weakness Psychiatric: A&O x 3, flat affect Hosp A/P (1) Acute diverticulitis Code(s): K57.92 - DVTRCLI OF INTEST, PART UNSP, W/O PERF OR ABSCESS W/O BLEED Status: Acute Plan: Continue Zosyn, supportive mgmt, pain control (2) SBO (small bowel obstruction) Code(s): K56.609 - UNSP INTESTNL OBST, UNSP TO PARTIAL VERSUS COMPLETE OBST Status: Acute Plan: Resolved s/p colon resection and ostomy (3) Acute and chronic respiratory failure with hypoxia Code(s): J96.21 - ACUTE AND CHRONIC RESPIRATORY FAILURE WITH HYPOXIA Status: Acute (4) Hyponatremia syndrome Code(s): E87.1 - HYPO-OSMOLALITY AND HYPONATREMIA Status: Acute (5) Nausea & vomiting Code(s): R11.2 - NAUSEA WITH VOMITING, UNSPECIFIED Status: Acute Qualifiers: Vomiting type: cyclical vomiting (6) COPD (chronic obstructive pulmonary disease) Status: Chronic Plan: No exacerbation currently, continue O2 supplementation/Solumedrol/Bronch odilators - Plan continue antibiotics, PT/OT, 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
[2020-07-21] MEDS: Montelukast Sodium 10 mg Tablet PO SCH (20:30)
[2020-07-21] MEDS: Enoxaparin Sodium 30 MG/0.3 ML SYRINGE SC SCH (20:43)
[2020-07-21] MEDS: TRACE ELEMENTS IV SCH (22:39)
[2020-07-21] MEDS: MULTIVITAMINS IV SCH (22:39)
[2020-07-21] MEDS: SODIUM CHLORIDE IV SCH (22:39)
[2020-07-21] MEDS: [UNRECOGNIZED DRUG - OTHER] IV SCH (22:39)
[2020-07-22] MEDS: Morphine 2 MG/ML VIAL IV PRN ×5 (01:33→21:22)
[2020-07-22] MEDS: Piperacillin/Tazobactam 3.375 GM in Sodium Chloride 0.9% 100 ML IVPB SCH ×4 (01:36→18:04)
[2020-07-22] MEDS: Levothyroxine Sodium 50 MCG TAB PO SCH (05:57)
[2020-07-22 06:50] LABS: #Basophils 0.1 thou/uL (0.0-0.2); #Eosinphils 0.3 thou/uL (0.0-0.7); #Lymphocytes 1.2 thou/uL (1.20-3.40); #Monocytes 1.1 thou/uL (0.11-0.59); #Neutrophils 7.2 thou/uL (1.40-6.50); %Basophils 0.6 % (0.0-1.0); %Eosinophils 2.8 % (0.0-10.0); %Monocytes 10.9 % (0.0-10.0); %Neutrophils 73.7 % (42.0-75.0); Hemoglobin 10.9 g/dL (12.0-16.0); Mean Corpuscular HGB CONC 31.7 g/dL (32.0-36.0); Mean Corpuscular Hemoglobin 29.4 pg (27.0-31.0); Mean Corpuscular Volume 92.9 fL (78.0-98.0); Mean Platelet Volume 7.2 fL (7.4-10.4); Platelet Count 350 thou/uL (130-400); RBC Distribution Width 13.4 % (11.5-14.5); Red Blood Cell (RBC) Count 3.69 mill/uL (4.20-5.40); White Blood Cell (WBC) Count 9.7 thou/uL (4.8-10.8)
[2020-07-22 07:02] LABS: INR-International Normal Ratio 0.9; PTT 28.8 sec (22.9-36.1); Prothrombin Time 12.5 sec (12.0-14.7)
[2020-07-22] MEDS: Mometasone 200 MCG/Formoterol 5 MCG 120 PUFF INHALER INH SCH ×2 (07:04→19:22)
[2020-07-22 07:08] LABS: Phosphorus 3.7 mg/dL (2.3-4.7)
[2020-07-22 07:10] LABS: ALT (SGPT) 23 U/L (8-55); AST (SGOT) 37 U/L (5-34); Albumin 2.8 g/dL (3.4-4.8); Alkaline Phosphatase 61 U/L (40-110); Anion Gap 11 mmol/L (10-20); BUN (Urea Nitrogen) 20 mg/dL (9.8-20.1); Bilirubin, Total 0.4 mg/dL (0.2-1.2); Calc. Creatinine Clearance 67 mL/min (70-130); Carbon Dioxide 30 mmol/L (23-31); Cardiac Risk 5.6 (Less than 4.5); Chloride 101 mmol/L (98-107); Cholesterol 135 mg/dl (< 200 Desired); Globulin 2.6 g/dL (2.4-3.5); Glucose 101 mg/dL (80-115); HDL Cholesterol 24 mg/dL (>60 Neg Risk); LDL Cholesterol, Calculated 91 mg/dL; Magnesium 1.8 mg/dL (1.6-2.6); Potassium 3.6 mmol/L (3.5-5.1); Protein, Total 5.4 g/dL (6.0-8.3); Sodium 138 mmol/L (136-145); Triglycerides 102 mg/dL (Less than 150)
[2020-07-22] MEDS: methylPREDNISolone Sod Succ 40 MG VIAL IVP SCH (09:46)
[2020-07-22] MEDS: Pantoprazole 40 MG VIAL IVP SCH ×2 (09:48→20:38)
--- NOTE | 2020-07-22 13:10 | PRG ---
DATE OF SERVICE: 07/22/2020 SUBJECTIVE: Ms. Beyer is feeling better today. She tolerated clear liquids without difficulty. No nausea. She has had more stool in her bag. PHYSICAL EXAMINATION: VITAL SIGNS: Her vital signs are stable. ABDOMEN: Her wound is healing well. Her abdomen is soft with active bowel sounds. ASSESSMENT: Doing well now, tolerating clear liquids. We will advance to full liquids. If tolerates that today well, discontinue INSULATION CUTTER and discontinue TPN. Job ID: [id number]
--- NOTE | 2020-07-22 15:48 | PDOC.HOSPP ---
- Subjective Subjective: pain is controlled. tolerating clear liquid. currently on TPN as well - Objective Vital Signs & Weight: Vital Signs (12 hours) Temp Pulse Resp BP BP Pulse Ox 07/22/20 14:42 79 16 98 07/22/20 11:45 80 16 99 07/22/20 11:31 98.5 F 93 18 116/71 97 07/22/20 08:53 131/85 07/22/20 08:00 99 07/22/20 07:05 88 16 99 Weight Admit Weight 112 lb Weight 86 lb 3.212 oz Most Recent Monitor Data Heart Rate from ECG 89 NIBP 116/63 NIBP BP-Mean 80 Respiration from ECG 17 SpO2 97 I&O: 07/21/20 07/22/20 07/23/20 06:59 06:59 06:59 Intake Total 3540 1460 Output Total 1103 155 550 Balance 2437 -155 910 Result Diagrams: 07/22/20 06:22 07/22/20 06:22 Additional Labs: Accuchecks 07/22/20 07/22/20 07/21/20 11:13 03:49 23:52 POC Glucose 93 116 H 89 07/21/20 07/21/20 19:20 15:54 POC Glucose 103 H 119 H Radiology Reviewed by me: Yes EKG Reviewed by me: Yes Hospitalist ROS - Medication Medications: Active Medications Generic Name Dose Route Start Last Admin Trade Name Freq PRN Reason Stop Dose Admin Albuterol Sulfate 2.5 mg 07/07/20 12:05 07/16/20 23:17 Albuterol Sulfate 2.5 Mg/3 Ml Neb NEB 2.5 mg Q2H PRN Administration SOB &/or Wheezing Albuterol/Ipratropium 3 ml 07/09/20 19:00 07/22/20 14:42 Ipratropium/Albuterol Sulfate 3 Ml Neb NEB 3 ml QID-RT KASSANDRA Administration Enoxaparin Sodium 30 mg 07/19/20 21:00 07/21/20 20:43 Enoxaparin Sodium 30 Mg/0.3 Ml Syringe SC 30 mg 2100 KASSANDRA Administration Hydralazine HCl 5 mg 07/07/20 04:18 07/09/20 11:55 Hydralazine 20 Mg/Ml Vial SLOW IVP 5 mg Q4H PRN Administration SBP > 140 Potassium Chloride/Dextrose/Sod Cl 1,000 mls @ 0 mls/hr 07/15/20 12:00 07/16/20 14:55 D5 0.9% Ns W/ 20 Meq Kcl IV Not Given .Q0M KASSANDRA As Directed Piperacillin Sod/Tazobactam 100 mls @ 200 mls/hr 07/15/20 19:00 07/22/20 13:05 Sod 3.375 gm/ Sodium Chloride IVPB 100 mls 0100,0700,1300,1900 KASSANDRA Administration Sodium Chloride 20 meq/ 2,284.15 mls @ 0 mls/hr 07/17/20 22:00 07/21/20 22:39 Multivitamins 10 ml/ Chromium/ IV 2,284.15 mls Copper/Manganese/Zinc 9 ml/ 2200 KASSANDRA Administration Insulin Human Regular 15 units / Potassium Chloride 20 meq/ Amino Acids/Electrolytes/ Fat Emulsion Intravenous As Directed Levothyroxine Sodium 50 mcg 07/08/20 06:00 07/22/20 05:57 Levothyroxine Sodium 50 Mcg Tab PO 50 mcg 0600 KASSANDRA Administration Lorazepam 1 mg 07/16/20 15:47 07/21/20 22:27 Lorazepam 2 Mg/Ml Vial SLOW IVP 1 mg Q4H PRN Administration Anxiety/Agitation Methylprednisolone Sodium Succinate 10 mg 07/18/20 09:00 07/22/20 09:46 Methylprednisolone Sod Succ 40 Mg Vial IVP 10 mg DAILY KASSANDRA Administration Mometasone Furoate/Formoterol Fumar 2 puff 07/07/20 18:30 07/22/20 07:04 Mometasone 200 Mcg/Formoterol 5 Mcg 120 Puff Inhaler INH 2 puff BID-RT KASSANDRA Administration Montelukast Sodium 10 mg 07/07/20 21:00 07/21/20 20:30 Montelukast Sodium 10 Mg Tablet PO 10 mg QPM KASSANDRA Administration Morphine Sulfate 2 mg 07/16/20 18:24 07/22/20 15:13 Morphine 2 Mg/Ml Vial IV 2 mg Q2H PRN Administration Moderate Pain (4-6) Ondansetron HCl 4 mg 07/07/20 04:01 07/19/20 08:50 Ondansetron Pf 4 Mg/2 Ml Vial IVP 4 mg Q6H PRN Administration Nausea/Vomiting Pantoprazole Sodium 40 mg 07/09/20 21:00 07/22/20 09:48 Pantoprazole 40 Mg Vial IVP 40 mg Q12HR KASSANDRA Administration Sodium Chloride 10 ml 07/15/20 21:00 07/22/20 09:48 Flush - Normal Saline 10 Ml Syringe IVF Not Given Q12HR KASSANDRA Throat Lozenges 1 chata 07/17/20 09:59 07/19/20 21:56 Cepastat Lozenges 1 Chata PO 1 chata Q1H PRN Administration Cough - Exam General Appearance: NAD Eye: PERRL ENT: normocephalic atraumatic Neck: supple Heart: RRR Respiratory: CTAB Gastrointestinal: soft, non-tender, no guarding, no rigidity Extremities: no cyanosis Skin: normal turgor Neurological: cranial nerve grossly intact Musculoskeletal: normal tone Psychiatric: normal affect, normal behavior Hosp A/P - Plan Patient is a pleasant 60 years old female who has significant past medical history of dyslipidemia, COPD on home O2 who presented to ED with complaining of nausea vomiting and abdominal discomfort. SBO - d/t abscess from sigmoid diverticulitis --s/p ex lap with sigmoid colectomy on 07/15/20 --diet advance to full per surgery --cont routine post-op mgt. PT eval Hyponatremia d/t GI loss --resolved COPD, home O2 dependent --Stable, continue as needed albuterol Hypertension, essential --Resume home meds PAD --cont home meds Hypothyroidism --Continue levothyroxine
[2020-07-22] MEDS: Lorazepam 2 MG/ML VIAL SLOW IVP PRN (18:03)
[2020-07-22] MEDS: Montelukast Sodium 10 mg Tablet PO SCH (20:38)
[2020-07-22] MEDS: Enoxaparin Sodium 30 MG/0.3 ML SYRINGE SC SCH (20:38)
[2020-07-22] MEDS: Ondansetron PF 4 MG/2 ML Vial IVP PRN (21:23)
[2020-07-22] MEDS: SODIUM CHLORIDE IV SCH (22:48)
[2020-07-22] MEDS: [UNRECOGNIZED DRUG - OTHER] IV SCH (22:48)
[2020-07-22] MEDS: MULTIVITAMINS IV SCH (22:48)
[2020-07-22] MEDS: TRACE ELEMENTS IV SCH (22:48)
[2020-07-23] MEDS: Piperacillin/Tazobactam 3.375 GM in Sodium Chloride 0.9% 100 ML IVPB SCH ×2 (00:37→06:27)
[2020-07-23] MEDS: Morphine 2 MG/ML VIAL IV PRN (03:08)
[2020-07-23 06:24] LABS: PTT 27.9 sec (22.9-36.1)
[2020-07-23 06:25] LABS: #Eosinphils 0.3 thou/uL (0.0-0.7); #Lymphocytes 1.3 thou/uL (1.20-3.40); #Monocytes 1.1 thou/uL (0.11-0.59); #Neutrophils 6.3 thou/uL (1.40-6.50); %Basophils 0.5 % (0.0-1.0); %Eosinophils 3.1 % (0.0-10.0); %Lymphocytes 14.8 % (21.0-51.0); %Monocytes 11.7 % (0.0-10.0); %Neutrophils 69.8 % (42.0-75.0); Mean Corpuscular HGB CONC 31.5 g/dL (32.0-36.0); Mean Corpuscular Hemoglobin 29.3 pg (27.0-31.0); Mean Platelet Volume 7.4 fL (7.4-10.4); Platelet Count 357 thou/uL (130-400); RBC Distribution Width 13.5 % (11.5-14.5); White Blood Cell (WBC) Count 8.9 thou/uL (4.8-10.8)
[2020-07-23] MEDS: Levothyroxine Sodium 50 MCG TAB PO SCH (06:26)
[2020-07-23] MEDS: Lorazepam 2 MG/ML VIAL SLOW IVP PRN ×3 (06:27→19:32)
[2020-07-23 06:43] LABS: Phosphorus 3.4 mg/dL (2.3-4.7)
[2020-07-23 06:46] LABS: ALT (SGPT) 20 U/L (8-55); AST (SGOT) 33 U/L (5-34); Albumin 2.7 g/dL (3.4-4.8); Alkaline Phosphatase 59 U/L (40-110); Anion Gap 9 mmol/L (10-20); BUN (Urea Nitrogen) 19 mg/dL (9.8-20.1); Bilirubin, Total 0.4 mg/dL (0.2-1.2); Calc. Creatinine Clearance 66 mL/min (70-130); Carbon Dioxide 31 mmol/L (23-31); Cardiac Risk 5.6 (Less than 4.5); Chloride 101 mmol/L (98-107); Cholesterol 141 mg/dl (< 200 Desired); Globulin 2.6 g/dL (2.4-3.5); Glucose 101 mg/dL (80-115); HDL Cholesterol 25 mg/dL (>60 Neg Risk); LDL Cholesterol, Calculated 99 mg/dL; Magnesium 1.7 mg/dL (1.6-2.6); Potassium 3.7 mmol/L (3.5-5.1); Protein, Total 5.3 g/dL (6.0-8.3); Sodium 137 mmol/L (136-145); Triglycerides 87 mg/dL (Less than 150)
[2020-07-23] MEDS: Mometasone 200 MCG/Formoterol 5 MCG 120 PUFF INHALER INH SCH ×2 (07:32→18:40)
[2020-07-23] MEDS: methylPREDNISolone Sod Succ 40 MG VIAL IVP SCH (09:53)
[2020-07-23] MEDS: Pantoprazole 40 MG VIAL IVP SCH ×2 (09:54→19:19)
--- NOTE | 2020-07-23 10:41 | PRG ---
DATE OF SERVICE: 07/23/2020 SUBJECTIVE: Ms. Beyer has more nausea and bloating this morning. OBJECTIVE: VITAL SIGNS: She is afebrile and her vital signs are stable. ABDOMEN: Soft. It is minimally distended. She does have bowel sounds. She has air and stool in her colostomy bag. ASSESSMENT: Postop sigmoid resection and colostomy, secondary small-bowel obstruction. PLAN: Continue liquid diet as tolerated. I was going to wean and discontinue her TPN today. However, I do not think she is drinking much, so we will leave it going for one more day. We will stop her antibiotics. Job ID: [id number]
[2020-07-23] MEDS: Fentanyl 100 MCG/2 ML VIAL SLOW IVP PRN ×2 (12:58→17:34)
--- NOTE | 2020-07-23 15:46 | PDOC.HOSPP ---
- Subjective Subjective: Pt seen examined at bedside. Patient complaint abdominal pain after she wprl with physical therapy. Patient reported she tolerated some full liquids yesterday for dinner however this morning, she had some nausea when she was attempting to eat some breakfast. - Objective Vital Signs & Weight: Vital Signs (12 hours) Temp Pulse Resp BP Pulse Ox 07/23/20 14:53 75 16 97 07/23/20 11:26 98.3 F 93 18 131/77 97 07/23/20 08:22 98.3 F 85 18 120/69 100 07/23/20 08:00 100 07/23/20 07:10 86 16 97 Weight Admit Weight 112 lb Weight 114 lb 6.4 oz Most Recent Monitor Data Heart Rate from ECG 89 NIBP 116/63 NIBP BP-Mean 80 Respiration from ECG 17 SpO2 97 I&O: 07/22/20 07/23/20 07/24/20 06:59 06:59 06:59 Intake Total 2810 Output Total 155 800 Balance -155 2009 Result Diagrams: 07/23/20 06:05 07/23/20 06:05 Additional Labs: Accuchecks 07/23/20 07/23/20 07/23/20 11:26 06:12 00:26 POC Glucose 98 94 113 H 07/22/20 15:51 POC Glucose 130 H Hospitalist ROS - Medication Medications: Active Medications Generic Name Dose Route Start Last Admin Trade Name Freq PRN Reason Stop Dose Admin Albuterol Sulfate 2.5 mg 07/07/20 12:05 07/16/20 23:17 Albuterol Sulfate 2.5 Mg/3 Ml Neb NEB 2.5 mg Q2H PRN Administration SOB &/or Wheezing Albuterol/Ipratropium 3 ml 07/09/20 19:00 07/23/20 14:53 Ipratropium/Albuterol Sulfate 3 Ml Neb NEB 3 ml QID-RT KASSANDRA Administration Enoxaparin Sodium 30 mg 07/19/20 21:00 07/22/20 20:38 Enoxaparin Sodium 30 Mg/0.3 Ml Syringe SC 30 mg 2100 KASSANDRA Administration Fentanyl 25 mcg 07/23/20 10:24 07/23/20 12:58 Fentanyl 100 Mcg/2 Ml Vial SLOW IVP 25 mcg Q4H PRN Administration Mild Pain (1-3) Hydralazine HCl 5 mg 07/07/20 04:18 07/09/20 11:55 Hydralazine 20 Mg/Ml Vial SLOW IVP 5 mg Q4H PRN Administration SBP > 140 Potassium Chloride/Dextrose/Sod Cl 1,000 mls @ 0 mls/hr 07/15/20 12:00 07/16/20 14:55 D5 0.9% Ns W/ 20 Meq Kcl IV Not Given .Q0M KASSANDRA As Directed Sodium Chloride 20 meq/ 2,284.15 mls @ 0 mls/hr 07/17/20 22:00 07/22/20 22:48 Multivitamins 10 ml/ Chromium/ IV 2,284.15 mls Copper/Manganese/Zinc 9 ml/ 2200 KASSANDRA Administration Insulin Human Regular 15 units / Potassium Chloride 20 meq/ Amino Acids/Electrolytes/ Fat Emulsion Intravenous As Directed Levothyroxine Sodium 50 mcg 07/08/20 06:00 07/23/20 06:26 Levothyroxine Sodium 50 Mcg Tab PO 50 mcg 0600 KASSANDRA Administration Lorazepam 1 mg 07/16/20 15:47 07/23/20 15:07 Lorazepam 2 Mg/Ml Vial SLOW IVP 1 mg Q4H PRN Administration Anxiety/Agitation Methylprednisolone Sodium Succinate 10 mg 07/18/20 09:00 07/23/20 09:53 Methylprednisolone Sod Succ 40 Mg Vial IVP 10 mg DAILY KASSANDRA Administration Mometasone Furoate/Formoterol Fumar 2 puff 07/07/20 18:30 07/23/20 07:32 Mometasone 200 Mcg/Formoterol 5 Mcg 120 Puff Inhaler INH 2 puff BID-RT KASSANDRA Administration Montelukast Sodium 10 mg 07/07/20 21:00 07/22/20 20:38 Montelukast Sodium 10 Mg Tablet PO 10 mg QPM KASSANDRA Administration Ondansetron HCl 4 mg 07/07/20 04:01 07/22/20 21:23 Ondansetron Pf 4 Mg/2 Ml Vial IVP 4 mg Q6H PRN Administration Nausea/Vomiting Pantoprazole Sodium 40 mg 07/09/20 21:00 07/23/20 09:54 Pantoprazole 40 Mg Vial IVP 40 mg Q12HR KASSANDRA Administration Sodium Chloride 10 ml 07/15/20 21:00 07/23/20 10:04 Flush - Normal Saline 10 Ml Syringe IVF Not Given Q12HR KASSANDRA Throat Lozenges 1 chata 07/17/20 09:59 07/19/20 21:56 Cepastat Lozenges 1 Chata PO 1 chata Q1H PRN Administration Cough - Exam General Appearance: NAD Eye: PERRL ENT: normocephalic atraumatic Neck: supple Heart: RRR Respiratory: CTAB Gastrointestinal: soft Gastrointestinal - other findings: AYAKA drain - 20 ml clear fluid Extremities: no cyanosis Neurological: cranial nerve grossly intact Hosp A/P - Plan Patient is a pleasant 60 years old female who has significant past medical history of dyslipidemia, COPD on home O2 who presented to ED with complaining of nausea vomiting and abdominal discomfort. SBO - d/t abscess from sigmoid diverticulitis --s/p ex lap with sigmoid colectomy on 07/15/20 --diet advance to full per surgery --cont routine post-op mgt. PT eval --encouraged incr activity. TPN can be discontinued once tolerate adequate PO Hyponatremia d/t GI loss --resolved COPD, home O2 dependent --Stable, continue as needed albuterol Hypertension, essential --Resume home meds PAD --cont home meds Hypothyroidism --Continue levothyroxine
[2020-07-23] MEDS: Ondansetron PF 4 MG/2 ML Vial IVP PRN (19:19)
[2020-07-23] MEDS: Enoxaparin Sodium 30 MG/0.3 ML SYRINGE SC SCH (19:19)
[2020-07-23] MEDS: Montelukast Sodium 10 mg Tablet PO SCH (19:19)
[2020-07-23] MEDS ORDERED: Promethazine HCl 12.5 MG in Sodium Chloride 0.9% 50 ML IVPB SCH (22:15)
[2020-07-23] MEDS: MULTIVITAMINS IV SCH (22:58)
[2020-07-23] MEDS: SODIUM CHLORIDE IV SCH (22:58)
[2020-07-23] MEDS: [UNRECOGNIZED DRUG - OTHER] IV SCH (22:58)
[2020-07-23] MEDS: TRACE ELEMENTS IV SCH (22:58)
[2020-07-24] MEDS: Ondansetron PF 4 MG/2 ML Vial IVP PRN ×2 (00:44→10:47)
[2020-07-24] MEDS: Fentanyl 100 MCG/2 ML VIAL SLOW IVP PRN ×5 (00:45→20:32)
[2020-07-24] MEDS: Lorazepam 2 MG/ML VIAL SLOW IVP PRN ×2 (03:08→22:53)
[2020-07-24] MEDS ORDERED: Promethazine HCl 12.5 MG in Sodium Chloride 0.9% 50 ML IVPB SCH (03:45)
[2020-07-24] MEDS: Levothyroxine Sodium 50 MCG TAB PO SCH (06:27)
[2020-07-24 07:10] LABS: INR-International Normal Ratio 0.9; PTT 28.7 sec (22.9-36.1); Prothrombin Time 12.8 sec (12.0-14.7)
[2020-07-24 07:11] LABS: #Eosinphils 0.2 thou/uL (0.0-0.7); #Lymphocytes 1.3 thou/uL (1.20-3.40); #Monocytes 1.1 thou/uL (0.11-0.59); #Neutrophils 8.6 thou/uL (1.40-6.50); %Basophils 0.4 % (0.0-1.0); %Eosinophils 1.9 % (0.0-10.0); %Lymphocytes 11.2 % (21.0-51.0); %Monocytes 9.6 % (0.0-10.0); %Neutrophils 76.9 % (42.0-75.0); Hemoglobin 10.3 g/dL (12.0-16.0); Mean Corpuscular HGB CONC 30.3 g/dL (32.0-36.0); Mean Corpuscular Hemoglobin 28.3 pg (27.0-31.0); Mean Corpuscular Volume 93.4 fL (78.0-98.0); Mean Platelet Volume 7.7 fL (7.4-10.4); Platelet Count 409 thou/uL (130-400); RBC Distribution Width 13.9 % (11.5-14.5); Red Blood Cell (RBC) Count 3.64 mill/uL (4.20-5.40); White Blood Cell (WBC) Count 11.2 thou/uL (4.8-10.8)
[2020-07-24 07:18] LABS: Phosphorus 3.4 mg/dL (2.3-4.7)
[2020-07-24 07:26] LABS: ALT (SGPT) 24 U/L (8-55); AST (SGOT) 41 U/L (5-34); Alkaline Phosphatase 63 U/L (40-110); Anion Gap 10 mmol/L (10-20); BUN (Urea Nitrogen) 16 mg/dL (9.8-20.1); Bilirubin, Total 0.4 mg/dL (0.2-1.2); Calc. Creatinine Clearance 89 mL/min (70-130); Calcium 8.4 mg/dL (7.8-10.44); Carbon Dioxide 32 mmol/L (23-31); Cardiac Risk 5.8 (Less than 4.5); Chloride 100 mmol/L (98-107); Cholesterol 156 mg/dl (< 200 Desired); Globulin 2.7 g/dL (2.4-3.5); Glucose 121 mg/dL (80-115); HDL Cholesterol 27 mg/dL (>60 Neg Risk); LDL Cholesterol, Calculated 107 mg/dL; Magnesium 1.7 mg/dL (1.6-2.6); Potassium 3.7 mmol/L (3.5-5.1); Protein, Total 5.7 g/dL (6.0-8.3); Sodium 138 mmol/L (136-145); Triglycerides 111 mg/dL (Less than 150)
[2020-07-24] MEDS: Pantoprazole 40 MG VIAL IVP SCH (08:29)
[2020-07-24] MEDS: methylPREDNISolone Sod Succ 40 MG VIAL IVP SCH (08:29)
[2020-07-24] MEDS: Mometasone 200 MCG/Formoterol 5 MCG 120 PUFF INHALER INH SCH ×2 (09:12→22:11)
--- NOTE | 2020-07-24 10:41 | PQF ---
CLINICAL DOCUMENTATION CLARIFICATION FORM: Dear Dr. Brett KEVIN Date:07/24/2020 Please exercise your independent, professional judgment in responding to the clarification form. Clinical indicators are provided on the bottom of this form for your review. Please check appropriate box(es): [ X ] Protein Calorie Malnutrition: [ ] Mild [ x ] Moderate [ ] Severe [ ] Other Malnutrition (please specify) [ ] Underweight without malnutrition [ ] Cachexia [ ] Other diagnosis [ ] Unable to determine In addition, please specify: Present on Admission (POA): [ X ] Yes [ ] No [ ] Unable to determine For continuity of documentation, please document condition throughout progress notes and discharge summary. Thank You. To be completed by CDI/Coding staff for physician review: CLINICAL INDICATORS - SIGNS / SYMPTOMS / LABS / RESULTS AND LOCATION IN MR -23.2% weight change since admit, Nutrition Diagnosis Malnutrition Related to Reduced appetite and increased needs w/ COPD As Evidenced By Severe fat and muscle depletion as orbital fat pads and clavicles; indicative of severe malnutrition in the setting of chronic illness. (RD/ 07/17) RISK FACTORS / RESULTS AND LOCATION IN MR Small bowel obstruction, COPD ( LE/PN) 07/23) TREATMENT / RESULTS AND LOCATION IN MR Dietary consult 07/17, 07/19, 07/21 Nutritional supplements (TPN) Moderate Malnutrition (in acute illness) Energy Intake: <75% of estimated energy requirement for > 7 days Weight Loss: 1-2%/1 week; 5%/ 1 month; 7.5%/3 months Other: mild body fat loss; mild muscle mass loss; mild fluid accumulation; Severe Malnutrition (in acute illness) Energy Intake: = 50% of estimated energy requirement for = 5 days Weight Loss: >2%/1 week; >5%/1 month; >7.5%/3 months Other: moderate body fat loss; moderate muscle mass loss; moderate- severe fluid accumulation; measurably reduced layup worker strength, Moderate Malnutrition (in chronic illness) Energy Intake: <75% of estimated energy requirement for =1 month Weight Loss: 5%/1 month; 7.5%/3 months; 10%/6 months; 20%/1 year Other: mild body fat loss; mild muscle mass loss; mild fluid accumulation Severe Malnutrition (in chronic illness) Energy Intake: =75% of estimated energy requirement for =1 month Weight Loss: >5%/1 month; >7.5%/3 months; >10%/6 months; >20%/1 year Other: severe body fat loss; severe muscle mass loss; severe fluid accumulation; measurably reduced layup worker strength Thank You! CDS Signature: Shell Vickers RN Phone #: [phone] Date: 07/24/2020 This is a permanent part of the Medical Record [facility]
--- NOTE | 2020-07-24 12:49 | RAD ---
ABDOMEN 1 VIEW: HISTORY: Ileus. FINDINGS: A catheter overlies the pelvis. Surgical adriana are in place. There is some persistent dilatation of multiple small bowel loops with scattered gas in the small bowel and colon. The amount of small b owel distention is slightly improved. IMPRESSION: Persistent dilated small bowel but showing some improvement. POS: RRE
--- NOTE | 2020-07-24 13:28 | PRG ---
DATE OF SERVICE: 07/24/2020 SUBJECTIVE: Ms. Beyer is postoperative day #9 following sigmoid colectomy with colostomy creation and drainage of pelvic abscess, which was causing small bowel obstruction. She has been slow to progress following surgery, which was anticipated secondary to her extremely poor preoperative medical condition. She remains on TPN. She has limited activity, although she is getting physical therapy. She has had ostomy output for the past couple of days. A full liquid diet was attempted, but the patient did not tolerate it and vomited yesterday. Nasogastric tube was apparently attempted, but not successful. She has been on IV antibiotics with the Zosyn since surgery, but these have been discontinued. She still has a drain in her abdomen which is draining a small amount of serosanguineous fluid. She denies significant abdominal pain. PHYSICAL EXAMINATION: VITAL SIGNS: On examination, she is afebrile. Pulse is 93, blood pressure 147/86. LUNGS: Clear to auscultation anteriorly. CARDIAC: Regular rate and rhythm. ABDOMEN: Mildly distended. She actually has good bowel sounds. Her incisions appeared to be healing appropriately, although she does have some drainage from her midline incision. This appears to be serosanguineous. LABORATORY DATA: Her basic metabolic panel is essentially normal. Glucose levels are well controlled. Phosphorus and magnesium are normal. Her prealbumin is up to 14 with her current TPN. Her CBC shows that her hemoglobin remained stable at 10.3. Her white blood cell count slightly elevated at 11.2, platelet count up a little bit at 409. ASSESSMENT: The patient seems stable following her sigmoid colectomy for perforated diverticulitis with abscess formation. I obtained an x-ray today that shows significant dilated loops of small bowel that are gas containing. She will be n.p.o. with ice chips for now until her bowel function is improved. We will continue TPN and physical therapy. She will clearly need placement when she is discharged. I anticipate discharge will be at earliest to the end of this week and perhaps next week. Job ID: [id number]
--- NOTE | 2020-07-24 15:48 | PDOC.HOSPP ---
- Subjective Subjective: Pt was seen and examined. Pt reports she still having abd discomfort and nausea. rpt AXR showed persistent dilated bowel loops. Diet changed to NPO by surgery - Objective Vital Signs & Weight: Vital Signs (12 hours) Temp Pulse Resp BP BP Pulse Ox 07/24/20 14:09 100 16 98 07/24/20 12:49 98.3 F 100 20 131/81 96 07/24/20 10:54 93 18 97 07/24/20 09:05 98.6 F 97 18 147/86 H 98 07/24/20 04:15 99.1 F 98 22 H 128/79 98 Weight Admit Weight 112 lb Weight 114 lb 6.4 oz Most Recent Monitor Data Heart Rate from ECG 89 NIBP 116/63 NIBP BP-Mean 80 Respiration from ECG 17 SpO2 97 I&O: 07/23/20 07/24/20 07/25/20 06:59 06:59 06:59 Intake Total 2810 1970 152 Output Total 800 130 475 Balance 2009 0563 -831 Result Diagrams: 07/24/20 05:25 07/24/20 05:25 Additional Labs: Accuchecks 07/24/20 07/23/20 07/23/20 04:27 22:54 16:49 POC Glucose 110 H 105 H 136 H Hospitalist ROS - Medication Medications: Active Medications Generic Name Dose Route Start Last Admin Trade Name Freq PRN Reason Stop Dose Admin Albuterol Sulfate 2.5 mg 07/07/20 12:05 07/16/20 23:17 Albuterol Sulfate 2.5 Mg/3 Ml Neb NEB 2.5 mg Q2H PRN Administration SOB &/or Wheezing Albuterol/Ipratropium 3 ml 07/09/20 19:00 07/24/20 14:09 Ipratropium/Albuterol Sulfate 3 Ml Neb NEB 3 ml QID-RT KASSANDRA Administration Enoxaparin Sodium 30 mg 07/19/20 21:00 07/23/20 19:19 Enoxaparin Sodium 30 Mg/0.3 Ml Syringe SC 30 mg 2100 KASSANDRA Administration Fentanyl 25 mcg 07/23/20 10:24 07/24/20 10:47 Fentanyl 100 Mcg/2 Ml Vial SLOW IVP 25 mcg Q4H PRN Administration Mild Pain (1-3) Fentanyl 50 mcg 07/23/20 10:24 07/24/20 06:25 Fentanyl 100 Mcg/2 Ml Vial SLOW IVP 50 mcg Q4H PRN Administration Moderate to Severe Pain (6-10) Hydralazine HCl 5 mg 07/07/20 04:18 07/09/20 11:55 Hydralazine 20 Mg/Ml Vial SLOW IVP 5 mg Q4H PRN Administration SBP > 140 Potassium Chloride/Dextrose/Sod Cl 1,000 mls @ 0 mls/hr 07/15/20 12:00 07/16/20 14:55 D5 0.9% Ns W/ 20 Meq Kcl IV Not Given .Q0M KASSANDRA As Directed Sodium Chloride 20 meq/ 2,284.15 mls @ 0 mls/hr 07/17/20 22:00 07/23/20 22:58 Multivitamins 10 ml/ Chromium/ IV 2,284.15 mls Copper/Manganese/Zinc 9 ml/ 2200 KASSANDRA Administration Insulin Human Regular 15 units / Potassium Chloride 20 meq/ Amino Acids/Electrolytes/ Fat Emulsion Intravenous As Directed Levothyroxine Sodium 50 mcg 07/08/20 06:00 07/24/20 06:27 Levothyroxine Sodium 50 Mcg Tab PO Not Given 0600 KASSANDRA Lorazepam 1 mg 07/16/20 15:47 07/24/20 03:08 Lorazepam 2 Mg/Ml Vial SLOW IVP 1 mg Q4H PRN Administration Anxiety/Agitation Methylprednisolone Sodium Succinate 10 mg 07/18/20 09:00 07/24/20 08:29 Methylprednisolone Sod Succ 40 Mg Vial IVP 10 mg DAILY KASSANDRA Administration Mometasone Furoate/Formoterol Fumar 2 puff 07/07/20 18:30 07/24/20 09:12 Mometasone 200 Mcg/Formoterol 5 Mcg 120 Puff Inhaler INH Not Given BID-RT KASSANDRA Montelukast Sodium 10 mg 07/07/20 21:00 07/23/20 19:19 Montelukast Sodium 10 Mg Tablet PO 10 mg QPM KASSANDRA Administration Ondansetron HCl 4 mg 07/07/20 04:01 07/24/20 10:47 Ondansetron Pf 4 Mg/2 Ml Vial IVP 4 mg Q6H PRN Administration Nausea/Vomiting Sodium Chloride 10 ml 07/15/20 21:00 07/24/20 08:30 Flush - Normal Saline 10 Ml Syringe IVF 10 ml Q12HR KASSANDRA Administration Throat Lozenges 1 chata 07/17/20 09:59 07/19/20 21:56 Cepastat Lozenges 1 Chata PO 1 chata Q1H PRN Administration Cough - Exam General Appearance: NAD Eye: PERRL ENT: normocephalic atraumatic Neck: supple Heart: RRR Respiratory: CTAB Gastrointestinal: soft, no guarding, diminished bowl sounds Skin: normal turgor Neurological: cranial nerve grossly intact Musculoskeletal: normal tone Psychiatric: normal affect, normal behavior, A&O x 3 Hosp A/P - Plan Patient is a pleasant 60 years old female who has significant past medical history of dyslipidemia, COPD on home O2 who presented to ED with complaining of nausea vomiting and abdominal discomfort. SBO - d/t abscess from sigmoid diverticulitis --s/p ex lap with sigmoid colectomy on 07/15/20 --slow to progress, post op ileus. diet changed to NPO. Pt is on TPN. cont supportive cares. --cont PT, likely will need rehab upon discharge. Hyponatremia d/t GI loss --resolved COPD, home O2 dependent --Stable, continue as needed albuterol Hypertension, essential --Resume home meds PAD --cont home meds Hypothyroidism --Continue levothyroxine
[2020-07-24 19:04] LABS: Bacteria/HPF None Seen HPF (None Seen); Bilirubin Negative (Negative); Blood, Urine Negative (Negative); Clarity Clear (Clear); Glucose, Urine (Dipstick) Normal (Negative); Ketone, Urine Negative (Negative); Leukocyte Negative Leu/uL (Negative); Nitrite Negative (Negative); Protein, Urine (Dipstick) Negative (Neg-Trace); RBC/HPF 0-3 HPF (0-3); Specific Gravity, Urine 1.008 (1.002-1.036); Squamous Epithelial None Seen HPF (0-3); Urobilinogen Normal mg/dL (Less than 2); WBC/HPF 0-3 HPF (0-3); pH, Urine 7.5 (5.0-9.0)
[2020-07-24 19:13] LABS: Urine Culture Reflex No No
[2020-07-24] MEDS: Cepastat Lozenges 1 LOZ PO PRN (20:22)
[2020-07-24] MEDS: Enoxaparin Sodium 30 MG/0.3 ML SYRINGE SC SCH (20:24)
[2020-07-24] MEDS: Montelukast Sodium 10 mg Tablet PO SCH (20:24)
[2020-07-24] MEDS: [UNRECOGNIZED DRUG - OTHER] IV SCH (22:54)
[2020-07-24] MEDS: SODIUM CHLORIDE IV SCH (22:54)
[2020-07-24] MEDS: TRACE ELEMENTS IV SCH (22:54)
[2020-07-24] MEDS: MULTIVITAMINS IV SCH (22:54)
[2020-07-25] MEDS: Fentanyl 100 MCG/2 ML VIAL SLOW IVP PRN ×5 (00:51→22:33)
[2020-07-25] MEDS: Levothyroxine Sodium 50 MCG TAB PO SCH (05:22)
--- NOTE | 2020-07-25 08:09 | PDOC.GSPN ---
Surgery Progress Note: Subj - Subjective Patient reports: pain well controlled Narrative: Ms. Beyre is a 70 year-old female with a complex past medical history including end-stage COPD who is POD #10 for sigmoid colectomy with colostomy creation and drainage of pelvic abscess which caused her SBO. Patient stated she slept on and off last night, but is not currently in any pain. She endorsed only mild discomfort with movement. She has been handling her ice-chips well without any nausea or vomiting. She remains on TPN. She did endorse trouble accepting her new status as NPO and eagerly wants to return to a normal diet. She stated she had a mild headache yesterday that resolved and some urgency associated with urination. Patient stated her PT was minimal yesterday and they only did therapy in the bed. She had previously been getting up and walking to the door. Surgery Progress Note: Obj - Vital signs Vital signs: Vital Signs - Most Recent Temp Pulse Resp BP Pulse Ox 99.5 F 96 18 125/71 95 07/24/20 20:00 07/24/20 20:00 07/24/20 20:00 07/24/20 20:00 07/24/20 20:00 - Physical Exam General: no pain, chronically ill Neck: no lymphadectomy Cardiovascular: regular rate and rhythm Abdomen: positive bowel sounds, distended Psychiatric: speech is normal Wound: drainage (drainage is present on the bandage of the midline incision), ostomy/colostomy (appeared to conatin fecal material) Surgery Progress Note: Results - Labs Result Diagrams: 07/24/20 05:25 07/24/20 05:25 Lab results: Laboratory Results - last 12 hr 07/24/20 20:32 POC Glucose 102 H Surgery Progress Note: A/P - Plan Plan: Ms. Beyer is a 70 year-old female who is POD #10 for sigmoid colectomy with colostomy creation and drainage of pelvic abscess which caused her SBO. Patient appears stable and is in no acute distress, but overall has been slow to progress post-operatively. -Continue patient NPO with TPN and allow ice-chips -Continue physical therapy, likely rehab placement after discharge -Continue DVT prophylaxis with Lovenox -Continue to monitor pain levels
[2020-07-25] MEDS: Mometasone 200 MCG/Formoterol 5 MCG 120 PUFF INHALER INH SCH ×2 (08:28→19:13)
[2020-07-25] MEDS: methylPREDNISolone Sod Succ 40 MG VIAL IVP SCH (09:37)
[2020-07-25] MEDS: Pantoprazole 40 MG VIAL IVP SCH (09:37)
--- NOTE | 2020-07-25 16:50 | PDOC.HOSPP ---
- Subjective Subjective: Seen examined at bedside. Patient still complained of some abdominal discomfort. She is currently is on n.p.o. - Objective Vital Signs & Weight: Vital Signs (12 hours) Temp Pulse Resp BP Pulse Ox 07/25/20 14:31 93 16 97 07/25/20 08:29 97 07/25/20 08:27 92 18 97 07/25/20 08:14 97.6 F 93 18 117/72 96 07/25/20 08:00 96 Weight Admit Weight 112 lb Weight 114 lb 6.4 oz Most Recent Monitor Data Heart Rate from ECG 89 NIBP 116/63 NIBP BP-Mean 80 Respiration from ECG 17 SpO2 97 I&O: 07/24/20 07/25/20 07/26/20 06:59 06:59 06:59 Intake Total 1970 1172 Output Total 130 1625 70 Balance 1840 -453 -70 Result Diagrams: 07/24/20 05:25 07/24/20 05:25 Additional Labs: Accuchecks 07/25/20 07/25/20 07/25/20 16:29 11:52 05:19 POC Glucose 112 H 113 H 105 H 07/24/20 07/24/20 20:32 17:29 POC Glucose 102 H 102 H Hospitalist ROS - Medication Medications: Active Medications Generic Name Dose Route Start Last Admin Trade Name Freq PRN Reason Stop Dose Admin Albuterol Sulfate 2.5 mg 07/07/20 12:05 07/16/20 23:17 Albuterol Sulfate 2.5 Mg/3 Ml Neb NEB 2.5 mg Q2H PRN Administration SOB &/or Wheezing Albuterol/Ipratropium 3 ml 07/09/20 19:00 07/25/20 14:31 Ipratropium/Albuterol Sulfate 3 Ml Neb NEB 3 ml QID-RT KASSANDRA Administration Enoxaparin Sodium 30 mg 07/19/20 21:00 07/24/20 20:24 Enoxaparin Sodium 30 Mg/0.3 Ml Syringe SC 30 mg 2100 KASSANDRA Administration Fentanyl 25 mcg 07/23/20 10:24 07/25/20 16:30 Fentanyl 100 Mcg/2 Ml Vial SLOW IVP 25 mcg Q4H PRN Administration Mild Pain (1-3) Fentanyl 50 mcg 07/23/20 10:24 07/25/20 05:21 Fentanyl 100 Mcg/2 Ml Vial SLOW IVP 50 mcg Q4H PRN Administration Moderate to Severe Pain (6-10) Hydralazine HCl 5 mg 07/07/20 04:18 07/09/20 11:55 Hydralazine 20 Mg/Ml Vial SLOW IVP 5 mg Q4H PRN Administration SBP > 140 Potassium Chloride/Dextrose/Sod Cl 1,000 mls @ 0 mls/hr 07/15/20 12:00 07/16/20 14:55 D5 0.9% Ns W/ 20 Meq Kcl IV Not Given .Q0M KASSANDRA As Directed Sodium Chloride 20 meq/ 2,284.15 mls @ 0 mls/hr 07/17/20 22:00 07/24/20 22:54 Multivitamins 10 ml/ Chromium/ IV 2,284.15 mls Copper/Manganese/Zinc 9 ml/ 2200 KASSANDRA Administration Insulin Human Regular 15 units / Potassium Chloride 20 meq/ Amino Acids/Electrolytes/ Fat Emulsion Intravenous As Directed Levothyroxine Sodium 50 mcg 07/08/20 06:00 07/25/20 05:22 Levothyroxine Sodium 50 Mcg Tab PO 50 mcg 0600 KASSANDRA Administration Lorazepam 1 mg 07/16/20 15:47 07/24/20 22:53 Lorazepam 2 Mg/Ml Vial SLOW IVP 1 mg Q4H PRN Administration Anxiety/Agitation Methylprednisolone Sodium Succinate 10 mg 07/18/20 09:00 07/25/20 09:37 Methylprednisolone Sod Succ 40 Mg Vial IVP 10 mg DAILY KASSANDRA Administration Mometasone Furoate/Formoterol Fumar 2 puff 07/07/20 18:30 07/25/20 08:28 Mometasone 200 Mcg/Formoterol 5 Mcg 120 Puff Inhaler INH 2 puff BID-RT KASSANDRA Administration Montelukast Sodium 10 mg 07/07/20 21:00 07/24/20 20:24 Montelukast Sodium 10 Mg Tablet PO 10 mg QPM KASSANDRA Administration Ondansetron HCl 4 mg 07/07/20 04:01 07/24/20 10:47 Ondansetron Pf 4 Mg/2 Ml Vial IVP 4 mg Q6H PRN Administration Nausea/Vomiting Pantoprazole Sodium 40 mg 07/25/20 09:00 07/25/20 09:37 Pantoprazole 40 Mg Vial IVP 40 mg DAILY KASSANDRA Administration Sodium Chloride 10 ml 07/15/20 21:00 07/25/20 09:38 Flush - Normal Saline 10 Ml Syringe IVF 10 ml Q12HR KASSANDRA Administration Throat Lozenges 1 chata 07/17/20 09:59 07/24/20 20:22 Cepastat Lozenges 1 Chata PO 1 chata Q1H PRN Administration Cough - Exam General Appearance: NAD Eye: PERRL ENT: normocephalic atraumatic Neck: supple Heart: RRR Respiratory: CTAB Gastrointestinal: non-tender, non-distended Extremities: no cyanosis Skin: normal turgor Neurological: cranial nerve grossly intact Musculoskeletal: normal tone Psychiatric: normal affect, normal behavior, A&O x 3 Hosp A/P - Plan Patient is a pleasant 60 years old female who has significant past medical history of dyslipidemia, COPD on home O2 who presented to ED with complaining of nausea vomiting and abdominal discomfort. SBO - d/t abscess from sigmoid diverticulitis --s/p ex lap with sigmoid colectomy on 07/15/20 --slow to progress, post op ileus. diet changed to NPO. Pt is on TPN. cont supportive cares. --cont PT, likely will need rehab upon discharge. CM consulted --cont routine post op mgt as per surgery Hyponatremia d/t GI loss --resolved COPD, home O2 dependent --Stable, continue as needed albuterol Hypertension, essential --Resume home meds PAD --cont home meds Hypothyroidism --Continue levothyroxine
[2020-07-25] MEDS: Enoxaparin Sodium 30 MG/0.3 ML SYRINGE SC SCH (20:34)
[2020-07-25] MEDS: Montelukast Sodium 10 mg Tablet PO SCH (20:34)
[2020-07-25] MEDS: Cepastat Lozenges 1 LOZ PO PRN ×2 (20:35→22:32)
[2020-07-25] MEDS: Lorazepam 2 MG/ML VIAL SLOW IVP PRN (20:35)
[2020-07-25] MEDS: [UNRECOGNIZED DRUG - OTHER] IV SCH (22:32)
[2020-07-25] MEDS: TRACE ELEMENTS IV SCH (22:32)
[2020-07-25] MEDS: MULTIVITAMINS IV SCH (22:32)
[2020-07-25] MEDS: SODIUM CHLORIDE IV SCH (22:32)
[2020-07-26] MEDS: Levothyroxine Sodium 50 MCG TAB PO SCH (06:00)
[2020-07-26] MEDS: Fentanyl 100 MCG/2 ML VIAL SLOW IVP PRN ×4 (06:01→21:16)
[2020-07-26 07:02] LABS: #Basophils 0.1 thou/uL (0.0-0.2); #Eosinphils 0.3 thou/uL (0.0-0.7); #Lymphocytes 1.7 thou/uL (1.20-3.40); #Monocytes 0.9 thou/uL (0.11-0.59); #Neutrophils 5.5 thou/uL (1.40-6.50); %Basophils 0.7 % (0.0-1.0); %Eosinophils 3.3 % (0.0-10.0); %Lymphocytes 19.8 % (21.0-51.0); %Monocytes 10.9 % (0.0-10.0); %Neutrophils 65.4 % (42.0-75.0); Hemoglobin 9.6 g/dL (12.0-16.0); Mean Corpuscular HGB CONC 31.6 g/dL (32.0-36.0); Mean Corpuscular Hemoglobin 29.7 pg (27.0-31.0); Mean Platelet Volume 8.1 fL (7.4-10.4); Platelet Count 368 thou/uL (130-400); RBC Distribution Width 14.1 % (11.5-14.5); Red Blood Cell (RBC) Count 3.22 mill/uL (4.20-5.40); White Blood Cell (WBC) Count 8.5 thou/uL (4.8-10.8)
[2020-07-26 07:23] LABS: Anion Gap 13 mmol/L (10-20); BUN (Urea Nitrogen) 15 mg/dL (9.8-20.1); Calc. Creatinine Clearance 82 mL/min (70-130); Calcium 8.1 mg/dL (7.8-10.44); Carbon Dioxide 29 mmol/L (23-31); Chloride 99 mmol/L (98-107); Glucose 213 mg/dL (80-115); Magnesium 1.8 mg/dL (1.6-2.6); Potassium 4.2 mmol/L (3.5-5.1); Sodium 137 mmol/L (136-145)
[2020-07-26] MEDS: methylPREDNISolone Sod Succ 40 MG VIAL IVP SCH (09:26)
[2020-07-26] MEDS: Pantoprazole 40 MG VIAL IVP SCH (09:26)
[2020-07-26] MEDS: ALPRAZolam 0.25 MG TAB PO PRN ×2 (14:59→22:27)
--- NOTE | 2020-07-26 15:04 | PRG ---
DATE OF SERVICE: 07/26/2020 SUBJECTIVE: Ms. Beyer is postoperative day #11 from sigmoid colectomy with colostomy creation and drainage of pelvic abscess. Her AYAKA drain was removed uneventfully yesterday. She was n.p.o. for about 36 hours that she had some vomiting and evidence of dilated bowel on x-ray. It is noted that she had a large volume of colostomy output (her ostomy bag is actually currently leaking). The patient denies any nausea or vomiting over the past 24 hours. She denies any significant pain. OBJECTIVE: VITAL SIGNS: On examination, she is afebrile, pulse 88, blood pressure 108/65. LUNGS: Clear to auscultation. ABDOMEN: Soft with normoactive bowel sounds. Dressing is intact on midline lower abdominal wound. There is slight opening at the superior aspect. LABORATORY DATA: CBC shows a white blood cell count of 8.5, hemoglobin is 9.6. Basic metabolic panel shows normal electrolytes. Glucose slightly elevated at 213. Magnesium and calcium are normal. ASSESSMENT: The patient is doing well following her surgery. She has had an extended ileus and difficulty progressing likely secondary to her multiple severe underlying medical problems. At this point, it appears that her ileus has resolved and I will initiate a clear liquid diet. We will continue TPN for now. Hopefully, she is participating with physical therapy. We will begin to arrange for discharge planning. Hopefully, I will be able to continue to advance diet over the next couple of days until we can discontinue her TPN. Job ID: [id number]
[2020-07-26] MEDS: Mometasone 200 MCG/Formoterol 5 MCG 120 PUFF INHALER INH SCH ×2 (16:37→19:22)
--- NOTE | 2020-07-26 16:56 | PQF ---
CLINICAL DOCUMENTATION CLARIFICATION FORM Dear Dr. Brett Galvez Date: 07/26/20 Please exercise your independent, professional judgment in responding to the clarification form. Clinical indicators are provided on the bottom of this form for your review. Please check appropriate box(es): [ X ] Acute On Chronic Respiratory Failure: [ X ] with Hypoxia [ ] with Hypercapnia [ ] Chronic Respiratory Failure only [ ] with Hypoxia [ ] with Hypercapnia [ ] Hypoxia [ ] Other diagnosis [ ] Unable to determine In addition, please specify: Present on Admission (POA): [ X ] Yes [ ] No [ ] Unable to determine For continuity of documentation, please document condition throughout progress notes and discharge summary. Thank You. To be completed by CDI/Coding staff for physician review: CLINICAL INDICATORS - SIGNS / SYMPTOMS / LABS / RESULTS AND LOCATION IN MR 07/10 RESP 07/13 PULSE 164 07/15 ABG Ph 7.30, pCO2 55.3 COPD ON HOME O2 WHO PRESENTED TO ED WITH COMPLAINING OF NAUSEA VOMITING AND ABDOMINAL DISCOMFORT. (PN/LE) 07/25 RISK FACTORS / RESULTS AND LOCATION IN MR SBO D/T ABSCESS FROM SIGMOID DIVERTICULITIS, COPD, S/P EXPLORATORY LAP WITH SIGMOID COLECTOMY ( PN/LE) 07/25 TREATMENTS / RESULTS AND LOCATION IN MR Supplemental O2 ( 07-07- present) Blood gas ( 07/06, 07/15) Acute Respiratory Failure: ABG pH < 7.35 or > 7.45; Decreased oxygen saturation (<90% room air or < 95% on oxygen); PCO2 > 50 mm Hg; PO2 < 60 mm Hg; Labored or rapid respirations ARDS: Dx Criteria [[place] ARDS]: Respiratory symptoms within one week of a known clinical insult (e.g. shock, infection, surgery, trauma) Bilateral opacities in CXR/Chest CT not due to CHF or fluid THANK YOU! CDS Signature: Shell Vickers RN Phone #: [phone] Date: 07/26/20 This is a permanent part of the Medical Record [facility]
--- NOTE | 2020-07-26 17:08 | PDOC.HOSPP ---
- Subjective Subjective: still complaints of abd discomfort. Denies nausea/vomiting. Positive for output from ostomy - Objective Vital Signs & Weight: Vital Signs (12 hours) Temp Pulse Resp BP Pulse Ox 07/26/20 08:00 98.3 F 88 16 108/65 97 Weight Admit Weight 112 lb Weight 114 lb 6.4 oz Most Recent Monitor Data Heart Rate from ECG 89 NIBP 116/63 NIBP BP-Mean 80 Respiration from ECG 17 SpO2 97 I&O: 07/25/20 07/26/20 07/27/20 06:59 06:59 06:59 Intake Total 1172 Output Total 1625 70 Balance -453 -70 Result Diagrams: 07/26/20 06:00 07/26/20 06:00 Additional Labs: Accuchecks 07/26/20 16:14 POC Glucose 101 H Radiology Reviewed by me: Yes EKG Reviewed by me: Yes Hospitalist ROS - Medication Medications: Active Medications Generic Name Dose Route Start Last Admin Trade Name Freq PRN Reason Stop Dose Admin Albuterol Sulfate 2.5 mg 07/07/20 12:05 07/16/20 23:17 Albuterol Sulfate 2.5 Mg/3 Ml Neb NEB 2.5 mg Q2H PRN Administration SOB &/or Wheezing Albuterol/Ipratropium 3 ml 07/09/20 19:00 07/26/20 16:39 Ipratropium/Albuterol Sulfate 3 Ml Neb NEB Not Given QID-RT KASSANDRA Alprazolam 0.25 mg 07/26/20 13:51 07/26/20 14:59 Alprazolam 0.25 Mg Tab PO 0.25 mg TIDPRN PRN Administration Anxiety Enoxaparin Sodium 30 mg 07/19/20 21:00 07/25/20 20:34 Enoxaparin Sodium 30 Mg/0.3 Ml Syringe SC 30 mg 2100 KASSANDRA Administration Fentanyl 25 mcg 07/23/20 10:24 07/25/20 16:30 Fentanyl 100 Mcg/2 Ml Vial SLOW IVP 25 mcg Q4H PRN Administration Mild Pain (1-3) Fentanyl 50 mcg 07/23/20 10:24 07/26/20 12:11 Fentanyl 100 Mcg/2 Ml Vial SLOW IVP 50 mcg Q4H PRN Administration Moderate to Severe Pain (6-10) Hydralazine HCl 5 mg 07/07/20 04:18 07/09/20 11:55 Hydralazine 20 Mg/Ml Vial SLOW IVP 5 mg Q4H PRN Administration SBP > 140 Potassium Chloride/Dextrose/Sod Cl 1,000 mls @ 0 mls/hr 07/15/20 12:00 07/16/20 14:55 D5 0.9% Ns W/ 20 Meq Kcl IV Not Given .Q0M AKSSANDRA As Directed Sodium Chloride 20 meq/ 2,284.15 mls @ 0 mls/hr 07/17/20 22:00 07/25/20 22:32 Multivitamins 10 ml/ Chromium/ IV 2,284.15 mls Copper/Manganese/Zinc 9 ml/ 2200 KASSANDRA Administration Insulin Human Regular 15 units / Potassium Chloride 20 meq/ Amino Acids/Electrolytes/ Fat Emulsion Intravenous As Directed Levothyroxine Sodium 50 mcg 07/08/20 06:00 07/26/20 06:00 Levothyroxine Sodium 50 Mcg Tab PO 50 mcg 0600 KASSANDRA Administration Methylprednisolone Sodium Succinate 10 mg 07/18/20 09:00 07/26/20 09:26 Methylprednisolone Sod Succ 40 Mg Vial IVP 10 mg DAILY KASSANDRA Administration Mometasone Furoate/Formoterol Fumar 2 puff 07/07/20 18:30 07/26/20 16:37 Mometasone 200 Mcg/Formoterol 5 Mcg 120 Puff Inhaler INH Not Given BID-RT KASSANDRA Montelukast Sodium 10 mg 07/07/20 21:00 07/25/20 20:34 Montelukast Sodium 10 Mg Tablet PO 10 mg QPM KASSANDRA Administration Ondansetron HCl 4 mg 07/07/20 04:01 07/24/20 10:47 Ondansetron Pf 4 Mg/2 Ml Vial IVP 4 mg Q6H PRN Administration Nausea/Vomiting Pantoprazole Sodium 40 mg 07/25/20 09:00 07/26/20 09:26 Pantoprazole 40 Mg Vial IVP 40 mg DAILY KASSANDRA Administration Sodium Chloride 10 ml 07/15/20 21:00 07/26/20 09:28 Flush - Normal Saline 10 Ml Syringe IVF 10 ml Q12HR KASSANDRA Administration Throat Lozenges 1 chata 07/17/20 09:59 07/25/20 22:32 Cepastat Lozenges 1 Chata PO 1 chata Q1H PRN Administration Cough - Exam General Appearance: NAD Eye: PERRL ENT: normocephalic atraumatic Neck: supple Heart: RRR Gastrointestinal: soft Extremities: no cyanosis Skin: normal turgor Neurological: cranial nerve grossly intact Musculoskeletal: normal tone, normal strength Hosp A/P - Plan Patient is a pleasant 60 years old female who has significant past medical history of dyslipidemia, COPD on home O2 who presented to ED with complaining of nausea vomiting and abdominal discomfort. SBO - d/t abscess from sigmoid diverticulitis --s/p ex lap with sigmoid colectomy on 07/15/20 --slow to progress, post op ileus. Pt is on TPN. cont supportive cares. --cont PT, CM consulted for inpt rehab --cont routine post op mgt as per surgery Hyponatremia d/t GI loss --resolved COPD, home O2 dependent --Stable, continue as needed albuterol Hypertension, essential --Resume home meds PAD --cont home meds Hypothyroidism --Continue levothyroxine
[2020-07-26] MEDS: Montelukast Sodium 10 mg Tablet PO SCH (21:16)
[2020-07-26] MEDS: Enoxaparin Sodium 30 MG/0.3 ML SYRINGE SC SCH (21:16)
[2020-07-26] MEDS: TRACE ELEMENTS IV SCH (22:27)
[2020-07-26] MEDS: SODIUM CHLORIDE IV SCH (22:27)
[2020-07-26] MEDS: [UNRECOGNIZED DRUG - OTHER] IV SCH (22:27)
[2020-07-26] MEDS: MULTIVITAMINS IV SCH (22:27)
[2020-07-27] MEDS: Fentanyl 100 MCG/2 ML VIAL SLOW IVP PRN ×5 (02:04→22:30)
[2020-07-27] MEDS: ALPRAZolam 0.25 MG TAB PO PRN ×3 (05:15→22:29)
[2020-07-27] MEDS: Levothyroxine Sodium 50 MCG TAB PO SCH (05:17)
[2020-07-27] MEDS: Mometasone 200 MCG/Formoterol 5 MCG 120 PUFF INHALER INH SCH ×2 (08:22→18:39)
[2020-07-27] MEDS: Pantoprazole 40 MG VIAL IVP SCH (08:58)
[2020-07-27] MEDS: methylPREDNISolone Sod Succ 40 MG VIAL IVP SCH (08:58)
--- NOTE | 2020-07-27 11:05 | RAD ---
EXAM: XR Abdomen 2 View PROVIDED CLINICAL HISTORY: Ileus, pain COMPARISON: 07/24/2020 FINDINGS: Visualized lung bases appear clear. There is no evidence for pneumoperitoneum. Multiple gas-filled lo ops of dilated bowel are redemonstrated, similar to prior. Differential air-fluid levels are seen on the upright study. Skin adriana overlie the abdomen. IMPRESSION: Persistent gas-filled, dilated loops of small bowel with differential air-fluid levels suggesting ile us or obstruction.
--- NOTE | 2020-07-27 16:04 | PRG ---
DATE OF SERVICE: 07/27/2020 SUBJECTIVE: Ms. Beyer is postoperative day #12 from sigmoid colectomy with colostomy creation and drainage of pelvic abscess. AYAKA drain was removed a couple of days ago. She did vomit a couple of days ago and was made n.p.o. She has not vomited subsequently. She tolerated clear liquids yesterday. She has had good colostomy output. She denies nausea or vomiting. An abdominal x-ray was obtained today, which shows persistent dilated loops of small bowel. There was also noted to be a good amount of gas within the colon, however. The patient denies nausea, vomiting, or significant pain. She has been instructed in colostomy function currently. OBJECTIVE: VITAL SIGNS: She is afebrile. Pulse is in the 90s and stable. Blood pressure 108/68. LUNGS: Clear to auscultation. ABDOMEN: Soft. Bowel sounds are present and normoactive. There is a certain amount of tympany to the bowel sounds. EXTREMITIES: Unremarkable. LABORATORY DATA: She did not have any other labs drawn today. ASSESSMENT: The patient is stable, awaiting appropriate bowel function following surgery for a small bowel obstruction. I am uncertain whether she still has some component of resolving ileus or perhaps a recurrent obstructive process. She continues on TPN now. Since she has been tolerating clear liquids and so has bowel function per her colostomy, I will advance her to full liquids and see how she does. She is chronically ill and unable to participate significantly in much physical therapy. Hopefully, we will be able to advance her diet, wean her TPN, and discharge her to a rehabilitation facility in the near future. Job ID: [id number]
--- NOTE | 2020-07-27 16:25 | PDOC.FMACP ---
Advance Care Planning - Problem (1) Palliative care encounter Status: Acute Code(s): Z51.5 - ENCOUNTER FOR PALLIATIVE CARE (2) Acute diverticulitis Status: Acute Code(s): K57.92 - DVTRCLI OF INTEST, PART UNSP, W/O PERF OR ABSCESS W/O BLEED (3) SBO (small bowel obstruction) Status: Acute Code(s): K56.609 - UNSP INTESTNL OBST, UNSP TO PARTIAL VERSUS COMPLETE OBST (4) COPD exacerbation Status: Acute Code(s): J44.1 - CHRONIC OBSTRUCTIVE PULMONARY DISEASE W (ACUTE) EXACERBATION - Note Participants: patient, family, palliative care Summary: Palliative care addressed Advanced Care Planning. The diagnosis, prognosis and goals of care were discussed. Appropriate forms and documentation to accomplish the goals of care were discussed. All questions were answered. Elected to transition to [facility] and complete OOHDNAR, confirmed MPOA. Patient desires to seek transition of care in rehab setting. Resistant to caring for Colostomy, will pay a caregiver if she needs to as per patient. Please also refer to Palliative care notes in note section. Palliative care will sign off as goal of care has been discussed and identified, directives addressed as noted above. Thank you for this very appropriate consult. Time Spent (mins): 20
--- NOTE | 2020-07-27 16:50 | PDOC.HOSPP ---
- Subjective Subjective: still complaints of ongoing discomfort. Positive for ostomy output and is tolerating clear liquid. however, cont to complaints of ongoing pain. - Objective Vital Signs & Weight: Vital Signs (12 hours) Temp Pulse Resp BP Pulse Ox 07/27/20 14:19 97 16 95 07/27/20 11:20 94 16 94 L 07/27/20 08:22 93 16 93 L 07/27/20 08:00 98.0 F 93 18 108/68 94 L Weight Admit Weight 112 lb Weight 114 lb 6.4 oz Most Recent Monitor Data Heart Rate from ECG 89 NIBP 116/63 NIBP BP-Mean 80 Respiration from ECG 17 SpO2 97 I&O: 07/26/20 07/27/20 07/28/20 06:59 06:59 06:59 Output Total 70 Balance -70 Result Diagrams: 07/26/20 06:00 07/26/20 06:00 Additional Labs: Accuchecks 07/27/20 07/27/20 07/26/20 16:09 05:45 21:20 POC Glucose 105 H 94 93 Radiology Reviewed by me: Yes EKG Reviewed by me: Yes Hospitalist ROS - Medication Medications: Active Medications Generic Name Dose Route Start Last Admin Trade Name Freq PRN Reason Stop Dose Admin Albuterol Sulfate 2.5 mg 07/07/20 12:05 07/16/20 23:17 Albuterol Sulfate 2.5 Mg/3 Ml Neb NEB 2.5 mg Q2H PRN Administration SOB &/or Wheezing Albuterol/Ipratropium 3 ml 07/09/20 19:00 07/27/20 14:19 Ipratropium/Albuterol Sulfate 3 Ml Neb NEB 3 ml QID-RT KASSANDRA Administration Alprazolam 0.5 mg 07/27/20 09:13 07/27/20 14:47 Alprazolam 0.25 Mg Tab PO 0.5 mg TIDPRN PRN Administration Anxiety Enoxaparin Sodium 30 mg 07/19/20 21:00 07/26/20 21:16 Enoxaparin Sodium 30 Mg/0.3 Ml Syringe SC 30 mg 2100 KASSANDRA Administration Fentanyl 25 mcg 07/23/20 10:24 07/25/20 16:30 Fentanyl 100 Mcg/2 Ml Vial SLOW IVP 25 mcg Q4H PRN Administration Mild Pain (1-3) Fentanyl 50 mcg 07/23/20 10:24 07/27/20 14:42 Fentanyl 100 Mcg/2 Ml Vial SLOW IVP 50 mcg Q4H PRN Administration Moderate to Severe Pain (6-10) Hydralazine HCl 5 mg 07/07/20 04:18 07/09/20 11:55 Hydralazine 20 Mg/Ml Vial SLOW IVP 5 mg Q4H PRN Administration SBP > 140 Potassium Chloride/Dextrose/Sod Cl 1,000 mls @ 0 mls/hr 07/15/20 12:00 07/16/20 14:55 D5 0.9% Ns W/ 20 Meq Kcl IV Not Given .Q0M KASSANDRA As Directed Sodium Chloride 20 meq/ 2,284.15 mls @ 0 mls/hr 07/17/20 22:00 07/26/20 22:27 Multivitamins 10 ml/ Chromium/ IV 2,284.15 mls Copper/Manganese/Zinc 9 ml/ 2200 KASSANDRA Administration Insulin Human Regular 15 units / Potassium Chloride 20 meq/ Amino Acids/Electrolytes/ Fat Emulsion Intravenous As Directed Levothyroxine Sodium 50 mcg 07/08/20 06:00 07/27/20 05:17 Levothyroxine Sodium 50 Mcg Tab PO 50 mcg 0600 KASSANDRA Administration Methylprednisolone Sodium Succinate 10 mg 07/18/20 09:00 07/27/20 08:58 Methylprednisolone Sod Succ 40 Mg Vial IVP 10 mg DAILY KASSANDRA Administration Mometasone Furoate/Formoterol Fumar 2 puff 07/07/20 18:30 07/27/20 08:22 Mometasone 200 Mcg/Formoterol 5 Mcg 120 Puff Inhaler INH 2 puff BID-RT KASSANDRA Administration Montelukast Sodium 10 mg 07/07/20 21:00 07/26/20 21:16 Montelukast Sodium 10 Mg Tablet PO 10 mg QPM KASSANDRA Administration Ondansetron HCl 4 mg 07/07/20 04:01 07/24/20 10:47 Ondansetron Pf 4 Mg/2 Ml Vial IVP 4 mg Q6H PRN Administration Nausea/Vomiting Pantoprazole Sodium 40 mg 07/25/20 09:00 07/27/20 08:58 Pantoprazole 40 Mg Vial IVP 40 mg DAILY KASSANDRA Administration Sodium Chloride 10 ml 07/15/20 21:00 07/27/20 09:11 Flush - Normal Saline 10 Ml Syringe IVF 10 ml Q12HR KASSANDRA Administration Throat Lozenges 1 chata 07/17/20 09:59 07/25/20 22:32 Cepastat Lozenges 1 Chata PO 1 chata Q1H PRN Administration Cough - Exam General Appearance: NAD Eye: PERRL ENT: normocephalic atraumatic Neck: supple Heart: RRR Respiratory: CTAB Gastrointestinal: soft, tender to palpation Gastrointestinal - other findings: + ostomy Skin: normal turgor Neurological: cranial nerve grossly intact Musculoskeletal: normal tone Psychiatric: normal affect, normal behavior, A&O x 3 Hosp A/P - Plan Patient is a pleasant 60 years old female who has significant past medical history of dyslipidemia, COPD on home O2 who presented to ED with complaining of nausea vomiting and abdominal discomfort. SBO - d/t abscess from sigmoid diverticulitis --s/p ex lap with sigmoid colectomy on 07/15/20 --slow to progress, post op ileus. Pt is on TPN. cont supportive cares. --cont PT, CM consulted for inpt rehab --cont routine post op mgt as per surgery, diet advanced to full by surgery --rpt AXR today, encouraged increase activity Hyponatremia d/t GI loss --resolved COPD, home O2 dependent --Stable, continue as needed albuterol Hypertension, essential --Resume home meds PAD --cont home meds Hypothyroidism --Continue levothyroxine
[2020-07-27] MEDS: Enoxaparin Sodium 30 MG/0.3 ML SYRINGE SC SCH (21:19)
[2020-07-27] MEDS: Metoclopramide HCl 10 MG/2 ML VIAL IVP SCH (21:20)
[2020-07-27] MEDS: Montelukast Sodium 10 mg Tablet PO SCH (21:21)
[2020-07-27] MEDS: Temazepam 15 MG CAP PO SCH (22:29)
[2020-07-27] MEDS: [UNRECOGNIZED DRUG - OTHER] IV SCH (23:23)
[2020-07-27] MEDS: MULTIVITAMINS IV SCH (23:23)
[2020-07-27] MEDS: TRACE ELEMENTS IV SCH (23:23)
[2020-07-27] MEDS: SODIUM CHLORIDE IV SCH (23:23)
[2020-07-28] MEDS: Fentanyl 100 MCG/2 ML VIAL SLOW IVP PRN ×2 (03:12→07:20)
[2020-07-28] MEDS: Levothyroxine Sodium 50 MCG TAB PO SCH (05:39)
[2020-07-28] MEDS: ALPRAZolam 0.25 MG TAB PO PRN ×3 (06:07→22:09)
[2020-07-28 06:38] LABS: #Eosinphils 0.2 thou/uL (0.0-0.7); #Lymphocytes 1.7 thou/uL (1.20-3.40); #Monocytes 1.2 thou/uL (0.11-0.59); #Neutrophils 5.7 thou/uL (1.40-6.50); %Basophils 0.5 % (0.0-1.0); %Eosinophils 2.8 % (0.0-10.0); %Lymphocytes 19.1 % (21.0-51.0); %Monocytes 13.2 % (0.0-10.0); %Neutrophils 64.4 % (42.0-75.0); Hemoglobin 10.8 g/dL (12.0-16.0); Mean Corpuscular HGB CONC 32.3 g/dL (32.0-36.0); Mean Corpuscular Hemoglobin 30.3 pg (27.0-31.0); Mean Corpuscular Volume 93.6 fL (78.0-98.0); Mean Platelet Volume 8.1 fL (7.4-10.4); Platelet Count 398 thou/uL (130-400); RBC Distribution Width 14.5 % (11.5-14.5); Red Blood Cell (RBC) Count 3.58 mill/uL (4.20-5.40); White Blood Cell (WBC) Count 8.8 thou/uL (4.8-10.8)
[2020-07-28] MEDS: Metoclopramide HCl 10 MG/2 ML VIAL IVP SCH (06:39)
[2020-07-28 06:55] LABS: Phosphorus 4.3 mg/dL (2.3-4.7)
[2020-07-28 07:02] LABS: Anion Gap 8 mmol/L (10-20); BUN (Urea Nitrogen) 13 mg/dL (9.8-20.1); Calc. Creatinine Clearance 91 mL/min (70-130); Calcium 8.3 mg/dL (7.8-10.44); Carbon Dioxide 34 mmol/L (23-31); Chloride 101 mmol/L (98-107); Glucose 76 mg/dL (80-115); Magnesium 1.7 mg/dL (1.6-2.6); Potassium 3.6 mmol/L (3.5-5.1); Sodium 139 mmol/L (136-145)
[2020-07-28] MEDS: Mometasone 200 MCG/Formoterol 5 MCG 120 PUFF INHALER INH SCH ×2 (08:06→19:50)
[2020-07-28] MEDS: Pantoprazole 40 MG VIAL IVP SCH (08:22)
[2020-07-28] MEDS: methylPREDNISolone Sod Succ 40 MG VIAL IVP SCH (08:22)
[2020-07-28] MEDS ORDERED: HYDROcodone/Acetaminophen 5/325 mg Tablet PO PRN ×2 (08:58→20:14)
--- NOTE | 2020-07-28 09:21 | PRG ---
DATE OF SERVICE: 07/28/2020 SUBJECTIVE: Ms. Beyer is postoperative day #13 from sigmoid colectomy with colostomy creation and drainage of pelvic abscess as treatment of underlying small bowel obstruction. She remains on the medical floor. She was advanced to full liquid diet yesterday, which she tolerated nicely. She tells me she has appropriate appetite. She denies any nausea or vomiting. She still has good colostomy function. She is exercising with the walking team and physical therapy. She is voiding well. She still complains of some abdominal discomfort. PHYSICAL EXAMINATION: VITAL SIGNS: She is afebrile. Pulse is 80s to 90s and regular. Blood pressure is currently 97/61. LUNGS: Clear. ABDOMEN: Benign with normoactive bowel sounds. LABORATORY DATA: Her basic metabolic panel is essentially unremarkable. Her creatinine is stable at 0.48. Prealbumin is stable at 14. ASSESSMENT: She is doing well following her surgery. Her very poor underlying medical condition has led to significantly prolonged hospital stay, although there has been no postoperative problems or complications. Since she is now tolerating her diet, I will wean off her TPN. It will be discontinued after her current bag expires. I will advance her up to a regular diet as she has tolerated a full liquid diet. She is not on any antibiotics and does not require any at this time. Her medications will be changed to oral medications. Hopefully, she will continue to make progress in regard to her activity and nutrition. She is certainly not stable for discharge at this time, but I believe she will be ready for discharge and transfer to an assisted living/fpc/rehab type facility this next week. Job ID: [id number]
[2020-07-28] MEDS: Metoclopramide HCl 10 MG TAB PO SCH ×3 (11:50→20:13)
--- NOTE | 2020-07-28 17:16 | PDOC.HOSPP ---
- Subjective Subjective: doing much better today, rested well. states restoril helped. tolerated full liquid diet. pain improved. she made some significant progress last couple days - Objective Vital Signs & Weight: Vital Signs (12 hours) Temp Pulse Resp BP Pulse Ox 07/28/20 15:38 100 20 07/28/20 11:14 84 20 07/28/20 08:03 84 24 H 07/28/20 08:00 97.7 F 90 20 97/61 91 L 07/28/20 06:51 81 20 100 Weight Admit Weight 112 lb Weight 114 lb 6.4 oz Most Recent Monitor Data Heart Rate from ECG 89 NIBP 116/63 NIBP BP-Mean 80 Respiration from ECG 17 SpO2 97 I&O: 07/27/20 07/28/20 07/29/20 06:59 06:59 06:59 Intake Total 600 Balance 600 Result Diagrams: 07/28/20 06:10 07/28/20 06:10 Additional Labs: Accuchecks 07/28/20 07/28/20 07/28/20 16:46 11:21 06:38 POC Glucose 94 79 77 07/27/20 07/26/20 07/26/20 19:37 11:55 05:59 POC Glucose 100 114 H 82 07/26/20 05:58 POC Glucose 241 H Radiology Reviewed by me: Yes EKG Reviewed by me: Yes Hospitalist ROS - Medication Medications: Active Medications Generic Name Dose Route Start Last Admin Trade Name Freq PRN Reason Stop Dose Admin Hydrocodone Bitart/Acetaminophen 1 tab 07/28/20 08:58 07/28/20 09:32 Hydrocodone/Acetaminophen 5/325 Mg Tablet PO 1 tab Q4H PRN Administration Mild-Moderate Pain (1-5) Albuterol Sulfate 2.5 mg 07/07/20 12:05 07/16/20 23:17 Albuterol Sulfate 2.5 Mg/3 Ml Neb NEB 2.5 mg Q2H PRN Administration SOB &/or Wheezing Albuterol/Ipratropium 3 ml 07/09/20 19:00 07/28/20 15:38 Ipratropium/Albuterol Sulfate 3 Ml Neb NEB 3 ml QID-RT KASSANDRA Administration Alprazolam 0.5 mg 07/27/20 09:13 07/28/20 14:35 Alprazolam 0.25 Mg Tab PO 0.5 mg TIDPRN PRN Administration Anxiety Enoxaparin Sodium 30 mg 07/19/20 21:00 07/27/20 21:19 Enoxaparin Sodium 30 Mg/0.3 Ml Syringe SC 30 mg 2100 KASSANDRA Administration Hydralazine HCl 5 mg 07/07/20 04:18 07/09/20 11:55 Hydralazine 20 Mg/Ml Vial SLOW IVP 5 mg Q4H PRN Administration SBP > 140 Potassium Chloride/Dextrose/Sod Cl 1,000 mls @ 0 mls/hr 07/15/20 12:00 07/16/20 14:55 D5 0.9% Ns W/ 20 Meq Kcl IV Not Given .Q0M KASSANDRA As Directed Sodium Chloride 20 meq/ 2,284.15 mls @ 40 mls/hr 07/17/20 22:00 07/27/20 23:23 Multivitamins 10 ml/ Chromium/ IV 07/28/20 23:59 2,284.15 mls Copper/Manganese/Zinc 9 ml/ 2200 KASSANDRA Administration Insulin Human Regular 15 units / Potassium Chloride 20 meq/ Amino Acids/Electrolytes/ Fat Emulsion Intravenous As Directed Levothyroxine Sodium 50 mcg 07/08/20 06:00 07/28/20 05:39 Levothyroxine Sodium 50 Mcg Tab PO 50 mcg 0600 KASSANDRA Administration Methylprednisolone Sodium Succinate 10 mg 07/18/20 09:00 07/28/20 08:22 Methylprednisolone Sod Succ 40 Mg Vial IVP 10 mg DAILY KASSANDRA Administration Metoclopramide HCl 10 mg 07/28/20 11:30 07/28/20 11:50 Metoclopramide Hcl 10 Mg Tab PO 10 mg ACHS KASSANDRA Administration Mometasone Furoate/Formoterol Fumar 2 puff 07/07/20 18:30 07/28/20 08:06 Mometasone 200 Mcg/Formoterol 5 Mcg 120 Puff Inhaler INH 2 puff BID-RT KASSANDRA Administration Montelukast Sodium 10 mg 07/07/20 21:00 07/27/20 21:21 Montelukast Sodium 10 Mg Tablet PO 10 mg QPM KASSANDRA Administration Ondansetron HCl 4 mg 07/07/20 04:01 07/24/20 10:47 Ondansetron Pf 4 Mg/2 Ml Vial IVP 4 mg Q6H PRN Administration Nausea/Vomiting Sodium Chloride 10 ml 07/15/20 21:00 07/28/20 08:30 Flush - Normal Saline 10 Ml Syringe IVF 10 ml Q12HR KASSANDRA Administration Temazepam 15 mg 07/27/20 21:00 07/27/20 22:29 Temazepam 15 Mg Cap PO 15 mg HS KASSANDRA Administration Throat Lozenges 1 chata 07/17/20 09:59 07/25/20 22:32 Cepastat Lozenges 1 Chata PO 1 chata Q1H PRN Administration Cough - Exam General Appearance: NAD Eye: PERRL ENT: normocephalic atraumatic Neck: supple Heart: RRR, no murmur Respiratory: CTAB Gastrointestinal: soft Extremities: no cyanosis Skin: normal turgor Neurological: cranial nerve grossly intact Psychiatric: normal affect, normal behavior, A&O x 3 Hosp A/P - Plan Patient is a pleasant 70 years old female who has significant past medical history of dyslipidemia, COPD on home O2 who presented to ED with complaining of nausea vomiting and abdominal discomfort. Initial CT on admission was unremarkable. However, rpt CT abd/pel showed mod to severe SBO. Pt subsequently underwent surgery with sigmoid colectomy on 07/15/20 d/t abscess from sigmoid diverticulitis. Pt tolerated procedure well. Slow to progress at first, however, made significant progress in last few days. Electrolyte with hyponatremia has been corrected. Pt is deconditioned from prolonged hospital stay and likely will need transition to inpt rehab. CM consulted. SBO - d/t abscess from sigmoid diverticulitis --s/p ex lap with sigmoid colectomy on 07/15/20 --slow to progress, post op ileus. Pt is on TPN, currently being wean off as her diet now improved. --cont PT, CM consulted for inpt rehab --pt has made significant progress last few days. Diet advanced by surgery --Hopefully transition to inpt rehab early next week. --cont supportive cares. Hyponatremia d/t GI loss --resolved COPD, home O2 dependent --Stable, continue as needed albuterol Hypertension, essential --Resume home meds PAD --cont home meds Hypothyroidism --Continue levothyroxine
[2020-07-28] MEDS: Enoxaparin Sodium 30 MG/0.3 ML SYRINGE SC SCH (20:13)
[2020-07-28] MEDS: Montelukast Sodium 10 mg Tablet PO SCH (20:13)
[2020-07-28] MEDS ORDERED: Morphine 2 MG/ML VIAL SLOW IVP SCH (20:30)
[2020-07-28] MEDS: Temazepam 15 MG CAP PO SCH (22:09)
[2020-07-28] MEDS: [UNRECOGNIZED DRUG - OTHER] IV SCH (22:53)
[2020-07-28] MEDS: MULTIVITAMINS IV SCH (22:53)
[2020-07-28] MEDS: SODIUM CHLORIDE IV SCH (22:53)
[2020-07-28] MEDS: TRACE ELEMENTS IV SCH (22:53)
[2020-07-29] MEDS: Morphine 2 MG/ML VIAL SLOW IVP PRN ×3 (01:13→22:00)
[2020-07-29] MEDS: ALPRAZolam 0.25 MG TAB PO PRN ×3 (04:33→22:20)
[2020-07-29] MEDS: Levothyroxine Sodium 50 MCG TAB PO SCH (06:30)
[2020-07-29] MEDS: Metoclopramide HCl 10 MG TAB PO SCH ×4 (06:30→20:40)
[2020-07-29] MEDS: Mometasone 200 MCG/Formoterol 5 MCG 120 PUFF INHALER INH SCH ×2 (08:03→19:37)
[2020-07-29] MEDS: methylPREDNISolone Sod Succ 40 MG VIAL IVP SCH (09:22)
[2020-07-29 11:39] LABS: Anion Gap 19 mmol/L (10-20); BUN (Urea Nitrogen) 10 mg/dL (9.8-20.1); Calc. Creatinine Clearance 70 mL/min (70-130); Calcium 7.8 mg/dL (7.8-10.44); Carbon Dioxide 26 mmol/L (23-31); Chloride 96 mmol/L (98-107); Glucose 86 mg/dL (80-115); Magnesium 1.5 mg/dL (1.6-2.6); Phosphorus 13.1 mg/dL (2.3-4.7); Potassium 3.4 mmol/L (3.5-5.1); Sodium 138 mmol/L (136-145)
--- NOTE | 2020-07-29 13:14 | PRG ---
DATE OF SERVICE: 07/29/2020 SUBJECTIVE: Ms. Beyer is postoperative day #14 from sigmoid colectomy with colostomy creation. She presented with a small-bowel obstruction that was secondary to a diverticular abscess. It has taken her quite a while to recover appropriately. Her TPN was just discontinued yesterday and she is tolerating a solid diet. She is hungry and anxious to eat. She has good colostomy function. She denies any nausea or vomiting. She is ambulating with physical therapy and urinating without problems. PHYSICAL EXAMINATION: VITAL SIGNS: She is afebrile, pulse is in the 90s, and blood pressure 128/74. LUNGS: Clear to auscultation. ABDOMEN: Soft. She has some mild drainage from the superior aspect of her lower midline abdominal incision. Bowel sounds are present and normoactive. There is no focal tenderness. LABORATORY DATA: There is no CBC from today. Her chemistry profile was obtained and apparently shows an elevated phosphorus level of 13. This is almost certainly a laboratory error. ASSESSMENT: She is doing well following her surgery. She, of course, has chronic medical problems dominated by chronic obstructive pulmonary disease that is steroid and oxygen dependent. Since she is now tolerating diet with good colostomy function, then she should be stable for discharge on Friday or Friday (today is Friday). She has been changed to all oral medications except for her methylprednisolone, which I will change today. I will see her on Friday. Job ID: [id number]
--- NOTE | 2020-07-29 13:56 | PDOC.HOSPP ---
- Subjective Encounter Date: 07/29/20 (f/u bowel obstruction) Encounter Time: 13:55 Subjective: Patient is a 70 years old female who has significant past medical history of dyslipidemia, COPD on home O2 who presented to ED with complaining of nausea vomiting and abdominal discomfort. Initial CT on admission was unremarkable. However, rpt CT abd/pel showed mod to severe SBO. Pt subsequently underwent surgery with sigmoid colectomy on 07/15/20 d/t abscess from sigmoid diverticulitis. Pt tolerated procedure well. Slow to progress at first, however, made significant progress in last few days. Pt is deconditioned from prolonged hospital stay and likely will need transition to inpt rehab. CM consulted. Pt is overall feeling better today. Breathing is better than at home - states due to no allergies. She has some surgical pain, denies anything new. Reports to the RN that edward doesnt work and received 1 dose of morphine. Per home med list pt takes tramadol at home. - Objective Vital Signs & Weight: Vital Signs (12 hours) Temp Pulse Resp BP BP Pulse Ox 07/29/20 11:54 91 16 98 07/29/20 08:23 98.1 F 98 20 128/74 97 07/29/20 08:04 98 18 97 07/29/20 08:00 94 L 07/29/20 05:30 98.5 F 87 18 128/74 96 Weight Admit Weight 112 lb Weight 114 lb 6.4 oz Most Recent Monitor Data Heart Rate from ECG 89 NIBP 116/63 NIBP BP-Mean 80 Respiration from ECG 17 SpO2 97 I&O: 07/28/20 07/29/20 07/30/20 06:59 06:59 06:59 Intake Total 2200 240 Output Total 2600 Balance -400 240 Result Diagrams: 07/28/20 06:10 07/29/20 10:55 Additional Labs: Accuchecks 07/29/20 07/28/20 04:05 16:46 POC Glucose 83 94 Hospitalist ROS - Medication Medications: Active Medications Generic Name Dose Route Start Last Admin Trade Name Freq PRN Reason Stop Dose Admin Hydrocodone Bitart/Acetaminophen 1 tab 07/28/20 08:58 07/28/20 09:32 Hydrocodone/Acetaminophen 5/325 Mg Tablet PO 1 tab Q4H PRN Administration Mild-Moderate Pain (1-5) Albuterol Sulfate 2.5 mg 12/18/20 12:05 07/16/20 23:17 Albuterol Sulfate 2.5 Mg/3 Ml Neb NEB 2.5 mg Q2H PRN Administration SOB &/or Wheezing Albuterol/Ipratropium 3 ml 07/09/20 19:00 07/29/20 11:54 Ipratropium/Albuterol Sulfate 3 Ml Neb NEB 3 ml QID-RT KASSANDRA Administration Alprazolam 0.5 mg 07/27/20 09:13 07/29/20 04:33 Alprazolam 0.25 Mg Tab PO 0.5 mg TIDPRN PRN Administration Anxiety Enoxaparin Sodium 30 mg 07/19/20 21:00 07/28/20 20:13 Enoxaparin Sodium 30 Mg/0.3 Ml Syringe SC 30 mg 2100 KASSANDRA Administration Hydralazine HCl 5 mg 07/07/20 04:18 07/09/20 11:55 Hydralazine 20 Mg/Ml Vial SLOW IVP 5 mg Q4H PRN Administration SBP > 140 Potassium Chloride/Dextrose/Sod Cl 1,000 mls @ 0 mls/hr 07/15/20 12:00 07/16/20 14:55 D5 0.9% Ns W/ 20 Meq Kcl IV Not Given .Q0M KASSANDRA As Directed Levothyroxine Sodium 50 mcg 07/08/20 06:00 07/29/20 06:30 Levothyroxine Sodium 50 Mcg Tab PO 50 mcg 0600 KASSANDRA Administration Metoclopramide HCl 10 mg 07/28/20 11:30 07/29/20 12:51 Metoclopramide Hcl 10 Mg Tab PO 10 mg ACHS KASSANDRA Administration Mometasone Furoate/Formoterol Fumar 2 puff 07/07/20 18:30 07/29/20 08:03 Mometasone 200 Mcg/Formoterol 5 Mcg 120 Puff Inhaler INH 2 puff BID-RT KASSANDRA Administration Montelukast Sodium 10 mg 07/07/20 21:00 07/28/20 20:13 Montelukast Sodium 10 Mg Tablet PO 10 mg QPM KASSANDRA Administration Ondansetron HCl 4 mg 07/07/20 04:01 07/24/20 10:47 Ondansetron Pf 4 Mg/2 Ml Vial IVP 4 mg Q6H PRN Administration Nausea/Vomiting Pantoprazole Sodium 40 mg 07/29/20 09:00 07/29/20 09:21 Pantoprazole 40 Mg Tab PO 40 mg DAILY KASSANDRA Administration Sodium Chloride 10 ml 07/15/20 21:00 07/29/20 09:26 Flush - Normal Saline 10 Ml Syringe IVF 10 ml Q12HR KASSANDRA Administration Temazepam 15 mg 07/27/20 21:00 07/28/20 22:09 Temazepam 15 Mg Cap PO 15 mg HS KASSANDRA Administration Throat Lozenges 1 chata 07/17/20 09:59 07/25/20 22:32 Cepastat Lozenges 1 Chata PO 1 chata Q1H PRN Administration Cough - Exam General Appearance: NAD Heart: RRR, no murmur Respiratory: no wheezes, no rales, no ronchi Respiratory - other findings: good air movement Gastrointestinal: soft, normal bowel sounds Gastrointestinal - other findings: no tenderness with light palpation Extremities: no cyanosis, no clubbing, no edema Psychiatric: normal affect Hosp A/P (1) Acute and chronic respiratory failure with hypoxia Code(s): J96.21 - ACUTE AND CHRONIC RESPIRATORY FAILURE WITH HYPOXIA Status: Acute (2) Acute diverticulitis Code(s): K57.92 - DVTRCLI OF INTEST, PART UNSP, W/O PERF OR ABSCESS W/O BLEED Status: Resolved (3) SBO (small bowel obstruction) Code(s): K56.609 - UNSP INTESTNL OBST, UNSP TO PARTIAL VERSUS COMPLETE OBST Status: Resolved (4) Acute and chronic respiratory failure Code(s): J96.20 - ACUTE AND CHR RESP FAILURE, UNSP W HYPOXIA OR HYPERCAPNIA Status: Acute Qualifiers: Respiratory failure complication: hypoxia and hypercapnia Qualified Code(s): J96.21 - Acute and chronic respiratory failure with hypoxia; J96.22 - Acute and chronic respiratory failure with hypercapnia; J96.22 - Acute and chronic respiratory failure with hypercapnia; J96.22 - Acute and chronic respiratory failure with hypercapnia (5) COPD exacerbation Code(s): J44.1 - CHRONIC OBSTRUCTIVE PULMONARY DISEASE W (ACUTE) EXACERBATION Status: Acute (6) Hyponatremia Code(s): E87.1 - HYPO-OSMOLALITY AND HYPONATREMIA Status: Acute (7) Hypothyroidism Code(s): E03.9 - HYPOTHYROIDISM, UNSPECIFIED Status: Chronic Qualifiers: Hypothyroidism type: unspecified (8) PVD (peripheral vascular disease) Code(s): I73.9 - PERIPHERAL VASCULAR DISEASE, UNSPECIFIED Status: Chronic - Plan SBO - d/t abscess from sigmoid diverticulitis - s/p ex lap with sigmoid colectomy on 07/15/20 - slow to progress, post op ileus. Was on TPN and now weaned off - cont PT, CM consulted for inpt rehab - Hopefully transition to inpt rehab early next week. - cont supportive cares. Hyponatremia d/t GI loss - resolved COPD, home O2 dependent - Stable, continue as needed albuterol Hypertension, essential --Home meds PAD - restart pletal Hypothyroidism --Continue levothyroxine Mood disorder - hold on fluoxetine as it can interact with reglan Hypomagnesium/hypokalemia - replace both Initial phos today elevated - repeat is normal dvt prophy - lovenox gi prophy - on PPI at home and here code status DNAR reviewed plan of care with patient, no questions or further needs at end of eval.
[2020-07-29] MEDS ORDERED: Potassium Chloride 20 MEQ TAB PO SCH (14:00)
[2020-07-29] MEDS ORDERED: Magnesium 2 GM/50 ML 2 GM in Premix Bag 1 BAG IVPB SCH (14:00)
[2020-07-29 14:14] LABS: Phosphorus 3.7 mg/dL (2.3-4.7)
[2020-07-29] MEDS: traMADol HCl 50 MG TAB PO PRN ×2 (14:39→20:39)
[2020-07-29] MEDS: Montelukast Sodium 10 mg Tablet PO SCH (20:40)
[2020-07-29] MEDS: Enoxaparin Sodium 30 MG/0.3 ML SYRINGE SC SCH (20:45)
[2020-07-29] MEDS: Cilostazol 100 MG TAB PO SCH (20:46)
[2020-07-29] MEDS: Temazepam 15 MG CAP PO SCH (22:20)
[2020-07-30] MEDS: Morphine 2 MG/ML VIAL SLOW IVP PRN ×4 (02:02→21:33)
[2020-07-30] MEDS: Levothyroxine Sodium 50 MCG TAB PO SCH (06:28)
[2020-07-30 07:23] LABS: Anion Gap 11 mmol/L (10-20); BUN (Urea Nitrogen) 10 mg/dL (9.8-20.1); Calc. Creatinine Clearance 87 mL/min (70-130); Carbon Dioxide 29 mmol/L (23-31); Chloride 99 mmol/L (98-107); Glucose 80 mg/dL (80-115); Magnesium 1.8 mg/dL (1.6-2.6); Potassium 3.7 mmol/L (3.5-5.1); Sodium 135 mmol/L (136-145)
[2020-07-30] MEDS: Mometasone 200 MCG/Formoterol 5 MCG 120 PUFF INHALER INH SCH ×2 (07:30→18:55)
[2020-07-30] MEDS: Cilostazol 100 MG TAB PO SCH ×2 (07:57→21:31)
[2020-07-30] MEDS: Metoclopramide HCl 10 MG TAB PO SCH ×4 (07:57→21:31)
[2020-07-30] MEDS: predniSONE 20 MG TAB PO SCH (07:58)
[2020-07-30] MEDS: traMADol HCl 50 MG TAB PO PRN (09:47)
[2020-07-30] MEDS: ALPRAZolam 0.25 MG TAB PO PRN ×3 (09:48→22:37)
--- NOTE | 2020-07-30 10:41 | PDOC.HOSPP ---
- Subjective Encounter Date: 07/30/20 (f/u diverticulitis) Encounter Time: 10:39 Subjective: Patient is a 70 years old female who has significant past medical history of dyslipidemia, COPD on home O2 who presented to ED with complaining of nausea vomiting and abdominal discomfort. Initial CT on admission was unremarkable. However, rpt CT abd/pel showed mod to severe SBO. Pt subsequently underwent surgery with sigmoid colectomy on 07/15/20 d/t abscess from sigmoid diverticulitis. Pt tolerated procedure well. Slow to progress at first, however, made significant progress in last few days. Pt is deconditioned from prolonged hospital stay and likely will need transition to inpt rehab. CM consulted. Pt noted to have more abd pain overnight requiring morphine. She is unable to describe it, states it is similar to surgical pain but comes in waves. She reports it is across her abdomen. - Objective Vital Signs & Weight: Vital Signs (12 hours) Temp Pulse Resp BP Pulse Ox 07/30/20 08:00 98.7 F 114 H 20 133/76 95 07/30/20 07:28 90 18 100 Weight Admit Weight 112 lb Weight 114 lb 6.4 oz Most Recent Monitor Data Heart Rate from ECG 89 NIBP 116/63 NIBP BP-Mean 80 Respiration from ECG 17 SpO2 97 I&O: 07/29/20 07/30/20 07/31/20 06:59 06:59 06:59 Intake Total 2200 2660 Output Total 2600 1450 Balance -400 1210 Result Diagrams: 07/28/20 06:10 07/30/20 06:28 Hospitalist ROS - Medication Medications: Active Medications Generic Name Dose Route Start Last Admin Trade Name Freq PRN Reason Stop Dose Admin Albuterol Sulfate 2.5 mg 07/07/20 12:05 07/16/20 23:17 Albuterol Sulfate 2.5 Mg/3 Ml Neb NEB 2.5 mg Q2H PRN Administration SOB &/or Wheezing Albuterol/Ipratropium 3 ml 07/09/20 19:00 07/30/20 07:28 Ipratropium/Albuterol Sulfate 3 Ml Neb NEB 3 ml QID-RT KASSANDRA Administration Alprazolam 0.5 mg 07/27/20 09:13 07/30/20 09:48 Alprazolam 0.25 Mg Tab PO 0.5 mg TIDPRN PRN Administration Anxiety Cilostazol 50 mg 07/29/20 21:00 07/30/20 07:57 Cilostazol 100 Mg Tab PO 50 mg BID KASSANDRA Administration Enoxaparin Sodium 30 mg 07/19/20 21:00 07/29/20 20:45 Enoxaparin Sodium 30 Mg/0.3 Ml Syringe SC 30 mg 2100 KASSANDRA Administration Hydralazine HCl 5 mg 07/07/20 04:18 07/09/20 11:55 Hydralazine 20 Mg/Ml Vial SLOW IVP 5 mg Q4H PRN Administration SBP > 140 Potassium Chloride/Dextrose/Sod Cl 1,000 mls @ 0 mls/hr 07/15/20 12:00 07/16/20 14:55 D5 0.9% Ns W/ 20 Meq Kcl IV Not Given .Q0M KASSANDRA As Directed Levothyroxine Sodium 50 mcg 07/08/20 06:00 07/30/20 06:28 Levothyroxine Sodium 50 Mcg Tab PO 50 mcg 0600 KASSANDRA Administration Metoclopramide HCl 10 mg 07/28/20 11:30 07/30/20 07:57 Metoclopramide Hcl 10 Mg Tab PO 10 mg ACHS KASSANDRA Administration Mometasone Furoate/Formoterol Fumar 2 puff 07/07/20 18:30 07/30/20 07:30 Mometasone 200 Mcg/Formoterol 5 Mcg 120 Puff Inhaler INH 2 puff BID-RT KASSANDRA Administration Montelukast Sodium 10 mg 07/07/20 21:00 07/29/20 20:40 Montelukast Sodium 10 Mg Tablet PO 10 mg QPM KASSANDRA Administration Morphine Sulfate 2 mg 07/29/20 21:55 07/30/20 06:29 Morphine 2 Mg/Ml Vial SLOW IVP 2 mg Q4H PRN Administration Moderate to Severe Pain (6-10) Ondansetron HCl 4 mg 07/07/20 04:01 07/24/20 10:47 Ondansetron Pf 4 Mg/2 Ml Vial IVP 4 mg Q6H PRN Administration Nausea/Vomiting Pantoprazole Sodium 40 mg 07/29/20 09:00 07/30/20 07:57 Pantoprazole 40 Mg Tab PO 40 mg DAILY KASSANDRA Administration Prednisone 10 mg 07/30/20 09:00 07/30/20 07:58 Prednisone 20 Mg Tab PO 10 mg DAILY KASSANDRA Administration Sodium Chloride 10 ml 07/15/20 21:00 07/30/20 07:59 Flush - Normal Saline 10 Ml Syringe IVF 10 ml Q12HR KASSANDRA Administration Temazepam 15 mg 07/27/20 21:00 07/29/20 22:20 Temazepam 15 Mg Cap PO 15 mg HS KASSANDRA Administration Throat Lozenges 1 chata 07/17/20 09:59 07/25/20 22:32 Cepastat Lozenges 1 Chata PO 1 chata Q1H PRN Administration Cough Tramadol HCl 50 mg 07/29/20 13:53 07/30/20 09:47 Tramadol Hcl 50 Mg Tab PO 50 mg Q6H PRN Administration Mild-Moderate Pain (1-5) - Exam General Appearance: NAD Heart: RRR, no murmur Respiratory: no wheezes, no rales, no ronchi Respiratory - other findings: good air movement Gastrointestinal: soft, normal bowel sounds, no guarding, no rigidity Gastrointestinal - other findings: small amount of output in ostomy bag Extremities: no cyanosis, no clubbing, no edema Psychiatric: normal affect Hosp A/P (1) Acute and chronic respiratory failure with hypoxia Code(s): J96.21 - ACUTE AND CHRONIC RESPIRATORY FAILURE WITH HYPOXIA Status: Acute (2) Acute diverticulitis Code(s): K57.92 - DVTRCLI OF INTEST, PART UNSP, W/O PERF OR ABSCESS W/O BLEED Status: Resolved (3) SBO (small bowel obstruction) Code(s): K56.609 - UNSP INTESTNL OBST, UNSP TO PARTIAL VERSUS COMPLETE OBST Status: Resolved (4) Acute and chronic respiratory failure Code(s): J96.20 - ACUTE AND CHR RESP FAILURE, UNSP W HYPOXIA OR HYPERCAPNIA Status: Acute Qualifiers: Respiratory failure complication: hypoxia and hypercapnia Qualified Code(s): J96.21 - Acute and chronic respiratory failure with hypoxia; J96.22 - Acute and chronic respiratory failure with hypercapnia (5) COPD exacerbation Code(s): J44.1 - CHRONIC OBSTRUCTIVE PULMONARY DISEASE W (ACUTE) EXACERBATION Status: Acute (6) Hyponatremia Code(s): E87.1 - HYPO-OSMOLALITY AND HYPONATREMIA Status: Acute (7) Hypothyroidism Code(s): E03.9 - HYPOTHYROIDISM, UNSPECIFIED Status: Chronic Qualifiers: Hypothyroidism type: unspecified Qualified Code(s): E03.9 - Hypothyroidism, unspecified (8) PVD (peripheral vascular disease) Code(s): I73.9 - PERIPHERAL VASCULAR DISEASE, UNSPECIFIED Status: Chronic (9) Anemia Code(s): D64.9 - ANEMIA, UNSPECIFIED Status: Acute Qualifiers: Anemia type: unspecified type Qualified Code(s): D64.9 - Anemia, unspecifi ed - Plan SBO - d/t abscess from sigmoid diverticulitis - s/p ex lap with sigmoid colectomy on 07/15/20 - slow to progress, post op ileus. Was on TPN and now weaned off - cont PT, CM consulted for inpt rehab - Hopefully transition to inpt rehab early next week. - cont supportive cares. Abd pain - may be a component of spasm - will add trial of bentyl prn. Abd is soft, there is output in the ostomy bag. No indication for imaging at this time - reconsider if persistent or worsening. Hyponatremia d/t GI loss - very mild alonso Anemia - stable COPD, home O2 dependent - Stable, continue as needed albuterol Hypertension, essential - Home meds PAD - restarted pletal yesterday Hypothyroidism - Continue levothyroxine Mood disorder - hold on fluoxetine as it can interact with reglan Hypomagnesium/hypokalemia - replaced dvt prophy - lovenox gi prophy - on PPI at home and here code status DNAR reviewed plan of care with patient, no questions or further needs at end of eval. Addendum -l/m for daughter in law Dilcia earlier this afternoon, will try back tomorrow to update.
--- NOTE | 2020-07-30 11:44 | RAD ---
Radiograph abdomen one view: 07/30/2020 HISTORY: 70-year-old female with cramping abdominal pain COMPARISON: 08/06/2020 FINDINGS: Skin adriana have been removed. There has been no other significant interval change compared to the p revious supine image, with large amount of bowel gas throughout multiple dilated small bowel loops and in the colon, including rectum. Cholecystectomy clips in right upper quadrant. Dextroscoliosis with multilevel severe degenerative disc disease. IMPRESSION: 1. No interval change in abnormal bowel gas pattern, probably representing ileus. 2. Severe lumbar spondylosis associated with dextro scoliosis
[2020-07-30] MEDS: Dicyclomine 20 MG TAB PO PRN ×2 (14:13→21:31)
[2020-07-30] MEDS: Acetaminophen 325 MG TAB PO PRN (21:30)
[2020-07-30] MEDS: Enoxaparin Sodium 30 MG/0.3 ML SYRINGE SC SCH (21:31)
[2020-07-30] MEDS: Montelukast Sodium 10 mg Tablet PO SCH (21:31)
[2020-07-30] MEDS: Temazepam 15 MG CAP PO SCH (22:37)
[2020-07-31] MEDS: Morphine 2 MG/ML VIAL SLOW IVP PRN ×5 (02:34→23:17)
[2020-07-31] MEDS: Dicyclomine 20 MG TAB PO PRN (06:09)
[2020-07-31] MEDS: Levothyroxine Sodium 50 MCG TAB PO SCH (06:09)
[2020-07-31 06:45] LABS: Hemoglobin 10.5 g/dL (12.0-16.0); Mean Corpuscular HGB CONC 32.2 g/dL (32.0-36.0); Mean Corpuscular Hemoglobin 29.9 pg (27.0-31.0); Mean Platelet Volume 7.9 fL (7.4-10.4); Platelet Count 360 thou/uL (130-400); RBC Distribution Width 14.5 % (11.5-14.5); Red Blood Cell (RBC) Count 3.51 mill/uL (4.20-5.40); White Blood Cell (WBC) Count 4.6 thou/uL (4.8-10.8)
[2020-07-31 06:52] LABS: Band 6 % (5-11); Eosinophils 3 % (0-10); Hypochromia SLIGHT = 6-15 cells (100X) (0-5/hpf); Lymphocytes 11 % (21-51); MDiff Complete? YES; Monocytes 23 % (0-10); Neutrophil 55 % (42-75); Platelet Morphology Comment Appears Adequate; Reactive Lymphocytes 2 % (0-10)
[2020-07-31 06:53] LABS: Anion Gap 13 mmol/L (10-20); BUN (Urea Nitrogen) 7 mg/dL (9.8-20.1); Calc. Creatinine Clearance 72 mL/min (70-130); Calcium 8.4 mg/dL (7.8-10.44); Carbon Dioxide 30 mmol/L (23-31); Chloride 97 mmol/L (98-107); Glucose 79 mg/dL (80-115); Magnesium 1.6 mg/dL (1.6-2.6); Potassium 3.6 mmol/L (3.5-5.1); Sodium 136 mmol/L (136-145)
[2020-07-31] MEDS: Mometasone 200 MCG/Formoterol 5 MCG 120 PUFF INHALER INH SCH ×2 (07:04→19:08)
[2020-07-31] MEDS: Cilostazol 100 MG TAB PO SCH ×2 (08:28→19:45)
[2020-07-31] MEDS: Metoclopramide HCl 10 MG TAB PO SCH ×4 (08:28→19:45)
[2020-07-31] MEDS: predniSONE 20 MG TAB PO SCH (08:29)
[2020-07-31] MEDS: ALPRAZolam 0.25 MG TAB PO PRN ×2 (08:31→21:51)
--- NOTE | 2020-07-31 10:35 | PDOC.HOSPP ---
- Subjective Encounter Date: 07/31/20 (f/u abd pain) Encounter Time: 10:33 Subjective: Patient is a 70 years old female who has significant past medical history of dyslipidemia, COPD on home O2 who presented to ED with complaining of nausea vomiting and abdominal discomfort. Initial CT on admission was unremarkable. However, rpt CT abd/pel showed mod to severe SBO. Pt subsequently underwent surgery with sigmoid colectomy on 07/15/20 d/t abscess from sigmoid diverticulitis. Pt tolerated procedure well. Slow to progress at first, however, made significant progress in last few days, and now with worsening abdominal pain. Pt is deconditioned from prolonged hospital stay. Inpatient rehab has been arranged, however on hold due to worsening pain. Pt states the pain is constant, currently 7/10 and better after pain meds. States earlier it was 9/10 in severity. She denies any n/v. Last ostomy bag change was yesterday afternoon - small amount of fecal material present. - Objective Vital Signs & Weight: Vital Signs (12 hours) Temp Pulse Resp BP Pulse Ox 07/31/20 08:00 98.2 F 117 H 20 131/77 96 07/31/20 07:03 90 20 97 07/30/20 23:39 112 H 18 98 Weight Admit Weight 112 lb Weight 106 lb 8 oz Most Recent Monitor Data Heart Rate from ECG 89 NIBP 116/63 NIBP BP-Mean 80 Respiration from ECG 17 SpO2 97 I&O: 07/30/20 07/31/20 08/01/20 06:59 06:59 06:59 Intake Total 2660 3885 Output Total 1450 2600 Balance 1210 1285 Result Diagrams: 07/31/20 06:02 07/31/20 06:02 Hospitalist ROS - Medication Medications: Active Medications Generic Name Dose Route Start Last Admin Trade Name Freq PRN Reason Stop Dose Admin Acetaminophen 650 mg 07/30/20 21:09 07/30/20 21:30 Acetaminophen 325 Mg Tab PO 650 mg Q6H PRN Administration Fever/Mild Pain Albuterol Sulfate 2.5 mg 07/07/20 12:05 07/16/20 23:17 Albuterol Sulfate 2.5 Mg/3 Ml Neb NEB 2.5 mg Q2H PRN Administration SOB &/or Wheezing Albuterol/Ipratropium 3 ml 07/09/20 19:00 07/31/20 07:03 Ipratropium/Albuterol Sulfate 3 Ml Neb NEB 3 ml QID-RT KASSANDRA Administration Alprazolam 0.5 mg 07/27/20 09:13 07/31/20 08:31 Alprazolam 0.25 Mg Tab PO 0.5 mg TIDPRN PRN Administration Anxiety Cilostazol 50 mg 07/29/20 21:00 07/31/20 08:28 Cilostazol 100 Mg Tab PO 50 mg BID KASSANDRA Administration Enoxaparin Sodium 30 mg 07/19/20 21:00 07/30/20 21:31 Enoxaparin Sodium 30 Mg/0.3 Ml Syringe SC 30 mg 2100 KASSANDRA Administration Hydralazine HCl 5 mg 07/07/20 04:18 07/09/20 11:55 Hydralazine 20 Mg/Ml Vial SLOW IVP 5 mg Q4H PRN Administration SBP > 140 Potassium Chloride/Dextrose/Sod Cl 1,000 mls @ 0 mls/hr 07/15/20 12:00 07/16/20 14:55 D5 0.9% Ns W/ 20 Meq Kcl IV Not Given .Q0M KASSANDRA As Directed Levothyroxine Sodium 50 mcg 07/08/20 06:00 07/31/20 06:09 Levothyroxine Sodium 50 Mcg Tab PO 50 mcg 0600 KASSANDRA Administration Metoclopramide HCl 10 mg 07/28/20 11:30 07/31/20 08:28 Metoclopramide Hcl 10 Mg Tab PO 10 mg ACHS KASSANDRA Administration Mometasone Furoate/Formoterol Fumar 2 puff 07/07/20 18:30 07/31/20 07:04 Mometasone 200 Mcg/Formoterol 5 Mcg 120 Puff Inhaler INH 2 puff BID-RT KASSANDRA Administration Montelukast Sodium 10 mg 07/07/20 21:00 07/30/20 21:31 Montelukast Sodium 10 Mg Tablet PO 10 mg QPM KASSANDRA Administration Ondansetron HCl 4 mg 07/07/20 04:01 07/24/20 10:47 Ondansetron Pf 4 Mg/2 Ml Vial IVP 4 mg Q6H PRN Administration Nausea/Vomiting Pantoprazole Sodium 40 mg 07/29/20 09:00 07/31/20 08:29 Pantoprazole 40 Mg Tab PO 40 mg DAILY KASSANDRA Administration Prednisone 10 mg 07/30/20 09:00 07/31/20 08:29 Prednisone 20 Mg Tab PO 10 mg DAILY KASSANDRA Administration Sodium Chloride 10 ml 07/15/20 21:00 07/31/20 08:30 Flush - Normal Saline 10 Ml Syringe IVF 10 ml Q12HR KASSANDRA Administration Temazepam 15 mg 07/27/20 21:00 07/30/20 22:37 Temazepam 15 Mg Cap PO 15 mg HS KASSANDRA Administration Throat Lozenges 1 chata 07/17/20 09:59 07/25/20 22:32 Cepastat Lozenges 1 Chata PO 1 chata Q1H PRN Administration Cough Tramadol HCl 50 mg 07/29/20 13:53 07/30/20 09:47 Tramadol Hcl 50 Mg Tab PO 50 mg Q6H PRN Administration Mild-Moderate Pain (1-5) - Exam General Appearance: NAD Heart: RRR, no murmur Respiratory: no wheezes, no rales, no ronchi Gastrointestinal: soft, normal bowel sounds Gastrointestinal - other findings: ttp throughout, no rebound or guarding Extremities: no cyanosis, no clubbing, no edema Psychiatric: normal affect Hosp A/P (1) Acute and chronic respiratory failure with hypoxia Code(s): J96.21 - ACUTE AND CHRONIC RESPIRATORY FAILURE WITH HYPOXIA Status: Acute (2) Acute diverticulitis Code(s): K57.92 - DVTRCLI OF INTEST, PART UNSP, W/O PERF OR ABSCESS W/O BLEED Status: Resolved (3) SBO (small bowel obstruction) Code(s): K56.609 - UNSP INTESTNL OBST, UNSP TO PARTIAL VERSUS COMPLETE OBST Status: Resolved (4) Acute and chronic respiratory failure Code(s): J96.20 - ACUTE AND CHR RESP FAILURE, UNSP W HYPOXIA OR HYPERCAPNIA Status: Acute Qualifiers: Respiratory failure complication: hypoxia and hypercapnia Qualified Code(s): J96.21 - Acute and chronic respiratory failure with hypoxia; J96.22 - Acute and chronic respiratory failure with hypercapnia (5) COPD exacerbation Code(s): J44.1 - CHRONIC OBSTRUCTIVE PULMONARY DISEASE W (ACUTE) EXACERBATION Status: Resolved (6) Hyponatremia Code(s): E87.1 - HYPO-OSMOLALITY AND HYPONATREMIA Status: Resolved (7) Hypothyroidism Code(s): E03.9 - HYPOTHYROIDISM, UNSPECIFIED Status: Chronic Qualifiers: Hypothyroidism type: unspecified Qualified Code(s): E03.9 - Hypothyroidism, unspecified (8) PVD (peripheral vascular disease) Code(s): I73.9 - PERIPHERAL VASCULAR DISEASE, UNSPECIFIED Status: Chronic (9) Anemia Code(s): D64.9 - ANEMIA, UNSPECIFIED Status: Acute Qualifiers: Anemia type: unspecified type Qualified Code(s): D64.9 - Anemia, unspecified - Plan SBO - d/t abscess from sigmoid diverticulitis - s/p ex lap with sigmoid colectomy on 07/15/20 - slow to progress, post op ileus. Was on TPN and now weaned off - cont PT, CM consulted for inpt rehab - Hopefully transition to inpt rehab early next week. - cont supportive cares. Abd pain - persistent - no obstruction on xray yesterday, may be a component of ileus - pain meds prn - schedule bentyl - message sent to Dr. Bai - change morphine (she report tramadol is not helping) to q3h prn Tachycardia - likely in response to pain. pain med adjusted and will start some IVF to make sure pt is staying hydrated. Hyponatremia d/t GI loss - resolved Anemia - stable COPD, home O2 dependent - Stable, continue as needed albuterol Hypertension, essential - Home meds PAD - restarted pletal Hypothyroidism - Continue levothyroxine Mood disorder - hold on fluoxetine as it can interact with reglan Hypomagnesium/hypokalemia - resolved after replacement dvt prophy - lovenox gi prophy - on PPI at home and here code status DNAR reviewed plan of care with patient, no questions or further needs at end of eval. Addendum - reviewed the CT scan this evening and possible ileus. With the possible adverse reaction of paralytic ileus from bentyl, will d/c this medication. Further care/treatment per Dr. Bai.
[2020-07-31] MEDS: Sodium Chloride 0.9% 1,000 ML IV SCH (11:50)
[2020-07-31] MEDS: Simethicone Chewable 80 MG TAB PO SCH ×3 (11:51→21:51)
[2020-07-31] MEDS: Dicyclomine 20 MG TAB PO SCH ×3 (11:51→19:45)
[2020-07-31] MEDS ORDERED: Iopamidol 370 76% 50 ML VIAL FS ONE (13:39)
[2020-07-31] MEDS ORDERED: Iopamidol-370 76% 500 ML 1 ML ONE (13:39)
--- NOTE | 2020-07-31 18:57 | CT ---
CT of abdomen and pelvis: 07/31/2020 COMPARISON: 07/12/2020 HISTORY: Abdominal pain at surgical site, sigmoid colectomy 2 weeks ago, nausea and vomiting TECHNIQUE: Axial CT imaging at 5 mm intervals from the lung bases through the pubic symphysis with IV and oral contrast. Coronal and sagittal reformatted imaging obtained. FINDINGS: The visualized lung bases demonstrate scattered emphysematous change. There is a focal area of dense opacity within the inferior medial aspect of the right lower lobe measuring 3.8 cm AP dimension and 3.9 cm in transverse dimension, more prominent than on the prior examination, suggestin g possible infectious pneumonitis. Similar less conspicuous but new opacity noted within the inferior posterior aspect of the left lower lobe. There is no free intraperitoneal air appreciated. Diffuse hepatic hypodensity noted, which may signify steatosis. No discrete focal liver lesion is jerry dent. Cholecystectomy clips are present. Splenic granulomata are noted. Pancreas, adrenal glands, and kidneys demonstrate no acute findings. There is a subcentimeter calcification in the lower pole o f the left kidney suggesting a nonobstructing stone. There is a colostomy in the left lower quadrant. There is small volume fluid within a nondistended st omach. A bowel suture line is noted within the right lower quadrant. No convincing evidence for high-grade small bowel obstruction is seen. Evaluation of the bowel is somewhat limited as the majori ty of the contrast media is present within distal small bowel loops. There are a few mildly prominent distal small bowel loops within the left lower quadrant measuring up to 3.6 cm in transvers e dimension, less conspicuous than on the prior examination, which may reflect a degree of ileus. Multifocal scattered atherosclerotic calcification of the abdominal aorta and its branches noted. No discrete lymphadenopathy is seen within the abdomen/pelvis. Review of the osseous structures demonstrates multilevel degenerative change with disc space narrowin g and vacuum disc formation within the lumbar spine. No acute osseous abnormality is evident. IMPRESSION: No convincing evidence for high-grade small bowel obstruction. No free intraperitoneal ai r. There are a few mildly prominent distal small bowel loops which may signify postoperative ileus. Short-term follow-up imaging is advised. No evidence for an intra-abdominal abscess. Increased density in the lung bases may signify bibasilar infectious pneumonitis, left greater than r ight. Extensive atherosclerotic calcification of the abdominal aorta and its branches.
[2020-07-31] MEDS: Montelukast Sodium 10 mg Tablet PO SCH (19:45)
[2020-07-31] MEDS: Enoxaparin Sodium 30 MG/0.3 ML SYRINGE SC SCH (19:46)
[2020-07-31] MEDS: traMADol HCl 50 MG TAB PO PRN (21:51)
[2020-07-31] MEDS: Temazepam 15 MG CAP PO SCH (21:51)
[2020-08-01] MEDS: Morphine 2 MG/ML VIAL SLOW IVP PRN ×6 (02:34→22:13)
[2020-08-01] MEDS: Levothyroxine Sodium 50 MCG TAB PO SCH (06:18)
[2020-08-01] MEDS: Mometasone 200 MCG/Formoterol 5 MCG 120 PUFF INHALER INH SCH ×2 (06:49→19:28)
[2020-08-01 06:56] LABS: Anion Gap 10 mmol/L (10-20); BUN (Urea Nitrogen) 7 mg/dL (9.8-20.1); Calc. Creatinine Clearance 78 mL/min (70-130); Carbon Dioxide 30 mmol/L (23-31); Chloride 93 mmol/L (98-107); Glucose 82 mg/dL (80-115); Potassium 3.4 mmol/L (3.5-5.1); Sodium 130 mmol/L (136-145)
--- NOTE | 2020-08-01 08:07 | PDOC.HOSPP ---
- Subjective Encounter Date: 08/01/20 Encounter Time: 08:00 Subjective: [id number] abd pain. eating, no nausea, stool in ostomy bag - Objective Vital Signs & Weight: Vital Signs (12 hours) Temp Pulse Resp BP Pulse Ox 08/01/20 07:18 98.0 F 110 H 20 130/80 92 L 08/01/20 06:49 108 H 18 95 08/01/20 06:05 98.0 F 108 H 18 127/72 94 L Weight Admit Weight 112 lb Weight 106 lb 8 oz Most Recent Monitor Data Heart Rate from ECG 89 NIBP 116/63 NIBP BP-Mean 80 Respiration from ECG 17 SpO2 97 I&O: 07/31/20 08/01/20 08/02/20 06:59 06:59 06:59 Intake Total 3885 4350 Output Total 2600 2950 Balance 1285 1400 Result Diagrams: 07/31/20 06:02 08/01/20 06:10 Hospitalist ROS - Medication Medications: Active Medications Generic Name Dose Route Start Last Admin Trade Name Freq PRN Reason Stop Dose Admin Acetaminophen 650 mg 07/30/20 21:09 07/30/20 21:30 Acetaminophen 325 Mg Tab PO 650 mg Q6H PRN Administration Fever/Mild Pain Albuterol Sulfate 2.5 mg 07/07/20 12:05 07/16/20 23:17 Albuterol Sulfate 2.5 Mg/3 Ml Neb NEB 2.5 mg Q2H PRN Administration SOB &/or Wheezing Albuterol/Ipratropium 3 ml 07/09/20 19:00 08/01/20 06:49 Ipratropium/Albuterol Sulfate 3 Ml Neb NEB 3 ml QID-RT KASSANDRA Administration Alprazolam 0.5 mg 07/27/20 09:13 07/31/20 21:51 Alprazolam 0.25 Mg Tab PO 0.5 mg TIDPRN PRN Administration Anxiety Cilostazol 50 mg 07/29/20 21:00 07/31/20 19:45 Cilostazol 100 Mg Tab PO 50 mg BID KASSANDRA Administration Enoxaparin Sodium 30 mg 07/19/20 21:00 07/31/20 19:46 Enoxaparin Sodium 30 Mg/0.3 Ml Syringe SC 30 mg 2100 KASSANDRA Administration Hydralazine HCl 5 mg 07/07/20 04:18 07/09/20 11:55 Hydralazine 20 Mg/Ml Vial SLOW IVP 5 mg Q4H PRN Administration SBP > 140 Potassium Chloride/Dextrose/Sod Cl 1,000 mls @ 0 mls/hr 07/15/20 12:00 07/16/20 14:55 D5 0.9% Ns W/ 20 Meq Kcl IV Not Given .Q0M KASSANDRA As Directed Sodium Chloride 1,000 mls @ 50 mls/hr 07/31/20 10:45 07/31/20 11:50 Normal Saline 0.9% IV 1,000 mls .Q20H KASSANDRA Administration Levothyroxine Sodium 50 mcg 07/08/20 06:00 08/01/20 06:18 Levothyroxine Sodium 50 Mcg Tab PO 50 mcg 0600 KASSANDRA Administration Mometasone Furoate/Formoterol Fumar 2 puff 07/07/20 18:30 08/01/20 06:49 Mometasone 200 Mcg/Formoterol 5 Mcg 120 Puff Inhaler INH 2 puff BID-RT KASSANDRA Administration Montelukast Sodium 10 mg 07/07/20 21:00 07/31/20 19:45 Montelukast Sodium 10 Mg Tablet PO 10 mg QPM KASSANDRA Administration Morphine Sulfate 2 mg 07/31/20 10:32 08/01/20 06:18 Morphine 2 Mg/Ml Vial SLOW IVP 2 mg Q3H PRN Administration Moderate to Severe Pain (6-10) Ondansetron HCl 4 mg 07/07/20 04:01 07/24/20 10:47 Ondansetron Pf 4 Mg/2 Ml Vial IVP 4 mg Q6H PRN Administration Nausea/Vomiting Pantoprazole Sodium 40 mg 07/29/20 09:00 07/31/20 08:29 Pantoprazole 40 Mg Tab PO 40 mg DAILY KASSANDRA Administration Prednisone 10 mg 07/30/20 09:00 07/31/20 08:29 Prednisone 20 Mg Tab PO 10 mg DAILY KASSANDRA Administration Simethicone 80 mg 07/31/20 13:00 07/31/20 21:51 Simethicone Chewable 80 Mg Tab PO 80 mg PCHS KASSANDRA Administration Sodium Chloride 10 ml 07/15/20 21:00 07/31/20 19:35 Flush - Normal Saline 10 Ml Syringe IVF 10 ml Q12HR KASSANDRA Administration Temazepam 15 mg 07/27/20 21:00 07/31/20 21:51 Temazepam 15 Mg Cap PO 15 mg HS KASSANDRA Administration Throat Lozenges 1 chata 07/17/20 09:59 07/25/20 22:32 Cepastat Lozenges 1 Chata PO 1 chata Q1H PRN Administration Cough Tramadol HCl 50 mg 07/29/20 13:53 07/31/20 21:51 Tramadol Hcl 50 Mg Tab PO 50 mg Q6H PRN Administration Mild-Moderate Pain (1-5) - Exam General Appearance: awake alert Neck: no JVD Heart: RRR, no murmur Respiratory: CTAB Gastrointestinal: soft, non-tender, normal bowel sounds Extremities: no edema Hosp A/P (1) Ileus Code(s): K56.7 - ILEUS, UNSPECIFIED Status: Acute (2) Acute and chronic respiratory failure with hypoxia Code(s): J96.21 - ACUTE AND CHRONIC RESPIRATORY FAILURE WITH HYPOXIA Status: Acute (3) Anemia Code(s): D64.9 - ANEMIA, UNSPECIFIED Status: Acute Qualifiers: Anemia type: unspecified type Qualified Code(s): D64.9 - Anemia, unspecified (4) Acute diverticulitis Code(s): K57.92 - DVTRCLI OF INTEST, PART UNSP, W/O PERF OR ABSCESS W/O BLEED Status: Resolved (5) SBO (small bowel obstruction) Code(s): K56.609 - UNSP INTESTNL OBST, UNSP TO PARTIAL VERSUS COMPLETE OBST Status: Resolved (6) COPD (chronic obstructive pulmonary disease) Status: Chronic (7) Hypothyroidism Code(s): E03.9 - HYPOTHYROIDISM, UNSPECIFIED Status: Chronic Qualifiers: Hypothyroidism type: unspecified Qualified Code(s): E03.9 - Hypothyroidism, unspecified (8) PVD (peripheral vascular disease) Code(s): I73.9 - PERIPHERAL VASCULAR DISEASE, UNSPECIFIED Status: Chronic - Plan 1. abd pain: exam, eating suggests abd pain not serious 2. copd controlled on current tx discuss with surgery, to rehab?
[2020-08-01 08:36] LABS: Band 21 % (5-11); Lymphocytes 18 % (21-51); MDiff Complete? YES; Mean Corpuscular HGB CONC 32.5 g/dL (32.0-36.0); Mean Corpuscular Volume 92.2 fL (78.0-98.0); Mean Platelet Volume 7.5 fL (7.4-10.4); Monocytes 10 % (0-10); Neutrophil 47 % (42-75); Platelet Count 372 thou/uL (130-400); Platelet Morphology Comment Appears Adequate; RBC Distribution Width 14.3 % (11.5-14.5); RBC Morphology Normal; Reactive Lymphocytes 4 % (0-10); Red Blood Cell (RBC) Count 3.35 mill/uL (4.20-5.40); White Blood Cell (WBC) Count 6.4 thou/uL (4.8-10.8)
[2020-08-01] MEDS: predniSONE 20 MG TAB PO SCH (08:55)
[2020-08-01] MEDS: Cilostazol 100 MG TAB PO SCH ×2 (08:57→20:46)
[2020-08-01] MEDS: Simethicone Chewable 80 MG TAB PO SCH ×4 (08:58→21:11)
[2020-08-01] MEDS: Sodium Chloride 0.9% 1,000 ML IV SCH (08:59)
[2020-08-01] MEDS ORDERED: Polyethylene Glycol 3350 17 GM Packet PO SCH (09:00)
[2020-08-01] MEDS: ALPRAZolam 0.25 MG TAB PO PRN ×2 (09:08→20:47)
--- NOTE | 2020-08-01 11:05 | PRG ---
DATE OF SERVICE: 08/01/2020 SUBJECTIVE: Ms. Beyer is postoperative day #17 from a sigmoid colectomy with colostomy creation. She presented with a small-bowel obstruction secondary to diverticular abscess. She remains on the medical floor. Three days ago, when I last saw her, she had zero complaints and was tolerating regular diet. In the subsequent 3 days, she has developed progressive problems with abdominal pain, although, she has had no nausea or vomiting. She apparently still has good colostomy function. She also developed tachycardia, has had a heart rate over 100 for the last 2 days. Previously was in the 80s and 90s. Her blood pressure remained stable at 130/80. She tells me she is eating well. She tells me she has a good appetite and she enjoys eating her regular diet. Her colostomy apparently continues to function well. She has a good amount of stool in the bag currently. When she was having persistent problems yesterday, I ordered a CT scan. CT scan shows no definite evidence of obstruction, but there are some mildly to moderately dilated loops of small bowel. There is also a dense opacity within the lower right lobe of the lung. There was no evidence of any definite intraabdominal infection. PHYSICAL EXAMINATION: VITAL SIGNS: She is afebrile with temperature 98.0, pulse 110, blood pressure 130/80. LUNGS: Clear to auscultation. She has a reasonable cough (typical smoker's cough). ABDOMEN: Protuberant, as usual. Bowel sounds are present and normoactive. Her lower midline incision is healing nicely. Bowel sounds are present and appear to be normoactive without any tympany. There is stool within her colostomy bag currently. LABORATORY DATA: Her metabolic panel shows that she is redeveloping hyponatremia and hypochloremia (she had this significantly when she first presented to the hospital). Her creatinine remains normal at 0.5. Other chemistries were not checked. Her white blood cell count is 6.4, but today, she has a 21% bandemia. Her hemoglobin is 10, which is stable. Platelet count is 372. ASSESSMENT: The patient with continued prolonged postoperative course following surgery for small bowel obstruction. She is apparently working with physical therapy, but has limited physical ability in reserve. She is tolerating her diet. Ostomy appears to be working well. I am not certain why she has abdominal pain and I am not certain why she has a bandemia today. In regard to the pulmonary findings, I will start her empirically on Levaquin today. I started her on MiraLAX this morning in hopes of increasing her bowel function and the volume with her colostomy. I am hesitant to discharge her with her continued discomfort until she is off narcotics and I am not certain of the cause of her bandemia. We will recheck her labs tomorrow including a comprehensive metabolic panel. We will start the Levaquin. If all remains stable, then I would hope to wean her off her pain medication in preparation for discharge soon, hopefully in the next day or two. Job ID: [id number]
[2020-08-01] MEDS: Montelukast Sodium 10 mg Tablet PO SCH (20:46)
[2020-08-01] MEDS: Polyethylene Glycol 3350 17 GM Packet PO SCH (20:46)
[2020-08-01] MEDS: Temazepam 15 MG CAP PO SCH (20:47)
[2020-08-01] MEDS: Enoxaparin Sodium 30 MG/0.3 ML SYRINGE SC SCH (20:55)
[2020-08-02] MEDS: Morphine 2 MG/ML VIAL SLOW IVP PRN ×5 (01:30→21:44)
[2020-08-02] MEDS: Levothyroxine Sodium 50 MCG TAB PO SCH (05:21)
[2020-08-02] MEDS: Sodium Chloride 0.9% 1,000 ML IV SCH ×2 (05:31→23:42)
[2020-08-02 05:56] LABS: #Lymphocytes 1.2 thou/uL (1.20-3.40); #Monocytes 0.9 thou/uL (0.11-0.59); #Neutrophils 5.8 thou/uL (1.40-6.50); %Basophils 0.3 % (0.0-1.0); %Eosinophils 0.2 % (0.0-10.0); %Lymphocytes 15.5 % (21.0-51.0); %Monocytes 11.7 % (0.0-10.0); %Neutrophils 72.4 % (42.0-75.0); Hemoglobin 10.1 g/dL (12.0-16.0); Mean Corpuscular HGB CONC 30.7 g/dL (32.0-36.0); Mean Corpuscular Hemoglobin 28.3 pg (27.0-31.0); Mean Corpuscular Volume 92.2 fL (78.0-98.0); Mean Platelet Volume 7.4 fL (7.4-10.4); Platelet Count 357 thou/uL (130-400); RBC Distribution Width 14.3 % (11.5-14.5); Red Blood Cell (RBC) Count 3.55 mill/uL (4.20-5.40)
[2020-08-02 06:14] LABS: ALT (SGPT) 27 U/L (8-55); AST (SGOT) 45 U/L (5-34); Albumin 2.8 g/dL (3.4-4.8); Alkaline Phosphatase 67 U/L (40-110); Anion Gap 12 mmol/L (10-20); BUN (Urea Nitrogen) 6 mg/dL (9.8-20.1); Bilirubin, Total 0.3 mg/dL (0.2-1.2); Calc. Creatinine Clearance 86 mL/min (70-130); Calcium 7.8 mg/dL (7.8-10.44); Carbon Dioxide 28 mmol/L (23-31); Chloride 95 mmol/L (98-107); Globulin 2.9 g/dL (2.4-3.5); Glucose 84 mg/dL (80-115); Potassium 3.2 mmol/L (3.5-5.1); Protein, Total 5.7 g/dL (6.0-8.3); Sodium 132 mmol/L (136-145)
[2020-08-02] MEDS: Mometasone 200 MCG/Formoterol 5 MCG 120 PUFF INHALER INH SCH ×2 (07:04→19:30)
--- NOTE | 2020-08-02 07:40 | PDOC.HOSPP ---
- Subjective Encounter Date: 08/02/20 Encounter Time: 07:39 Subjective: cont to have vague abd discomfort. colostomy functioning, eating well - Objective Vital Signs & Weight: Vital Signs (12 hours) Temp Pulse Resp BP BP Pulse Ox 08/02/20 07:11 98.8 F 114 H 20 107/68 97 08/02/20 07:06 108 H 16 96 08/02/20 07:04 108 H 16 96 08/01/20 21:22 97 08/01/20 20:00 98.2 F 105 H 18 115/73 97 Weight Admit Weight 112 lb Weight 106 lb 8 oz Most Recent Monitor Data Heart Rate from ECG 89 NIBP 116/63 NIBP BP-Mean 80 Respiration from ECG 17 SpO2 97 I&O: 08/01/20 08/02/20 08/03/20 06:59 06:59 06:59 Intake Total 4350 3700 Output Total 2950 450 Balance 1400 3250 Result Diagrams: 08/02/20 04:47 08/02/20 03:30 Radiology Reviewed by me: Yes (cxr- RLL opacity suspicious for PNA) Hospitalist ROS - Medication Medications: Active Medications Generic Name Dose Route Start Last Admin Trade Name Freq PRN Reason Stop Dose Admin Acetaminophen 650 mg 07/30/20 21:09 07/30/20 21:30 Acetaminophen 325 Mg Tab PO 650 mg Q6H PRN Administration Fever/Mild Pain Albuterol Sulfate 2.5 mg 07/07/20 12:05 07/16/20 23:17 Albuterol Sulfate 2.5 Mg/3 Ml Neb NEB 2.5 mg Q2H PRN Administration SOB &/or Wheezing Albuterol/Ipratropium 3 ml 07/09/20 19:00 08/02/20 07:06 Ipratropium/Albuterol Sulfate 3 Ml Neb NEB 3 ml QID-RT KASSANDRA Administration Alprazolam 0.5 mg 07/27/20 09:13 08/01/20 20:47 Alprazolam 0.25 Mg Tab PO 0.5 mg TIDPRN PRN Administration Anxiety Cilostazol 50 mg 07/29/20 21:00 08/01/20 20:46 Cilostazol 100 Mg Tab PO 50 mg BID KASSANDRA Administration Enoxaparin Sodium 30 mg 07/19/20 21:00 08/01/20 20:55 Enoxaparin Sodium 30 Mg/0.3 Ml Syringe SC 30 mg 2100 KASSANDRA Administration Hydralazine HCl 5 mg 07/07/20 04:18 07/09/20 11:55 Hydralazine 20 Mg/Ml Vial SLOW IVP 5 mg Q4H PRN Administration SBP > 140 Potassium Chloride/Dextrose/Sod Cl 1,000 mls @ 0 mls/hr 07/15/20 12:00 07/16/20 14:55 D5 0.9% Ns W/ 20 Meq Kcl IV Not Given .Q0M KASSANDRA As Directed Sodium Chloride 1,000 mls @ 50 mls/hr 07/31/20 10:45 08/02/20 05:31 Normal Saline 0.9% IV 1,000 mls .Q20H KASSANDRA Administration Levofloxacin 500 mg 08/02/20 06:00 08/02/20 05:21 Levofloxacin 500 Mg Tab PO 500 mg 0600 KASSANDRA Administration Levothyroxine Sodium 50 mcg 07/08/20 06:00 08/02/20 05:21 Levothyroxine Sodium 50 Mcg Tab PO 50 mcg 0600 KASSANDRA Administration Mometasone Furoate/Formoterol Fumar 2 puff 07/07/20 18:30 08/02/20 07:04 Mometasone 200 Mcg/Formoterol 5 Mcg 120 Puff Inhaler INH 2 puff BID-RT KASSANDRA Administration Montelukast Sodium 10 mg 07/07/20 21:00 08/01/20 20:46 Montelukast Sodium 10 Mg Tablet PO 10 mg QPM KASSANDRA Administration Morphine Sulfate 2 mg 07/31/20 10:32 08/02/20 05:20 Morphine 2 Mg/Ml Vial SLOW IVP 2 mg Q3H PRN Administration Moderate to Severe Pain (6-10) Ondansetron HCl 4 mg 07/07/20 04:01 07/24/20 10:47 Ondansetron Pf 4 Mg/2 Ml Vial IVP 4 mg Q6H PRN Administration Nausea/Vomiting Pantoprazole Sodium 40 mg 07/29/20 09:00 08/01/20 08:55 Pantoprazole 40 Mg Tab PO 40 mg DAILY KASSANDRA Administration Polyethylene Glycol 17 gm 08/01/20 21:00 08/01/20 20:46 Polyethylene Glycol 3350 17 Gm Packet PO 17 gm BID KASSANDRA Administration Prednisone 10 mg 07/30/20 09:00 08/01/20 08:55 Prednisone 20 Mg Tab PO 10 mg DAILY KASSANDRA Administration Simethicone 80 mg 07/31/20 13:00 08/01/20 21:11 Simethicone Chewable 80 Mg Tab PO 80 mg PCHS KASSANDRA Administration Sodium Chloride 10 ml 07/15/20 21:00 08/01/20 20:48 Flush - Normal Saline 10 Ml Syringe IVF Not Given Q12HR KASSANDRA Temazepam 15 mg 07/27/20 21:00 08/01/20 20:47 Temazepam 15 Mg Cap PO 15 mg HS KASSANDRA Administration Throat Lozenges 1 chata 07/17/20 09:59 07/25/20 22:32 Cepastat Lozenges 1 Chata PO 1 chata Q1H PRN Administration Cough Tramadol HCl 50 mg 07/29/20 13:53 07/31/20 21:51 Tramadol Hcl 50 Mg Tab PO 50 mg Q6H PRN Administration Mild-Moderate Pain (1-5) - Exam General Appearance: awake alert Neck: no JVD Heart: RRR, no murmur Respiratory - other findings: post basilar rales Gastrointestinal: soft, non-tender, normal bowel sounds Extremities: no edema Hosp A/P (1) Ileus Code(s): K56.7 - ILEUS, UNSPECIFIED Status: Acute (2) Acute and chronic respiratory failure with hypoxia Code(s): J96.21 - ACUTE AND CHRONIC RESPIRATORY FAILURE WITH HYPOXIA Status: Acute (3) Anemia Code(s): D64.9 - ANEMIA, UNSPECIFIED Status: Acute Qualifiers: Anemia type: unspecified type Qualified Code(s): D64.9 - Anemia, unspecified (4) Acute diverticulitis Code(s): K57.92 - DVTRCLI OF INTEST, PART UNSP, W/O PERF OR ABSCESS W/O BLEED Status: Resolved (5) SBO (small bowel obstruction) Code(s): K56.609 - UNSP INTESTNL OBST, UNSP TO PARTIAL VERSUS COMPLETE OBST Status: Resolved (6) COPD (chronic obstructive pulmonary disease) Status: Chronic (7) Hypothyroidism Code(s): E03.9 - HYPOTHYROIDISM, UNSPECIFIED Status: Chronic Qualifiers: Hypothyroidism type: unspecified Qualified Code(s): E03.9 - Hypothyroidism, unspecified (8) PVD (peripheral vascular disease) Code(s): I73.9 - PERIPHERAL VASCULAR DISEASE, UNSPECIFIED Status: Chronic (9) Pneumonia Code(s): J18.9 - PNEUMONIA, UNSPECIFIED ORGANISM Status: Acute Qualifiers: Pneumonia type: due to unspecified organism - Plan 1. abd pain: exam, eating suggests abd pain not serious 2. copd controlled on current tx 3. PNA- rpt CXR: adverse opacity RLL, cont levaquin 4. colostomy fcning well
[2020-08-02] MEDS: predniSONE 20 MG TAB PO SCH (08:08)
[2020-08-02] MEDS: Simethicone Chewable 80 MG TAB PO SCH ×3 (08:08→21:37)
[2020-08-02] MEDS: Cilostazol 100 MG TAB PO SCH ×2 (08:09→21:36)
[2020-08-02] MEDS: Polyethylene Glycol 3350 17 GM Packet PO SCH ×2 (08:09→21:37)
[2020-08-02] MEDS: ALPRAZolam 0.25 MG TAB PO PRN ×3 (08:16→21:37)
--- NOTE | 2020-08-02 09:52 | RAD ---
XR Chest Pa Lat STANDARD History: Pneumonia Comparison: Abdomen pelvis CT for reference days prior Findings: Right basilar airspace opacity. No pneumothorax. Central venous catheter tip projects at the mid SVC. Moderate vascular calcifications. No acute osseo us abnormality. Impression: Right basilar opacity concerning for infection. Close follow-up recommended.
[2020-08-02] MEDS: Enoxaparin Sodium 30 MG/0.3 ML SYRINGE SC SCH (21:36)
[2020-08-02] MEDS: Temazepam 15 MG CAP PO SCH (21:37)
[2020-08-02] MEDS: Montelukast Sodium 10 mg Tablet PO SCH (21:37)
--- NOTE | 2020-08-02 23:55 | PRG ---
DATE OF SERVICE: 08/02/2020 SUBJECTIVE: Ms. Beyer is now postoperative day #18 from sigmoid colectomy with colostomy creation. She remains on the medical floor. She continues to be tachycardic with a heart rate over 100 and continues to complain of abdominal pain. She does, however, tell me that she is eating well with no nausea or vomiting. She has what appears to be a good colostomy function, and she tells me she is voiding well. Her only complaint is abdominal discomfort. Chest x-ray today reveals a basilar air space density potentially consistent with pneumonia. PHYSICAL EXAMINATION: VITAL SIGNS: Temperature is 98.1, pulse 107, blood pressure 114/66. LUNGS: Clear to auscultation. ABDOMEN: Appears protuberant. Ostomy is viable in the left abdomen. Midline incision appears to be healed at this point. Bowel sounds are present and appear to be normoactive. EXTREMITIES: Unremarkable. LABORATORY DATA: Her white blood cell count is 8 with a hemoglobin of 10.1. She does not appear to have a significant left shift. Chemistry panel reveals that her sodium and chloride are improved with her on normal saline. Her potassium, however, is low at 3.2. Creatinine is normal. Since she has gone off the TPN, her albumin has dropped back down to 2.8 and her prealbumin is now 6 whereas it was 14 about five days ago. ASSESSMENT: It is difficult to tell what is going on with Ms. Beyer. She is chronically ill from an underlying COPD and chronic steroid use. I am not certain why she is tachycardic or has abdominal discomfort. She does not appear to have any abdominal obstructive processes, as she is eating and having bowel movements without vomiting. Tomorrow, I will order a small-bowel follow-through to check the speed with which contrast goes through her small bowel. It is possible that this is her steady state and that there is nothing much to do to improve where she is currently. On the other hand, it is possible that she has some component of repeat obstruction after her recent surgery, although I am certainly hesitant to recommend more surgery to her. Finally, I am not certain what to do about her nutritional status. It is not practical to plan on her being on TPN indefinitely. Job ID: [id number]
[2020-08-03] MEDS: Morphine 2 MG/ML VIAL SLOW IVP PRN ×5 (02:06→22:13)
[2020-08-03] MEDS: ALPRAZolam 0.25 MG TAB PO PRN ×2 (05:55→18:25)
[2020-08-03] MEDS: Levothyroxine Sodium 50 MCG TAB PO SCH (05:56)
[2020-08-03 06:17] LABS: #Lymphocytes 1.2 thou/uL (1.20-3.40); #Monocytes 0.7 thou/uL (0.11-0.59); #Neutrophils 4.6 thou/uL (1.40-6.50); %Basophils 0.3 % (0.0-1.0); %Eosinophils 0.1 % (0.0-10.0); %Lymphocytes 17.9 % (21.0-51.0); %Monocytes 11.5 % (0.0-10.0); %Neutrophils 70.2 % (42.0-75.0); Hemoglobin 9.4 g/dL (12.0-16.0); Mean Corpuscular HGB CONC 31.9 g/dL (32.0-36.0); Mean Corpuscular Hemoglobin 29.4 pg (27.0-31.0); Mean Corpuscular Volume 92.2 fL (78.0-98.0); Mean Platelet Volume 7.6 fL (7.4-10.4); Platelet Count 325 thou/uL (130-400); RBC Distribution Width 14.1 % (11.5-14.5); White Blood Cell (WBC) Count 6.5 thou/uL (4.8-10.8)
[2020-08-03 06:36] LABS: Anion Gap 11 mmol/L (10-20); BUN (Urea Nitrogen) 4 mg/dL (9.8-20.1); Calc. Creatinine Clearance 90 mL/min (70-130); Calcium 7.8 mg/dL (7.8-10.44); Carbon Dioxide 27 mmol/L (23-31); Chloride 101 mmol/L (98-107); Glucose 84 mg/dL (80-115); Potassium 3.3 mmol/L (3.5-5.1); Sodium 136 mmol/L (136-145)
[2020-08-03] MEDS: Mometasone 200 MCG/Formoterol 5 MCG 120 PUFF INHALER INH SCH ×2 (07:05→19:20)
--- NOTE | 2020-08-03 08:46 | PDOC.GSPN ---
Surgery Progress Note: Subj - Subjective Narrative: 70 y.o. female POD# 19 s/p sigmoid colectomy with end colostomy creation. No overnight events but states yesterday was particularly hard for her. This is in part due to the pain and her inability to sleep more than 2 hours. She reports pain to the right side of the abdomen, rated 8/10, and says it's not improving but not "worse than yesterday". No drainage from incision site. Her colostomy is putting out loose, brown-colored stools, denies flatus or stool per rectum. She is NPO this morning for small bowel follow through. She was able to ambulate with PT yesterday to the door and back. She had 2 headaches yesterday in a band- like distribution across the forehead. She denies muscle weakness, vision changes, numbness or tingling in the hands or feet, more difficulty breathing than usual, lightheadedness, n/v, chest pain. Surgery Progress Note: Obj - Vital signs Vital signs: Vital Signs - Most Recent Temp Pulse Resp BP Pulse Ox 98.3 F 104 H 23 H 111/65 90 L 08/03/20 07:56 08/03/20 07:56 08/03/20 07:56 08/03/20 07:56 08/03/20 07:56 Afebrile: Tmax 98.3 Tachycardia: over 100 bpm for days, 104 this morning O2 sat 90% on 2 L BP hypotensive @ 111/65 - Physical Exam General: no distress, chronically ill Cardiovascular: regular rate and rhythm, no murmur Respiratory: clear to auscultation, breath sounds present. negative: normal respiratory effort (increased effort) Abdomen: soft, positive bowel sounds (all 4 quadrants), other (Colostomy viable and functioning). negative: distended, guarding, rigid Wound: healing well (Midline incision healed and no drainage) Surgery Progress Note: Results - Labs Result Diagrams: 08/03/20 06:00 08/03/20 06:00 Lab results: Laboratory Results - last 12 hr 08/03/20 08/03/20 06:00 06:00 WBC 6.5 RBC 3.20 L Hgb 9.4 L Hct 29.5 L MCV 92.2 MCH 29.4 MCHC 31.9 L RDW 14.1 Plt Count 325 MPV 7.6 Neutrophils % 70.2 Lymphocytes % 17.9 L Monocytes % 11.5 H Eosinophils % 0.1 Basophils % 0.3 Neutrophils # 4.6 Lymphocytes # 1.2 Monocytes # 0.7 H Eosinophils # 0.0 Basophils # 0.0 Sodium 136 Potassium 3.3 L Chloride 101 Carbon Dioxide 27 Anion Gap 11 BUN 4 L Creatinine 0.45 L Estimated GFR (MDRD) Greater than 90 Glucose 84 Calcium 7.8 WBC normal- no leukocytosis Hgb trending down from 10.1 to 9.4 today Hypokalemia yday and today at 3.3 Low BUN, 6 to 4 Low creatinine, 0.47 to 0.45 Surgery Progress Note: A/P - Plan Plan: 70 y.o. female admitted for SBO 2/2 diverticular abscess. POD# 19 s/p sigmoid c olectomy with end colostomy creation. Patient is many days out from surgery and continuing to complain of abdominal pain. She is making good output from the colostomy, and her abdomen does not show signs of peritonitis or mechanical obstruction. Her nutritional status is of concern because she continues to lose weight despite parenteral feeds and regular diet. Discharge to her home is very unlikely. 1. Right-sided abdominal pain: small bowel follow through ordered for further assessment, continue analgesics as ordered, may explain her tachycardia 2. Pneumonia: continue abx as ordered, may explain her tachycardia although she has been afebrile 3. Hypokalemia: continue IV replacement 4. Anemia: continue to monitor 5. VTE prophylaxis: continue ambulation
--- NOTE | 2020-08-03 08:50 | PDOC.HOSPP ---
- Objective Vital Signs & Weight: Vital Signs (12 hours) Temp Pulse Resp BP Pulse Ox 08/03/20 07:56 98.3 F 104 H 23 H 111/65 90 L 08/03/20 07:05 100 18 95 08/02/20 21:13 95 Weight Admit Weight 112 lb Weight 106 lb 8 oz Most Recent Monitor Data Heart Rate from ECG 89 NIBP 116/63 NIBP BP-Mean 80 Respiration from ECG 17 SpO2 97 I&O: 08/02/20 08/03/20 08/04/20 06:59 06:59 06:59 Intake Total 3700 3170 Output Total 450 500 Balance 3250 2670 Result Diagrams: 08/03/20 06:00 08/03/20 06:00 Hospitalist ROS - Medication Medications: Active Medications Generic Name Dose Route Start Last Admin Trade Name Freq PRN Reason Stop Dose Admin Acetaminophen 650 mg 07/30/20 21:09 07/30/20 21:30 Acetaminophen 325 Mg Tab PO 650 mg Q6H PRN Administration Fever/Mild Pain Albuterol Sulfate 2.5 mg 07/07/20 12:05 07/16/20 23:17 Albuterol Sulfate 2.5 Mg/3 Ml Neb NEB 2.5 mg Q2H PRN Administration SOB &/or Wheezing Albuterol/Ipratropium 3 ml 07/09/20 19:00 08/03/20 07:05 Ipratropium/Albuterol Sulfate 3 Ml Neb NEB 3 ml QID-RT KASSANDRA Administration Alprazolam 0.5 mg 07/27/20 09:13 08/03/20 05:55 Alprazolam 0.25 Mg Tab PO 0.5 mg TIDPRN PRN Administration Anxiety Cilostazol 50 mg 07/29/20 21:00 08/02/20 21:36 Cilostazol 100 Mg Tab PO 50 mg BID KASSANDRA Administration Enoxaparin Sodium 30 mg 07/19/20 21:00 08/02/20 21:36 Enoxaparin Sodium 30 Mg/0.3 Ml Syringe SC 30 mg 2100 KASSANDRA Administration Hydralazine HCl 5 mg 07/07/20 04:18 07/09/20 11:55 Hydralazine 20 Mg/Ml Vial SLOW IVP 5 mg Q4H PRN Administration SBP > 140 Potassium Chloride/Dextrose/Sod Cl 1,000 mls @ 0 mls/hr 07/15/20 12:00 07/16/20 14:55 D5 0.9% Ns W/ 20 Meq Kcl IV Not Given .Q0M KASSANDRA As Directed Sodium Chloride 1,000 mls @ 50 mls/hr 07/31/20 10:45 08/02/20 23:42 Normal Saline 0.9% IV 1,000 mls .Q20H KASSANDRA Administration Levofloxacin 500 mg 08/02/20 06:00 08/03/20 05:56 Levofloxacin 500 Mg Tab PO 500 mg 0600 KASSANDRA Administration Levothyroxine Sodium 50 mcg 07/08/20 06:00 08/03/20 05:56 Levothyroxine Sodium 50 Mcg Tab PO 50 mcg 0600 KASSANDRA Administration Mometasone Furoate/Formoterol Fumar 2 puff 07/07/20 18:30 08/03/20 07:05 Mometasone 200 Mcg/Formoterol 5 Mcg 120 Puff Inhaler INH 2 puff BID-RT KASSANDRA Administration Montelukast Sodium 10 mg 07/07/20 21:00 08/02/20 21:37 Montelukast Sodium 10 Mg Tablet PO 10 mg QPM KASSANDRA Administration Morphine Sulfate 2 mg 07/31/20 10:32 08/03/20 05:56 Morphine 2 Mg/Ml Vial SLOW IVP 2 mg Q3H PRN Administration Moderate to Severe Pain (6-10) Ondansetron HCl 4 mg 07/07/20 04:01 07/24/20 10:47 Ondansetron Pf 4 Mg/2 Ml Vial IVP 4 mg Q6H PRN Administration Nausea/Vomiting Pantoprazole Sodium 40 mg 07/29/20 09:00 08/02/20 08:08 Pantoprazole 40 Mg Tab PO 40 mg DAILY KASSANDRA Administration Polyethylene Glycol 17 gm 08/01/20 21:00 08/02/20 21:37 Polyethylene Glycol 3350 17 Gm Packet PO 17 gm BID KASSANDRA Administration Prednisone 10 mg 07/30/20 09:00 08/02/20 08:08 Prednisone 20 Mg Tab PO 10 mg DAILY KASSANDRA Administration Simethicone 80 mg 07/31/20 13:00 08/02/20 21:37 Simethicone Chewable 80 Mg Tab PO 80 mg PCHS KASSANDRA Administration Sodium Chloride 10 ml 07/15/20 21:00 08/02/20 21:38 Flush - Normal Saline 10 Ml Syringe IVF 10 ml Q12HR KASSANDRA Administration Temazepam 15 mg 07/27/20 21:00 08/02/20 21:37 Temazepam 15 Mg Cap PO 15 mg HS KASSANDRA Administration Throat Lozenges 1 chata 07/17/20 09:59 07/25/20 22:32 Cepastat Lozenges 1 Chata PO 1 chata Q1H PRN Administration Cough Tramadol HCl 50 mg 07/29/20 13:53 07/31/20 21:51 Tramadol Hcl 50 Mg Tab PO 50 mg Q6H PRN Administration Mild-Moderate Pain (1-5) Hosp A/P (1) Ileus Code(s): K56.7 - ILEUS, UNSPECIFIED Status: Acute (2) Acute and chronic respiratory failure with hypoxia Code(s): J96.21 - ACUTE AND CHRONIC RESPIRATORY FAILURE WITH HYPOXIA Status: Acute (3) Anemia Code(s): D64.9 - ANEMIA, UNSPECIFIED Status: Acute Qualifiers: Qualified Code(s): D64.9 - Anemia, unspecified (4) Acute diverticulitis Code(s): K57.92 - DVTRCLI OF INTEST, PART UNSP, W/O PERF OR ABSCESS W/O BLEED Status: Resolved (5) SBO (small bowel obstruction) Code(s): K56.609 - UNSP INTESTNL OBST, UNSP TO PARTIAL VERSUS COMPLETE OBST Status: Resolved (6) COPD (chronic obstructive pulmonary disease) Status: Chronic (7) Hypothyroidism Code(s): E03.9 - HYPOTHYROIDISM, UNSPECIFIED Status: Chronic Qualifiers: Qualified Code(s): E03.9 - Hypothyroidism, unspecified (8) PVD (peripheral vascular disease) Code(s): I73.9 - PERIPHERAL VASCULAR DISEASE, UNSPECIFIED Status: Chronic (9) Pneumonia Code(s): J18.9 - PNEUMONIA, UNSPECIFIED ORGANISM Status: Acute - Plan 1. abd pain: exam, eating suggests abd pain not serious 2. copd controlled on current tx 3. PNA- rpt CXR: adverse opacity RLL, cont levaquin 4. colostomy fcning well
[2020-08-03] MEDS: Cilostazol 100 MG TAB PO SCH ×2 (10:38→20:13)
[2020-08-03] MEDS: predniSONE 20 MG TAB PO SCH (10:40)
[2020-08-03] MEDS: Simethicone Chewable 80 MG TAB PO SCH ×4 (10:40→22:11)
[2020-08-03] MEDS: Polyethylene Glycol 3350 17 GM Packet PO SCH ×2 (10:41→20:22)
[2020-08-03] MEDS ORDERED: MD-Gastroview 120 ML BOT ONE (14:29)
--- NOTE | 2020-08-03 14:48 | PDOC.HOSPP ---
- Subjective Encounter Date: 08/03/20 Encounter Time: 14:47 Subjective: still has R sided abd pain - Objective Vital Signs & Weight: Vital Signs (12 hours) Temp Pulse Resp BP Pulse Ox 08/03/20 14:41 92 18 97 08/03/20 11:18 99 16 96 08/03/20 08:00 90 L 08/03/20 07:56 98.3 F 104 H 23 H 111/65 90 L 08/03/20 07:05 100 18 95 Weight Admit Weight 112 lb Weight 106 lb 8 oz Most Recent Monitor Data Heart Rate from ECG 89 NIBP 116/63 NIBP BP-Mean 80 Respiration from ECG 17 SpO2 97 I&O: 08/02/20 08/03/20 08/04/20 06:59 06:59 06:59 Intake Total 3700 3170 Output Total 450 500 Balance 3250 2670 Result Diagrams: 08/03/20 06:00 08/03/20 06:00 Hospitalist ROS - Medication Medications: Active Medications Generic Name Dose Route Start Last Admin Trade Name Freq PRN Reason Stop Dose Admin Acetaminophen 650 mg 07/30/20 21:09 07/30/20 21:30 Acetaminophen 325 Mg Tab PO 650 mg Q6H PRN Administration Fever/Mild Pain Albuterol Sulfate 2.5 mg 07/07/20 12:05 07/16/20 23:17 Albuterol Sulfate 2.5 Mg/3 Ml Neb NEB 2.5 mg Q2H PRN Administration SOB &/or Wheezing Albuterol/Ipratropium 3 ml 07/09/20 19:00 08/03/20 14:41 Ipratropium/Albuterol Sulfate 3 Ml Neb NEB 3 ml QID-RT KASSANDRA Administration Alprazolam 0.5 mg 07/27/20 09:13 08/03/20 05:55 Alprazolam 0.25 Mg Tab PO 0.5 mg TIDPRN PRN Administration Anxiety Cilostazol 50 mg 07/29/20 21:00 08/03/20 10:38 Cilostazol 100 Mg Tab PO 50 mg BID KASSANDRA Administration Enoxaparin Sodium 30 mg 07/19/20 21:00 08/02/20 21:36 Enoxaparin Sodium 30 Mg/0.3 Ml Syringe SC 30 mg 2100 KASSANDRA Administration Hydralazine HCl 5 mg 07/07/20 04:18 07/09/20 11:55 Hydralazine 20 Mg/Ml Vial SLOW IVP 5 mg Q4H PRN Administration SBP > 140 Potassium Chloride/Dextrose/Sod Cl 1,000 mls @ 0 mls/hr 07/15/20 12:00 07/16/20 14:55 D5 0.9% Ns W/ 20 Meq Kcl IV Not Given .Q0M KASSANDRA As Directed Sodium Chloride 1,000 mls @ 50 mls/hr 07/31/20 10:45 08/02/20 23:42 Normal Saline 0.9% IV 1,000 mls .Q20H KASSANDRA Administration Levofloxacin 500 mg 08/02/20 06:00 08/03/20 05:56 Levofloxacin 500 Mg Tab PO 500 mg 0600 KASSANDRA Administration Levothyroxine Sodium 50 mcg 07/08/20 06:00 08/03/20 05:56 Levothyroxine Sodium 50 Mcg Tab PO 50 mcg 0600 KASSANDRA Administration Mometasone Furoate/Formoterol Fumar 2 puff 07/07/20 18:30 08/03/20 07:05 Mometasone 200 Mcg/Formoterol 5 Mcg 120 Puff Inhaler INH 2 puff BID-RT KASSANDRA Administration Montelukast Sodium 10 mg 07/07/20 21:00 08/02/20 21:37 Montelukast Sodium 10 Mg Tablet PO 10 mg QPM KASSANDRA Administration Morphine Sulfate 2 mg 07/31/20 10:32 08/03/20 10:41 Morphine 2 Mg/Ml Vial SLOW IVP 2 mg Q3H PRN Administration Moderate to Severe Pain (6-10) Ondansetron HCl 4 mg 07/07/20 04:01 07/24/20 10:47 Ondansetron Pf 4 Mg/2 Ml Vial IVP 4 mg Q6H PRN Administration Nausea/Vomiting Pantoprazole Sodium 40 mg 07/29/20 09:00 08/03/20 10:40 Pantoprazole 40 Mg Tab PO 40 mg DAILY KASSANDRA Administration Polyethylene Glycol 17 gm 08/01/20 21:00 08/03/20 10:41 Polyethylene Glycol 3350 17 Gm Packet PO Not Given BID KASSANDRA Prednisone 10 mg 07/30/20 09:00 08/03/20 10:40 Prednisone 20 Mg Tab PO 10 mg DAILY KASSANDRA Administration Simethicone 80 mg 07/31/20 13:00 08/03/20 10:40 Simethicone Chewable 80 Mg Tab PO 80 mg PCHS KASSANDRA Administration Sodium Chloride 10 ml 07/15/20 21:00 08/03/20 10:42 Flush - Normal Saline 10 Ml Syringe IVF 10 ml Q12HR KASSANDRA Administration Temazepam 15 mg 07/27/20 21:00 08/02/20 21:37 Temazepam 15 Mg Cap PO 15 mg HS KASSANDRA Administration Throat Lozenges 1 chata 07/17/20 09:59 07/25/20 22:32 Cepastat Lozenges 1 Chata PO 1 chata Q1H PRN Administration Cough Tramadol HCl 50 mg 07/29/20 13:53 07/31/20 21:51 Tramadol Hcl 50 Mg Tab PO 50 mg Q6H PRN Administration Mild-Moderate Pain (1-5) - Exam General Appearance: awake alert Neck: no JVD Heart: RRR, no murmur Respiratory: CTAB Gastrointestinal: soft, normal bowel sounds, tender to palpation Gastrointestinal - other findings: on R side Extremities: no edema Hosp A/P (1) Abdominal pain Code(s): R10.9 - UNSPECIFIED ABDOMINAL PAIN Status: Acute (2) Ileus Code(s): K56.7 - ILEUS, UNSPECIFIED Status: Acute (3) Acute and chronic respiratory failure with hypoxia Code(s): J96.21 - ACUTE AND CHRONIC RESPIRATORY FAILURE WITH HYPOXIA Status: Acute (4) Anemia Code(s): D64.9 - ANEMIA, UNSPECIFIED Status: Acute Qualifiers: Anemia type: unspecified type Qualified Code(s): D64.9 - Anemia, unspecified (5) Acute diverticulitis Code(s): K57.92 - DVTRCLI OF INTEST, PART UNSP, W/O PERF OR ABSCESS W/O BLEED Status: Resolved (6) SBO (small bowel obstruction) Code(s): K56.609 - UNSP INTESTNL OBST, UNSP TO PARTIAL VERSUS COMPLETE OBST Status: Resolved (7) COPD (chronic obstructive pulmonary disease) Status: Chronic (8) Hypothyroidism Code(s): E03.9 - HYPOTHYROIDISM, UNSPECIFIED Status: Chronic Qualifiers: Hypothyroidism type: unspecified Qualified Code(s): E03.9 - Hypothyroidism, unspecified (9) PVD (peripheral vascular disease) Code(s): I73.9 - PERIPHERAL VASCULAR DISEASE, UNSPECIFIED Status: Chronic (10) Pneumonia Code(s): J18.9 - PNEUMONIA, UNSPECIFIED ORGANISM Status: Acute Qualifiers: Pneumonia type: due to unspecified organism - Plan SBFT pending discuss with Dr Bai when available cont crrent meds, etc
--- NOTE | 2020-08-03 15:59 | RAD ---
Exam: Gastric and small bowel HISTORY: Evaluate for small bowel obstruction COMPARISON: 07/13/2020 FINDINGS: Surgical clip in the right upper quadrant, compatible with cholecystectomy clips. Even after 4 hour image, there is evidence of retained Gastrografin in the stomach. Multiple prominen t small bowel loops are identified. Contrast does opacify the right hemicolon. Patient states that contrast filled the left lower quadrant colostomy bag. Real-time imaging was performed in the presenc e of radiologist. There is evidence of persistent contrast in the stomach. There is no significant small bowel peristalsis. Findings are worrisome for a low-grade ileus. IMPRESSION: Findings suggesting low-grade ileus with decreased gastric emptying given the presence of contrast in the gastric cardia.
[2020-08-03] MEDS: Enoxaparin Sodium 30 MG/0.3 ML SYRINGE SC SCH (20:21)
[2020-08-03] MEDS: Montelukast Sodium 10 mg Tablet PO SCH (20:22)
[2020-08-03] MEDS: Temazepam 15 MG CAP PO SCH (22:11)
[2020-08-04] MEDS: Morphine 2 MG/ML VIAL SLOW IVP PRN ×2 (02:48→05:52)
[2020-08-04] MEDS: ALPRAZolam 0.25 MG TAB PO PRN ×3 (04:01→21:28)
[2020-08-04] MEDS: Sodium Chloride 0.9% 1,000 ML IV SCH (05:33)
[2020-08-04] MEDS: Levothyroxine Sodium 50 MCG TAB PO SCH (05:34)
[2020-08-04] MEDS: Mometasone 200 MCG/Formoterol 5 MCG 120 PUFF INHALER INH SCH ×2 (07:16→19:23)
[2020-08-04] MEDS: Cilostazol 100 MG TAB PO SCH ×2 (07:56→21:30)
[2020-08-04] MEDS: Polyethylene Glycol 3350 17 GM Packet PO SCH ×2 (08:07→21:32)
[2020-08-04] MEDS: Simethicone Chewable 80 MG TAB PO SCH ×4 (08:08→21:32)
[2020-08-04] MEDS: predniSONE 20 MG TAB PO SCH (08:08)
--- NOTE | 2020-08-04 08:39 | PDOC.HOSPP ---
- Subjective Encounter Date: 08/04/20 Encounter Time: 08:36 Subjective: abd pain persists, possibly worse, no significant BM - Objective Vital Signs & Weight: Vital Signs (12 hours) Pulse Resp Pulse Ox 08/04/20 07:15 111 H 16 94 L 08/04/20 04:00 110 H 92 L 08/04/20 03:11 118 H 92 L Weight Admit Weight 112 lb Weight 106 lb 8 oz Most Recent Monitor Data Heart Rate from ECG 89 NIBP 116/63 NIBP BP-Mean 80 Respiration from ECG 17 SpO2 97 I&O: 08/03/20 08/04/20 08/05/20 06:59 06:59 06:59 Intake Total 3170 1320 Output Total 500 3695 Balance 9844 -5266 Result Diagrams: 08/03/20 06:00 08/03/20 06:00 Hospitalist ROS - Medication Medications: Active Medications Generic Name Dose Route Start Last Admin Trade Name Freq PRN Reason Stop Dose Admin Acetaminophen 650 mg 07/30/20 21:09 07/30/20 21:30 Acetaminophen 325 Mg Tab PO 650 mg Q6H PRN Administration Fever/Mild Pain Albuterol Sulfate 2.5 mg 07/07/20 12:05 07/16/20 23:17 Albuterol Sulfate 2.5 Mg/3 Ml Neb NEB 2.5 mg Q2H PRN Administration SOB &/or Wheezing Albuterol/Ipratropium 3 ml 07/09/20 19:00 08/04/20 07:15 Ipratropium/Albuterol Sulfate 3 Ml Neb NEB 3 ml QID-RT KASSANDRA Administration Alprazolam 0.5 mg 07/27/20 09:13 08/04/20 08:09 Alprazolam 0.25 Mg Tab PO 0.5 mg TIDPRN PRN Administration Anxiety Cilostazol 50 mg 07/29/20 21:00 08/04/20 07:56 Cilostazol 100 Mg Tab PO 50 mg BID KASSANDRA Administration Enoxaparin Sodium 30 mg 07/19/20 21:00 08/03/20 20:21 Enoxaparin Sodium 30 Mg/0.3 Ml Syringe SC 30 mg 2100 KASSANDRA Administration Hydralazine HCl 5 mg 07/07/20 04:18 07/09/20 11:55 Hydralazine 20 Mg/Ml Vial SLOW IVP 5 mg Q4H PRN Administration SBP > 140 Potassium Chloride/Dextrose/Sod Cl 1,000 mls @ 0 mls/hr 07/15/20 12:00 07/16/20 14:55 D5 0.9% Ns W/ 20 Meq Kcl IV Not Given .Q0M KASSANDRA As Directed Sodium Chloride 1,000 mls @ 50 mls/hr 07/31/20 10:45 08/04/20 05:33 Normal Saline 0.9% IV 1,000 mls .Q20H KASSANDRA Administration Levofloxacin 500 mg 08/02/20 06:00 08/04/20 05:34 Levofloxacin 500 Mg Tab PO 500 mg 0600 KASSANDRA Administration Levothyroxine Sodium 50 mcg 07/08/20 06:00 08/04/20 05:34 Levothyroxine Sodium 50 Mcg Tab PO 50 mcg 0600 KASSANDRA Administration Mometasone Furoate/Formoterol Fumar 2 puff 07/07/20 18:30 08/04/20 07:16 Mometasone 200 Mcg/Formoterol 5 Mcg 120 Puff Inhaler INH 2 puff BID-RT KASSANDRA Administration Montelukast Sodium 10 mg 07/07/20 21:00 08/03/20 20:22 Montelukast Sodium 10 Mg Tablet PO 10 mg QPM KASSANDRA Administration Morphine Sulfate 2 mg 07/31/20 10:32 08/04/20 05:52 Morphine 2 Mg/Ml Vial SLOW IVP 2 mg Q3H PRN Administration Moderate to Severe Pain (6-10) Ondansetron HCl 4 mg 07/07/20 04:01 07/24/20 10:47 Ondansetron Pf 4 Mg/2 Ml Vial IVP 4 mg Q6H PRN Administration Nausea/Vomiting Pantoprazole Sodium 40 mg 07/29/20 09:00 08/04/20 08:08 Pantoprazole 40 Mg Tab PO 40 mg DAILY KASSANDRA Administration Polyethylene Glycol 17 gm 08/01/20 21:00 08/04/20 08:07 Polyethylene Glycol 3350 17 Gm Packet PO 17 gm BID KASSANDRA Administration Prednisone 10 mg 07/30/20 09:00 08/04/20 08:08 Prednisone 20 Mg Tab PO 10 mg DAILY KASSANDRA Administration Simethicone 80 mg 07/31/20 13:00 08/04/20 08:08 Simethicone Chewable 80 Mg Tab PO 80 mg PCHS KASSANDRA Administration Sodium Chloride 10 ml 07/15/20 21:00 08/04/20 08:09 Flush - Normal Saline 10 Ml Syringe IVF 10 ml Q12HR KASSANDRA Administration Temazepam 15 mg 07/27/20 21:00 08/03/20 22:11 Temazepam 15 Mg Cap PO 15 mg HS KASSANDRA Administration Throat Lozenges 1 chata 07/17/20 09:59 07/25/20 22:32 Cepastat Lozenges 1 Chata PO 1 chata Q1H PRN Administration Cough Tramadol HCl 50 mg 07/29/20 13:53 07/31/20 21:51 Tramadol Hcl 50 Mg Tab PO 50 mg Q6H PRN Administration Mild-Moderate Pain (1-5) - Exam General Appearance: awake alert, ill appearing Neck: no JVD Heart: RRR, no murmur Respiratory: CTAB Gastrointestinal: no splenomegaly, tender to palpation, diminished bowl sounds Extremities: no edema Hosp A/P (1) Abdominal pain Code(s): R10.9 - UNSPECIFIED ABDOMINAL PAIN Status: Acute Qualifiers: Abdominal location: generalized Qualified Code(s): R10.84 - Generalized abdominal pain (2) Ileus Code(s): K56.7 - ILEUS, UNSPECIFIED Status: Acute (3) Acute and chronic respiratory failure with hypoxia Code(s): J96.21 - ACUTE AND CHRONIC RESPIRATORY FAILURE WITH HYPOXIA Status: Acute (4) Anemia Code(s): D64.9 - ANEMIA, UNSPECIFIED Status: Acute Qualifiers: Anemia type: unspecified type Qualified Code(s): D64.9 - Anemia, unspecified (5) Acute diverticulitis Code(s): K57.92 - DVTRCLI OF INTEST, PART UNSP, W/O PERF OR ABSCESS W/O BLEED Status: Resolved (6) SBO (small bowel obstruction) Code(s): K56.609 - UNSP INTESTNL OBST, UNSP TO PARTIAL VERSUS COMPLETE OBST Status: Resolved (7) COPD (chronic obstructive pulmonary disease) Status: Chronic (8) Hypothyroidism Code(s): E03.9 - HYPOTHYROIDISM, UNSPECIFIED Status: Chronic Qualifiers: Hypothyroidism type: unspecified Qualified Code(s): E03.9 - Hypothyroidism, unspecified (9) PVD (peripheral vascular disease) Code(s): I73.9 - PERIPHERAL VASCULAR DISEASE, UNSPECIFIED Status: Chronic (10) Pneumonia Code(s): J18.9 - PNEUMONIA, UNSPECIFIED ORGANISM Status: Acute Qualifiers: Pneumonia type: due to unspecified organism - Plan SBFT ileus NPO except meds discuss with Dr Bai when available cont crrent meds, etc
[2020-08-04] MEDS: traMADol HCl 50 MG TAB PO PRN ×2 (09:44→17:40)
[2020-08-04] MEDS ORDERED: Dextrose 5 %-0.45 % NaCl 1,000 ML IV SCH (14:15)
--- NOTE | 2020-08-04 15:41 | PDOC.HOSPP ---
- Subjective Encounter Date: 08/04/20 Encounter Time: 15:40 Subjective: cont to have abd pain. no recent BM. no vomiting - Objective Vital Signs & Weight: Vital Signs (12 hours) Temp Pulse Resp BP Pulse Ox 08/04/20 14:58 118 H 20 92 L 08/04/20 12:39 97.9 F 108 H 24 H 117/70 91 L 08/04/20 10:38 109 H 16 92 L 08/04/20 09:16 98.0 F 109 H 20 103/57 L 90 L 08/04/20 07:15 111 H 16 94 L 08/04/20 04:00 110 H 92 L Weight Admit Weight 112 lb Weight 106 lb 8 oz Most Recent Monitor Data Heart Rate from ECG 89 NIBP 116/63 NIBP BP-Mean 80 Respiration from ECG 17 SpO2 97 I&O: 08/03/20 08/04/20 08/05/20 06:59 06:59 06:59 Intake Total 3170 1320 Output Total 500 3695 Balance 2670 -5607 Result Diagrams: 08/03/20 06:00 08/03/20 06:00 Hospitalist ROS - Medication Medications: Active Medications Generic Name Dose Route Start Last Admin Trade Name Freq PRN Reason Stop Dose Admin Acetaminophen 650 mg 07/30/20 21:09 07/30/20 21:30 Acetaminophen 325 Mg Tab PO 650 mg Q6H PRN Administration Fever/Mild Pain Albuterol Sulfate 2.5 mg 07/07/20 12:05 07/16/20 23:17 Albuterol Sulfate 2.5 Mg/3 Ml Neb NEB 2.5 mg Q2H PRN Administration SOB &/or Wheezing Albuterol/Ipratropium 3 ml 07/09/20 19:00 08/04/20 14:58 Ipratropium/Albuterol Sulfate 3 Ml Neb NEB 3 ml QID-RT KASSANDRA Administration Alprazolam 0.5 mg 07/27/20 09:13 08/04/20 08:09 Alprazolam 0.25 Mg Tab PO 0.5 mg TIDPRN PRN Administration Anxiety Cilostazol 50 mg 07/29/20 21:00 08/04/20 07:56 Cilostazol 100 Mg Tab PO 50 mg BID KASSANDRA Administration Enoxaparin Sodium 30 mg 07/19/20 21:00 08/03/20 20:21 Enoxaparin Sodium 30 Mg/0.3 Ml Syringe SC 30 mg 2100 KASSANDRA Administration Hydralazine HCl 5 mg 07/07/20 04:18 07/09/20 11:55 Hydralazine 20 Mg/Ml Vial SLOW IVP 5 mg Q4H PRN Administration SBP > 140 Sodium Chloride 1,000 mls @ 50 mls/hr 07/31/20 10:45 08/04/20 05:33 Normal Saline 0.9% IV 1,000 mls .Q20H KASSANDRA Administration Levofloxacin 500 mg 08/02/20 06:00 08/04/20 05:34 Levofloxacin 500 Mg Tab PO 500 mg 0600 KASSANDRA Administration Levothyroxine Sodium 50 mcg 07/08/20 06:00 08/04/20 05:34 Levothyroxine Sodium 50 Mcg Tab PO 50 mcg 0600 KASSANDRA Administration Mometasone Furoate/Formoterol Fumar 2 puff 07/07/20 18:30 08/04/20 07:16 Mometasone 200 Mcg/Formoterol 5 Mcg 120 Puff Inhaler INH 2 puff BID-RT KASSANDRA Administration Montelukast Sodium 10 mg 07/07/20 21:00 08/03/20 20:22 Montelukast Sodium 10 Mg Tablet PO 10 mg QPM KASSANDRA Administration Morphine Sulfate 2 mg 07/31/20 10:32 08/04/20 05:52 Morphine 2 Mg/Ml Vial SLOW IVP 2 mg Q3H PRN Administration Moderate to Severe Pain (6-10) Ondansetron HCl 4 mg 07/07/20 04:01 07/24/20 10:47 Ondansetron Pf 4 Mg/2 Ml Vial IVP 4 mg Q6H PRN Administration Nausea/Vomiting Pantoprazole Sodium 40 mg 07/29/20 09:00 08/04/20 08:08 Pantoprazole 40 Mg Tab PO 40 mg DAILY KASSANDRA Administration Polyethylene Glycol 17 gm 08/01/20 21:00 08/04/20 08:07 Polyethylene Glycol 3350 17 Gm Packet PO 17 gm BID KASSANDRA Administration Prednisone 10 mg 07/30/20 09:00 08/04/20 08:08 Prednisone 20 Mg Tab PO 10 mg DAILY AKSSANDRA Administration Simethicone 80 mg 07/31/20 13:00 08/04/20 11:27 Simethicone Chewable 80 Mg Tab PO Not Given PCHS KASSANDRA Sodium Chloride 10 ml 07/15/20 21:00 08/04/20 08:09 Flush - Normal Saline 10 Ml Syringe IVF 10 ml Q12HR KASSANDAR Administration Temazepam 15 mg 07/27/20 21:00 08/03/20 22:11 Temazepam 15 Mg Cap PO 15 mg HS KASSANDRA Administration Throat Lozenges 1 chata 07/17/20 09:59 07/25/20 22:32 Cepastat Lozenges 1 Chata PO 1 chata Q1H PRN Administration Cough Tramadol HCl 50 mg 07/29/20 13:53 08/04/20 09:44 Tramadol Hcl 50 Mg Tab PO 50 mg Q6H PRN Administration Mild-Moderate Pain (1-5) - Exam General Appearance: awake alert Neck: no JVD Heart: RRR, no murmur Respiratory: CTAB, no wheezes Gastrointestinal: tender to palpation, distended, diminished bowl sounds Extremities: no edema Hosp A/P (1) Abdominal pain Code(s): R10.9 - UNSPECIFIED ABDOMINAL PAIN Status: Acute Qualifiers: Abdominal location: generalized Qualified Code(s): R10.84 - Generalized abdominal pain (2) Ileus Code(s): K56.7 - ILEUS, UNSPECIFIED Status: Acute (3) Acute and chronic respiratory failure with hypoxia Code(s): J96.21 - ACUTE AND CHRONIC RESPIRATORY FAILURE WITH HYPOXIA Status: Acute (4) Anemia Code(s): D64.9 - ANEMIA, UNSPECIFIED Status: Acute Qualifiers: Anemia type: unspecified type Qualified Code(s): D64.9 - Anemia, unspecified (5) Acute diverticulitis Code(s): K57.92 - DVTRCLI OF INTEST, PART UNSP, W/O PERF OR ABSCESS W/O BLEED Status: Resolved (6) SBO (small bowel obstruction) Code(s): K56.609 - UNSP INTESTNL OBST, UNSP TO PARTIAL VERSUS COMPLETE OBST Status: Resolved (7) COPD (chronic obstructive pulmonary disease) Status: Chronic (8) Hypothyroidism Code(s): E03.9 - HYPOTHYROIDISM, UNSPECIFIED Status: Chronic Qualifiers: Hypothyroidism type: unspecified Qualified Code(s): E03.9 - Hypothyroidism, unspecified (9) PVD (peripheral vascular disease) Code(s): I73.9 - PERIPHERAL VASCULAR DISEASE, UNSPECIFIED Status: Chronic (10) Pneumonia Code(s): J18.9 - PNEUMONIA, UNSPECIFIED ORGANISM Status: Acute Qualifiers: Pneumonia type: due to unspecified organism - Plan SBFT-ileus with absence of peristalsis NPO evcept meds started iv fluids discussed wit Dr Bai-suggested GI consult-called suspect problem may be morphine for pain, await GI opinion
--- NOTE | 2020-08-04 18:03 | PRG ---
DATE OF SERVICE: 08/04/2020 SUBJECTIVE: Ms. Beyer is postoperative day #20 from sigmoid colectomy with colostomy creation for perforated diverticulitis. She remains on the medical floor. Yesterday, I obtained a Gastrografin small-bowel follow-through. The contrast was tolerated by the patient. She denies any nausea or vomiting during the study. She did have several loose/watery bowel movements as the contrast moved through her GI tract. Impressively, however, a substantial amount of the contrast remained within her stomach after she drank this throughout the 4 hours of the study. The remainder of it moved slowly through her intestine. All of this seemed to be consistent with an ileus. She tells me she is still hungry and denies nausea or vomiting. She still however endorses substantial abdominal pain. She is apparently still being receiving pain medication which she requests. I suspect that the narcotics could be a source of her ongoing ileus. She is on MiraLAX twice a day currently. PHYSICAL EXAMINATION: VITAL SIGNS: Her heart rate is between 93 and 118. Blood pressure is 117/70. LUNGS: Clear to auscultation. ABDOMEN: Protuberant, but appears to be soft. She has what appears to be subjective discomfort that she is able overcome when I have her relax. Bowel sounds appeared to be normoactive. She has the viable ostomy. Her midline incision is nicely healed. LABS: No labs were obtained today. ASSESSMENT: The patient with an unusual ileus three weeks after sigmoid colectomy. She does not appear to have a bowel obstruction from recent CT scan or her small-bowel follow-through. She however continues to complain of abdominal pain. She still remains tachycardic. I doubt there is anything that surgery is going to improve. Unfortunately, she needs to improve her oral intake to avoid malnutrition. She has very limited activity. I would recommend continuing her diet. I have asked the hospitalist service to consult Gastroenterology and Dr. Brennan will see the patient later to see if she has any additional thoughts regarding this. For now, I would hold off on resuming her TPN in hopes that she will be able to maintain appropriate oral intake. I will encourage Ensure supplements to improve her nutritional status. I will see her again on Friday (today is Friday). Please contact surgery if there are surgical problems over the weekend. Job ID: [id number]
[2020-08-04] MEDS: D5 0.9% NS w/ 20 mEq KCl 1,000 ML IV SCH (18:08)
[2020-08-04] MEDS ORDERED: Cosyntropin 250 MCG VIAL SLOW IVP SCH (19:15)
[2020-08-04] MEDS: Acetaminophen 325 MG TAB PO PRN (21:28)
[2020-08-04] MEDS: Temazepam 15 MG CAP PO SCH (21:32)
[2020-08-04] MEDS: Enoxaparin Sodium 30 MG/0.3 ML SYRINGE SC SCH (21:32)
[2020-08-04] MEDS: Montelukast Sodium 10 mg Tablet PO SCH (21:32)
[2020-08-05] MEDS: Levothyroxine Sodium 50 MCG TAB PO SCH (05:58)
[2020-08-05 06:44] LABS: Hemoglobin 8.9 g/dL (12.0-16.0); Mean Corpuscular HGB CONC 31.9 g/dL (32.0-36.0); Mean Corpuscular Hemoglobin 29.3 pg (27.0-31.0); Platelet Count 305 thou/uL (130-400); RBC Distribution Width 14.1 % (11.5-14.5); Red Blood Cell (RBC) Count 3.04 mill/uL (4.20-5.40); White Blood Cell (WBC) Count 4.3 thou/uL (4.8-10.8)
[2020-08-05 06:52] LABS: Hemoglobin A1c 5.7 % (4.0-6.0)
[2020-08-05 07:06] LABS: ALT (SGPT) 17 U/L (8-55); AST (SGOT) 34 U/L (5-34); Albumin 2.5 g/dL (3.4-4.8); Alkaline Phosphatase 56 U/L (40-110); Anion Gap 11 mmol/L (10-20); BUN (Urea Nitrogen) 4 mg/dL (9.8-20.1); Bilirubin, Total 0.2 mg/dL (0.2-1.2); Calc. Creatinine Clearance 92 mL/min (70-130); Calcium 7.5 mg/dL (7.8-10.44); Carbon Dioxide 25 mmol/L (23-31); Chloride 103 mmol/L (98-107); Globulin 2.7 g/dL (2.4-3.5); Glucose 110 mg/dL (80-115); Protein, Total 5.2 g/dL (6.0-8.3); Sodium 136 mmol/L (136-145)
[2020-08-05 07:08] LABS: Potassium 2.9 mmol/L (3.5-5.1)
--- NOTE | 2020-08-05 07:30 | CON ---
DATE OF CONSULTATION: 08/04/2020 REQUESTING PHYSICIAN: Dr. Smith. REASON FOR CONSULT: Ileus. HISTORY OF PRESENT ILLNESS: Ms. Beyer is a 70-year-old female who was admitted to the hospital on 07/07 with the bowel obstruction. She did not improve with conservative therapy and ultimately had surgery with Dr. Bai which showed a distal partial small-bowel obstruction related to an area of chronic and acute diverticulitis, which required resection and diverting colostomy. Surgery was on 07/15, and included drainage of pelvic abscess as well. Pathology showed acute diverticulitis with peridiverticular fibrosis and peritonitis. She remained in the ICU for a while for her COPD, then came out of the ICU. Started clear liquids on the . There were dilated small bowel loops, and she seemed to develop an ileus, was on TPN for a time. On 07/31, her CAT scan was repeated, showed some prominent distal small bowel loops and significant basilar pneumonitis as well as atherosclerotic vessel calcifications. On and off, she was complaining of abdominal pain. She has been on narcotics. She has had good ostomy function. She has had no vomiting. For a time, she developed some tachycardia and that was the reason for repeat CAT scan. Small bowel follow-through was performed yesterday, which ultimately emptied into the colon; however, there was quite a bit of retention of contrast in the gastric cardia. I have been asked to evaluate her for this. Presently, she states she has had some pain in the right lower quadrant. She states Dr. Bai came in earlier today and is going to stop her pain medicine, advance her diet, which she wants to do. She wants to try to eat and go home. She denies any nausea or dysphagia. Denies any melena, hematochezia, or hematemesis. She states she has been very thin for a long time. Reviewing her records, she was seen by Dr. Bro in 2014 for weight loss of 60 pounds and anorexia and vomiting. She had a normal EGD with biopsies at that time. It was felt that she had cannabinoid hyperemesis as she was smoking marijuana daily. She did not follow up after that. She has also had a history of hepatitis C, and it is unclear if that has been treated or what the status is. She does not think she has. Imaging studies have not shown any findings suggestive of cirrhosis. Other complicating factors are severe COPD. Evaluation here has also included a.m. cortisol level which was normal. Presently, she is on 10 mg of prednisone. She denies any thrush or odynophagia. PAST HISTORY: Prior hepatitis C, COPD, atherosclerotic vessel disease, oxygen dependency, peripheral vascular disease, and chronic left lower leg pain. PAST SURGICAL HISTORY: Cholecystectomy, tubal ligation, back surgery. SOCIAL HISTORY: She is a past smoker and quit smoking several years ago. She does vape and use marijuana on and off still though, just not daily. She does not drink. ALLERGIES: NONE KNOWN. FAMILY HISTORY: No colon cancer. REVIEW OF SYSTEMS: Poor exercise tolerance. Poor appetite, chronic. Weight loss, chronic. Denies abdominal pain with eating. Denies vomiting. Denies dysphagia. Denies dysuria, frequency, urgency, melena, hematochezia, or hematemesis. PRESENT MEDICATIONS: 1. Tylenol. 2. Albuterol. 3. Xanax. 4. Pletal. 5. Lovenox. 6. Hydralazine. 7. Levothyroxine. 8. Levofloxacin. 9. P.r.n. morphine, stopped today. 10. Zofran p.r.n. 11. MiraLAX. 12. Prednisone 10 mg daily. 13. Simethicone. 14. Temazepam. 15. Tramadol 50 mg daily, stopped. 16. She has been using more of the Ultram than the morphine, but she did use some of that today. PHYSICAL EXAMINATION: VITAL SIGNS: Pulse 100 to 118, temperature 98, and blood pressure 113/63. GENERAL: She is resting in bed. She is frail. She is thin and cachectic with muscle wasting. NECK: Supple. CHEST: She has a few spider angiomata of the chest. LUNGS: Decreased breath sounds at the bases. Slight expiratory wheezing. ABDOMEN: Soft and protuberant with really no abdominal wall musculature. There is no palpable hepatosplenomegaly. There is no fluid wave shifting dullness. EXTREMITIES: Reveal muscle wasting. Thin skin. Pulses are diminished. There is no clubbing or cyanosis or edema. LABORATORY STUDIES: White count 6.5, yesterday. Hemoglobin 9.4, platelet count 325. Sodium 136, potassium 3.3, chloride 101, bicarb 27, BUN 4, creatinine 0.45 that was on the 14th. Liver function tests notable for AST 45, ALT 27, alkaline phosphatase 67, protein 5.7, albumin 2.8 on the th. Prealbumin was 6. TSH was 2.4 on 07/09. Cortisol 19 on 07/09. COVID negative on admission. ASSESSMENT: 1. This is a 70-year-old female who has had failure to thrive for many years, likely related to vascular disease and severe chronic obstructive pulmonary disease with oxygen dependence at home. Dr. Bro saw her several years ago for nausea, vomiting, weight loss, and she had a normal EGD with normal gastric biopsies. It was felt that some of her vomiting at that time was related to cannabinoid hyperemesis. She never did follow through with a colonoscopy. Now, she is admitted for partial obstruction, ultimately found to have a bowel obstruction related to acute diverticulitis, adhesions which necessitated resection, and colostomy placement. She has been slow to recover from this with a prolonged ileus. She had a small-bowel follow-through that ultimately showed everything emptying into the ostomy bag, but she has had quite a bit of material that stays up in the cardia of the stomach. Interestingly, she denies any nausea with this. Additionally, she has had some tachycardia. The etiology of this is unclear. 2. Tachycardia. This could be related to volume depletion. This could be related to adrenal insufficiency. This could be related to ongoing inflammation. She does have CAT scans that show some inflammatory changes in the base of the lung. She may have some underlying pneumonia or aspiration to be considered, although she has not been vomiting. 3. With regard to her slow transit, this could be related to postop pain medications, immobility or ischemia, it is less likely that she has any Adilia in her esophagus with her chronic steroid use with adrenal insufficiency, but this probably needs to be evaluated. 4. Hepatitis C, chronic. There are no overt liver masses on her CT, so hepatoma is less likely. There does not seem to be any decompensation of her hepatic function. RECOMMENDATIONS: 1. Cortrosyn stimulation test even though she had normal cortisol when she was admitted. She was on high-dose steroids then. 2. I was going to check her thyroid, but that has been done already. We will check a hemoglobin A1c. It does not seem she is diabetic. We will check alpha fetoprotein as well. 3. If she does not improve, we can consider endoscopy and a CT mesenteric angiogram to rule out mesenteric ischemia. Job ID: [id number]
[2020-08-05] MEDS: Mometasone 200 MCG/Formoterol 5 MCG 120 PUFF INHALER INH SCH ×2 (07:36→19:07)
[2020-08-05 07:49] LABS: Band 15 % (5-11); Lymphocytes 18 % (21-51); MDiff Complete? YES; Monocytes 10 % (0-10); Neutrophil 57 % (42-75)
[2020-08-05] MEDS: predniSONE 20 MG TAB PO SCH (08:45)
[2020-08-05] MEDS: Simethicone Chewable 80 MG TAB PO SCH ×4 (08:45→23:29)
[2020-08-05] MEDS ORDERED: Potassium Chloride 20 MEQ TAB PO SCH (08:45)
[2020-08-05] MEDS: Polyethylene Glycol 3350 17 GM Packet PO SCH ×2 (08:46→20:39)
[2020-08-05] MEDS: Cilostazol 100 MG TAB PO SCH ×2 (10:17→21:09)
--- NOTE | 2020-08-05 13:29 | PDOC.HOSPP ---
- Subjective Encounter Date: 08/05/20 Subjective: Complaining of abdominal discomfort. No unusual shortness of breath for her. - Objective Vital Signs & Weight: Vital Signs (12 hours) Temp Pulse Resp BP Pulse Ox 08/05/20 11:01 90 16 08/05/20 07:36 89 20 08/05/20 07:29 97.2 F L 84 24 H 111/64 95 Weight Admit Weight 112 lb Weight 106 lb 8 oz Most Recent Monitor Data Heart Rate from ECG 89 NIBP 116/63 NIBP BP-Mean 80 Respiration from ECG 17 SpO2 97 I&O: 08/04/20 08/05/20 08/06/20 06:59 06:59 06:59 Intake Total 1320 2005 Output Total 3695 150 Balance -2375 0906 Result Diagrams: 08/05/20 06:20 08/05/20 06:20 Hospitalist ROS - Medication Medications: Active Medications Generic Name Dose Route Start Last Admin Trade Name Freq PRN Reason Stop Dose Admin Acetaminophen 650 mg 07/30/20 21:09 08/04/20 21:28 Acetaminophen 325 Mg Tab PO 650 mg Q6H PRN Administration Fever/Mild Pain Albuterol Sulfate 2.5 mg 07/07/20 12:05 07/16/20 23:17 Albuterol Sulfate 2.5 Mg/3 Ml Neb NEB 2.5 mg Q2H PRN Administration SOB &/or Wheezing Albuterol/Ipratropium 3 ml 07/09/20 19:00 08/05/20 11:01 Ipratropium/Albuterol Sulfate 3 Ml Neb NEB 3 ml QID-RT KASSANDRA Administration Alprazolam 0.5 mg 07/27/20 09:13 08/04/20 21:28 Alprazolam 0.25 Mg Tab PO 0.5 mg TIDPRN PRN Administration Anxiety Cilostazol 50 mg 07/29/20 21:00 08/05/20 10:17 Cilostazol 100 Mg Tab PO 50 mg BID KASSANDRA Administration Cosyntropin 250 mcg 08/04/20 19:15 08/05/20 10:19 Cosyntropin 250 Mcg Vial SLOW IVP 08/06/20 19:16 250 mcg WILLCALL KASSANDRA Administration Enoxaparin Sodium 30 mg 07/19/20 21:00 08/04/20 21:32 Enoxaparin Sodium 30 Mg/0.3 Ml Syringe SC 30 mg 2100 KASSANDRA Administration Hydralazine HCl 5 mg 07/07/20 04:18 07/09/20 11:55 Hydralazine 20 Mg/Ml Vial SLOW IVP 5 mg Q4H PRN Administration SBP > 140 Potassium Chloride/Dextrose/Sod Cl 1,000 mls @ 50 mls/hr 08/04/20 17:45 08/04/20 18:08 D5 0.9% Ns W/ 20 Meq Kcl IV 1,000 mls .Q20H KASSANDRA Administration Levofloxacin 500 mg 08/02/20 06:00 08/05/20 05:57 Levofloxacin 500 Mg Tab PO 500 mg 0600 KASSANDRA Administration Levothyroxine Sodium 50 mcg 07/08/20 06:00 08/05/20 05:58 Levothyroxine Sodium 50 Mcg Tab PO 50 mcg 0600 KASSANDRA Administration Mometasone Furoate/Formoterol Fumar 2 puff 07/07/20 18:30 08/05/20 07:36 Mometasone 200 Mcg/Formoterol 5 Mcg 120 Puff Inhaler INH 2 puff BID-RT KASSANDRA Administration Montelukast Sodium 10 mg 07/07/20 21:00 08/04/20 21:32 Montelukast Sodium 10 Mg Tablet PO 10 mg QPM KASSANDRA Administration Ondansetron HCl 4 mg 07/07/20 04:01 07/24/20 10:47 Ondansetron Pf 4 Mg/2 Ml Vial IVP 4 mg Q6H PRN Administration Nausea/Vomiting Pantoprazole Sodium 40 mg 07/29/20 09:00 08/05/20 08:45 Pantoprazole 40 Mg Tab PO 40 mg DAILY KASSANDRA Administration Polyethylene Glycol 17 gm 08/01/20 21:00 08/05/20 08:46 Polyethylene Glycol 3350 17 Gm Packet PO Not Given BID KASSANDRA Prednisone 10 mg 07/30/20 09:00 08/05/20 08:45 Prednisone 20 Mg Tab PO 10 mg DAILY KASSANDRA Administration Simethicone 80 mg 07/31/20 13:00 08/05/20 08:45 Simethicone Chewable 80 Mg Tab PO 80 mg PCHS KASSANDRA Administration Sodium Chloride 10 ml 07/15/20 21:00 08/04/20 21:33 Flush - Normal Saline 10 Ml Syringe IVF 10 ml Q12HR KASSANDRA Administration Temazepam 15 mg 07/27/20 21:00 08/04/20 21:32 Temazepam 15 Mg Cap PO 15 mg HS KASSANDRA Administration Throat Lozenges 1 chata 07/17/20 09:59 07/25/20 22:32 Cepastat Lozenges 1 Chata PO 1 chata Q1H PRN Administration Cough - Exam General Appearance: awake alert ENT: normocephalic atraumatic Neck: supple, no JVD Respiratory: normal chest expansion, no tachypnea, rhonchi Gastrointestinal: soft, tender to palpation Extremities: no cyanosis Neurological: cranial nerve grossly intact Hosp A/P (1) Colonic diverticular abscess Code(s): K57.20 - DVTRCLI OF LG INT W PERFORATION AND ABSCESS W/O BLEEDING Status: Acute (2) SBO (small bowel obstruction) Code(s): K56.609 - UNSP INTESTNL OBST, UNSP TO PARTIAL VERSUS COMPLETE OBST Status: Resolved (3) Pneumonia Code(s): J18.9 - PNEUMONIA, UNSPECIFIED ORGANISM Status: Acute Qualifiers: Pneumonia type: due to unspecified organism (4) COPD (chronic obstructive pulmonary disease) Status: Chronic (5) Malnutrition of moderate degree Code(s): E44.0 - MODERATE PROTEIN-CALORIE MALNUTRITION Status: Chronic (6) Hyponatremia Code(s): E87.1 - HYPO-OSMOLALITY AND HYPONATREMIA Status: Resolved - Plan The patient is a 70-year-old female with past medical history of hepatitis C, COPD, coronary artery disease, and peripheral vascular disease who was admitted to the hospital for evaluation of abdominal pain, nausea, and vomiting CT scan of the abdomen pelvis revealed moderate to severe partial small bowel obstruction with transition zone within the lower quadrant of the abdomen. Free fluid was noted in the pelvis. Conservative management was attempted but was not successful. The patient underwent laparoscopic abdominal exploration which was converted to laparotomy. The small bowel was found adherent to a diverticular abscess. Small bowel was mobilized and sigmoid colon was resected with diverting colostomy. Postoperative ileus was present but this appears to be improving. There is stool in the colostomy bag today. Bowel follow-through study showed contrast in the colon. COPD appears to be stable on oxygen. GI were consulted again due to partial retention of contrast in the stomach. The patient is complaining of abdominal discomfort today. Her oxygenation is stable. No signs of COPD exacerbation at this time. Her x-ray showed right lower lobe infiltrate suggesting pneumonia. The patient is on Levaquin. Laboratory studies revealed hypokalemia. We will replace her potassium and I will also replace magnesium and repeat the levels in the morning. PT and OT evaluation.
[2020-08-05] MEDS ORDERED: Magnesium 2 GM/50 ML 2 GM in Premix Bag 1 BAG IVPB SCH (13:30)
[2020-08-05] MEDS: D5 0.9% NS w/ 20 mEq KCl 1,000 ML IV SCH (17:19)
[2020-08-05] MEDS: Montelukast Sodium 10 mg Tablet PO SCH (20:36)
[2020-08-05] MEDS: Enoxaparin Sodium 30 MG/0.3 ML SYRINGE SC SCH (20:40)
[2020-08-05] MEDS: Acetaminophen 325 MG TAB PO PRN (21:10)
[2020-08-05] MEDS: Temazepam 15 MG CAP PO SCH (22:37)
[2020-08-06] MEDS: Levothyroxine Sodium 50 MCG TAB PO SCH (05:15)
[2020-08-06 05:58] LABS: Mean Corpuscular HGB CONC 32.2 g/dL (32.0-36.0); Mean Corpuscular Hemoglobin 29.4 pg (27.0-31.0); Mean Corpuscular Volume 91.3 fL (78.0-98.0); Mean Platelet Volume 6.9 fL (7.4-10.4); Platelet Count 364 thou/uL (130-400); RBC Distribution Width 14.2 % (11.5-14.5); White Blood Cell (WBC) Count 5.1 thou/uL (4.8-10.8)
[2020-08-06 06:09] LABS: Anion Gap 11 mmol/L (10-20); BUN (Urea Nitrogen) Less than 4 mg/dL (9.8-20.1); Calc. Creatinine Clearance 94 mL/min (70-130); Calcium 7.6 mg/dL (7.8-10.44); Carbon Dioxide 28 mmol/L (23-31); Chloride 104 mmol/L (98-107); Glucose 82 mg/dL (80-115); Magnesium 1.7 mg/dL (1.6-2.6); Potassium 3.2 mmol/L (3.5-5.1); Sodium 140 mmol/L (136-145)
[2020-08-06 06:19] LABS: Band 5 % (5-11); Lymphocytes 22 % (21-51); MDiff Complete? YES; Monocytes 13 % (0-10); Neutrophil 60 % (42-75)
[2020-08-06] MEDS: Cepastat Lozenges 1 LOZ PO PRN (07:08)
[2020-08-06] MEDS: Mometasone 200 MCG/Formoterol 5 MCG 120 PUFF INHALER INH SCH ×2 (07:49→19:30)
--- NOTE | 2020-08-06 08:00 | RAD ---
XR Abdomen 1 View/KUB History: Contrast clearance Comparison: Small bowel examination 3 days prior Findings: Majority of the contrast has transited through the small bowel and large bowel. Impression: Adequate clearance of contrast.
--- NOTE | 2020-08-06 08:54 | PRG ---
DATE OF SERVICE: 08/05/2020 SUBJECTIVE: Ms. Beyer complains of some right lower quadrant pain. She is eating. Her pain medicines were stopped yesterday. She has stool output through her ostomy. She has no nausea, vomiting. OBJECTIVE: VITAL SIGNS: Pulse 90 to 100, blood pressure 111/64. GENERAL: She is resting comfortably in bed. LUNGS: Clear. HEART: Regular rate and rhythm without clicks or murmurs. ABDOMEN: Soft. There is some protuberance in right lower quadrant. She is tender there. There is no rebound, but she is guarding voluntarily. ASSESSMENT: 1. Anorexia, muscle wasting, likely related to severe chronic obstructive pulmonary disease. 2. Status post surgery for small-bowel obstruction with perforated diverticulitis. 3. Right lower quadrant discomfort with no leukocytosis or fever. Stable vital signs, ability to tolerate p.o. RECOMMENDATIONS: 1. Continue with diet. Monitor vital signs. If the patient's pain worsens, could consider re-CAT scanning her. However, she did have a CAT scan just recently on 07/31 with no abnormalities found in that area, and had a small bowel follow-through on 08/03. We will follow along with you. 2. Cortisol stim test was normal. Hep C RNA is pending and she has had a prior history of hepatitis C. Job ID: [id number]
--- NOTE | 2020-08-06 10:27 | CT ---
EXAM: CT angiogram abdomen and pelvis with IV contrast and 3-D reconstructions PROVIDED CLINICAL HISTORY: Post prandial severe abdominal pain. COMPARISON: CT abdomen and pelvis on 07/31/2020 FINDINGS: There is parenchymal consolidation seen at each lung base greater on the right. There are severe emph ysematous changes seen at each lung base with areas of scarring. Diminished attenuation of the liver is present suggesting fatty infiltration. Postcholecystectomy elvis nges are noted. Calcified granulomata are seen in the spleen. Pancreas and bilateral adrenal glands as well as left kidney demonstrate a normal CT appearance. Few subcentimeter too small to characterize hypodense lesions are seen in the superior pole right kidney. Dense vascular calcifications are seen in the abdominal aorta and involving the iliac arteries. There is mild eccentric soft atherosclerotic plaque involving the proximal superior mesenteric artery resulting in mild narrowing. Minimal narrowing is seen involving the proximal celiac artery. The ALBERTO is visualized and patent. Single patent bilateral renal arteries are visualized. There is mild narrowing involving the right common iliac artery due to atherosclerotic plaque and taylor cifications. Right internal and external iliac arteries are patent. Left external iliac artery is patent, but there are mild degrees of narrowing involving the left internal iliac artery. Mild eccent anamika atherosclerotic plaque and calcification involves each common femoral artery with only mild degrees of narrowing present. Left lower quadrant colostomy is present with evidence of Barth's pouch. Multiple unopacified fluid -filled loops of small bowel are visualized. No definitive bowel wall thickening is appreciated. No free fluid, fluid collection, or lymphadenopathy is seen in the abdomen or pelvis. Multilevel degenerative changes are seen in the spine with right convex scoliosis. Severe degenerativ e changes are again seen at the L3-4 level with prominent endplate degenerative changes seen. IMPRESSION: 1. Consolidation right lung base worrisome for pneumonia. Patchy parenchymal density at the left lung base which may also be related to infectious pneumonitis. 2. Chronic bibasilar lung changes. 3. Prominent atherosclerotic vascular calcifications with mild degree of narrowing involving the prox imal superior mesenteric artery. Minimal narrowing is present involving the celiac artery, and the ALBERTO is patent. 4. Additional findings as above.
[2020-08-06] MEDS ORDERED: Iopamidol-370 76% 500 ML 1 ML ONE (11:02)
[2020-08-06] MEDS: Cilostazol 100 MG TAB PO SCH ×2 (11:53→20:06)
[2020-08-06] MEDS: predniSONE 20 MG TAB PO SCH (11:53)
[2020-08-06] MEDS: Polyethylene Glycol 3350 17 GM Packet PO SCH ×2 (12:05→20:07)
[2020-08-06] MEDS: Simethicone Chewable 80 MG TAB PO SCH ×4 (12:06→22:55)
[2020-08-06] MEDS ORDERED: Potassium Chloride 20 MEQ TAB PO SCH (12:30)
--- NOTE | 2020-08-06 12:30 | PDOC.HOSPP ---
- Subjective Encounter Date: 08/06/20 Subjective: The patient is feeling better today. She is now on her baseline oxygen total of 2 L at home. - Objective Vital Signs & Weight: Vital Signs (12 hours) Temp Pulse Resp BP Pulse Ox 08/06/20 10:33 107 H 22 H 96 08/06/20 08:08 98.2 F 97 20 142/86 H 95 08/06/20 07:49 115 H 20 98 Weight Admit Weight 112 lb Weight 106 lb 8 oz Most Recent Monitor Data Heart Rate from ECG 89 NIBP 116/63 NIBP BP-Mean 80 Respiration from ECG 17 SpO2 97 I&O: 08/05/20 08/06/20 08/07/20 06:59 06:59 06:59 Intake Total 2005 Output Total 150 Balance 1856 Result Diagrams: 08/06/20 05:40 08/06/20 05:40 Hospitalist ROS - Medication Medications: Active Medications Generic Name Dose Route Start Last Admin Trade Name Freq PRN Reason Stop Dose Admin Acetaminophen 650 mg 07/30/20 21:09 08/05/20 21:10 Acetaminophen 325 Mg Tab PO 650 mg Q6H PRN Administration Fever/Mild Pain Albuterol Sulfate 2.5 mg 07/07/20 12:05 07/16/20 23:17 Albuterol Sulfate 2.5 Mg/3 Ml Neb NEB 2.5 mg Q2H PRN Administration SOB &/or Wheezing Albuterol/Ipratropium 3 ml 07/09/20 19:00 08/06/20 10:33 Ipratropium/Albuterol Sulfate 3 Ml Neb NEB 3 ml QID-RT KASSANDRA Administration Cilostazol 50 mg 07/29/20 21:00 08/06/20 11:53 Cilostazol 100 Mg Tab PO 50 mg BID KASSANDRA Administration Cosyntropin 250 mcg 08/04/20 19:15 08/05/20 10:19 Cosyntropin 250 Mcg Vial SLOW IVP 08/06/20 19:16 250 mcg WILLCALL KASSANDRA Administration Enoxaparin Sodium 30 mg 07/19/20 21:00 08/05/20 20:40 Enoxaparin Sodium 30 Mg/0.3 Ml Syringe SC 30 mg 2100 KASSANDRA Administration Hydralazine HCl 5 mg 07/07/20 04:18 07/09/20 11:55 Hydralazine 20 Mg/Ml Vial SLOW IVP 5 mg Q4H PRN Administration SBP > 140 Potassium Chloride/Dextrose/Sod Cl 1,000 mls @ 50 mls/hr 08/04/20 17:45 08/05/20 17:19 D5 0.9% Ns W/ 20 Meq Kcl IV 1,000 mls .Q20H KASSANDRA Administration Levofloxacin 500 mg 08/02/20 06:00 08/06/20 05:14 Levofloxacin 500 Mg Tab PO Not Given 0600 KASSANDRA Levothyroxine Sodium 50 mcg 07/08/20 06:00 08/06/20 05:15 Levothyroxine Sodium 50 Mcg Tab PO Not Given 0600 KASSANDRA Mometasone Furoate/Formoterol Fumar 2 puff 07/07/20 18:30 08/06/20 07:49 Mometasone 200 Mcg/Formoterol 5 Mcg 120 Puff Inhaler INH 2 puff BID-RT KASSANDRA Administration Montelukast Sodium 10 mg 07/07/20 21:00 08/05/20 20:36 Montelukast Sodium 10 Mg Tablet PO 10 mg QPM KASSANDRA Administration Ondansetron HCl 4 mg 07/07/20 04:01 07/24/20 10:47 Ondansetron Pf 4 Mg/2 Ml Vial IVP 4 mg Q6H PRN Administration Nausea/Vomiting Pantoprazole Sodium 40 mg 07/29/20 09:00 08/06/20 11:53 Pantoprazole 40 Mg Tab PO 40 mg DAILY KASSANDRA Administration Polyethylene Glycol 17 gm 08/01/20 21:00 08/06/20 12:05 Polyethylene Glycol 3350 17 Gm Packet PO Not Given BID KASSANDRA Prednisone 10 mg 07/30/20 09:00 08/06/20 11:53 Prednisone 20 Mg Tab PO 10 mg DAILY KASSANDRA Administration Simethicone 80 mg 07/31/20 13:00 08/06/20 12:06 Simethicone Chewable 80 Mg Tab PO Not Given PCHS KASSANDRA Sodium Chloride 10 ml 07/15/20 21:00 08/06/20 12:06 Flush - Normal Saline 10 Ml Syringe IVF 10 ml Q12HR KASSANDRA Administration Temazepam 15 mg 07/27/20 21:00 08/05/20 22:37 Temazepam 15 Mg Cap PO 15 mg HS KASSANDRA Administration Throat Lozenges 1 chata 07/17/20 09:59 08/06/20 07:08 Cepastat Lozenges 1 Chata PO 1 chata Q1H PRN Administration Cough - Exam General Appearance: awake alert ENT: normocephalic atraumatic Neck: supple Respiratory: normal chest expansion, no tachypnea Gastrointestinal: soft Extremities: no cyanosis, no edema Hosp A/P (1) Colonic diverticular abscess Code(s): K57.20 - DVTRCLI OF LG INT W PERFORATION AND ABSCESS W/O BLEEDING Status: Acute (2) SBO (small bowel obstruction) Code(s): K56.609 - UNSP INTESTNL OBST, UNSP TO PARTIAL VERSUS COMPLETE OBST Status: Resolved (3) Pneumonia Code(s): J18.9 - PNEUMONIA, UNSPECIFIED ORGANISM Status: Acute Qualifiers: Pneumonia type: due to unspecified organism (4) COPD (chronic obstructive pulmonary disease) Status: Chronic (5) Malnutrition of moderate degree Code(s): E44.0 - MODERATE PROTEIN-CALORIE MALNUTRITION Status: Chronic (6) Hyponatremia Code(s): E87.1 - HYPO-OSMOLALITY AND HYPONATREMIA Status: Resolved - Plan The patient is a 70-year-old female with past medical history of hepatitis C, COPD, coronary artery disease, and peripheral vascular disease who was admitted to the hospital for evaluation of abdominal pain, nausea, and vomiting CT scan of the abdomen pelvis revealed moderate to severe partial small bowel obstruction with transition zone within the lower quadrant of the abdomen. Free fluid was noted in the pelvis. Conservative management was attempted but was not successful. The patient underwent laparoscopic abdominal exploration which was converted to laparotomy. The small bowel was found adherent to a diverticular abscess. Small bowel was mobilized and sigmoid colon was resected with diverting colostomy. Postoperative ileus was present but this appears to be improving. There is stool in the colostomy bag today. Bowel follow-through study showed contrast in the colon. COPD appears to be stable on oxygen. GI were consulted again due to partial retention of contrast in the stomach. The patient is complaining of abdominal discomfort today. Her oxygenation is stable. No signs of COPD exacerbation at this time. Her x-ray showed right lower lobe infiltrate suggesting pneumonia. The patient is on Levaquin. Laboratory studies revealed hypokalemia. We will replace her potassium and I will also replace magnesium and repeat the levels in the morning. PT and OT evaluation. 08/06: The patient is feeling better. She is tolerating diet. Fecal material in the colostomy bag. She is now on her baseline O2 level. PT and OT. Replace potassium. Should be ready to discharge soon.
[2020-08-06] MEDS: ALPRAZolam 0.5 MG TAB PO PRN (12:45)
[2020-08-06] MEDS ORDERED: Potassium Bicarbonate/Cit Ac 20 MEQ TAB PO SCH (13:15)
[2020-08-06] MEDS: D5 0.9% NS w/ 20 mEq KCl 1,000 ML IV SCH (14:08)
--- NOTE | 2020-08-06 14:58 | PRG ---
DATE OF SERVICE: 08/06/2020 SUBJECTIVE: Ms. Beyer feels about the same. She is with a right lower quadrant pain at times after she eats. She had a CAT scan, CT angio today which shows moderate disease in the celiac, SMA, but no overt tight stenosis. It did show that the radiologist felt was some pneumonia in the right lower lobe that seems more concerning for pneumonia, multilevel degenerative disease. Also some fatty liver was seen. MEDICATIONS: Reviewed. OBJECTIVE: VITAL SIGNS: Pulse 107, temperature 98, blood pressure is 142/86. GENERAL: She is thin and cachectic. ABDOMEN: Mildly tender right lower quadrant. No rebound or guarding. No hernias. Bowel sounds are positive. LABORATORY DATA: White count 5.1, hemoglobin 10, platelet count 364. ASSESSMENT: 1. Severe chronic obstructive pulmonary disease. 2. Steroid dependence. 3. Possible right lower lobe pneumonia. 4. Status post surgery with sigmoid resection for chronic diverticular disease, bowel obstruction with a right lower quadrant colostomy. 5. Chronic antibiotics of Levaquin now for four days. 6. CT angio shows no definitive high-grade stenosis to intervene. RECOMMENDATIONS: 1. Stop smoking. 2. Advance diet as tolerated. 3. Probiotic. She is going to be on Levaquin, so she does get C diff. At this time, we will sign off, but if I can be of any further assistance, please do not hesitate to contact me. Job ID: [id number]
[2020-08-06] MEDS: Enoxaparin Sodium 30 MG/0.3 ML SYRINGE SC SCH (20:07)
[2020-08-06] MEDS: Montelukast Sodium 10 mg Tablet PO SCH (20:07)
[2020-08-06] MEDS ORDERED: Temazepam 15 MG CAP PO PRN (22:59)
[2020-08-06] MEDS: Temazepam 15 MG CAP PO SCH (23:06)
[2020-08-07] MEDS: ALPRAZolam 0.5 MG TAB PO PRN (04:19)
[2020-08-07] MEDS: Levothyroxine Sodium 50 MCG TAB PO SCH (04:19)
[2020-08-07] MEDS: Acetaminophen 325 MG TAB PO PRN (04:20)
[2020-08-07 06:16] LABS: Hemoglobin 10.3 g/dL (12.0-16.0); Mean Corpuscular HGB CONC 31.9 g/dL (32.0-36.0); Mean Corpuscular Hemoglobin 28.9 pg (27.0-31.0); Mean Corpuscular Volume 90.7 fL (78.0-98.0); Mean Platelet Volume 6.8 fL (7.4-10.4); Platelet Count 342 thou/uL (130-400); RBC Distribution Width 14.4 % (11.5-14.5); Red Blood Cell (RBC) Count 3.57 mill/uL (4.20-5.40)
[2020-08-07] MEDS: Mometasone 200 MCG/Formoterol 5 MCG 120 PUFF INHALER INH SCH ×2 (06:40→18:37)
[2020-08-07 07:03] LABS: Anion Gap 11 mmol/L (10-20); BUN (Urea Nitrogen) Less than 4 mg/dL (9.8-20.1); Calc. Creatinine Clearance 86 mL/min (70-130); Calcium 7.7 mg/dL (7.8-10.44); Carbon Dioxide 27 mmol/L (23-31); Chloride 102 mmol/L (98-107); Glucose 102 mg/dL (80-115); Potassium 3.5 mmol/L (3.5-5.1); Sodium 136 mmol/L (136-145)
[2020-08-07] MEDS: Cilostazol 100 MG TAB PO SCH ×2 (08:40→20:05)
[2020-08-07 08:44] LABS: Band 5 % (5-11); Hypochromia SLIGHT = 6-15 cells (100X) (0-5/hpf); Lymphocytes 15 % (21-51); MDiff Complete? YES; Monocytes 17 % (0-10); Neutrophil 61 % (42-75); Platelet Morphology Comment Appears Adequate; Polychromasia SLIGHT = 2-3 cells (100X) (0-2/hpf); Reactive Lymphocytes 2 % (0-10)
[2020-08-07] MEDS: predniSONE 20 MG TAB PO SCH (08:47)
[2020-08-07] MEDS: Simethicone Chewable 80 MG TAB PO SCH ×3 (08:48→20:06)
[2020-08-07] MEDS: Polyethylene Glycol 3350 17 GM Packet PO SCH ×2 (08:48→20:06)
--- NOTE | 2020-08-07 09:34 | PRG ---
DATE OF SERVICE: 08/07/2020 SUBJECTIVE: Ms. Beyer is postoperative day #23 from sigmoid colectomy with colostomy creation for perforated diverticulitis and treatment of small bowel obstruction. She has been transferred over the weekend down to the oncology floor. She tells me that she has done relatively well over the weekend. She is tolerating her diet. She notes her abdominal pain is improved. Dr. Brennan saw her in consultation over the weekend. He ordered a CT angiogram, which showed no definitive vascular blockage that was causing her abdominal symptoms. She continues to tolerate her diet. Her colostomy continues to function. She still appears to be chronically ill and still has some degree of abdominal discomfort, but she tells me it is improving. PHYSICAL EXAMINATION: VITAL SIGNS: She is afebrile, pulse 111, blood pressure 124/68. LUNGS: Clear to auscultation. ABDOMEN: Mildly protuberant, but soft. Bowel sounds are present and normoactive. Incision has nicely healed. Ostomy is viable and functioning well in the left lower quadrant. LABORATORY DATA: CBC from today shows she has a white blood cell count of 5 with a hemoglobin of 10.3, platelet count is 342, differential is unremarkable. Chemistry profile reveals normal electrolytes. Creatinine is 0.45. ASSESSMENT: The patient remains stable over 3 weeks out from her surgery. The length of her hospital course has been entirely dictated by her horrible underlying medical condition. She continues on oral Levaquin once a day for treatment of her presumptive lower lobe pneumonia. She is on all of her baseline medications. She has not been on any other antibiotics for a long period of time. She is stable for discharge from a surgical standpoint. She can have a regular diet and activity as tolerated. I would like to see her back in my office in a couple of weeks. I have already told the patient that while she is theoretically a potential candidate for colostomy reversal that I am not certain that her medical condition will ever allow this to be performed as an elective surgery. She is on no current pain medication and requires no pain medication at the time of discharge. I would probably continue her Levaquin empirically in regard to her pulmonary findings. I believe she is slated to go to a detention facility or rehabilitation facility as she is clearly not in shape to go home by herself. Job ID: [id number]
[2020-08-07] MEDS: D5 0.9% NS w/ 20 mEq KCl 1,000 ML IV SCH (09:57)
--- NOTE | 2020-08-07 11:56 | PDOC.HOSPP ---
- Subjective Encounter Date: 08/07/20 Subjective: The patient feels well today. She worked with physical therapy. - Objective Vital Signs & Weight: Vital Signs (12 hours) Temp Pulse Resp BP Pulse Ox 08/07/20 10:10 104 H 16 08/07/20 08:00 97.5 F L 111 H 22 H 124/68 90 L 08/07/20 06:30 96 20 08/07/20 04:00 97.7 F 111 H 20 156/82 H 93 L Weight Admit Weight 112 lb Weight 101 lb 11.2 oz Most Recent Monitor Data Heart Rate from ECG 89 NIBP 116/63 NIBP BP-Mean 80 Respiration from ECG 17 SpO2 97 I&O: 08/06/20 08/07/20 08/08/20 06:59 06:59 06:59 Intake Total 1800 Balance 1800 Result Diagrams: 08/07/20 05:55 08/07/20 05:55 Hospitalist ROS - Medication Medications: Active Medications Generic Name Dose Route Start Last Admin Trade Name Freq PRN Reason Stop Dose Admin Acetaminophen 650 mg 07/30/20 21:09 08/07/20 04:20 Acetaminophen 325 Mg Tab PO 650 mg Q6H PRN Administration Fever/Mild Pain Albuterol Sulfate 2.5 mg 07/07/20 12:05 07/16/20 23:17 Albuterol Sulfate 2.5 Mg/3 Ml Neb NEB 2.5 mg Q2H PRN Administration SOB &/or Wheezing Albuterol/Ipratropium 3 ml 07/09/20 19:00 08/07/20 10:10 Ipratropium/Albuterol Sulfate 3 Ml Neb NEB 3 ml QID-RT KASSANDRA Administration Alprazolam 0.5 mg 08/06/20 12:29 08/07/20 04:19 Alprazolam 0.5 Mg Tab PO 0.5 mg TIDPRN PRN Administration Anxiety/Agitation Cilostazol 50 mg 07/29/20 21:00 08/07/20 08:40 Cilostazol 100 Mg Tab PO 50 mg BID KASSANDRA Administration Enoxaparin Sodium 30 mg 07/19/20 21:00 08/06/20 20:07 Enoxaparin Sodium 30 Mg/0.3 Ml Syringe SC 30 mg 2100 KASSANDRA Administration Hydralazine HCl 5 mg 07/07/20 04:18 07/09/20 11:55 Hydralazine 20 Mg/Ml Vial SLOW IVP 5 mg Q4H PRN Administration SBP > 140 Potassium Chloride/Dextrose/Sod Cl 1,000 mls @ 50 mls/hr 08/04/20 17:45 08/07/20 09:57 D5 0.9% Ns W/ 20 Meq Kcl IV 1,000 mls .Q20H KASSANDRA Administration Levofloxacin 500 mg 08/02/20 06:00 08/07/20 05:37 Levofloxacin 500 Mg Tab PO 500 mg 0600 KASSANDRA Administration Levothyroxine Sodium 50 mcg 07/08/20 06:00 08/07/20 04:19 Levothyroxine Sodium 50 Mcg Tab PO 50 mcg 0600 KASSANDRA Administration Mometasone Furoate/Formoterol Fumar 2 puff 07/07/20 18:30 08/07/20 06:40 Mometasone 200 Mcg/Formoterol 5 Mcg 120 Puff Inhaler INH 2 puff BID-RT KASSANDRA Administration Montelukast Sodium 10 mg 07/07/20 21:00 08/06/20 20:07 Montelukast Sodium 10 Mg Tablet PO 10 mg QPM KASSANDRA Administration Ondansetron HCl 4 mg 07/07/20 04:01 07/24/20 10:47 Ondansetron Pf 4 Mg/2 Ml Vial IVP 4 mg Q6H PRN Administration Nausea/Vomiting Pantoprazole Sodium 40 mg 07/29/20 09:00 08/07/20 08:40 Pantoprazole 40 Mg Tab PO 40 mg DAILY KASSANDRA Administration Polyethylene Glycol 17 gm 08/01/20 21:00 08/07/20 08:48 Polyethylene Glycol 3350 17 Gm Packet PO Not Given BID KASSANDRA Prednisone 10 mg 07/30/20 09:00 08/07/20 08:47 Prednisone 20 Mg Tab PO 10 mg DAILY KASSANDRA Administration Simethicone 80 mg 07/31/20 13:00 08/07/20 08:48 Simethicone Chewable 80 Mg Tab PO Not Given PCHS KASSANDRA Sodium Chloride 10 ml 07/15/20 21:00 08/07/20 08:48 Flush - Normal Saline 10 Ml Syringe IVF 10 ml Q12HR KASSANDRA Administration Throat Lozenges 1 chata 07/17/20 09:59 08/06/20 07:08 Cepastat Lozenges 1 Chata PO 1 chata Q1H PRN Administration Cough - Exam General Appearance: awake alert Neck: supple Respiratory: normal chest expansion, no tachypnea Extremities: no cyanosis, no clubbing Hosp A/P (1) Colonic diverticular abscess Code(s): K57.20 - DVTRCLI OF LG INT W PERFORATION AND ABSCESS W/O BLEEDING Status: Acute (2) SBO (small bowel obstruction) Code(s): K56.609 - UNSP INTESTNL OBST, UNSP TO PARTIAL VERSUS COMPLETE OBST Status: Resolved (3) Pneumonia Code(s): J18.9 - PNEUMONIA, UNSPECIFIED ORGANISM Status: Acute Qualifiers: Pneumonia type: due to unspecified organism (4) COPD (chronic obstructive pulmonary disease) Status: Chronic (5) Malnutrition of moderate degree Code(s): E44.0 - MODERATE PROTEIN-CALORIE MALNUTRITION Status: Chronic (6) Hyponatremia Code(s): E87.1 - HYPO-OSMOLALITY AND HYPONATREMIA Status: Resolved - Plan The patient is a 70-year-old female with past medical history of hepatitis C, COPD, coronary artery disease, and peripheral vascular disease who was admitted to the hospital for evaluation of abdominal pain, nausea, and vomiting CT scan of the abdomen pelvis revealed moderate to severe partial small bowel obstruction with transition zone within the lower quadrant of the abdomen. Free fluid was noted in the pelvis. Conservative management was attempted but was not successful. The patient underwent laparoscopic abdominal exploration which was converted to laparotomy. The small bowel was found adherent to a diverticular abscess. Small bowel was mobilized and sigmoid colon was resected with diverting colostomy. Postoperative ileus was present but this appears to be improving. There is stool in the colostomy bag today. Bowel follow-through study showed contrast in the colon. COPD appears to be stable on oxygen. GI were consulted again due to partial retention of contrast in the stomach. The patient is complaining of abdominal discomfort today. Her oxygenation is st able. No signs of COPD exacerbation at this time. Her x-ray showed right lower lobe infiltrate suggesting pneumonia. The patient is on Levaquin. Laboratory studies revealed hypokalemia. We will replace her potassium and I will also replace magnesium and repeat the levels in the morning. PT and OT evaluation. 08/06: The patient is feeling better. She is tolerating diet. Fecal material in the colostomy bag. She is now on her baseline O2 level. PT and OT. Replace potassium. Should be ready to discharge soon. 08/07: The patient is now clinically stable for discharge. Case management is working on rehab placement. Continue PT and OT.
[2020-08-07] MEDS ORDERED: Potassium Chloride 20 MEQ TAB PO SCH (12:00)
--- NOTE | 2020-08-07 13:31 | PDOC.DS.DS ---
Provider - Provider Date of Admission: 07/07/20 02:20 Date of Discharge: 08/07/20 Admitting Provider: Syeda Richards MD Primary Care Physician: KAREEN Schuster Course - Hospital Course Hospital Course: The patient is a 70-year-old female with past medical history of hepatitis C, COPD, coronary artery disease, and peripheral vascular disease who was admitted to the hospital for evaluation of abdominal pain, nausea, and vomiting CT scan of the abdomen pelvis revealed moderate to severe partial small bowel obstruction with transition zone within the lower quadrant of the abdomen. Free fluid was noted in the pelvis. Conservative management was attempted but was not successful. The patient underwent laparoscopic abdominal exploration which was converted to laparotomy. The small bowel was found adherent to a diverticular abscess. Small bowel was mobilized and sigmoid colon was resected with diverting colostomy. Postoperative ileus was present but this appears to be improving. There is stool in the colostomy bag today. Bowel follow-through study showed contrast in the colon. COPD appears to be stable on oxygen. GI were consulted again due to partial retention of contrast in the stomach. The patient is complaining of abdominal discomfort today. Her oxygenation is stable. No signs of COPD exacerbation at this time. Her x-ray showed right lower lobe infiltrate suggesting pneumonia. The patient is on Levaquin. Laboratory studies revealed hypokalemia. We will replace her potassium and I will also replace magnesium and repeat the levels in the morning. PT and OT evaluation. 08/06: The patient is feeling better. She is tolerating diet. Fecal material in the colostomy bag. She is now on her baseline O2 level. PT and OT. Replace potassium. Should be ready to discharge soon. 08/07: The patient is now clinically stable for discharge. Case management is working on rehab placement. Continue PT and OT. Resuscitation Status: 07/27/20 16:03 Resuscitation Status Routine Resuscitation Status: DNAR: NO Resuscitation Discussed with: Patient and Toshia her DIL Additional comments: She is awaiting all her directives from her lead teller to sign and get back to her on Friday of next week but Toshia doesnt want to wait on these to get back so she encouraged her to do those two today while we are offering them to her. - Labs Lab Results: 08/07/20 05:55 08/07/20 05:55 Abnormal Lab Results - Last 48 hrs 08/06/20 05:40: Potassium 3.2 L, BUN Less than 4 L, Creatinine 0.43 L, Calcium 7.6 L 08/06/20 05:40: RBC 3.40 L, Hgb 10.0 L, Hct 31.0 L, MPV 6.9 L, Monocytes % (Manual) 13 H 08/07/20 05:55: BUN Less than 4 L, Creatinine 0.45 L, Calcium 7.7 L 08/07/20 05:55: RBC 3.57 L, Hgb 10.3 L, Hct 32.3 L, MCHC 31.9 L, MPV 6.8 L, Lymphocytes % (Manual) 15 L, Monocytes % (Manual) 17 H Microbiology - Entire Visit 07/07/20 Unknown Venous blood - Right Hand Blood Culture - Final Bacteroides thetaiotaomicron 07/07/20 00:52 Venous blood - Left Hand Blood Culture - Final NO GROWTH IN 5 DAYS 07/07/20 00:42 Urine Straight Catheter Urine Culture - Final NO GROWTH AT 36 HOURS - Physical Exam Vitals: Vital Signs (12 hours) Temp Pulse Resp BP Pulse Ox 08/07/20 12:00 97.8 F 115 H 22 H 119/67 92 L 08/07/20 10:10 104 H 16 08/07/20 08:00 97.5 F L 111 H 22 H 124/68 90 L 08/07/20 06:30 96 20 08/07/20 04:00 97.7 F 111 H 20 156/82 H 93 L Weight Admit Weight 112 lb Weight 101 lb 11.2 oz Most Recent Monitor Data Heart Rate from ECG 89 NIBP 116/63 NIBP BP-Mean 80 Respiration from ECG 17 SpO2 97 Physical Exam: The patient was seen and examined on the day of discharge. Problem - Problem (1) Colonic diverticular abscess Code(s): K57.20 - DVTRCLI OF LG INT W PERFORATION AND ABSCESS W/O BLEEDING Status: Acute (2) SBO (small bowel obstruction) Code(s): K56.609 - UNSP INTESTNL OBST, UNSP TO PARTIAL VERSUS COMPLETE OBST Status: Resolved (3) Pneumonia Code(s): J18.9 - PNEUMONIA, UNSPECIFIED ORGANISM Status: Acute Qualifiers: Pneumonia type: due to unspecified organism (4) COPD (chronic obstructive pulmonary disease) Status: Chronic (5) Malnutrition of moderate degree Code(s): E44.0 - MODERATE PROTEIN-CALORIE MALNUTRITION Status: Chronic (6) Hyponatremia Code(s): E87.1 - HYPO-OSMOLALITY AND HYPONATREMIA Status: Resolved Plan - Discharge Medications Prescriptions: Ipratropium [place] [Atrovent] 2.5 ml NEB QID PRN #120 neb PRN Reason: Sob &/Or Wheezing Levofloxacin [Levaquin] 500 mg PO 0600 #3 tab Home Medications: Medication Instructions Recorded Confirmed Type Cilostazol [Pletal] 50 mg PO BID 03/07/13 07/07/20 History Levothyroxine Sodium [Tirosint] 50 mcg PO DAILY 03/07/13 07/07/20 History Albuterol Sulfate [Ventolin HFA] 2 puff INH Q6HR PRN #0 inh 03/11/13 07/07/20 Rx traMADol HCl [Ultram] 50 mg PO QID PRN 04/24/15 07/07/20 History Budesonide-Formoterol [Symbicort 2 puff INH BID #0 aer 04/26/15 07/07/20 Rx 160-4.5] FLUoxetine HCl 40 mg PO HS 06/01/15 07/07/20 History ALPRAZolam [Xanax] 0.5 mg PO Q8H PRN #0 tab 06/05/15 07/07/20 Rx Ipratropium [place] [Ipratropium 1 - 2 spray EA NARE BID #1 bot 11/05/17 07/07/20 Rx [place] 0.03% Nasal [place]] Montelukast Sodium [Singulair] 10 mg PO QPM #0 11/05/17 07/07/20 Rx Ibuprofen [Motrin] 800 mg PO TID PRN 12/20/17 07/07/20 History Triamterene/Hydrochlorothiazid 1 cap PO DAILY 12/20/17 07/07/20 History [Dyazide] Omeprazole 20 mg PO DAILY 01/20/18 07/07/20 History Albuterol Sulfate [Ventolin] 2 mg PO TID 07/07/20 07/07/20 History Ipratropium/Albuterol Sulfate 3 ml NEB BID 07/07/20 07/07/20 History [DuoNeb] predniSONE 10 mg PO DAILY 07/07/20 07/07/20 History Cepastat Lozenges 1 jo ann PO Q1H PRN jo ann 08/07/20 Rx Ipratropium [place] [Atrovent] 2.5 ml NEB QID PRN #120 neb 08/07/20 Rx Levofloxacin [Levaquin] 500 mg PO 0600 #3 tab 08/07/20 Rx Pantoprazole [Protonix] 40 mg PO DAILY tab 08/07/20 Rx Allergies: No Known Allergies Allergy (Verified 10/09/19 19:11) - Follow up Plan Referrals: Shaista Young FNP [Primary Care Provider] - Jim Bai MD [Active] - (DC planning for next week) Disposition: HOME Quality - Care Measures CORE MEASURES:: N/A
[2020-08-07] MEDS ORDERED: Potassium Bicarbonate/Cit Ac 20 MEQ TAB PO SCH (13:45)
[2020-08-07 14:13] LABS: HCV log10 3.854 (.); Hep C PCR-Quant 7150 IU/mL (.)
[2020-08-07 14:39] VITALS: BMI 15.0
[2020-08-07 20:05] VITALS: BP 132/74; TEMP 98.4
[2020-08-07] MEDS: Enoxaparin Sodium 30 MG/0.3 ML SYRINGE SC SCH (20:06)
[2020-08-07] MEDS: Montelukast Sodium 10 mg Tablet PO SCH (20:06)
[2020-08-07] MEDS ORDERED: Lactinex Tablet PO SCH (21:00)
--- NOTE | 2020-08-09 03:15 | PQF ---
CLINICAL DOCUMENTATION CLARIFICATION FORM: Dear : Emanuel Vasquez Date / Time: 08/09/20 1071 Please exercise your independent, professional judgment in responding to the clarification form. Clinical indicators are provided on the bottom of this form for your review Please check appropriate box(es): [ > ] Sepsis due to Diverticulitis with abscess [ ] Severe sepsis due to Diverticulitis with abscess with Acute on Chronic Respiratory Failure [ ] Localized infection without sepsis [ ] Other diagnosis, please specify: [ ] Unable to determine In addition, please specify: Present on Admission (POA): [ > ] Yes [ ] No [ ] Unable to determine Physician Signature: Date/Time: For continuity of documentation, please document condition throughout progress notes and discharge summary. 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 Path report 08/15 [x] Presented with abdominal pain, nausea and vomiting H&P p1 07/07 Roudana [x] SBO 2/2 abscess from sigmoid diverticulitis Operative report 07/15 Dr Bai [x] Acute on chronic Respiratory failure Physician documentation Dr Galvez 07/26 [x] Chest Xray: right basilar opacity concerning for infection Chest Xray 08/02 [x] Metabolic acidosis Consult 07/09 Present Risk Factors Results and Location in Medical Record [x] 70 year-old Female H&P p1 07/07 Roudana [x] Former smoker H&P p1 07/07 Roudana [x] abscess from sigmoid diverticulitis Operative report 07/15 Dr Bai [x] Moderate PCM Query response [x] PNA DS 08/07 Present Treatments Results and Location in Medical Record [x] IV Zosyn 4.5 gm SEP 29 [x] Ancef 1 gm SEP 29 [x] Levaquin 500 mg oral SEP 18 [x] IVF NS 1L SEP 29 [x] Oxygen 2L Respiratory Panel 07/07 [x] Mechanical Ventilator Respiratory Panel 07/15 [x] Colectomy with Colostomy Operative report 07/15 Dr Bai CDS/Golf Sales Manager Signature: Emerita Romero Phone #: [phone] Date/Time: 08/09/204 This is a permanent part of the Medical Record [facility]
== END 2020-08-07 21:08 | DRG 853 ==
LOC: ERS 23:01 → SURG B 07-07 02:20 → IMCU/EMU 07-09 16:07 → ONC 07-12 16:46 → 2SE 07-13 02:06 → CCU 07-15 19:40 → T4-A 07-17 15:59 → ONC 08-06 20:54
PROVIDERS: ADMIT Internal Medicine; ATTEND Internal Medicine
PROC: 0DBN0ZZ Excision of Sigmoid Colon, Open Approach (ICD-10-PCS; principal; 2020-07-15)
PROC: 0D1N0Z4 Bypass Sigmoid Colon to Cutaneous, Open Approach (ICD-10-PCS; 2020-07-15)
PROC: 0DJW4ZZ Inspection of Peritoneum, Percutaneous Endoscopic Approach (ICD-10-PCS; 2020-07-15)
PROC: 0DN80ZZ Release Small Intestine, Open Approach (ICD-10-PCS; 2020-07-15)
PROC: 5A1935Z Respiratory Ventilation, Less than 24 Consecutive Hours (ICD-10-PCS; 2020-07-15)
PROC: 02HV33Z Insertion of Infusion Device into Superior Vena Cava, Percutaneous Approach (ICD-10-PCS; 2020-07-19)
DX: A41.9 Sepsis, unspecified organism (principal); J96.21 Acute and chronic respiratory failure with hypoxia; J96.22 Acute and chronic respiratory failure with hypercapnia; J18.9 Pneumonia, unspecified organism; Z20.822 Contact with and (suspected) exposure to COVID-19; Z51.5 Encounter for palliative care; Z66 Do not resuscitate; K57.20 Diverticulitis of large intestine with perforation and abscess without bleeding; J44.0 Chronic obstructive pulmonary disease with (acute) lower respiratory infection; Z68.1 Body mass index [BMI] 19.9 or less, adult; K56.7 Ileus, unspecified; E44.0 Moderate protein-calorie malnutrition; E87.2 Acidosis; E22.2 Syndrome of inappropriate secretion of antidiuretic hormone; J44.1 Chronic obstructive pulmonary disease with (acute) exacerbation; I25.10 Atherosclerotic heart disease of native coronary artery without angina pectoris; E78.00 Pure hypercholesterolemia, unspecified; F32.9 Major depressive disorder, single episode, unspecified; F12.10 Cannabis abuse, uncomplicated; I73.9 Peripheral vascular disease, unspecified; E03.9 Hypothyroidism, unspecified; N18.1 Chronic kidney disease, stage 1; F41.9 Anxiety disorder, unspecified; F39 Unspecified mood [affective] disorder; D63.1 Anemia in chronic kidney disease; E78.5 Hyperlipidemia, unspecified; K76.0 Fatty (change of) liver, not elsewhere classified; B18.2 Chronic viral hepatitis C; E87.6 Hypokalemia; E86.9 Volume depletion, unspecified; I44.1 Atrioventricular block, second degree; E83.42 Hypomagnesemia; I48.91 Unspecified atrial fibrillation; Z79.899 Other long term (current) drug therapy; Z87.891 Personal history of nicotine dependence; Z53.31 Laparoscopic surgical procedure converted to open procedure; Z78.1 Physical restraint status; Z90.49 Acquired absence of other specified parts of digestive tract; Z98.51 Tubal ligation status; Z99.81 Dependence on supplemental oxygen; Z79.890 Hormone replacement therapy; Z79.52 Long term (current) use of systemic steroids
CPT/HCPCS: 0240U; 36415; 36416; 36600; 51701; 71045; 71046; 74018; 74019; 74174; 74177; 74250; 80048; 80053; 80061; 80076; 80400; 81001; 81003; 82105; 82533; 82805; 83036; 83605; 83690; 83735; 83930; 83935; 84100; 84133; 84134; 84300; 84443; 84484; 84560; 85025; 85610; 85730; 87040; 87076; 87086; 87149; 87522; 88307; 93005; 93010; 93306; 94002; 94003; 94640; 94664; 94760; 96365; 96367; 96375; C9113; J0360; J0690; J0694; J0834; J1100; J1160; J1650; J1815; J2060; J2250; J2270; J2370; J2405; J2543; J2550; J2704; J2765; J2920; J3010; J3475; J3480; J3490; J7050; J7070; J7131; J7512; J7611; J7620; P9045; Q9963; Q9967; S0020

== ENCOUNTER 2020-09-03 12:21 | Emergency (ER) | payer MEDICARE, MEDICAID | END 2020-09-03 14:21 | disposition home or self-care (01) | LOC: ERS 12:21 | DX: K94.09 Other complications of colostomy (principal); J44.9 Chronic obstructive pulmonary disease, unspecified; Z87.891 Personal history of nicotine dependence; Z79.51 Long term (current) use of inhaled steroids; Z79.899 Other long term (current) drug therapy ==

== ENCOUNTER 2020-09-11 17:03 | Emergency (ER) | payer MEDICARE, MEDICAID | END 2020-09-11 20:02 | disposition home or self-care (01) | LOC: ERS 17:03 | DX: Z43.3 Encounter for attention to colostomy (principal); J44.9 Chronic obstructive pulmonary disease, unspecified; Z87.891 Personal history of nicotine dependence; F41.9 Anxiety disorder, unspecified; Z79.899 Other long term (current) drug therapy | CPT/HCPCS: 99282 ==

== ENCOUNTER 2020-12-04 12:30 | Outpatient (CLI) | payer MEDICARE, MEDICAID | END 2020-12-04 12:31 | disposition home or self-care (01) | LOC: BICRAD 12:30 | PROVIDERS: ATTEND Internal Medicine Critical Care Medicine | DX: R06.00 Dyspnea, unspecified (principal); R91.8 Other nonspecific abnormal finding of lung field | CPT/HCPCS: 71046 ==

== ENCOUNTER 2021-04-29 03:47 | Inpatient (IN) | payer MEDICARE, MEDICAID ==
[2021-04-29 05:05] LABS: #Eosinphils 0.4 thou/uL (0.0-0.7); #Monocytes 0.6 thou/uL (0.11-0.59); #Neutrophils 6.5 thou/uL (1.40-6.50); %Basophils 0.3 % (0.0-1.0); %Eosinophils 4.7 % (0.0-10.0); %Lymphocytes 11.9 % (21.0-51.0); %Monocytes 6.6 % (0.0-10.0); %Neutrophils 76.5 % (42.0-75.0); Hemoglobin 10.9 g/dL (12.0-16.0); Mean Corpuscular HGB CONC 30.6 g/dL (32.0-36.0); Mean Corpuscular Hemoglobin 25.8 pg (27.0-31.0); Mean Corpuscular Volume 84.3 fL (78.0-98.0); Mean Platelet Volume 7.5 fL (7.4-10.4); Platelet Count 297 thou/uL (130-400); RBC Distribution Width 15.6 % (11.5-14.5); Red Blood Cell (RBC) Count 4.22 mill/uL (4.20-5.40); White Blood Cell (WBC) Count 8.5 thou/uL (4.8-10.8)
[2021-04-29 05:26] LABS: ALT (SGPT) 20 U/L (8-55); AST (SGOT) 35 U/L (5-34); Alkaline Phosphatase 84 U/L (40-110); Anion Gap 13 mmol/L (10-20); BUN (Urea Nitrogen) 14 mg/dL (9.8-20.1); Bilirubin, Total 0.4 mg/dL (0.2-1.2); Calc. Creatinine Clearance 0 mL/min (70-130); Calcium 9.3 mg/dL (7.8-10.44); Carbon Dioxide 36 mmol/L (23-31); Chloride 93 mmol/L (98-107); Globulin 3.2 g/dL (2.4-3.5); Glucose 126 mg/dL (80-115); Potassium 3.6 mmol/L (3.5-5.1); Protein, Total 7.2 g/dL (5.8-8.1); Sodium 138 mmol/L (136-145)
[2021-04-29] MEDS ORDERED: Albuterol Sulfate 2.5 mg/3 ml Neb ONE (06:38)
[2021-04-29 06:46] LABS: Actual Bicarbonate (HCO3a) 33.5 mEq/L (22-28); Analyzer IN Cardio ER; Base Excess (BEa) 5.8 mEq/L (-2.0 to +3.0); Calcium, Ionized (arterial) 1.15 mmol/L (1.12-1.30); Carboxyhemoglobin (COHb) 0.4 gm% (0.0-3.0); Hemoglobin (Hb) 10.9 g/dL (12.0-16.0); O2 Tension (PaO2), arterial 64.1 mmHg (> 70.0); Potassium - ABG Lab 3.66 mmol/L (3.70-5.30); pH, Arterial 7.32 (7.35-7.45)
[2021-04-29 06:57] LABS: CO2 Tension 66.4 mmHg (35.0-45.0); Puncture Site RRA
[2021-04-29 08:13] LABS: SARS-CoV-2 NAA Rapid Test Not Detected (NotDetected)
[2021-04-29] MEDS ORDERED: Acetaminophen 325 MG TAB PO PRN (08:14)
[2021-04-29] MEDS ORDERED: ALPRAZolam 0.25 MG TAB ONE ×2 (08:28→14:23)
[2021-04-29] MEDS ORDERED: cefTRIAXone\\ROCEPHIN 1 GM VIAL ONE (08:28)
[2021-04-29] MEDS ORDERED: Enoxaparin Sodium 40 MG/0.4 ML SYRINGE ONE (08:28)
[2021-04-29 08:38] LABS: Troponin I Less than 0.010 ng/mL (< 0.028)
[2021-04-29] MEDS: ALPRAZolam 0.25 MG TAB PO PRN ×3 (08:40→22:10)
[2021-04-29] MEDS: cefTRIAXone\\ROCEPHIN 1 GM in Sodium Chloride 0.9% 100 ML IVPB SCH (08:40)
[2021-04-29] MEDS ORDERED: CILOSTAZOL 50 MG PO SCH (09:00)
[2021-04-29] MEDS ORDERED: Non-Formulary Item 1 EACH (Budesonide-Formoterol [Symbicort 160-4.5] 160 MG/4.5 MG Aer) INH SCH (09:00)
[2021-04-29] MEDS ORDERED: Non-Formulary Item 1 EACH (Omeprazole [Omeprazole] 20 MG Capsule.Dr) PO SCH (09:00)
[2021-04-29] MEDS ORDERED: Triamterene/Hydrochlorothiazide 37.5 mg/25 mg Tablet PO SCH (09:00)
[2021-04-29] MEDS ORDERED: LEVOTHYROXINE SODIUM 50 MCG PO SCH (09:00)
[2021-04-29] MEDS ORDERED: Enoxaparin Sodium 40 MG/0.4 ML SYRINGE SC SCH (09:00)
[2021-04-29] MEDS ORDERED: Azithromycin 500 MG VIAL ONE (09:31)
[2021-04-29] MEDS: Azithromycin 500 MG in Sodium Chloride 0.9% 250 ML 250 ML IVPB SCH (09:40)
[2021-04-29] MEDS ORDERED: methylPREDNISolone Sod Succ 40 MG VIAL ONE ×2 (12:07→17:31)
[2021-04-29] MEDS: AcetaZOLAMIDE 250 MG TAB PO SCH (12:18)
[2021-04-29] MEDS: Cilostazol 100 MG TAB PO SCH ×2 (12:19→22:00)
[2021-04-29] MEDS: Triamterene/Hydrochlorothiazide 37.5 mg/25 mg Tablet PO SCH (12:21)
[2021-04-29] MEDS: methylPREDNISolone Sod Succ 40 MG VIAL IVP SCH ×3 (12:22→23:33)
[2021-04-29] MEDS ORDERED: FLU VACC QS2021-22(65YR UP)/PF 240 MCG/0.7 ML SYRINGE IM ONE (14:00)
[2021-04-29] MEDS ORDERED: Non-Formulary Item 1 EACH (Fluoxetine Hcl [Fluoxetine Hcl] 40 MG Capsule) PO SCH (21:00)
[2021-04-29] MEDS: FLUoxetine HCl 20 MG CAP PO SCH (22:10)
[2021-04-29] MEDS: Montelukast Sodium 10 mg Tablet PO SCH (22:11)
[2021-04-29] MEDS: Mometasone 200 MCG/Formoterol 5 MCG 120 PUFF INHALER INH SCH (22:50)
[2021-04-30] MEDS: Levothyroxine Sodium 50 MCG TAB PO SCH (06:48)
[2021-04-30] MEDS: Mometasone 200 MCG/Formoterol 5 MCG 120 PUFF INHALER INH SCH ×2 (06:48→18:50)
[2021-04-30] MEDS: methylPREDNISolone Sod Succ 40 MG VIAL IVP SCH ×3 (06:48→17:03)
[2021-04-30 07:17] LABS: #Lymphocytes 1.2 thou/uL (1.20-3.40); #Monocytes 0.9 thou/uL (0.11-0.59); #Neutrophils 7.5 thou/uL (1.40-6.50); %Basophils 0.2 % (0.0-1.0); %Eosinophils 0.1 % (0.0-10.0); %Lymphocytes 12.2 % (21.0-51.0); %Monocytes 9.8 % (0.0-10.0); %Neutrophils 77.7 % (42.0-75.0); Hemoglobin 10.4 g/dL (12.0-16.0); Mean Corpuscular HGB CONC 30.7 g/dL (32.0-36.0); Mean Corpuscular Hemoglobin 25.5 pg (27.0-31.0); Mean Platelet Volume 7.7 fL (7.4-10.4); Platelet Count 292 thou/uL (130-400); RBC Distribution Width 15.6 % (11.5-14.5); Red Blood Cell (RBC) Count 4.06 mill/uL (4.20-5.40); White Blood Cell (WBC) Count 9.6 thou/uL (4.8-10.8)
[2021-04-30 07:34] LABS: Anion Gap 12 mmol/L (10-20); BUN (Urea Nitrogen) 12 mg/dL (9.8-20.1); Calc. Creatinine Clearance 73 mL/min (70-130); Calcium 9.4 mg/dL (7.8-10.44); Carbon Dioxide 31 mmol/L (23-31); Chloride 95 mmol/L (98-107); Glucose 98 mg/dL (80-115); Potassium 3.7 mmol/L (3.5-5.1); Sodium 134 mmol/L (136-145)
[2021-04-30] MEDS: cefTRIAXone\\ROCEPHIN 1 GM in Sodium Chloride 0.9% 100 ML IVPB SCH (07:55)
[2021-04-30] MEDS: Cilostazol 100 MG TAB PO SCH ×2 (07:56→20:28)
[2021-04-30] MEDS: Triamterene/Hydrochlorothiazide 37.5 mg/25 mg Tablet PO SCH (07:56)
[2021-04-30] MEDS: AcetaZOLAMIDE 250 MG TAB PO SCH (07:56)
[2021-04-30] MEDS: ALPRAZolam 0.25 MG TAB PO PRN ×3 (09:11→22:01)
[2021-04-30] MEDS: Azithromycin 500 MG in Sodium Chloride 0.9% 250 ML 250 ML IVPB SCH (09:59)
[2021-04-30 13:23] VITALS: BMI 17.4
[2021-04-30] MEDS ORDERED: Lorazepam 2 MG/ML VIAL SLOW IVP PRN (16:00)
[2021-04-30] MEDS ORDERED: Enoxaparin Sodium 40 MG/0.4 ML SYRINGE SC SCH (16:15)
[2021-04-30] MEDS: Lidocaine 5% Patch TD SCH (17:03)
[2021-04-30] MEDS: FLUoxetine HCl 20 MG CAP PO SCH (20:29)
[2021-04-30] MEDS: Montelukast Sodium 10 mg Tablet PO SCH (20:29)
[2021-05-01] MEDS: methylPREDNISolone Sod Succ 40 MG VIAL IVP SCH ×5 (00:36→23:53)
[2021-05-01] MEDS: Transdermal Patch Removal TOP SCH (05:34)
[2021-05-01] MEDS: Levothyroxine Sodium 50 MCG TAB PO SCH (05:34)
[2021-05-01] MEDS: Mometasone 200 MCG/Formoterol 5 MCG 120 PUFF INHALER INH SCH ×2 (07:25→19:44)
[2021-05-01] MEDS: cefTRIAXone\\ROCEPHIN 1 GM in Sodium Chloride 0.9% 100 ML IVPB SCH (08:19)
[2021-05-01] MEDS: Enoxaparin Sodium 40 MG/0.4 ML SYRINGE SC SCH (08:19)
[2021-05-01] MEDS: Triamterene/Hydrochlorothiazide 37.5 mg/25 mg Tablet PO SCH (08:19)
[2021-05-01] MEDS: AcetaZOLAMIDE 250 MG TAB PO SCH (08:20)
[2021-05-01] MEDS: Azithromycin 500 MG in Sodium Chloride 0.9% 250 ML 250 ML IVPB SCH (09:08)
[2021-05-01] MEDS: Cilostazol 100 MG TAB PO SCH ×2 (09:08→21:10)
[2021-05-01] MEDS: Lorazepam 2 MG/ML VIAL SLOW IVP PRN ×3 (11:22→23:54)
[2021-05-01 13:58] LABS: Actual Bicarbonate (HCO3v) 29 mEq/L (22-28); Base Excess 2.8 mEq/L (-2.0 to +3.0); Calcium, Ionized (venous) 1.11 mmol/L (1.16-1.32); Chloride (VBG) 92 mmol/L (98-106); Hemoglobin (Hb) 12.1 g/dL (11.7-16.1); Potassium (VBG) 3.59 mmol/L (3.70-5.30); Sodium 132.9 mmol/L (133-146); pH (venous) 7.37 (7.32-7.43)
[2021-05-01] MEDS: D5 1/2 NS w/20 mEq KCL 1,000 ML IV SCH (16:46)
[2021-05-01] MEDS: Lidocaine 5% Patch TD SCH (17:27)
[2021-05-01] MEDS: FLUoxetine HCl 20 MG CAP PO SCH (21:11)
[2021-05-01] MEDS: Montelukast Sodium 10 mg Tablet PO SCH (21:11)
[2021-05-01] MEDS: ALPRAZolam 0.25 MG TAB PO PRN (21:12)
[2021-05-02] MEDS: Levothyroxine Sodium 50 MCG TAB PO SCH (05:44)
[2021-05-02] MEDS: methylPREDNISolone Sod Succ 40 MG VIAL IVP SCH (05:45)
[2021-05-02] MEDS: Transdermal Patch Removal TOP SCH (05:46)
[2021-05-02 06:50] LABS: #Lymphocytes 0.8 thou/uL (1.20-3.40); #Monocytes 1.1 thou/uL (0.11-0.59); %Basophils 0.1 % (0.0-1.0); %Lymphocytes 8.5 % (21.0-51.0); %Monocytes 10.6 % (0.0-10.0); %Neutrophils 80.8 % (42.0-75.0); Hemoglobin 11.1 g/dL (12.0-16.0); Mean Corpuscular HGB CONC 31.4 g/dL (32.0-36.0); Mean Corpuscular Hemoglobin 25.4 pg (27.0-31.0); Mean Corpuscular Volume 80.7 fL (78.0-98.0); Mean Platelet Volume 7.6 fL (7.4-10.4); Platelet Count 285 thou/uL (130-400); RBC Distribution Width 15.4 % (11.5-14.5); Red Blood Cell (RBC) Count 4.39 mill/uL (4.20-5.40); White Blood Cell (WBC) Count 9.9 thou/uL (4.8-10.8)
[2021-05-02 06:53] LABS: Anion Gap 16 mmol/L (10-20); BUN (Urea Nitrogen) 24 mg/dL (9.8-20.1); Calc. Creatinine Clearance 67 mL/min (70-130); Carbon Dioxide 27 mmol/L (23-31); Chloride 94 mmol/L (98-107); Glucose 116 mg/dL (80-115); Potassium 3.5 mmol/L (3.5-5.1); Sodium 133 mmol/L (136-145)
[2021-05-02] MEDS: Mometasone 200 MCG/Formoterol 5 MCG 120 PUFF INHALER INH SCH ×2 (07:21→18:48)
[2021-05-02] MEDS: Azithromycin 250 MG TAB PO SCH (08:24)
[2021-05-02] MEDS: Triamterene/Hydrochlorothiazide 37.5 mg/25 mg Tablet PO SCH (08:25)
[2021-05-02] MEDS: Enoxaparin Sodium 40 MG/0.4 ML SYRINGE SC SCH (08:25)
[2021-05-02] MEDS: AcetaZOLAMIDE 250 MG TAB PO SCH (08:26)
[2021-05-02] MEDS: Ondansetron PF 4 MG/2 ML Vial IVP PRN ×3 (08:31→23:29)
[2021-05-02] MEDS: Cilostazol 100 MG TAB PO SCH ×2 (10:27→20:38)
[2021-05-02] MEDS: cefTRIAXone\\ROCEPHIN 1 GM in Sodium Chloride 0.9% 100 ML IVPB SCH (10:51)
[2021-05-02] MEDS ORDERED: predniSONE 20 MG TAB PO SCH (12:00)
[2021-05-02] MEDS: Lorazepam 2 MG/ML VIAL SLOW IVP PRN ×2 (16:02→23:29)
[2021-05-02] MEDS: Lidocaine 5% Patch TD SCH (18:04)
[2021-05-02] MEDS: Ondansetron ODT 8 MG TAB PO PRN (20:21)
[2021-05-02] MEDS: Montelukast Sodium 10 mg Tablet PO SCH (20:38)
[2021-05-02] MEDS: ALPRAZolam 0.25 MG TAB PO PRN (20:38)
[2021-05-02] MEDS: FLUoxetine HCl 20 MG CAP PO SCH (20:38)
[2021-05-03] MEDS: Ondansetron ODT 8 MG TAB PO PRN ×2 (04:07→10:19)
[2021-05-03] MEDS: Transdermal Patch Removal TOP SCH (04:07)
[2021-05-03] MEDS: Levothyroxine Sodium 50 MCG TAB PO SCH (04:07)
[2021-05-03 06:29] LABS: #Neutrophils 10.8 thou/uL (1.40-6.50); %Basophils 0.1 % (0.0-1.0); %Eosinophils 0.3 % (0.0-10.0); %Lymphocytes 6.9 % (21.0-51.0); %Monocytes 14.3 % (0.0-10.0); %Neutrophils 78.3 % (42.0-75.0); Mean Corpuscular HGB CONC 30.9 g/dL (32.0-36.0); Mean Corpuscular Hemoglobin 24.8 pg (27.0-31.0); Mean Corpuscular Volume 80.1 fL (78.0-98.0); Mean Platelet Volume 7.9 fL (7.4-10.4); Platelet Count 283 thou/uL (130-400); RBC Distribution Width 15.4 % (11.5-14.5); Red Blood Cell (RBC) Count 4.84 mill/uL (4.20-5.40); White Blood Cell (WBC) Count 13.8 thou/uL (4.8-10.8)
[2021-05-03] MEDS: Mometasone 200 MCG/Formoterol 5 MCG 120 PUFF INHALER INH SCH ×2 (06:38→18:43)
[2021-05-03 06:48] LABS: Anion Gap 16 mmol/L (10-20); BUN (Urea Nitrogen) 26 mg/dL (9.8-20.1); Calc. Creatinine Clearance 68 mL/min (70-130); Calcium 9.4 mg/dL (7.8-10.44); Carbon Dioxide 30 mmol/L (23-31); Chloride 88 mmol/L (98-107); Glucose 108 mg/dL (80-115); Potassium 3.5 mmol/L (3.5-5.1); Sodium 130 mmol/L (136-145)
[2021-05-03] MEDS: Azithromycin 250 MG TAB PO SCH (08:16)
[2021-05-03] MEDS: AcetaZOLAMIDE 250 MG TAB PO SCH (08:16)
[2021-05-03] MEDS: predniSONE 20 MG TAB PO SCH (08:16)
[2021-05-03] MEDS: Cilostazol 100 MG TAB PO SCH ×2 (08:16→20:13)
[2021-05-03] MEDS: Enoxaparin Sodium 40 MG/0.4 ML SYRINGE SC SCH (08:17)
[2021-05-03] MEDS ORDERED: Sodium Chloride 0.9% 1,000 ML IV SCH (10:45)
[2021-05-03] MEDS: cefTRIAXone\\ROCEPHIN 1 GM in Sodium Chloride 0.9% 100 ML IVPB SCH (11:37)
[2021-05-03] MEDS: Lidocaine 5% Patch TD SCH (18:16)
[2021-05-03] MEDS: ALPRAZolam 0.25 MG TAB PO PRN (18:16)
[2021-05-03] MEDS: D5 1/2 NS w/20 mEq KCL 1,000 ML IV SCH (18:52)
[2021-05-03] MEDS: Metoclopramide HCl 10 MG/2 ML VIAL IVP SCH (20:11)
[2021-05-03] MEDS: Pantoprazole 40 MG VIAL IVP SCH (20:12)
[2021-05-03] MEDS: Montelukast Sodium 10 mg Tablet PO SCH (20:13)
[2021-05-03] MEDS: Lorazepam 2 MG/ML VIAL SLOW IVP PRN (20:57)
[2021-05-03] MEDS ORDERED: Morphine 4 MG/ML VIAL SLOW IVP PRN (21:02)
[2021-05-03] MEDS: Morphine 4 MG/ML VIAL SLOW IVP PRN (21:04)
[2021-05-04] MEDS: Morphine 4 MG/ML VIAL SLOW IVP PRN (02:41)
[2021-05-04] MEDS: D5 1/2 NS w/20 mEq KCL 1,000 ML IV SCH ×3 (03:00→18:12)
[2021-05-04] MEDS: Transdermal Patch Removal TOP SCH (05:17)
[2021-05-04] MEDS: Metoclopramide HCl 10 MG/2 ML VIAL IVP SCH ×3 (05:18→22:28)
[2021-05-04] MEDS: Levothyroxine Sodium 50 MCG TAB PO SCH (05:19)
[2021-05-04 06:07] LABS: Anion Gap 13 mmol/L (10-20); BUN (Urea Nitrogen) 14 mg/dL (9.8-20.1); Calc. Creatinine Clearance 66 mL/min (70-130); Calcium 8.7 mg/dL (7.8-10.44); Carbon Dioxide 28 mmol/L (23-31); Chloride 91 mmol/L (98-107); Glucose 99 mg/dL (80-115); Potassium 3.2 mmol/L (3.5-5.1); Sodium 129 mmol/L (136-145)
[2021-05-04 06:13] LABS: Hemoglobin 11.8 g/dL (12.0-16.0); MDiff Complete? YES; Mean Corpuscular HGB CONC 33.2 g/dL (32.0-36.0); Mean Corpuscular Hemoglobin 26.9 pg (27.0-31.0); Mean Corpuscular Volume 81.1 fL (78.0-98.0); Mean Platelet Volume 7.7 fL (7.4-10.4); Platelet Count 254 thou/uL (130-400); RBC Distribution Width 15.4 % (11.5-14.5); Red Blood Cell (RBC) Count 4.38 mill/uL (4.20-5.40)
[2021-05-04 06:14] LABS: Band 1 % (5-11); Hypochromia SLIGHT = 6-15 cells (100X) (0-5/hpf); Lymphocytes 16 % (21-51); Monocytes 14 % (0-10); Neutrophil 66 % (42-75); Platelet Morphology Comment Appears Adequate; Reactive Lymphocytes 3 % (0-10)
[2021-05-04] MEDS: Mometasone 200 MCG/Formoterol 5 MCG 120 PUFF INHALER INH SCH ×2 (06:56→18:58)
[2021-05-04] MEDS: Enoxaparin Sodium 40 MG/0.4 ML SYRINGE SC SCH (09:04)
[2021-05-04] MEDS: Pantoprazole 40 MG VIAL IVP SCH ×2 (09:04→22:28)
[2021-05-04] MEDS: predniSONE 20 MG TAB PO SCH (09:05)
[2021-05-04] MEDS: Cilostazol 100 MG TAB PO SCH ×2 (09:05→22:28)
[2021-05-04] MEDS: AcetaZOLAMIDE 250 MG TAB PO SCH (09:05)
[2021-05-04] MEDS: cefTRIAXone\\ROCEPHIN 1 GM in Sodium Chloride 0.9% 100 ML IVPB SCH (11:00)
[2021-05-04] MEDS: Lidocaine 5% Patch TD SCH (17:11)
[2021-05-04] MEDS: ALPRAZolam 0.25 MG TAB PO PRN (17:11)
[2021-05-04] MEDS: Cefuroxime Axetil 250 MG TAB PO SCH (22:31)
[2021-05-04] MEDS: Montelukast Sodium 10 mg Tablet PO SCH (22:31)
[2021-05-05] MEDS: ALPRAZolam 0.25 MG TAB PO PRN ×3 (01:48→20:32)
[2021-05-05] MEDS: D5 1/2 NS w/20 mEq KCL 1,000 ML IV SCH ×3 (01:49→18:05)
[2021-05-05] MEDS: Levothyroxine Sodium 50 MCG TAB PO SCH (05:36)
[2021-05-05] MEDS: Transdermal Patch Removal TOP SCH (05:37)
[2021-05-05] MEDS: Morphine 4 MG/ML VIAL SLOW IVP PRN ×2 (05:37→20:33)
[2021-05-05] MEDS: Metoclopramide HCl 10 MG/2 ML VIAL IVP SCH ×3 (05:37→22:29)
[2021-05-05 05:38] LABS: #Eosinphils 0.1 thou/uL (0.0-0.7); #Lymphocytes 1.4 thou/uL (1.20-3.40); #Neutrophils 13.8 thou/uL (1.40-6.50); %Basophils 0.1 % (0.0-1.0); %Eosinophils 0.6 % (0.0-10.0); %Lymphocytes 8.1 % (21.0-51.0); %Monocytes 11.7 % (0.0-10.0); %Neutrophils 79.5 % (42.0-75.0); Hemoglobin 10.5 g/dL (12.0-16.0); Mean Corpuscular HGB CONC 30.9 g/dL (32.0-36.0); Mean Corpuscular Hemoglobin 25.7 pg (27.0-31.0); Mean Platelet Volume 7.7 fL (7.4-10.4); Platelet Count 243 thou/uL (130-400); RBC Distribution Width 15.7 % (11.5-14.5); Red Blood Cell (RBC) Count 4.11 mill/uL (4.20-5.40); White Blood Cell (WBC) Count 17.4 thou/uL (4.8-10.8)
[2021-05-05 06:12] LABS: Anion Gap 10 mmol/L (10-20); BUN (Urea Nitrogen) 11 mg/dL (9.8-20.1); Calc. Creatinine Clearance 81 mL/min (70-130); Calcium 8.4 mg/dL (7.8-10.44); Carbon Dioxide 29 mmol/L (23-31); Chloride 97 mmol/L (98-107); Glucose 105 mg/dL (80-115); Potassium 3.3 mmol/L (3.5-5.1); Sodium 133 mmol/L (136-145)
[2021-05-05] MEDS: Mometasone 200 MCG/Formoterol 5 MCG 120 PUFF INHALER INH SCH ×2 (07:22→19:17)
[2021-05-05] MEDS: Cilostazol 100 MG TAB PO SCH ×2 (08:03→20:31)
[2021-05-05] MEDS: Cefuroxime Axetil 250 MG TAB PO SCH ×2 (08:03→20:32)
[2021-05-05] MEDS: Pantoprazole 40 MG VIAL IVP SCH ×2 (08:03→20:31)
[2021-05-05] MEDS: Enoxaparin Sodium 40 MG/0.4 ML SYRINGE SC SCH (08:03)
[2021-05-05] MEDS: predniSONE 20 MG TAB PO SCH (08:03)
[2021-05-05] MEDS: Lidocaine 5% Patch TD SCH (17:28)
[2021-05-05] MEDS: Montelukast Sodium 10 mg Tablet PO SCH (20:32)
[2021-05-06] MEDS: D5 1/2 NS w/20 mEq KCL 1,000 ML IV SCH ×2 (02:30→10:31)
[2021-05-06] MEDS: Morphine 4 MG/ML VIAL SLOW IVP PRN (05:16)
[2021-05-06] MEDS: Metoclopramide HCl 10 MG/2 ML VIAL IVP SCH ×2 (05:17→14:03)
[2021-05-06] MEDS: Transdermal Patch Removal TOP SCH (05:17)
[2021-05-06] MEDS: Levothyroxine Sodium 50 MCG TAB PO SCH (05:17)
[2021-05-06 05:27] LABS: #Eosinphils 0.2 thou/uL (0.0-0.7); #Lymphocytes 1.7 thou/uL (1.20-3.40); #Monocytes 1.7 thou/uL (0.11-0.59); %Eosinophils 1.3 % (0.0-10.0); %Lymphocytes 10.2 % (21.0-51.0); %Monocytes 10.3 % (0.0-10.0); %Neutrophils 78.1 % (42.0-75.0); Hemoglobin 10.4 g/dL (12.0-16.0); Mean Corpuscular HGB CONC 29.4 g/dL (32.0-36.0); Mean Corpuscular Hemoglobin 24.8 pg (27.0-31.0); Mean Corpuscular Volume 84.4 fL (78.0-98.0); Mean Platelet Volume 7.8 fL (7.4-10.4); Platelet Count 254 thou/uL (130-400); RBC Distribution Width 15.8 % (11.5-14.5); Red Blood Cell (RBC) Count 4.18 mill/uL (4.20-5.40); White Blood Cell (WBC) Count 16.7 thou/uL (4.8-10.8)
[2021-05-06 05:37] LABS: Anion Gap 12 mmol/L (10-20); BUN (Urea Nitrogen) 8 mg/dL (9.8-20.1); Calc. Creatinine Clearance 85 mL/min (70-130); Calcium 8.3 mg/dL (7.8-10.44); Carbon Dioxide 31 mmol/L (23-31); Chloride 95 mmol/L (98-107); Glucose 108 mg/dL (80-115); Potassium 3.6 mmol/L (3.5-5.1); Sodium 134 mmol/L (136-145)
[2021-05-06] MEDS: Cefuroxime Axetil 250 MG TAB PO SCH (08:04)
[2021-05-06] MEDS: Mometasone 200 MCG/Formoterol 5 MCG 120 PUFF INHALER INH SCH (08:04)
[2021-05-06] MEDS: predniSONE 20 MG TAB PO SCH (08:04)
[2021-05-06] MEDS: Pantoprazole 40 MG VIAL IVP SCH (08:05)
[2021-05-06] MEDS: Enoxaparin Sodium 40 MG/0.4 ML SYRINGE SC SCH (08:05)
[2021-05-06] MEDS: ALPRAZolam 0.25 MG TAB PO PRN ×2 (08:09→14:02)
[2021-05-06] MEDS: Cilostazol 100 MG TAB PO SCH (11:08)
[2021-05-06 11:54] VITALS: TEMP 98.1
[2021-05-06 16:01] VITALS: BP 152/87
[2021-05-06 17:03] LABS: SARS-CoV-2 PCR by NAA Not Detected (NotDetected)
== END 2021-05-06 16:26 | disposition home health service (06) | DRG 189 ==
LOC: ERS 03:47 → ERHOLD 07:26 → T4-B 20:08 → 3SE 05-03 21:43
PROVIDERS: ADMIT Internal Medicine; ATTEND Internal Medicine
PROC: 5A09357 Assistance with Respiratory Ventilation, Less than 24 Consecutive Hours, Continuous Positive Airway Pressure (ICD-10-PCS; principal; 2021-04-29)
DX: J96.21 Acute and chronic respiratory failure with hypoxia (principal); J44.1 Chronic obstructive pulmonary disease with (acute) exacerbation; E44.0 Moderate protein-calorie malnutrition; Z68.1 Body mass index [BMI] 19.9 or less, adult; E87.1 Hypo-osmolality and hyponatremia; M84.48XA Pathological fracture, other site, initial encounter for fracture; J96.22 Acute and chronic respiratory failure with hypercapnia; K73.9 Chronic hepatitis, unspecified; F41.9 Anxiety disorder, unspecified; F32.A Depression, unspecified; E03.9 Hypothyroidism, unspecified; R11.15 Cyclical vomiting syndrome unrelated to migraine; I73.9 Peripheral vascular disease, unspecified; D64.9 Anemia, unspecified; Z20.822 Contact with and (suspected) exposure to COVID-19; Z99.81 Dependence on supplemental oxygen; Z79.51 Long term (current) use of inhaled steroids; Z79.899 Other long term (current) drug therapy; Z90.49 Acquired absence of other specified parts of digestive tract; Z90.89 Acquired absence of other organs; Z98.51 Tubal ligation status; Z93.3 Colostomy status; Z87.891 Personal history of nicotine dependence
CPT/HCPCS: 36415; 36600; 71045; 74022; 76700; 80048; 80053; 82805; 83880; 84484; 85025; 90471; 90662; 93005; 93010; 94640; 94660; C9113; G0008; J0456; J0696; J1650; J2060; J2270; J2405; J2765; J2920; J3480; J3490; J7050; J7512; J7611; J7620; Q0162; U0002; U0003; U0005

== ENCOUNTER 2021-08-02 16:31 | Outpatient (CLI) | payer MEDICARE, MEDICAID | END 2021-08-02 16:32 | disposition home or self-care (01) | LOC: BICRAD 16:31 | PROVIDERS: ATTEND Nurse Practitioner Family | DX: R22.31 Localized swelling, mass and lump, right upper limb (principal) ==

== ENCOUNTER 2021-09-13 01:33 | Inpatient (IN) | payer MEDICARE, MEDICAID ==
[2021-09-13 01:58] LABS: Actual Bicarbonate (HCO3a) 41.5 mEq/L (22-28); Analyzer IN Cardio ER; Base Excess (BEa) 13.5 mEq/L (-2.0 to +3.0); Calcium, Ionized (arterial) 1.13 mmol/L (1.12-1.30); Carboxyhemoglobin (COHb) 0.2 gm% (0.0-3.0); Hemoglobin (Hb) 10.2 g/dL (12.0-16.0); O2 Tension (PaO2), arterial 185.8 mmHg (> 70.0); Potassium - ABG Lab 3.42 mmol/L (3.70-5.30); pH, Arterial 7.36 (7.35-7.45)
[2021-09-13 02:03] LABS: CO2 Tension 76.1 mmHg (35.0-45.0)
[2021-09-13 02:04] LABS: Puncture Site RRA
[2021-09-13 02:05] LABS: ALV-art Gradient 75.575 mmHg (0-20)
[2021-09-13 02:25] LABS: #Eosinphils 0.3 thou/uL (0.0-0.7); #Monocytes 1.1 thou/uL (0.11-0.59); #Neutrophils 4.3 thou/uL (1.40-6.50); %Basophils 0.5 % (0.0-1.0); %Eosinophils 3.7 % (0.0-10.0); %Lymphocytes 26.1 % (21.0-51.0); %Neutrophils 55.8 % (42.0-75.0); Hemoglobin 9.8 g/dL (12.0-16.0); Mean Corpuscular HGB CONC 30.5 g/dL (32.0-36.0); Mean Corpuscular Hemoglobin 26.8 pg (27.0-31.0); Mean Platelet Volume 7.6 fL (7.4-10.4); Platelet Count 193 thou/uL (130-400); RBC Distribution Width 14.2 % (11.5-14.5); Red Blood Cell (RBC) Count 3.65 mill/uL (4.20-5.40); White Blood Cell (WBC) Count 7.8 thou/uL (4.8-10.8)
[2021-09-13 03:02] LABS: ALT (SGPT) 46 U/L (8-55); AST (SGOT) 56 U/L (5-34); Albumin 3.8 g/dL (3.4-4.8); Alkaline Phosphatase 87 U/L (40-110); BUN (Urea Nitrogen) 18 mg/dL (9.8-20.1); Bilirubin, Total 0.3 mg/dL (0.2-1.2); Calc. Creatinine Clearance 0 mL/min (70-130); Calcium 8.9 mg/dL (7.8-10.44); Globulin 2.8 g/dL (2.4-3.5); Glucose 107 mg/dL (80-115); Protein, Total 6.6 g/dL (5.8-8.1)
[2021-09-13 03:10] LABS: SARS-CoV-2 NAA Rapid Test Not Detected (NotDetected)
[2021-09-13 03:13] LABS: Anion Gap 15 mmol/L (10-20); Carbon Dioxide 40 mmol/L (23-31); Chloride 87 mmol/L (98-107); Potassium 3.5 mmol/L (3.5-5.1); Sodium 138 mmol/L (136-145)
[2021-09-13 03:42] LABS: Actual Bicarbonate (HCO3a) 44.7 mEq/L (22-28); Analyzer IN Cardio ER; Base Excess (BEa) 15.6 mEq/L (-2.0 to +3.0); Calcium, Ionized (arterial) 1.11 mmol/L (1.12-1.30); Carboxyhemoglobin (COHb) 0.3 gm% (0.0-3.0); Hemoglobin (Hb) 10.1 g/dL (12.0-16.0); O2 Tension (PaO2), arterial 118.6 mmHg (> 70.0); Potassium - ABG Lab 3.58 mmol/L (3.70-5.30); pH, Arterial 7.32 (7.35-7.45)
[2021-09-13] MEDS ORDERED: Ondansetron PF 4 MG/2 ML Vial IVP PRN (04:05)
[2021-09-13] MEDS ORDERED: Ventilator Sedation Protocol 1 EACH FS SCH (04:15)
[2021-09-13] MEDS ORDERED: Fentanyl 100 MCG/2 ML VIAL ONE ×2 (04:20→05:54)
[2021-09-13] MEDS ORDERED: DISCONTINUE PREVIOUS NARCOTIC PAIN MEDICATIONS AND BENZODIAZEPINES FS SCH (04:30)
[2021-09-13] MEDS ORDERED: fentaNYL Citrate/PF 2,000 MCG in Sodium Chloride 0.9% 60 ML IV SCH (04:30)
[2021-09-13] MEDS ORDERED: Morphine 4 MG/ML VIAL SLOW IVP PRN (04:30)
[2021-09-13] MEDS ORDERED: Fentanyl BOLUS 250 ML IVPB PRN (04:30)
[2021-09-13] MEDS ORDERED: Propofol BOLUS 1,000 MG/100 ML VIAL IV PRN (04:30)
[2021-09-13 05:09] LABS: CO2 Tension 88.2 mmHg (35.0-45.0); Puncture Site RRA
[2021-09-13 05:11] LABS: Actual Bicarbonate (HCO3a) 42.7 mEq/L (22-28); Analyzer IN Cardio ER; Base Excess (BEa) 15.9 mEq/L (-2.0 to +3.0); Calcium, Ionized (arterial) 1.06 mmol/L (1.12-1.30); Carboxyhemoglobin (COHb) 0.3 gm% (0.0-3.0); Hemoglobin (Hb) 9.7 g/dL (12.0-16.0); O2 Tension (PaO2), arterial 70.9 mmHg (> 70.0); Potassium - ABG Lab 3.64 mmol/L (3.70-5.30); pH, Arterial 7.43 (7.35-7.45)
[2021-09-13 05:12] LABS: CO2 Tension 66.2 mmHg (35.0-45.0); Puncture Site RBA
[2021-09-13] MEDS ORDERED: Lorazepam 2 MG/ML VIAL ONE (05:20)
[2021-09-13] MEDS ORDERED: Magnesium 2 GM/50 ML BAG (IN WATER) ONE (05:55)
[2021-09-13] MEDS: methylPREDNISolone Sod Succ 40 MG VIAL IVP SCH ×4 (06:30→23:34)
[2021-09-13] MEDS ORDERED: Doxycycline 100 MG in Syringe 0 ML IVPB SCH (09:00)
[2021-09-13] MEDS: Lactated Ringer's 500 ML IV SCH ×2 (09:45→18:31)
[2021-09-13] MEDS: Enoxaparin Sodium 30 MG/0.3 ML SYRINGE SC SCH (09:45)
[2021-09-13] MEDS: Lorazepam 2 MG/ML VIAL SLOW IVP PRN ×2 (13:43→14:57)
[2021-09-13] MEDS: Polyethylene Glycol 3350 17 GM Packet PER TUBE SCH (18:27)
[2021-09-13] MEDS: Senokot S 8.6-50 MG TAB PO SCH ×2 (18:27→21:05)
[2021-09-14] MEDS: Dexmedetomidine In 0.9 % NaCl 400 MCG in Premix Bag 1 BAG IVPB SCH ×2 (01:33→19:20)
[2021-09-14] MEDS: Propofol 1,000 MG/100 ML VIAL IV PRN ×2 (01:57→19:19)
[2021-09-14 04:37] LABS: #Lymphocytes 0.3 thou/uL (1.20-3.40); #Monocytes 0.2 thou/uL (0.11-0.59); #Neutrophils 4.9 thou/uL (1.40-6.50); %Basophils 0.4 % (0.0-1.0); %Lymphocytes 4.9 % (21.0-51.0); %Monocytes 3.8 % (0.0-10.0); %Neutrophils 90.9 % (42.0-75.0); Hemoglobin 9.6 g/dL (12.0-16.0); Hypochromia SLIGHT = 6-15 cells (100X) (0-5/hpf); MDiff Complete? YES; Mean Corpuscular HGB CONC 29.5 g/dL (32.0-36.0); Mean Corpuscular Hemoglobin 25.7 pg (27.0-31.0); Mean Corpuscular Volume 87.3 fL (78.0-98.0); Mean Platelet Volume 8.1 fL (7.4-10.4); Platelet Count 194 thou/uL (130-400); RBC Distribution Width 14.7 % (11.5-14.5); Red Blood Cell (RBC) Count 3.72 mill/uL (4.20-5.40); White Blood Cell (WBC) Count 5.4 thou/uL (4.8-10.8)
[2021-09-14 04:39] LABS: Anion Gap 11 mmol/L (10-20); BUN (Urea Nitrogen) 17 mg/dL (9.8-20.1); Calc. Creatinine Clearance 76 mL/min (70-130); Calcium 8.6 mg/dL (7.8-10.44); Carbon Dioxide 34 mmol/L (23-31); Chloride 92 mmol/L (98-107); Glucose 135 mg/dL (80-115); Potassium 3.8 mmol/L (3.5-5.1); Sodium 133 mmol/L (136-145)
[2021-09-14] MEDS: methylPREDNISolone Sod Succ 40 MG VIAL IVP SCH ×3 (05:25→18:51)
[2021-09-14] MEDS: Lactated Ringer's 500 ML IV SCH ×2 (05:26→18:50)
[2021-09-14] MEDS: Enoxaparin Sodium 30 MG/0.3 ML SYRINGE SC SCH (08:56)
[2021-09-14] MEDS: Polyethylene Glycol 3350 17 GM Packet PER TUBE SCH (08:56)
[2021-09-14] MEDS: Senokot S 8.6-50 MG TAB PO SCH ×2 (08:56→21:49)
[2021-09-14] MEDS ORDERED: Lansoprazole 3 MG/ML ORAL SUSPENSION PER TUBE SCH (10:00)
[2021-09-14] MEDS: Midazolam In 0.9 % NaCl/PF 100 ML IVPB SCH (10:40)
[2021-09-14] MEDS ORDERED: Propofol 1,000 MG/100 ML VIAL IV ONE (16:28)
[2021-09-14] MEDS: Lorazepam 2 MG/ML VIAL SLOW IVP PRN ×2 (17:12→19:19)
[2021-09-15] MEDS: Propofol 1,000 MG/100 ML VIAL IV PRN ×2 (00:05→20:19)
[2021-09-15] MEDS: methylPREDNISolone Sod Succ 40 MG VIAL IVP SCH ×4 (00:05→17:09)
[2021-09-15] MEDS: Lactated Ringer's 500 ML IV SCH ×3 (00:08→20:12)
[2021-09-15 04:15] LABS: #Lymphocytes 0.7 thou/uL (1.20-3.40); #Monocytes 0.6 thou/uL (0.11-0.59); #Neutrophils 5.6 thou/uL (1.40-6.50); %Lymphocytes 10.4 % (21.0-51.0); %Monocytes 8.4 % (0.0-10.0); %Neutrophils 81.1 % (42.0-75.0); Hemoglobin 9.4 g/dL (12.0-16.0); Mean Corpuscular HGB CONC 30.2 g/dL (32.0-36.0); Mean Corpuscular Hemoglobin 25.4 pg (27.0-31.0); Mean Corpuscular Volume 83.9 fL (78.0-98.0); Mean Platelet Volume 8.3 fL (7.4-10.4); Platelet Count 207 thou/uL (130-400); RBC Distribution Width 15.1 % (11.5-14.5); Red Blood Cell (RBC) Count 3.72 mill/uL (4.20-5.40); White Blood Cell (WBC) Count 6.9 thou/uL (4.8-10.8)
[2021-09-15 04:30] LABS: Anion Gap 12 mmol/L (10-20); BUN (Urea Nitrogen) 16 mg/dL (9.8-20.1); Calc. Creatinine Clearance 87 mL/min (70-130); Calcium 8.6 mg/dL (7.8-10.44); Carbon Dioxide 31 mmol/L (23-31); Chloride 100 mmol/L (98-107); Glucose 113 mg/dL (80-115); Potassium 3.9 mmol/L (3.5-5.1); Sodium 139 mmol/L (136-145)
[2021-09-15 07:11] LABS: Actual Bicarbonate (HCO3a) 31.2 mEq/L (22-28); Base Excess (BEa) 6.8 mEq/L (-2.0 to +3.0); CO2 Tension 43.7 mmHg (35.0-45.0); Calcium, Ionized (arterial) 1.14 mmol/L (1.12-1.30); Carboxyhemoglobin (COHb) 0.3 gm% (0.0-3.0); Hemoglobin (Hb) 10.6 g/dL (12.0-16.0); O2 Tension (PaO2), arterial 76.7 mmHg (> 70.0); pH, Arterial 7.47 (7.35-7.45)
[2021-09-15] MEDS ORDERED: Levothyroxine Sodium 50 MCG TAB PO SCH (08:00)
[2021-09-15] MEDS: Enoxaparin Sodium 30 MG/0.3 ML SYRINGE SC SCH (08:08)
[2021-09-15] MEDS: Lansoprazole 3 MG/ML ORAL SUSPENSION PER TUBE SCH (08:08)
[2021-09-15] MEDS: Polyethylene Glycol 3350 17 GM Packet PER TUBE SCH (08:09)
[2021-09-15] MEDS: Senokot S 8.6-50 MG TAB PO SCH ×2 (08:09→20:10)
[2021-09-15 10:29] LABS: ALV-art Gradient 82.575 mmHg (0-20); Puncture Site RRA
[2021-09-16] MEDS: methylPREDNISolone Sod Succ 40 MG VIAL IVP SCH ×5 (00:57→23:17)
[2021-09-16] MEDS: Dexmedetomidine In 0.9 % NaCl 400 MCG in Premix Bag 1 BAG IVPB SCH (01:03)
[2021-09-16] MEDS: Midazolam In 0.9 % NaCl/PF 100 ML IVPB SCH (03:58)
[2021-09-16] MEDS: Propofol 1,000 MG/100 ML VIAL IV PRN (05:29)
[2021-09-16] MEDS: Levothyroxine Sodium 50 MCG TAB PO SCH (05:29)
[2021-09-16 05:48] LABS: Anion Gap 12 mmol/L (10-20); BUN (Urea Nitrogen) 20 mg/dL (9.8-20.1); Calc. Creatinine Clearance 79 mL/min (70-130); Calcium 8.1 mg/dL (7.8-10.44); Carbon Dioxide 28 mmol/L (23-31); Chloride 103 mmol/L (98-107); Glucose 127 mg/dL (80-115); Potassium 4.6 mmol/L (3.5-5.1); Sodium 138 mmol/L (136-145)
[2021-09-16 06:13] LABS: #Lymphocytes 0.6 thou/uL (1.20-3.40); #Monocytes 0.6 thou/uL (0.11-0.59); #Neutrophils 9.4 thou/uL (1.40-6.50); %Eosinophils 0.1 % (0.0-10.0); %Lymphocytes 5.8 % (21.0-51.0); %Monocytes 5.8 % (0.0-10.0); %Neutrophils 88.3 % (42.0-75.0); Hemoglobin 9.7 g/dL (12.0-16.0); Mean Corpuscular HGB CONC 30.5 g/dL (32.0-36.0); Mean Corpuscular Hemoglobin 25.5 pg (27.0-31.0); Mean Corpuscular Volume 83.8 fL (78.0-98.0); Mean Platelet Volume 8.4 fL (7.4-10.4); Platelet Count 215 thou/uL (130-400); RBC Distribution Width 15.2 % (11.5-14.5); Red Blood Cell (RBC) Count 3.79 mill/uL (4.20-5.40); White Blood Cell (WBC) Count 10.6 thou/uL (4.8-10.8)
[2021-09-16] MEDS: Lactated Ringer's 500 ML IV SCH ×2 (07:25→16:52)
[2021-09-16] MEDS: Enoxaparin Sodium 30 MG/0.3 ML SYRINGE SC SCH (09:45)
[2021-09-16] MEDS: Polyethylene Glycol 3350 17 GM Packet PER TUBE SCH (09:45)
[2021-09-16] MEDS: Lansoprazole 3 MG/ML ORAL SUSPENSION PER TUBE SCH (09:45)
[2021-09-16] MEDS: Senokot S 8.6-50 MG TAB PO SCH ×2 (09:46→20:11)
[2021-09-16] MEDS ORDERED: Lorazepam 2 MG/ML VIAL SLOW IVP SCH (22:00)
[2021-09-17] MEDS: Lactated Ringer's 500 ML IV SCH ×2 (03:13→14:54)
[2021-09-17] MEDS: methylPREDNISolone Sod Succ 40 MG VIAL IVP SCH ×3 (05:49→20:36)
[2021-09-17] MEDS: Levothyroxine Sodium 50 MCG TAB PO SCH (06:01)
[2021-09-17] MEDS ORDERED: ALPRAZolam 0.5 MG TAB PO PRN (07:38)
[2021-09-17] MEDS ORDERED: ALPRAZolam 0.5 MG TAB PO SCH ×2 (09:30→16:15)
[2021-09-17] MEDS: Polyethylene Glycol 3350 17 GM Packet PER TUBE SCH (09:34)
[2021-09-17] MEDS: Enoxaparin Sodium 30 MG/0.3 ML SYRINGE SC SCH (09:34)
[2021-09-17] MEDS: Lansoprazole 3 MG/ML ORAL SUSPENSION PER TUBE SCH (09:35)
[2021-09-17] MEDS: Senokot S 8.6-50 MG TAB PO SCH ×2 (09:35→20:35)
[2021-09-17] MEDS: FLUoxetine HCl 20 MG CAP PO SCH (20:35)
[2021-09-17] MEDS ORDERED: Non-Formulary Item 1 EACH (Fluoxetine Hcl [Fluoxetine Hcl] 40 MG Capsule) PO SCH (21:00)
[2021-09-17] MEDS: ALPRAZolam 0.5 MG TAB PO SCH (22:35)
[2021-09-18] MEDS: Lactated Ringer's 500 ML IV SCH ×2 (01:00→09:00)
[2021-09-18] MEDS: Levothyroxine Sodium 50 MCG TAB PO SCH (05:52)
[2021-09-18] MEDS: ALPRAZolam 0.5 MG TAB PO SCH ×3 (05:52→21:28)
[2021-09-18 06:11] LABS: Hemoglobin 10.2 g/dL (12.0-16.0); Mean Corpuscular Hemoglobin 25.3 pg (27.0-31.0); Mean Corpuscular Volume 84.1 fL (78.0-98.0); Mean Platelet Volume 8.1 fL (7.4-10.4); Platelet Count 257 thou/uL (130-400); RBC Distribution Width 15.3 % (11.5-14.5); Red Blood Cell (RBC) Count 4.03 mill/uL (4.20-5.40); White Blood Cell (WBC) Count 16.2 thou/uL (4.8-10.8)
[2021-09-18 06:36] LABS: ALT (SGPT) 40 U/L (8-55); AST (SGOT) 42 U/L (5-34); Albumin 3.5 g/dL (3.4-4.8); Alkaline Phosphatase 63 U/L (40-110); Anion Gap 10 mmol/L (10-20); BUN (Urea Nitrogen) 18 mg/dL (9.8-20.1); Bilirubin, Total 0.5 mg/dL (0.2-1.2); Calc. Creatinine Clearance 85 mL/min (70-130); Calcium 8.5 mg/dL (7.8-10.44); Carbon Dioxide 29 mmol/L (23-31); Chloride 102 mmol/L (98-107); Globulin 2.9 g/dL (2.4-3.5); Glucose 90 mg/dL (80-115); Magnesium 1.9 mg/dL (1.6-2.6); Potassium 3.9 mmol/L (3.5-5.1); Protein, Total 6.4 g/dL (5.8-8.1); Sodium 137 mmol/L (136-145)
[2021-09-18] MEDS: Enoxaparin Sodium 30 MG/0.3 ML SYRINGE SC SCH (08:16)
[2021-09-18] MEDS: Senokot S 8.6-50 MG TAB PO SCH ×2 (08:16→20:06)
[2021-09-18] MEDS: Polyethylene Glycol 3350 17 GM Packet PER TUBE SCH (08:16)
[2021-09-18] MEDS: methylPREDNISolone Sod Succ 40 MG VIAL IVP SCH (08:17)
[2021-09-18] MEDS: FLUoxetine HCl 20 MG CAP PO SCH (20:07)
[2021-09-18] MEDS: Acetaminophen 325 MG TAB PO PRN (20:07)
[2021-09-18] MEDS: ALPRAZolam 0.5 MG TAB PO PRN (22:30)
[2021-09-18] MEDS ORDERED: traMADol HCl 50 MG TAB PO SCH (22:45)
[2021-09-18] MEDS ORDERED: Melatonin 3 MG TAB PO SCH (22:45)
[2021-09-19] MEDS ORDERED: HYDROcodone/Acetaminophen 5/325 mg Tablet PO SCH (00:14)
[2021-09-19] MEDS: ALPRAZolam 0.5 MG TAB PO SCH ×3 (05:17→21:02)
[2021-09-19] MEDS: Levothyroxine Sodium 50 MCG TAB PO SCH (05:17)
[2021-09-19] MEDS: Enoxaparin Sodium 30 MG/0.3 ML SYRINGE SC SCH (08:14)
[2021-09-19] MEDS: methylPREDNISolone Sod Succ 40 MG VIAL IVP SCH (08:16)
[2021-09-19] MEDS: Polyethylene Glycol 3350 17 GM Packet PER TUBE SCH (08:16)
[2021-09-19] MEDS: Senokot S 8.6-50 MG TAB PO SCH ×2 (08:16→20:35)
[2021-09-19] MEDS: Acetaminophen 325 MG TAB PO PRN ×2 (11:58→20:36)
[2021-09-19 12:30] LABS: SARS-CoV-2 PCR by NAA Not Detected (NotDetected)
[2021-09-19] MEDS: FLUoxetine HCl 20 MG CAP PO SCH (20:35)
[2021-09-20] MEDS: ALPRAZolam 0.5 MG TAB PO SCH ×3 (05:24→20:41)
[2021-09-20] MEDS: Levothyroxine Sodium 50 MCG TAB PO SCH (05:24)
[2021-09-20] MEDS: Acetaminophen 325 MG TAB PO PRN ×2 (05:24→20:46)
[2021-09-20] MEDS: Enoxaparin Sodium 30 MG/0.3 ML SYRINGE SC SCH (08:53)
[2021-09-20] MEDS: methylPREDNISolone Sod Succ 40 MG VIAL IVP SCH (08:53)
[2021-09-20] MEDS: Senokot S 8.6-50 MG TAB PO SCH ×2 (08:53→20:40)
[2021-09-20] MEDS: Polyethylene Glycol 3350 17 GM Packet PER TUBE SCH (08:53)
[2021-09-20] MEDS: ALPRAZolam 0.5 MG TAB PO PRN (10:41)
[2021-09-20] MEDS ORDERED: Furosemide 40 MG/4 ML VIAL SLOW IVP SCH (13:00)
[2021-09-20] MEDS: FLUoxetine HCl 20 MG CAP PO SCH (20:40)
[2021-09-21] MEDS: ALPRAZolam 0.5 MG TAB PO SCH ×2 (05:35→12:22)
[2021-09-21] MEDS: Levothyroxine Sodium 50 MCG TAB PO SCH (05:36)
[2021-09-21] MEDS: Acetaminophen 325 MG TAB PO PRN (05:36)
[2021-09-21 06:12] VITALS: TEMP 98.2
[2021-09-21] MEDS ORDERED: predniSONE 20 MG TAB PO SCH (08:00)
[2021-09-21 08:49] VITALS: BP 141/75
[2021-09-21] MEDS: Senokot S 8.6-50 MG TAB PO SCH (09:06)
[2021-09-21] MEDS: Enoxaparin Sodium 30 MG/0.3 ML SYRINGE SC SCH (09:06)
[2021-09-21] MEDS: Polyethylene Glycol 3350 17 GM Packet PER TUBE SCH (09:06)
[2021-09-21 14:04] VITALS: BMI 17.4
== END 2021-09-21 15:04 | DRG 208 ==
LOC: ERS 01:33 → CCU 04:05 → T4-B 09-17 14:58
PROVIDERS: ADMIT Internal Medicine; ATTEND Internal Medicine
PROC: 5A1945Z Respiratory Ventilation, 24-96 Consecutive Hours (ICD-10-PCS; principal; 2021-09-13)
PROC: 0BH18EZ Insertion of Endotracheal Airway into Trachea, Via Natural or Artificial Opening Endoscopic (ICD-10-PCS; 2021-09-13)
PROC: 5A09357 Assistance with Respiratory Ventilation, Less than 24 Consecutive Hours, Continuous Positive Airway Pressure (ICD-10-PCS; 2021-09-13)
DX: J96.21 Acute and chronic respiratory failure with hypoxia (principal); J44.1 Chronic obstructive pulmonary disease with (acute) exacerbation; I50.32 Chronic diastolic (congestive) heart failure; R64 Cachexia; E44.0 Moderate protein-calorie malnutrition; Z68.1 Body mass index [BMI] 19.9 or less, adult; J96.22 Acute and chronic respiratory failure with hypercapnia; I73.9 Peripheral vascular disease, unspecified; F41.9 Anxiety disorder, unspecified; F32.A Depression, unspecified; E03.9 Hypothyroidism, unspecified; G89.29 Other chronic pain; M54.9 Dorsalgia, unspecified; K73.9 Chronic hepatitis, unspecified; D64.9 Anemia, unspecified; Z20.822 Contact with and (suspected) exposure to COVID-19; T40.411A Poisoning by fentanyl or fentanyl analogs, accidental (unintentional), initial encounter; Z90.49 Acquired absence of other specified parts of digestive tract; Z98.51 Tubal ligation status; Z87.891 Personal history of nicotine dependence; Z79.51 Long term (current) use of inhaled steroids; Z79.899 Other long term (current) drug therapy; Y92.9 Unspecified place or not applicable
CPT/HCPCS: 0240U; 31500; 36415; 36600; 71045; 80048; 80053; 82805; 83735; 83880; 84145; 84443; 84484; 85025; 85379; 93005; 94002; 94003; 94640; 94660; 96365; 96375; 96376; J1650; J1940; J2060; J2270; J2704; J2920; J3010; J3475; J3490; J7120; J7512; J7620; U0003; U0005

== ENCOUNTER 2021-10-24 12:55 | Inpatient (IN) | payer MEDICARE, MEDICAID ==
[2021-10-24 13:51] LABS: Hemoglobin 9.2 g/dL (12.0-16.0); Mean Corpuscular HGB CONC 28.7 g/dL (32.0-36.0); Mean Corpuscular Hemoglobin 24.6 pg (27.0-31.0); Mean Corpuscular Volume 85.8 fL (78.0-98.0); Mean Platelet Volume 6.9 fL (7.4-10.4); Platelet Count 406 thou/uL (130-400); RBC Distribution Width 16.1 % (11.5-14.5); Red Blood Cell (RBC) Count 3.75 mill/uL (4.20-5.40); White Blood Cell (WBC) Count 34.3 thou/uL (4.8-10.8)
[2021-10-24 14:07] LABS: Anisocytosis SLIGHT = 6-15 cells (100X) (0-5/hpf); Band 24 % (5-11); Hypochromia SLIGHT = 6-15 cells (100X) (0-5/hpf); Lymphocytes 5 % (21-51); MDiff Complete? YES; Metamyelocyte 6 % (0-0); Monocytes 1 % (0-10); Neutrophil 64 % (42-75); Platelet Morphology Comment Appears Increased; Polychromasia SLIGHT = 2-3 cells (100X) (0-2/hpf)
[2021-10-24 14:10] LABS: ALT (SGPT) 47 U/L (8-55); AST (SGOT) 49 U/L (5-34); Albumin 3.7 g/dL (3.4-4.8); Alkaline Phosphatase 67 U/L (40-110); Anion Gap 11 mmol/L (10-20); BUN (Urea Nitrogen) 13 mg/dL (9.8-20.1); Bilirubin, Total 0.9 mg/dL (0.2-1.2); Calc. Creatinine Clearance 0 mL/min (70-130); Calcium 9.4 mg/dL (7.8-10.44); Carbon Dioxide 32 mmol/L (23-31); Chloride 90 mmol/L (98-107); Globulin 3.4 g/dL (2.4-3.5); Glucose 104 mg/dL (80-115); Lipase 9 U/L (8-78); Potassium 3.3 mmol/L (3.5-5.1); Protein, Total 7.1 g/dL (5.8-8.1); Sodium 130 mmol/L (136-145)
[2021-10-24 14:13] LABS: Bilirubin Negative (Negative); Blood, Urine Negative (Negative); Clarity Clear (Clear); Glucose, Urine (Dipstick) Normal (Negative); Ketone, Urine Negative (Negative); Leukocyte Negative Leu/uL (Negative); Nitrite Negative (Negative); Protein, Urine (Dipstick) Negative (Neg-Trace); Specific Gravity, Urine 1.012 (1.002-1.036); Urobilinogen Normal mg/dL (Less than 2); pH, Urine 7.5 (5.0-9.0)
[2021-10-24] MEDS ORDERED: Cefepime 2 GM VIAL ONE (14:27)
[2021-10-24] MEDS ORDERED: HYDROcodone/Acetaminophen 5/325 mg Tablet ONE (15:27)
[2021-10-24] MEDS ORDERED: Vancomycin 1 GM in Premix Bag 1 BAG IVPB SCH ×2 (15:45→21:00)
[2021-10-24] MEDS ORDERED: Ondansetron PF 4 MG/2 ML Vial IVP PRN (17:00)
[2021-10-24] MEDS ORDERED: Ondansetron ODT 4 MG TAB SL PRN (17:00)
[2021-10-24] MEDS ORDERED: Acetaminophen 325 MG TAB PO PRN ×2 (17:00→17:33)
[2021-10-24 17:27] LABS: SARS-CoV-2 NAA Rapid Test Not Detected (NotDetected)
[2021-10-24] MEDS ORDERED: Senokot S 8.6-50 MG TAB PO PRN (17:33)
[2021-10-24] MEDS ORDERED: Ibuprofen 800 MG TAB PO PRN (17:33)
[2021-10-24] MEDS ORDERED: Acetaminophen 650 MG Suppository PR PRN (17:33)
[2021-10-24] MEDS ORDERED: Loperamide HCl 2 MG CAP PO PRN ×2 (17:33)
[2021-10-24] MEDS ORDERED: Guaifenesin DM 100-10/5 ML UDCUP PO PRN (17:33)
[2021-10-24] MEDS ORDERED: Non-Formulary Item 1 EACH (Albuterol Sulfate [Ventolin Hfa] 8 GM Hfa.Aer.Ad) INH PRN (17:33)
[2021-10-24] MEDS: traMADol HCl 50 MG TAB PO PRN (18:09)
[2021-10-24] MEDS: Mometasone/Formoterol 200/5 60 PUFF INH SCH (18:49)
[2021-10-24] MEDS: Montelukast Sodium 10 mg Tablet PO SCH (21:08)
[2021-10-24] MEDS: FLUoxetine HCl 20 MG CAP PO SCH (21:08)
[2021-10-24] MEDS: Cilostazol 100 MG TAB PO SCH (21:09)
[2021-10-24] MEDS: Mag-Al 1200 mg/1200 mg/30 ML UDCUP PO PRN (21:55)
[2021-10-24] MEDS: ALPRAZolam 0.5 MG TAB PO PRN (23:24)
[2021-10-25] MEDS: Ondansetron ODT 4 MG TAB PO PRN ×2 (00:29→10:06)
[2021-10-25] MEDS ORDERED: Sodium Chloride 0.9% 500 ML IVPB SCH (01:00)
[2021-10-25 01:06] LABS: Anion Gap 12 mmol/L (10-20); BUN (Urea Nitrogen) 13 mg/dL (9.8-20.1); Calc. Creatinine Clearance 72 mL/min (70-130); Calcium 9.4 mg/dL (7.8-10.44); Carbon Dioxide 31 mmol/L (23-31); Chloride 91 mmol/L (98-107); Glucose 106 mg/dL (80-115); Magnesium 1.6 mg/dL (1.6-2.6); Potassium 3.3 mmol/L (3.5-5.1); Sodium 131 mmol/L (136-145)
[2021-10-25] MEDS ORDERED: Potassium Chloride 20 MEQ TAB PO SCH (02:15)
[2021-10-25] MEDS ORDERED: Sodium Chloride 0.9% 1,000 ML IV SCH (02:15)
[2021-10-25] MEDS ORDERED: Magnesium 2 GM/50 ML 2 GM in Premix Bag 1 BAG IVPB SCH (02:15)
[2021-10-25] MEDS ORDERED: Metoprolol Tartrate 5 MG/5 ML VIAL IVP SCH (02:15)
[2021-10-25] MEDS: Cefepime 2 GM in Sodium Chloride 0.9% 100 ML IVPB SCH ×2 (02:19→16:30)
[2021-10-25 04:02] LABS: Anion Gap 15 mmol/L (10-20); BUN (Urea Nitrogen) 12 mg/dL (9.8-20.1); Calc. Creatinine Clearance 76 mL/min (70-130); Calcium 9.3 mg/dL (7.8-10.44); Carbon Dioxide 27 mmol/L (23-31); Chloride 92 mmol/L (98-107); Glucose 117 mg/dL (80-115); Potassium 3.6 mmol/L (3.5-5.1); Sodium 130 mmol/L (136-145)
[2021-10-25 04:22] LABS: Anisocytosis SLIGHT = 6-15 cells (100X) (0-5/hpf); Band 22 % (5-11); Elliptocytes SLIGHT = 2-5 cells (100X) (0-1/hpf); Hemoglobin 9.7 g/dL (12.0-16.0); Hypochromia MODERATE=16-30 cells (100X) (0-5/hpf); Lymphocytes 7 % (21-51); MDiff Complete? YES; Mean Corpuscular HGB CONC 28.4 g/dL (32.0-36.0); Mean Corpuscular Hemoglobin 24.7 pg (27.0-31.0); Mean Corpuscular Volume 86.9 fL (78.0-98.0); Mean Platelet Volume 7.4 fL (7.4-10.4); Metamyelocyte 2 % (0-0); Monocytes 5 % (0-10); Neutrophil 64 % (42-75); Platelet Count 381 thou/uL (130-400); Platelet Morphology Comment Appears Adequate; Polychromasia SLIGHT = 2-3 cells (100X) (0-2/hpf); RBC Distribution Width 15.9 % (11.5-14.5); Red Blood Cell (RBC) Count 3.91 mill/uL (4.20-5.40); White Blood Cell (WBC) Count 29.4 thou/uL (4.8-10.8)
[2021-10-25] MEDS: Levothyroxine Sodium 50 MCG TAB PO SCH (05:37)
[2021-10-25] MEDS: Vancomycin HCl 750 MG in Sodium Chloride 0.9% 250 ML 250 ML IVPB SCH ×2 (05:37→16:30)
[2021-10-25] MEDS: Ondansetron PF 4 MG/2 ML Vial IVP PRN ×2 (05:46→21:46)
[2021-10-25] MEDS: Mometasone/Formoterol 200/5 60 PUFF INH SCH ×2 (07:41→18:36)
[2021-10-25] MEDS: Cilostazol 100 MG TAB PO SCH ×2 (10:04→21:10)
[2021-10-25] MEDS: Potassium Chloride 20 MEQ TAB PO SCH ×2 (10:05→10:23)
[2021-10-25] MEDS: Triamterene/Hydrochlorothiazide 37.5 mg/25 mg Tablet PO SCH (10:06)
[2021-10-25] MEDS: Enoxaparin Sodium 40 MG/0.4 ML SYRINGE SC SCH (10:07)
[2021-10-25] MEDS: ALPRAZolam 0.5 MG TAB PO PRN (10:10)
[2021-10-25] MEDS ORDERED: Lidocaine 1% (PF) 30 ML VIAL ONE (10:25)
[2021-10-25] MEDS: FLUoxetine HCl 20 MG CAP PO SCH (21:10)
[2021-10-25] MEDS: Montelukast Sodium 10 mg Tablet PO SCH (21:10)
[2021-10-25] MEDS: hydrOXYzine 25 MG TAB PO PRN (23:08)
[2021-10-26] MEDS: ALPRAZolam 0.5 MG TAB PO PRN ×2 (00:26→19:32)
[2021-10-26] MEDS: Ondansetron PF 4 MG/2 ML Vial IVP PRN (02:51)
[2021-10-26] MEDS: Cefepime 2 GM in Sodium Chloride 0.9% 100 ML IVPB SCH (02:51)
[2021-10-26] MEDS: Vancomycin HCl 750 MG in Sodium Chloride 0.9% 250 ML 250 ML IVPB SCH ×2 (05:13→16:27)
[2021-10-26] MEDS: Levothyroxine Sodium 50 MCG TAB PO SCH (05:14)
[2021-10-26] MEDS: Mometasone/Formoterol 200/5 60 PUFF INH SCH ×2 (05:22→19:08)
[2021-10-26] MEDS: Cilostazol 100 MG TAB PO SCH ×2 (11:32→20:32)
[2021-10-26] MEDS: Triamterene/Hydrochlorothiazide 37.5 mg/25 mg Tablet PO SCH (11:33)
[2021-10-26] MEDS: Potassium Chloride 20 MEQ TAB PO SCH (11:33)
[2021-10-26] MEDS: Enoxaparin Sodium 40 MG/0.4 ML SYRINGE SC SCH (11:49)
[2021-10-26] MEDS ORDERED: Piperacillin/Tazobactam 3.375 GM in Sodium Chloride 0.9% 100 ML IVPB SCH (15:30)
[2021-10-26 15:56] LABS: Magnesium 1.6 mg/dL (1.6-2.6)
[2021-10-26 16:07] LABS: Phosphorus 1.7 mg/dL (2.3-4.7)
[2021-10-26] MEDS: Lactated Ringer's 1,000 ML IV SCH (16:28)
[2021-10-26] MEDS ORDERED: Potassium Phosphate 9 MMOL in Sodium Chloride 0.9% 100 ML IVPB SCH (16:30)
[2021-10-26] MEDS: Piperacillin/Tazobactam 3.375 GM in Sodium Chloride 0.9% 100 ML IVPB SCH (19:35)
[2021-10-26 19:40] LABS: Legionella Urinary Ag Negative (Negative); Strep pneumo Urine Ag NEGATIVE (NEGATIVE)
[2021-10-26] MEDS: FLUoxetine HCl 20 MG CAP PO SCH (20:26)
[2021-10-26] MEDS: Montelukast Sodium 10 mg Tablet PO SCH (20:32)
[2021-10-26] MEDS: Enoxaparin Sodium 60 MG/0.6 ML SYRINGE SC SCH (20:32)
[2021-10-26] MEDS: hydrOXYzine 25 MG TAB PO PRN (20:33)
[2021-10-27] MEDS ORDERED: Metoprolol Tartrate 5 MG/5 ML VIAL IVP SCH (01:15)
[2021-10-27 01:50] LABS: Anion Gap 14 mmol/L (10-20); BUN (Urea Nitrogen) 8 mg/dL (9.8-20.1); Calc. Creatinine Clearance 91 mL/min (70-130); Calcium 8.4 mg/dL (7.8-10.44); Carbon Dioxide 30 mmol/L (23-31); Chloride 90 mmol/L (98-107); Glucose 93 mg/dL (80-115); Magnesium 1.5 mg/dL (1.6-2.6); Potassium 3.5 mmol/L (3.5-5.1); Sodium 130 mmol/L (136-145)
[2021-10-27] MEDS ORDERED: Magnesium 2 GM/50 ML 2 GM in Premix Bag 1 BAG IVPB SCH (03:00)
[2021-10-27] MEDS: Piperacillin/Tazobactam 3.375 GM in Sodium Chloride 0.9% 100 ML IVPB SCH (04:04)
[2021-10-27] MEDS: traMADol HCl 50 MG TAB PO PRN ×2 (04:07→20:21)
[2021-10-27] MEDS: Diltiazem 125 MG in Sodium Chloride 0.9% 100 ML IVPB SCH ×2 (04:11→18:49)
[2021-10-27 04:18] LABS: Vancomycin, Trough 4.9 ug/mL
[2021-10-27] MEDS: Levothyroxine Sodium 50 MCG TAB PO SCH (05:24)
[2021-10-27] MEDS: Vancomycin HCl 750 MG in Sodium Chloride 0.9% 250 ML 250 ML IVPB SCH (05:58)
[2021-10-27] MEDS ORDERED: Vancomycin 1 GM in Premix Bag 1 BAG IVPB SCH (06:00)
[2021-10-27] MEDS: Mometasone/Formoterol 200/5 60 PUFF INH SCH ×2 (07:37→19:07)
[2021-10-27] MEDS ORDERED: Polyethylene Glycol 3350 17 GM Packet PO PRN (08:42)
[2021-10-27] MEDS ORDERED: Doxycycline 100 MG in Sodium Chloride 0.9% 100 ML IVPB SCH (09:00)
[2021-10-27] MEDS ORDERED: Electrolyte Replacement Protocol 1 EACH FS SCH (09:00)
[2021-10-27] MEDS ORDERED: Electrolyte Replacement Protocol FS PRN (09:15)
[2021-10-27] MEDS ORDERED: predniSONE 20 MG TAB PO SCH (09:15)
[2021-10-27] MEDS: Mag-Al 1200 mg/1200 mg/30 ML UDCUP PO PRN ×2 (09:36→20:15)
[2021-10-27] MEDS: Cilostazol 100 MG TAB PO SCH ×2 (09:37→20:07)
[2021-10-27] MEDS: Enoxaparin Sodium 60 MG/0.6 ML SYRINGE SC SCH ×2 (09:37→20:10)
[2021-10-27] MEDS: Diltiazem HCl SR 60 mg Capsule PO SCH ×2 (09:37→20:10)
[2021-10-27] MEDS: Ampicillin/Sulbactam 3 GM in Sodium Chloride 0.9% 100 ML IVPB SCH ×3 (09:41→21:11)
[2021-10-27] MEDS ORDERED: Potassium Chloride 20 MEQ TAB PO SCH (10:15)
[2021-10-27 11:34] LABS: Phosphorus 1.7 mg/dL (2.3-4.7)
[2021-10-27] MEDS: Lactated Ringer's 1,000 ML IV SCH (12:46)
[2021-10-27] MEDS: PHOS-NAK 1 PKT PACK PO SCH ×2 (16:22→18:33)
[2021-10-27] MEDS: FLUoxetine HCl 20 MG CAP PO SCH (20:14)
[2021-10-27] MEDS: Montelukast Sodium 10 mg Tablet PO SCH (20:15)
[2021-10-27] MEDS: ALPRAZolam 0.5 MG TAB PO PRN (21:10)
[2021-10-28] MEDS: Ampicillin/Sulbactam 3 GM in Sodium Chloride 0.9% 100 ML IVPB SCH ×4 (03:43→22:15)
[2021-10-28 04:12] LABS: ALT (SGPT) 21 U/L (8-55); AST (SGOT) 22 U/L (5-34); Alkaline Phosphatase 55 U/L (40-110); Anion Gap 11 mmol/L (10-20); BUN (Urea Nitrogen) 5 mg/dL (9.8-20.1); Bilirubin, Total 0.4 mg/dL (0.2-1.2); Calc. Creatinine Clearance 98 mL/min (70-130); Calcium 8.2 mg/dL (7.8-10.44); Carbon Dioxide 32 mmol/L (23-31); Chloride 91 mmol/L (98-107); Globulin 2.8 g/dL (2.4-3.5); Glucose 92 mg/dL (80-115); Magnesium 1.8 mg/dL (1.6-2.6); Potassium 3.3 mmol/L (3.5-5.1); Protein, Total 5.8 g/dL (5.8-8.1); Sodium 131 mmol/L (136-145)
[2021-10-28] MEDS: Levothyroxine Sodium 50 MCG TAB PO SCH (04:37)
[2021-10-28] MEDS: Lactated Ringer's 1,000 ML IV SCH (04:41)
[2021-10-28] MEDS ORDERED: Potassium Chloride 20 MEQ TAB PO SCH ×2 (04:45→05:15)
[2021-10-28] MEDS ORDERED: Magnesium 2 GM/50 ML 2 GM in Premix Bag 1 BAG IVPB SCH (04:45)
[2021-10-28 04:56] LABS: Phosphorus 1.6 mg/dL (2.3-4.7)
[2021-10-28] MEDS: PHOS-NAK 1 PKT PACK PO SCH ×2 (05:18→08:42)
[2021-10-28 05:44] LABS: Hemoglobin 7.8 g/dL (12.0-16.0); Mean Corpuscular HGB CONC 29.6 g/dL (32.0-36.0); Mean Corpuscular Hemoglobin 25.3 pg (27.0-31.0); Mean Corpuscular Volume 85.6 fL (78.0-98.0); Mean Platelet Volume 6.6 fL (7.4-10.4); Platelet Count 422 thou/uL (130-400); RBC Distribution Width 15.8 % (11.5-14.5); Red Blood Cell (RBC) Count 3.07 mill/uL (4.20-5.40); White Blood Cell (WBC) Count 9.4 thou/uL (4.8-10.8)
[2021-10-28 06:53] LABS: Band 6 % (5-11); Lymphocytes 12 % (21-51); MDiff Complete? YES; Monocytes 9 % (0-10); Neutrophil 73 % (42-75)
[2021-10-28] MEDS: Mometasone/Formoterol 200/5 60 PUFF INH SCH ×2 (07:47→19:03)
[2021-10-28] MEDS: Enoxaparin Sodium 60 MG/0.6 ML SYRINGE SC SCH (08:35)
[2021-10-28] MEDS: Diltiazem HCl SR 60 mg Capsule PO SCH ×2 (08:35→20:44)
[2021-10-28] MEDS: Cilostazol 100 MG TAB PO SCH ×2 (08:35→20:44)
[2021-10-28] MEDS: predniSONE 20 MG TAB PO SCH (08:43)
[2021-10-28] MEDS ORDERED: Diltiazem HCl SR 60 mg Capsule PO SCH ×3 (10:30→21:00)
[2021-10-28] MEDS ORDERED: hydrALAZINE 20 MG/ML VIAL SLOW IVP PRN (10:33)
[2021-10-28] MEDS ORDERED: Senokot S 8.6-50 MG TAB PO PRN (10:33)
[2021-10-28] MEDS ORDERED: Labetalol HCl 100 MG/20 ML VIAL SLOW IVP PRN (10:33)
[2021-10-28] MEDS: FLUoxetine HCl 20 MG CAP PO SCH (20:43)
[2021-10-28] MEDS: Apixaban 5 MG TAB PO SCH (20:44)
[2021-10-28] MEDS: Mirtazapine 15 MG TAB PO SCH (20:44)
[2021-10-28] MEDS: Montelukast Sodium 10 mg Tablet PO SCH (20:44)
[2021-10-28] MEDS: traMADol HCl 50 MG TAB PO PRN (20:49)
[2021-10-28] MEDS ORDERED: Diltiazem HCl SR 90 mg Capsule PO SCH (21:00)
[2021-10-28] MEDS: ALPRAZolam 0.5 MG TAB PO PRN (22:21)
[2021-10-29] MEDS: Ampicillin/Sulbactam 3 GM in Sodium Chloride 0.9% 100 ML IVPB SCH ×4 (04:31→22:51)
[2021-10-29] MEDS: traMADol HCl 50 MG TAB PO PRN (04:36)
[2021-10-29 04:53] LABS: Hemoglobin 8.5 g/dL (12.0-16.0); Mean Corpuscular HGB CONC 29.4 g/dL (32.0-36.0); Mean Corpuscular Hemoglobin 25.5 pg (27.0-31.0); Mean Corpuscular Volume 86.6 fL (78.0-98.0); Mean Platelet Volume 6.6 fL (7.4-10.4); Platelet Count 472 thou/uL (130-400); Red Blood Cell (RBC) Count 3.34 mill/uL (4.20-5.40); White Blood Cell (WBC) Count 10.5 thou/uL (4.8-10.8)
[2021-10-29 05:08] LABS: ALT (SGPT) 22 U/L (8-55); AST (SGOT) 21 U/L (5-34); Albumin 3.3 g/dL (3.4-4.8); Alkaline Phosphatase 62 U/L (40-110); Anion Gap 11 mmol/L (10-20); BUN (Urea Nitrogen) 7 mg/dL (9.8-20.1); Bilirubin, Total 0.3 mg/dL (0.2-1.2); Calc. Creatinine Clearance 93 mL/min (70-130); Calcium 8.4 mg/dL (7.8-10.44); Carbon Dioxide 35 mmol/L (23-31); Chloride 96 mmol/L (98-107); Globulin 3.1 g/dL (2.4-3.5); Glucose 91 mg/dL (80-115); Magnesium 1.8 mg/dL (1.6-2.6); Potassium 3.8 mmol/L (3.5-5.1); Protein, Total 6.4 g/dL (5.8-8.1); Sodium 138 mmol/L (136-145)
[2021-10-29 05:31] LABS: Phosphorus 2.1 mg/dL (2.3-4.7)
[2021-10-29 05:42] LABS: Band 5 % (5-11); Eosinophils 1 % (0-10); Hypochromia SLIGHT = 6-15 cells (100X) (0-5/hpf); Lymphocytes 10 % (21-51); MDiff Complete? YES; Monocytes 9 % (0-10); Neutrophil 75 % (42-75); Platelet Morphology Comment Appears Increased
[2021-10-29] MEDS ORDERED: Magnesium 2 GM/50 ML 2 GM in Premix Bag 1 BAG IVPB SCH (05:45)
[2021-10-29] MEDS: Levothyroxine Sodium 50 MCG TAB PO SCH (06:35)
[2021-10-29] MEDS: Mometasone/Formoterol 200/5 60 PUFF INH SCH ×2 (07:05→19:05)
[2021-10-29] MEDS ORDERED: Potassium Phosphate 30 MMOL in Sodium Chloride 0.9% 250 ML 250 ML IVPB SCH (08:30)
[2021-10-29] MEDS: Diltiazem HCl SR 60 mg Capsule PO SCH ×3 (09:27→19:54)
[2021-10-29] MEDS: Apixaban 5 MG TAB PO SCH ×2 (09:28→19:55)
[2021-10-29] MEDS: Cilostazol 100 MG TAB PO SCH ×2 (09:28→19:52)
[2021-10-29] MEDS: predniSONE 20 MG TAB PO SCH (09:28)
[2021-10-29] MEDS: ALPRAZolam 0.5 MG TAB PO PRN (19:52)
[2021-10-29] MEDS: Folic Acid 1 MG TAB PO SCH (19:52)
[2021-10-29] MEDS: Mirtazapine 15 MG TAB PO SCH (19:55)
[2021-10-29] MEDS: FLUoxetine HCl 20 MG CAP PO SCH (19:55)
[2021-10-29] MEDS: Montelukast Sodium 10 mg Tablet PO SCH (19:55)
[2021-10-29] MEDS: Cyanocobalamin (Vitamin B-12) 1,000 MCG TAB PO SCH (19:55)
[2021-10-30] MEDS: traMADol HCl 50 MG TAB PO PRN (03:41)
[2021-10-30] MEDS: Ampicillin/Sulbactam 3 GM in Sodium Chloride 0.9% 100 ML IVPB SCH ×4 (03:42→21:46)
[2021-10-30 05:49] LABS: Band 4 % (5-11); Lymphocytes 14 % (21-51); MDiff Complete? YES; Mean Corpuscular HGB CONC 28.7 g/dL (32.0-36.0); Mean Corpuscular Hemoglobin 25.1 pg (27.0-31.0); Mean Corpuscular Volume 87.5 fL (78.0-98.0); Mean Platelet Volume 6.4 fL (7.4-10.4); Monocytes 10 % (0-10); Neutrophil 72 % (42-75); Platelet Count 542 thou/uL (130-400); RBC Distribution Width 16.1 % (11.5-14.5); White Blood Cell (WBC) Count 13.4 thou/uL (4.8-10.8)
[2021-10-30] MEDS: Levothyroxine Sodium 50 MCG TAB PO SCH (05:58)
[2021-10-30 07:45] LABS: ALT (SGPT) 20 U/L (8-55); AST (SGOT) 19 U/L (5-34); Albumin 3.4 g/dL (3.4-4.8); Alkaline Phosphatase 68 U/L (40-110); Anion Gap 12 mmol/L (10-20); BUN (Urea Nitrogen) 7 mg/dL (9.8-20.1); Bilirubin, Total 0.2 mg/dL (0.2-1.2); Calc. Creatinine Clearance 95 mL/min (70-130); Carbon Dioxide 36 mmol/L (23-31); Chloride 95 mmol/L (98-107); Globulin 3.1 g/dL (2.4-3.5); Glucose 104 mg/dL (80-115); Potassium 4.2 mmol/L (3.5-5.1); Protein, Total 6.5 g/dL (5.8-8.1); Sodium 139 mmol/L (136-145)
[2021-10-30] MEDS: Mometasone/Formoterol 200/5 60 PUFF INH SCH ×2 (07:49→19:11)
[2021-10-30] MEDS: Cilostazol 100 MG TAB PO SCH ×2 (08:57→21:41)
[2021-10-30] MEDS: Apixaban 5 MG TAB PO SCH ×2 (08:57→21:41)
[2021-10-30] MEDS: predniSONE 20 MG TAB PO SCH (08:57)
[2021-10-30] MEDS: Diltiazem HCl SR 60 mg Capsule PO SCH ×3 (08:57→21:42)
[2021-10-30 09:33] LABS: Phosphorus 2.8 mg/dL (2.3-4.7)
[2021-10-30 10:16] VITALS: BMI 21.0
[2021-10-30] MEDS: ALPRAZolam 0.5 MG TAB PO PRN ×2 (15:11→21:46)
[2021-10-30] MEDS: Ondansetron ODT 4 MG TAB PO PRN (19:56)
[2021-10-30] MEDS: Folic Acid 1 MG TAB PO SCH (21:42)
[2021-10-30] MEDS: Mirtazapine 15 MG TAB PO SCH (21:42)
[2021-10-30] MEDS: Montelukast Sodium 10 mg Tablet PO SCH (21:42)
[2021-10-30] MEDS: FLUoxetine HCl 20 MG CAP PO SCH (21:43)
[2021-10-30] MEDS: Cyanocobalamin (Vitamin B-12) 1,000 MCG TAB PO SCH (21:43)
[2021-10-31 04:07] LABS: #Lymphocytes 1.5 thou/uL (1.20-3.40); #Monocytes 1.6 thou/uL (0.11-0.59); #Neutrophils 9.1 thou/uL (1.40-6.50); %Basophils 0.2 % (0.0-1.0); %Eosinophils 0.2 % (0.0-10.0); %Lymphocytes 12.3 % (21.0-51.0); %Monocytes 13.1 % (0.0-10.0); %Neutrophils 74.2 % (42.0-75.0); Hemoglobin 8.6 g/dL (12.0-16.0); Mean Corpuscular HGB CONC 28.9 g/dL (32.0-36.0); Mean Corpuscular Hemoglobin 25.1 pg (27.0-31.0); Mean Corpuscular Volume 86.9 fL (78.0-98.0); Mean Platelet Volume 6.2 fL (7.4-10.4); Platelet Count 528 thou/uL (130-400); RBC Distribution Width 16.2 % (11.5-14.5); Red Blood Cell (RBC) Count 3.43 mill/uL (4.20-5.40); White Blood Cell (WBC) Count 12.2 thou/uL (4.8-10.8)
[2021-10-31 04:17] LABS: Albumin 3.1 g/dL (3.4-4.8); Anion Gap 12 mmol/L (10-20); BUN (Urea Nitrogen) 10 mg/dL (9.8-20.1); BUN/Creatinine Ratio 20.83; Calc. Creatinine Clearance 105 mL/min (70-130); Calcium 8.5 mg/dL (7.8-10.44); Carbon Dioxide 36 mmol/L (23-31); Chloride 95 mmol/L (98-107); Glucose 102 mg/dL (80-115); Magnesium 1.6 mg/dL (1.6-2.6); Phosphorus 3.1 mg/dL (2.3-4.7); Sodium 139 mmol/L (136-145)
[2021-10-31] MEDS: Ampicillin/Sulbactam 3 GM in Sodium Chloride 0.9% 100 ML IVPB SCH ×2 (04:49→09:37)
[2021-10-31] MEDS ORDERED: Magnesium 2 GM/50 ML 2 GM in Premix Bag 1 BAG IVPB SCH (05:45)
[2021-10-31] MEDS: Levothyroxine Sodium 50 MCG TAB PO SCH (05:54)
[2021-10-31] MEDS: Mometasone/Formoterol 200/5 60 PUFF INH SCH (07:50)
[2021-10-31] MEDS: Cilostazol 100 MG TAB PO SCH (09:36)
[2021-10-31] MEDS: Diltiazem HCl SR 60 mg Capsule PO SCH ×2 (09:36→11:50)
[2021-10-31] MEDS: predniSONE 20 MG TAB PO SCH (09:36)
[2021-10-31] MEDS: Apixaban 5 MG TAB PO SCH (09:37)
[2021-10-31] MEDS: ALPRAZolam 0.5 MG TAB PO PRN (11:50)
[2021-10-31 12:09] VITALS: BP 121/57; TEMP 98.2
[2021-10-31 14:43] LABS: SARS-CoV-2 PCR by NAA Not Detected (NotDetected)
== END 2021-10-31 13:40 | disposition home or self-care (01) | DRG 871 ==
LOC: ERS 12:55 → ERHOLD 15:45 → IMCU/EMU 16:46 → 2NO 10-28 12:22
PROVIDERS: ADMIT Emergency Medicine; ATTEND Internal Medicine
DX: A41.9 Sepsis, unspecified organism (principal); Z20.822 Contact with and (suspected) exposure to COVID-19; J96.21 Acute and chronic respiratory failure with hypoxia; J69.0 Pneumonitis due to inhalation of food and vomit; E43 Unspecified severe protein-calorie malnutrition; J18.9 Pneumonia, unspecified organism; I50.32 Chronic diastolic (congestive) heart failure; E87.1 Hypo-osmolality and hyponatremia; R64 Cachexia; J44.1 Chronic obstructive pulmonary disease with (acute) exacerbation; J44.0 Chronic obstructive pulmonary disease with (acute) lower respiratory infection; R65.20 Severe sepsis without septic shock; I48.91 Unspecified atrial fibrillation; M25.411 Effusion, right shoulder; R13.10 Dysphagia, unspecified; E87.6 Hypokalemia; E83.39 Other disorders of phosphorus metabolism; E83.42 Hypomagnesemia; I11.0 Hypertensive heart disease with heart failure; F41.9 Anxiety disorder, unspecified; E03.9 Hypothyroidism, unspecified; B18.2 Chronic viral hepatitis C; G89.29 Other chronic pain; M54.9 Dorsalgia, unspecified; F32.A Depression, unspecified; F12.10 Cannabis abuse, uncomplicated; I73.9 Peripheral vascular disease, unspecified; F14.10 Cocaine abuse, uncomplicated; F15.10 Other stimulant abuse, uncomplicated; M75.51 Bursitis of right shoulder; D53.9 Nutritional anemia, unspecified; I08.3 Combined rheumatic disorders of mitral, aortic and tricuspid valves; I27.23 Pulmonary hypertension due to lung diseases and hypoxia; Z99.81 Dependence on supplemental oxygen; Z68.20 Body mass index [BMI] 20.0-20.9, adult; Z93.3 Colostomy status; Z79.899 Other long term (current) drug therapy; Z79.890 Hormone replacement therapy; Z98.890 Other specified postprocedural states; Z90.49 Acquired absence of other specified parts of digestive tract; Z90.89 Acquired absence of other organs; Z98.51 Tubal ligation status; Z87.891 Personal history of nicotine dependence; Z74.01 Bed confinement status
CPT/HCPCS: 36415; 51701; 71275; 74177; 74230; 80048; 80053; 80069; 80202; 81003; 83605; 83690; 83735; 84100; 84145; 84443; 85025; 87040; 87070; 87081; 87086; 87205; 87449; 87899; 93005; 93010; 93306; 94640; 96365; 96367; J0295; J0692; J1650; J2001; J2405; J2543; J3370; J3475; J3490; J7030; J7050; J7120; J7512; J7620; Q0162; Q9967; U0002; U0003; U0005